=== PATIENT | male | born 1935 | race Asian ===

== ENCOUNTER 2016-12-01 11:07 | Emergency (ER) | payer OTHER, MEDICARE ==
--- NOTE | 2016-12-01 11:09 | PDOC ---
History of Present Illness - General Chief Complaint: Injury Stated Complaint: LOWER BACK PAIN S/P FALL Time Seen by Provider: 12/01/16 11:08 History Source: Patient, Spouse Exam Limitations: No Limitations - History of Present Illness Initial Comments: 12/01/16 11:34 Patient is an 81 year old male with PMH of Parkinsons disease, Hypothyroidism, BPH, Cervical spine fx & hypertension who presents to ED s/p mechanical fall. He reports being late with his Parkinson's medications and and had gait disturbance in the afternoon. He started to fall and reached out and grabbed a lamp in his room and grabbed onto it to break his fall. He ended up landing on his bottom. He did not hit his head. Denies any chest pain, headache, lightheadedness, palpitations, dizziness, SOB or loss of consciousness before or after the fall. Past History - Travel Traveled outside of the country in the last 30 days: No Close contact w/someone who was outside of country & ill: No - Past Medical History Allergies/Adverse Reactions: Allergies Allergy/AdvReac Type Severity Reaction Status Date / Time hazelnut Allergy Severe Difficulty Verified 12/01/16 11:09 Breathing Hazelnut Allergy Severe Throat Uncoded 07/05/16 13:25 swelling POLLEN Allergy Mild NASAL Uncoded 07/05/16 13:25 CONGESTION Home Medications: Ambulatory Orders Pramipexole Di-HCl [Pramipexole Dihydrochloride] 0.25 mg PO Q6H 03/10/15 Tamsulosin HCl [Flomax -] 0.4 mg PO HS 03/10/15 Carbidopa/Levodopa [Carbidopa-Levo 25-250 Mg Odt] 1 each PO QID tablet Sennosides [Senna] 8.6 mg PO DAILY tablet 11/13/16 Multivitamin [Poly-Vitamin] 1 each PO DAILY 12/01/16 [place]-3 Fatty Acids [[place]-3] 1,000 mg PO ASDIR 12/01/16 Anemia: No ( TEEN) Asthma: No Cancer: No Cardiac Disorders: No CVA: No COPD: No CHF: No Dementia: No Diabetes: No GI Disorders: Yes (GERD) Disorders: Yes (BPH) HTN: Yes Hypercholesterolemia: No Liver Disease: No Seizures: No Thyroid Disease: Yes (HYPO) Comment:: 12/01/16 11:38 Parkinsons - Surgical History Abdominal Surgery: No Appendectomy: Yes (2010 OR 2011) Cardiac Surgery: No Cholecystectomy: No Lung Surgery: No Neurologic Surgery: No Orthopedic Surgery: No - Immunization History Immunization Up to Date: Yes - Psycho/Social/Smoking Cessation Hx Anxiety: No Suicidal Ideation: No Smoking History: Never smoked Have you smoked in the past 12 months: No Hx Alcohol Use: No Drug/Substance Use Hx: No Substance Use Type: None Hx Substance Use Treatment: No Review of Systems - Review of Systems Able to Perform ROS?: Yes Is the patient limited Tamazight proficient: No Musculoskeletal: Yes: Back Pain All Other Systems: Reviewed and Negative *Physical Exam - Physical Exam General Appearance: Yes: Nourished, Appropriately Dressed, Mild Distress HEENT: positive: EOMI, MANGO, Normal ENT Inspection, Pharynx Normal Neck: positive: Trachea midline, Normal Thyroid, Supple Respiratory/Chest: positive: Lungs Clear, Normal Breath Sounds Cardiovascular: positive: Regular Rhythm, Regular Rate, S1, S2 Gastrointestinal/Abdominal: positive: Normal Bowel Sounds, Flat, Soft Musculoskeletal: positive: Normal Inspection Extremity: positive: Normal Inspection, Normal Range of Motion, Tender (tender to active & passive hip flexion and bilateral ischial portions of pelvis) Integumentary: positive: Normal Color, Dry, Warm Neurologic: 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 Medical Decision Making - Medical Decision Making 12/01/16 11:41 Ordered Tylenol 650mg for pain management. Hip & Pelvis XRays ordered to assess for fractures. 12/01/16 12:57 Hip Xray (-) for acute pathology. Patient instructed to take Tylenol extra strength every 6hours, if needed, for pain management. Patient will f/u with PCP in [place] if pain persists or worsens. *DC/Admit/Observation/Transfer Diagnosis at time of Disposition: Blunt trauma of hip - Discharge Dispostion Disposition: HOME Condition at time of disposition: Improved Admit: No - Patient Instructions Additional Instructions: Take extra strength Tylenol for pain, every 6 hours if needed. Visit your regular doctor a checkup if pain worsens or persists.
[2016-12-01 11:14] VITALS: BP 144/72; PULSE 80; TEMP 97.2; BMI 19.8
--- NOTE | 2016-12-01 11:15 | PDOC ---
Attending Attestation - Resident Resident Name: Alvaro,Beck - ED Attending Attestation I have performed the following: I have examined & evaluated the patient, The case was reviewed & discussed with the resident, I agree w/resident's findings & plan, Exceptions are as noted - HPI HPI: 12/01/16 11:14 The patient is an 81-year-old male with a significant past medical history of Parkinson's disease, who presents to the emergency department status mechanical post fall. He is complaining of bilateral hip pain, which is a mild dull ache. He denies head trauma, neck trauma. He denies headache, visual change, nausea/vomiting, focal weakness or paresthesias, memory changes. He denies chest, abdominal pain. 12/01/16 11:28 - Physicial Exam PE: 12/01/16 11:14 Vitals noted He is well-appearing and in no acute distress He has full range of motion at the hips and knees, without pain He does not have any discreet bony tenderness of the lumbar bony prominences, hips and pelvis Will obtain hip and pelvis x-rays 12/01/16 11:28 12/01/16 11:31 12/01/16 12:23 X-ray emergency Department interpretation: No acute traumatic injury noted Clinical impression: Hip contusion I discussed the physical exam findings, ancillary test results and final diagnoses with the patient. I answered all of the patient's questions. The patient was satisfied with the care received and felt comfortable with the discharge plan and treatment plan. The patient will call their primary care physician within 24 hours to arrange follow-up and will return to the Emergency Department with any new, persistent or worsening symptoms. - Medical Decision Making 12/01/16 11:31 The patient is well appearing and in no acute distress He declines analgesic medications Will obtain hip and pelvis Xray
[2016-12-01] MEDS ORDERED: ACETAMINOPHEN 325 MG TABLET (FP) PO ONE (11:33)
== END 2016-12-01 13:10 | disposition home or self-care (01) ==
LOC: FER 11:07
DX: S70.02XA Contusion of left hip, initial encounter (principal); S70.01XA Contusion of right hip, initial encounter; R26.89 Other abnormalities of gait and mobility; G20 Parkinson's disease; I10 Essential (primary) hypertension; E03.9 Hypothyroidism, unspecified; N40.0 Benign prostatic hyperplasia without lower urinary tract symptoms; W18.39XA Other fall on same level, initial encounter; Y93.89 Activity, other specified; Y92.018 Other place in single-family (private) house as the place of occurrence of the external cause
CPT/HCPCS: 73502-TC-LT; 73502-TC-RT; 99282-25

== ENCOUNTER 2019-02-06 23:00 | Inpatient (IN) | payer OTHER, MEDICARE ==
--- NOTE | 2019-02-06 23:05 | PDOC ---
History of Present Illness - General History Source: Patient, Significant Other Exam Limitations: Other - History of Present Illness Initial Comments: 02/06/19 23:37 The patient is a 82 year old male, with a significant past medical history of HTN, hypothyroidism, GERD, BPH, Parkinson's disease (ambulates with walker on baseline), Paroxysmal Atrial Fibrillation, and Right Bundle Branch Block, who presents to the emergency department, via EMS with abdominal pain since 7pm. As per , the diffuse abdominal pain began shortly after dinner. The patient states his last normal bowel movement was today, however, he endorses some gas intermittently in between his bowel movements. The patient denies burning on urination. The patient denies any sick contact or recent illness. The patient denies chest pain, shortness of breath, headache or dizziness. The patient denies fever, chills, nausea, vomit, frequency, urgency or hematuria. Allergies: NKDA Past Surgical History: Appendectomy Social History: Non smoker. No ETOH or recreational drug use. PCP: Dr. Rouse <Jhon Soto - Last Filed: 02/06/19 23:40> <Kassy Cantrell - Last Filed: 02/07/19 06:32> - General Chief Complaint: Pain, Acute Stated Complaint: ABD PAIN Time Seen by Provider: 02/06/19 23:05 Past History <Jhon Soto - Last Filed: 02/06/19 23:40> - Past Medical History Anemia: No ( TEEN) Asthma: No Cancer: No Cardiac Disorders: No CVA: No COPD: No CHF: No Dementia: No Diabetes: No GI Disorders: Yes (GERD) Disorders: Yes (BPH) HTN: Yes Hypercholesterolemia: No Liver Disease: No Seizures: No Thyroid Disease: Yes (HYPO) - Surgical History Abdominal Surgery: No Appendectomy: Yes (2010 OR 2011) Cardiac Surgery: No Cholecystectomy: No Lung Surgery: No Neurologic Surgery: No Orthopedic Surgery: No - Immunization History Immunization Up to Date: Yes - Suicide/Smoking/Psychosocial Hx Smoking History: Never smoked Have you smoked in the past 12 months: No Hx Alcohol Use: No Drug/Substance Use Hx: No Substance Use Type: None Hx Substance Use Treatment: No <Kassy Cantrell - Last Filed: 02/07/19 06:32> - Past Medical History Allergies/Adverse Reactions: Allergies Allergy/AdvReac Type Severity Reaction Status Date / Time hazelnut Allergy Severe Difficulty Verified 12/01/16 11:09 Breathing Hazelnut Allergy Severe Throat Uncoded 07/05/16 13:25 swelling POLLEN Allergy Mild NASAL Uncoded 07/05/16 13:25 CONGESTION Home Medications: Ambulatory Orders Ca Cmb No.1/Vit D3/B-6/FA/B12 [Vitamin D3 1,000 Unit Tablet] 1 each PO AM tablet 04/23/13 Carbidopa/Levodopa [Carbidopa-Levo 25-250 Mg Odt] 1 each PO QID tablet Sennosides [Senna] 8.6 mg PO TID tablet 11/13/16 Multivitamin [Poly-Vitamin] 1 each PO DAILY 12/01/16 [place]-3 Fatty Acids [[place]-3] 1,000 mg PO ASDIR 12/01/16 Docusate Sodium [Stool Softener] 100 mg PO DAILY capsule 03/28/17 Metoprolol Tartrate [Lopressor -] 12.5 mg PO BID 02/01/18 Pramipexole Dihydrochloride [Mirapex -] 0.25 mg PO QID 02/01/18 Review of Systems - Review of Systems Able to Perform ROS?: Yes Comments:: 02/06/19 23:38 GENERAL/CONSTITUTIONAL: No fever or chills. No weakness. HEAD, EYES, EARS, NOSE AND THROAT: No change in vision. No ear pain or discharge. No sore throat. CARDIOVASCULAR: No chest pain or shortness of breath. RESPIRATORY: No cough, wheezing, or hemoptysis. GASTROINTESTINAL: No nausea, vomiting, diarrhea or constipation. GENITOURINARY: No dysuria, frequency, or change in urination. MUSCULOSKELETAL:(+) abdominal pain. No joint or muscle swelling or pain. No neck or back pain. SKIN: No rash NEUROLOGIC: No headache, vertigo, loss of consciousness, or change in strength/ sensation. ENDOCRINE: No increased thirst. No abnormal weight change. HEMATOLOGIC/LYMPHATIC: No anemia, easy bleeding, or history of blood clots. ALLERGIC/IMMUNOLOGIC: No hives or skin allergy. All Other Systems: Reviewed and Negative <Jhon Soto - Last Filed: 02/06/19 23:40> *Physical Exam - Vital Signs Last Vital Signs Temp Pulse Resp BP Pulse Ox 97.7 F 82 24 H 201/108 H 96 02/06/19 23:14 02/06/19 23:14 02/06/19 23:14 02/06/19 23:14 02/06/19 23:14 - Physical Exam Comments: 02/06/19 23:38 GENERAL: Awake, alert, and fully oriented, in no acute distress HEAD: No signs of trauma EYES: PERRLA, EOMI, sclera anicteric, conjunctiva clear ENT: Auricles normal inspection, hearing grossly normal, nares patent, oropharynx clear without exudates. Moist mucosa NECK: Normal ROM, supple, no lymphadenopathy, JVD, or masses LUNGS: Breath sounds equal, clear to auscultation bilaterally. No wheezes, and no crackles HEART:(+) 3/6 systolic murmur on L sternal border. Regular rate and rhythm, normal S1 and S2, no rubs or gallops ABDOMEN: (+) normal active bowl sounds, moderately distended, soft. (+) passive mild diffuse tenderness without guarding or rebound. No masses (+) well healed diagonal incision of RLQ. EXTREMITIES: Normal range of motion, no edema. No clubbing or cyanosis. No cords, erythema, or tenderness NEUROLOGICAL: Cranial nerves II through XII grossly intact. Normal speech, normal gait SKIN: Warm, Dry, normal turgor, no rashes or lesions noted. <Jhon Soto - Last Filed: 02/06/19 23:40> ED Treatment Course - LABORATORY CBC & Chemistry Diagram: 02/06/19 23:10 02/06/19 23:10 - ADDITIONAL ORDERS Additional order review: 02/06/19 23:10 RBC 4.64 MCV 99.2 H MCHC 32.5 RDW 13.8 MPV 8.4 Neutrophils % 87.1 H Lymphocytes % 6.7 L D Monocytes % 4.6 Eosinophils % 1.0 Basophils % 0.6 <Jhon Soto - Last Filed: 02/06/19 23:40> - LABORATORY CBC & Chemistry Diagram: 02/06/19 23:10 02/06/19 23:10 <Kassy Cantrell - Last Filed: 02/07/19 06:32> Progress Note - Progress Note Progress Note: Documentation has been prepared under my direction and personally reviewed by me in its entirety. I attest that this documented accurately reflects all work, treatment, procedures and medical decision making performed by me. 12-lead electrocardiogram is performed and interpreted by me: Normal sinus rhythm at 85 bpm; right bundle-branch block is present as well as possible left atrial enlargement. No acute ST or T wave abnormality seen. No evidence of acute cardiac arrhythmia. No change from previous 12-lead EKG tracing dated 04/07/16 <Kassy Cantrell - Last Filed: 02/07/19 06:32> Medical Decision Making - Medical Decision Making 02/07/19 01:17 As noted above, this 83-year-old man with a history of Parkinson's, HTN,s/p appendectomy(2010) presents with several hour history of diffuse abdominal pain. Pain began soon after dinner(about 4 hours prior to presentation); there is no nausea/vomiting/fever. Patient had normal bowel movement today. Exam as noted. Vital signs notable for blood pressure on presentation of 201/108 with heart rate 82/min. Patient has been taking all medications, including antihypertensive meds( metoprolol) as prescribed. Laboratory evaluation reveals normal CBC with white blood cell count of 9300. BUN is 34 with a creatinine 0.9; otherwise, chemistry profile is unremarkable. Troponin is less than 0.03 Patient given acetaminophen 1 g IV for analgesia CT abdomen/pelvis with IV contrast is performed and preliminary interpretation by Imaging consumer marketing analyst: Apparent small bowel obstruction with distended small bowel loops and air-fluid levels; focal transition noted in the right lower quadrant with possibility of closed loop of small intestine (discussed with radiologist by phone) Otherwise, no significant abnormality seen. 02/07/19 01:23 Repeat BP 192/105 Labetalol 10 mg IV given 02/07/19 01:44 BP 170/81, HR 73 Dr. Johnson of [facility] called 02/07/19 02:04 [facility] recalled 02/07/19 03:20 Case discussed with , and then with Dr. Johnson Lactic acid/INR/ urinalysis sent; IV hydration (normal saline) continues 04:25 Lactic acid normal at 1. INR is also normal. Urinalysis SG 1.022, otherwise unremarkable 18F NG tube placed at 63cm ; pCXR reveals end of tube looped back into distal esophagus 02/07/19 04:46 NG tube repositioned and repeat pCXR shows NG tube in good position.CXR otherwise NAD Clear, pink fluid draining from NG tube(125 ml thus far). patient has voided within the last half hour [facility] service has been contacted and awaiting Dr Johnson' response regarding whether pt will stay at [place] or be transferred to [facility] 02/07/19 05:05 [facility] hospitalist service contacted regarding admission 02/07/19 05:28 Case discussed with MIHAI Garcia of [facility] hospitalist service. Still awaiting Dr. Johnson' response from earlier requests to the answering service 02/07/19 05:39 [facility] service re-contacted. They attempted to reach Dr. Johnson by phone but received no answer They will repage Dr. Johnson 02/07/19 05:50 After patient had good response from labetalol 10 mg IV at 1:15 AM, most recent BP is 197/105. Additional labetalol 10 mg IV administered 02/07/19 06:04 Patient transported upstairs 02/07/19 06:[address] Johnson: Patient ok to stay here at [facility] <Kassy Cantrell - Last Filed: 02/07/19 06:32> *DC/Admit/Observation/Transfer - Attestations Scribe Attestion: 02/06/19 23:39 Documentation prepared by Jhon Soto, acting as lead medical technologist for Kassy Cantrell MD <Jhon Soto - Last Filed: 02/06/19 23:40> - Discharge Dispostion Decision to Admit order: Yes <Kassy Cantrell - Last Filed: 02/07/19 06:32> Diagnosis at time of Disposition: Small bowel obstruction - Discharge Dispostion Condition at time of disposition: Stable
[2019-02-06 23:27] LABS: BASO % 0.6 % (0-2.0); HEMATOCRIT 46.1 % (35.4-49); LYMPH % 6.7 % (8-40); MCH 32.3 pg (25.7-33.7); MCHC 32.5 g/dl (32.0-35.9); MEAN CELL VOLUME 99.2 fl (80-96); MEAN PLT VOLUME 8.4 fl (7.5-11.1); MONO % 4.6 % (3.8-10.2); NEUT % 87.1 % (42.8-82.8); PLATELET COUNT 254 K/MM3 (134-434); RBC 4.64 M/mm3 (4.00-5.60); RDW 13.8 % (11.9-15.9); WHITE BLOOD COUNT 9.3 K/mm3 (4.0-10.8)
[2019-02-06 23:36] LABS: ALBUMIN 4.3 g/dl (3.4-5.0); ALK PHOS 66 U/L (45-117); ANION GAP 10 MMOL/L (8-16); BILIRUBIN,TOTAL 0.7 mg/dl (0.2-1); BLOOD UREA NITROGEN 34 mg/dl (7-18); CALCIUM 9.5 mg/dl (8.5-10); CHLORIDE 100 mmol/L (98-107); CO2 30 mmol/L (21-32); CREATININE 0.9 mg/dl (0.55-1.3); GLUCOSE,RANDOM 167 mg/dl (74-106); POTASSIUM 4.3 mmol/L (3.5-5.1); SGOT/AST 15 U/L (15-37); SODIUM 140 mmol/L (136-145); TOT PROT 6.8 g/dl (6.4-8.2)
[2019-02-06 23:38] LABS: SGPT/ALT < 5 U/L (13-61)
[2019-02-06] MEDS ORDERED: ACETAMINOPHEN 1000 MG/100 ML VIAL (NON FORMULARY) IVPB ONE (23:44)
[2019-02-06] MEDS ORDERED: ACETAMINOPHEN INJECTION 100 ML IVPB ONE (23:45)
[2019-02-07] MEDS ORDERED: LABETALOL HCL 5 MG/1 ML (100MG/20 ML VIAL) IVPUSH ONE ×3 (01:16→14:44)
[2019-02-07] MEDS ORDERED: LABETALOL HCL 5 MG/1 ML (100MG/20 ML VIAL) ONE ×2 (01:17→14:45)
[2019-02-07] MEDS ORDERED: SODIUM CHLORIDE 500 ML IV STA ×2 (02:39→23:40)
[2019-02-07] MEDS ORDERED: SODIUM CHLORIDE 1,000 ML IV SCH (03:15)
[2019-02-07] MEDS ORDERED: LIDOCAINE HCL 2% JELLY (5 ML/TUBE) ONE (03:17)
--- NOTE | 2019-02-07 03:27 | CONSULT ---
Consult Consult Specialty:: General Surgery Reason for Consultation:: SBO - History of Present Illness Chief Complaint: abdominal pain History of Present Illness: 83yo PMH HTN, hypothyroidism, GERD, BPH, Parkinson's disease (ambulates with walker on baseline), Paroxysmal Atrial Fibrillation, and Right Bundle Branch Block presented to the ED with c/o abd pain. Abdominal pain was acute in onset focal to RLQ, without migration. he denied passing flatus an pt seen at bedside , NG tube attached to low intermittent suction, minimal drainage. - History Source History Provided By: Patient, Medical Record Limitations to Obtaining History: No Limitations - Alcohol/Substance Use Hx Alcohol Use: No - Smoking History Smoking history: Never smoked Have you smoked in the past 12 months: No Home Medications - Allergies Allergies/Adverse Reactions: Allergies Allergy/AdvReac Type Severity Reaction Status Date / Time hazelnut Allergy Severe Difficulty Verified 12/01/16 11:09 Breathing Hazelnut Allergy Severe Throat Uncoded 07/05/16 13:25 swelling POLLEN Allergy Mild NASAL Uncoded 07/05/16 13:25 CONGESTION - Home Medications Home Medications: Ambulatory Orders Ca Cmb No.1/Vit D3/B-6/FA/B12 [Vitamin D3 1,000 Unit Tablet] 1 each PO AM tablet 04/23/13 Carbidopa/Levodopa [Carbidopa-Levo 25-250 Mg Odt] 1 each PO QID tablet Sennosides [Senna] 8.6 mg PO TID tablet 11/13/16 Multivitamin [Poly-Vitamin] 1 each PO DAILY 12/01/16 [place]-3 Fatty Acids [[place]-3] 1,000 mg PO ASDIR 12/01/16 Docusate Sodium [Stool Softener] 100 mg PO DAILY capsule MDD 2/day 03/28/17 Metoprolol Tartrate [Lopressor -] 12.5 mg PO BID 02/01/18 Pramipexole Dihydrochloride [Mirapex -] 0.25 mg PO QID 02/01/18 Aspirin [ASA -] 81 mg PO DAILY 02/07/19 Fluticasone Prop 0.05% Nasal [Flonase -] 1 - 2 spray NS DAILY 02/07/19 Review of Systems - Review of Systems Constitutional: denies: Chills, Fever, Unintentional Wgt. Loss Eyes: denies: Blind Spots, Blurred Vision HENT: denies: Difficult Swallowing, Throat Pain Cardiovascular: denies: Chest Pain, Palpitations Respiratory: denies: Cough, SOB Gastrointestinal: reports: Abdominal Pain, Bloating. denies: Constipation, Diarrhea Genitourinary: denies: Testicular Pain, Testicular Swelling Breasts: reports: No Symptoms Reported. denies: Pain Musculoskeletal: denies: Joint Swelling, Muscle Pain Integumentary: denies: Bruising, Pallor, Pruritis Neurological: denies: Seizure, Syncope Endocrine: denies: Unexplained Weight Gain, Unexplained Weight Loss Hematology/Lymphatic: denies: Easily Bruised, Excessive Bleeding Psychiatric: denies: Anxiety, Depression Physical Exam Vital Signs: Vital Signs Temperature 97.7 F 02/06/19 23:14 Pulse Rate 73 02/07/19 01:36 Respiratory Rate 20 02/07/19 01:36 Blood Pressure 170/81 02/07/19 01:36 O2 Sat by Pulse Oximetry (%) 95 02/07/19 01:36 Vital Signs Period Temp Pulse Resp BP Sys/Joiner Pulse Ox Last 24 Hr 97.4 F-98.2 F 72-82 17-24 162-201/67-108 95-98 Intake & Output 02/06/19 02/07/19 02/07/19 23:59 07:59 15:59 Intake Total 1500 Output Total 250 Balance 1250 Weight 135 lb 0.001 oz 128 lb 4.8 oz Intake: IV 1500 Normal Saline - 1,000 ml 500 @ 125 mls/hr IV ASDIR RUFINO Rx#:[id number] Normal Saline - 500 ml @ 1000 500 mls/hr IV ASDIR STA Rx#:[id number] Output: Gastric Drainage 150 Urine 100 Void 100 Other: Voiding Method Toilet Bedside Commode Height 5 ft 8 in 5 ft 8 in Body Mass Index (BMI) 20.5 19.5 Weight Measurement Method Est/Stated by Patient Constitutional: Yes: Well Nourished, No Distress, Calm Eyes: Yes: Conjunctiva Clear, EOM Intact HENT: Yes: Atraumatic, Normocephalic Neck: Yes: Supple, Trachea Midline Cardiovascular: Yes: Regular Rate and Rhythm, S1, S2 Respiratory: Yes: Regular, CTA Bilaterally Gastrointestinal: Yes: Soft, Distention, Hypoactive Bowel Sounds, Tenderness ( RLQ), Other (NGT present scan non-bilius effluent). No: Abdomen, Obese, Palpable Mass, Tenderness, Epigastrium, Tenderness, Rebound, Vomiting ...Rectal Exam: Yes: Sphincter Tone Normal. No: Induration, Inflammation, Mass Renal/: Yes: Other (reducible LIH fat containing). No: CVA Tenderness - Left , CVA Tenderness - Right Musculoskeletal: No: Muscle Pain, Muscle Weakness Extremities: No: Cool, Cyanosis Edema: No Peripheral Pulses WNL: Yes Integumentary: No: Jaundice, Skin Tear, Tattoos Neurological: Yes: Alert, Oriented, Tremors Psychiatric: Yes: Alert, Oriented Labs: CBC, BMP 02/06/19 23:10 02/06/19 23:10 Imaging - Results Cat Scan: Report Reviewed, Image Reviewed (distended loops of small intestines,) Problem List - Problems (1) Small bowel obstruction Assessment/Plan: 83yo male MMP with abdominal pain in RLQ, s/p appendectomy 2010, CT scan shows a small bowel obstruction and possible small bowel volvulus in RLQ. He has focal tenderness in RLQ, not rebound or guarding (not peritonitis) at present and he has remained hemodynamically stable. He is dehydrated clinically and by labs. I would favor non-operative management, but I will defer all management decisions to Dr. Grimes. He does not require emergency surgery intervention at this time. NPO and IVF resuscitation NGT to LIWS antiematic adequate analgesia Consult for Dr. Grimes, for continuity given previous experience with the patient serial abdominal exams Consider repeat xray imaging Consider transfer to a monitored setting or a location where he can be operatively managed if he decompensates or fails to improved will follow peripherally until Dr. Grimes can assess Thank you for the opportunity to participate in the care of this patient. Code(s): K56.609 - UNSP INTESTNL OBST, UNSP TO PARTIAL VERSUS COMPLETE OBST (2) S/P appendectomy Code(s): Z90.49 - ACQUIRED ABSENCE OF OTHER SPECIFIED PARTS OF DIGESTIVE TRACT (3) Parkinson disease Code(s): G20 - PARKINSON'S DISEASE (4) Abdominal pain, RLQ Code(s): R10.31 - RIGHT LOWER QUADRANT PAIN
[2019-02-07 03:42] LABS: URINE APPEARANCE CLOUDY; URINE BILIRUBIN NEGATIVE (NEGATIVE); URINE COLOR YELLOW; URINE GLUCOSE (UA) NEGATIVE (NEGATIVE); URINE KETONE NEGATIVE (NEGATIVE); URINE LEUK ESTERASE NEGATIVE (NEGATIVE); URINE NITRITE NEGATIVE (NEGATIVE); URINE PROTEIN NEGATIVE (NEGATIVE); URINE UROBILINOGEN 0.2 mg/dL (0.2-1.0)
[2019-02-07 03:59] LABS: INR 1.03 (0.83-1.09); PROTHROMBIN TIME (PATIENT) 12.2 SEC (9.7-13.0)
[2019-02-07] MEDS ORDERED: morphine CARPU-JECT 2 MG/1 ML DISP.SYRIN IVPUSH ONE (05:05)
[2019-02-07] MEDS ORDERED: morphine SULFATE 4 MG/ML VIAL ONE (05:06)
[2019-02-07] MEDS ORDERED: DEXTROSE 5%-0.45% SALINE 1,000 ML IV SCH (05:45)
[2019-02-07 08:23] LABS: HEMATOCRIT 43.8 % (35.4-49); HEMOGLOBIN 14.3 GM/dl (11.7-16.9); MCH 32.3 pg (25.7-33.7); MCHC 32.6 g/dl (32.0-35.9); MEAN CELL VOLUME 99.3 fl (80-96); MEAN PLT VOLUME 8.7 fl (7.5-11.1); PLATELET COUNT 236 K/MM3 (134-434); RBC 4.41 M/mm3 (4.00-5.60); RDW 13.6 % (11.9-15.9); WHITE BLOOD COUNT 10.8 K/mm3 (4.0-10.8)
[2019-02-07 08:37] LABS: ANION GAP 7 MMOL/L (8-16); BLOOD UREA NITROGEN 28 mg/dl (7-18); CALCIUM 8.8 mg/dl (8.5-10); CHLORIDE 106 mmol/L (98-107); CO2 28 mmol/L (21-32); CREATININE 0.7 mg/dl (0.55-1.3); GLUCOSE,RANDOM 156 mg/dl (74-106); POTASSIUM 4.1 mmol/L (3.5-5.1); SODIUM 141 mmol/L (136-145)
--- NOTE | 2019-02-07 09:10 | HP ---
CHIEF COMPLAINT:Abd pain PCP:Dr. Rouse HISTORY OF PRESENT ILLNESS: Tyrone Alexandra is a 83 yr with a significant past medical history of HTN, hypothyroidism, GERD, BPH, Parkinson's disease (ambulates with walker on baseline), Paroxysmal Atrial Fibrillation, and Right Bundle Branch Block presented to the ED with c/o abd pain. ER note reviewed. pt seen at bedside, NG tube attached to low intermittent suction, minimal drainage. ER course was notable for: (1)CT abd- SBO (preliminary report) (2) (3) Recent Travel: PAST MEDICAL HISTORY: HTN, hypothyroidism, GERD, BPH, Parkinson's disease (ambulates with walker on baseline), Paroxysmal Atrial Fibrillation PAST SURGICAL HISTORY: Appendectomy Social History: Smoking:denies Alcohol:denies Drugs: denies Family History: Allergies hazelnut Allergy (Severe, Verified 12/01/16 11:09) Difficulty Breathing Hazelnut Allergy (Severe, Uncoded 07/05/16 13:25) Throat swelling POLLEN Allergy (Mild, Uncoded 07/05/16 13:25) NASAL CONGESTION HOME MEDICATIONS: Home Medications Medication Instructions Recorded Ca Cmb No.1/Vit D3/B-6/FA/B12 1 each PO AM tablet 04/23/13 [Vitamin D3 1,000 Unit Tablet] Carbidopa/Levodopa [Carbidopa-Levo 1 each PO QID tablet 04/25/16 25-250 Mg Odt] Sennosides [Senna] 8.6 mg PO TID tablet 11/13/16 Multivitamin [Poly-Vitamin] 1 each PO DAILY 12/01/16 [place]-3 Fatty Acids [Ruth-3] 1,000 mg PO ASDIR 12/01/16 Docusate Sodium [Stool Softener] 100 mg PO DAILY capsule MDD 2/day 03/28/17 Metoprolol Tartrate [Lopressor -] 12.5 mg PO BID 02/01/18 Pramipexole Dihydrochloride 0.25 mg PO QID 02/01/18 [Mirapex -] Aspirin [ASA -] 81 mg PO DAILY 02/07/19 Fluticasone Prop 0.05% Nasal 1 - 2 spray NS DAILY 02/07/19 [Flonase -] REVIEW OF SYSTEMS CONSTITUTIONAL: Absent: fever, chills, diaphoresis, generalized weakness, malaise, loss of appetite, weight change HEENT: Absent: rhinorrhea, nasal congestion, throat pain, throat swelling, difficulty swallowing, mouth swelling, ear pain, eye pain, visual changes CARDIOVASCULAR: Absent: chest pain, syncope, palpitations, irregular heart rate, lightheadedness , peripheral edema RESPIRATORY: Absent: cough, shortness of breath, dyspnea with exertion, orthopnea, wheezing, stridor, hemoptysis GASTROINTESTINAL:+ABD pain, distention Absent: , nausea, vomiting, diarrhea, constipation, melena, hematochezia GENITOURINARY: Absent: dysuria, frequency, urgency, hesitancy, hematuria, flank pain, genital pain MUSCULOSKELETAL: Absent: myalgia, arthralgia, joint swelling, back pain, neck pain SKIN: Absent: rash, itching, pallor HEMATOLOGIC/IMMUNOLOGIC: Absent: easy bleeding, easy bruising, lymphadenopathy, frequent infections ENDOCRINE: Absent: unexplained weight gain, unexplained weight loss, heat intolerance, cold intolerance NEUROLOGIC: Absent: headache, focal weakness or paresthesias, dizziness, unsteady gait, seizure, mental status changes, bladder or bowel incontinence PSYCHIATRIC: Absent: anxiety, depression, suicidal or homicidal ideation, hallucinations. PHYSICAL EXAMINATION Vital Signs - 24 hr 02/06/19 02/07/19 02/07/19 23:14 01:13 01:36 Temperature 97.7 F Pulse Rate 82 Pulse Rate [ 73 Radial] Respiratory 24 H 20 Rate Blood Pressure 201/108 H Blood Pressure 192/105 H 170/81 [Arm] O2 Sat by Pulse 96 95 Oximetry (%) 02/07/19 02/07/19 02/07/19 05:34 05:57 06:21 Temperature 97.6 F 97.4 F L Pulse Rate 80 Pulse Rate [ 82 72 Radial] Respiratory 18 17 Rate Blood Pressure 170/67 Blood Pressure 197/105 H 190/93 H [Arm] O2 Sat by Pulse 95 98 Oximetry (%) 02/07/19 07:49 Temperature 98.2 F Pulse Rate 74 Pulse Rate [ Radial] Respiratory 18 Rate Blood Pressure 162/72 Blood Pressure [Arm] O2 Sat by Pulse Oximetry (%) GENERAL: Awake, alert, and fully oriented, in no acute distress. HEAD: Normal with no signs of trauma. EYES: Pupils equal, round and reactive to light, extraocular movements intact, sclera anicteric, conjunctiva clear. No lid lag. EARS, NOSE, THROAT: Ears normal, nares patent, oropharynx clear without exudates. Moist mucous membranes. NECK: Normal range of motion, supple without lymphadenopathy, JVD, or masses. LUNGS: Breath sounds equal, clear to auscultation bilaterally. No wheezes, and no crackles. No accessory muscle use. HEART: Regular rate and rhythm, normal S1 and S2 without murmur, rub or gallop. ABDOMEN: no Bowel sounds, no flatus, soft, distended, No hepatomegaly or splenomegaly. MUSCULOSKELETAL: Normal range of motion at all joints. No bony deformities or tenderness. No CVA tenderness. UPPER EXTREMITIES: 2+ pulses, warm, well-perfused. No cyanosis. No clubbing. No peripheral edema. LOWER EXTREMITIES: 2+ pulses, warm, well-perfused. No calf tenderness. No peripheral edema. NEUROLOGICAL: Cranial nerves II-XII intact. Normal speech. Normal gait. PSYCHIATRIC: Cooperative. Good eye contact. Appropriate mood and affect. SKIN: Warm, dry, normal turgor, no rashes or lesions noted, normal capillary refill. Laboratory Results - last 24 hr 02/06/19 02/06/19 02/06/19 23:10 23:10 23:10 WBC 9.3 RBC 4.64 Hgb 15.0 Hct 46.1 MCV 99.2 H MCH 32.3 MCHC 32.5 RDW 13.8 Plt Count 254 MPV 8.4 Absolute Neuts (auto) 8.1 Neutrophils % 87.1 H Lymphocytes % 6.7 L D Monocytes % 4.6 Eosinophils % 1.0 Basophils % 0.6 PT with INR INR Sodium 140 Potassium 4.3 Chloride 100 Carbon Dioxide 30 Anion Gap 10 BUN 34 H Creatinine 0.9 Creat Clearance w eGFR 80.20 Random Glucose 167 H Lactic Acid Calcium 9.5 Total Bilirubin 0.7 AST 15 ALT < 5 L Alkaline Phosphatase 66 Troponin I < 0.03 Total Protein 6.8 Albumin 4.3 Urine Color Urine Appearance Urine pH Ur Specific [place] Urine Protein Urine Glucose (UA) Urine Ketones Urine Blood Urine Nitrite Urine Bilirubin Urine Urobilinogen Ur Leukocyte Esterase 02/07/19 02/07/19 02/07/19 01:00 03:00 03:00 WBC RBC Hgb Hct MCV MCH MCHC RDW Plt Count MPV Absolute Neuts (auto) Neutrophils % Lymphocytes % Monocytes % Eosinophils % Basophils % PT with INR 12.20 INR 1.03 Sodium Potassium Chloride Carbon Dioxide Anion Gap BUN Creatinine Creat Clearance w eGFR Random Glucose Lactic Acid 1.0 Calcium Total Bilirubin AST ALT Alkaline Phosphatase Troponin I Total Protein Albumin Urine Color Yellow Urine Appearance Cloudy Urine pH 7.0 Ur Specific [place] 1.022 Urine Protein Negative Urine Glucose (UA) Negative Urine Ketones Negative Urine Blood Negative Urine Nitrite Negative Urine Bilirubin Negative Urine Urobilinogen 0.2 Ur Leukocyte Esterase Negative 02/07/19 02/07/19 06:40 06:40 WBC 10.8 RBC 4.41 Hgb 14.3 Hct 43.8 MCV 99.3 H MCH 32.3 MCHC 32.6 RDW 13.6 Plt Count 236 MPV 8.7 Absolute Neuts (auto) 10.1 Neutrophils % No Result Required. Lymphocytes % No Result Required. Monocytes % Eosinophils % Basophils % PT with INR INR Sodium 141 Potassium 4.1 Chloride 106 Carbon Dioxide 28 Anion Gap 7 L BUN 28 H Creatinine 0.7 Creat Clearance w eGFR 107.18 Random Glucose 156 H Lactic Acid Calcium 8.8 Total Bilirubin AST ALT Alkaline Phosphatase Troponin I Total Protein Albumin Urine Color Urine Appearance Urine pH Ur Specific [place] Urine Protein Urine Glucose (UA) Urine Ketones Urine Blood Urine Nitrite Urine Bilirubin Urine Urobilinogen Ur Leukocyte Esterase ASSESSMENT/PLAN: Tyrone Alexandra is a 83 yr old M, HTN, hypothyroidism, GERD, BPH, Parkinson's disease, Paroxysmal Atrial Fibrillation admitted for Admitting Diagnosis SBO Chronic Problems HTN Hypothyroidism GERD BPH Parkinson Disease Afib A/P: #SBO -NPO -NG tube to low intermittent suction -Sx consult -IVF -serial abd xrays #HTN #Afib, paroxysmal -tele monitoring -PO meds on hold -Labetalol IV given in ED for elevated BP -Cardio consult #Parkinson -carbidopa,mirapex on hold #Hypothyroidism -synthroid on hold #BPH -flomax on hold Dispo: requires inpatient treatment Visit type - Emergency Visit Emergency Visit: Yes ED Registration Date: 02/07/19 Care time: The patient presented to the Emergency Department on the above date and was hospitalized for further evaluation of their emergent condition. - New Patient This patient is new to me today: Yes Date on this admission: 02/07/19 - Critical Care Critical Care patient: No
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
[2019-02-07 09:41] LABS: PLATELET ESTIMATE ADEQUATE
--- NOTE | 2019-02-07 15:06 | PN ---
Progress Note (short form) - Note Progress Note: Asked to see this 83 yo gentleman who was admitted 02/06/2019 with RLQ abdominal pain. Was called at 10:45 AM 02/07/2019 about pt and given history which included pain that began last evening at 7:00 PM on 02/06/2019. CT scan performed in ER showed dilated loop of SB in RUQ suspicious for closed loop obstruction. Neoplasm could not be R/O. PMHx- HTN; Parkinson's Disease; Paroxysmal Atria Fibrillation; RBBB, BPH PsX- Lap Appendectomy Meds- Senna, Lopressor, Levo-Dopa P/E- Gen - awake,arouseable, communicative, c/o RLQ abdominal pain pt appears poorly-nourished Abd- + distention; tympanic on percussion with tenderness; Tender on palpation in all quadrants especially RLQ + rebound tenderness WBC-10.8 H/H-14.3/43.8 CT scan- RLQ dilated SB; possibe closed-loop obstruction Cannot R/O neoplasm as cause I- SB Obstruction; R/O closed-loop obstruction Acute Abdomen Rec- Discuused with pt and . Pt now needs surgery urgently as physical exam has apparently worsened from previously (I am evaluating him now for first time) . I explained to that pt is high-risk and could have prolonged post-op course that could include prolonged stay in ICU with pt on ventilator. I explained need to transfer pt to [facility] for ICU capabilities, and agrees. Will arrange transfer and surgery.
[2019-02-07] MEDS ORDERED: SODIUM CHLORIDE 0.45% 1,000 ML IV SCH ×2 (15:15→21:20)
[2019-02-07] MEDS ORDERED: LIDOCAINE HCL/PF 2% SDV 5ML VIAL ONE (16:37)
[2019-02-07] MEDS ORDERED: ROCURONIUM BROMIDE 50 MG/5 ML VIAL ONE ×2 (16:37→19:06)
[2019-02-07] MEDS ORDERED: PROPOFOL 20 ML ONE (16:37)
[2019-02-07] MEDS ORDERED: SUCCINYLCHOLINE CHLORIDE 200 MG/10 ML VIAL ONE (17:03)
[2019-02-07] MEDS ORDERED: ERTAPENEM SODIUM 1 GM VIAL ONE (17:24)
[2019-02-07] MEDS ORDERED: ERTAPENEM SODIUM 1 GM VIAL IVPB ONE (17:30)
[2019-02-07] MEDS ORDERED: PROPOFOL 1,000,000 MCG/100 ML VIAL IVPB SCH (19:45)
[2019-02-07] MEDS ORDERED: LACTATED RINGERS SOLUTION 1,000 ML IV SCH ×2 (19:45→21:20)
[2019-02-07] MEDS ORDERED: MIDAZOLAM HCL 2 MG/2 ML SINGLE DOSE VIAL ONE ×2 (19:50)
[2019-02-07] MEDS ORDERED: BENZOIN TINCTURE SWABSTICK TP ONE (19:53)
--- NOTE | 2019-02-07 20:08 | OP ---
Operative Note - Note: Operative Date: 02/07/19 Pre-Operative Diagnosis: Acute abdomen. Small Bowel Obstruction. Generalized abdominal pain Operation: Small Bowel Resection plus ileostomy. Jejunostomy tube insertion. Exploratory LaparotomyLysis of Adhesions Findings: Distal Small Bowel necrotic and perforation noted with leakage of abdominal contents. Ileostomy performed in right upper abdomen and jejunostomy in left upper abdomen Post-Operative Diagnosis: Same as Pre-op (Necrotic small bowel; perforated small bowel; abdominal adhesions) Surgeon: Jay Grimes Anesthesia: General Specimens Removed: distal small bowel Estimated Blood Loss (mls): 100 Drains & Tubes with Location: jejunostomy tube Operative Report Dictated: Yes
--- NOTE | 2019-02-07 20:11 | CONSULT ---
Consult Consult Specialty:: ICU Referred by:: Surgery Reason for Consultation:: POstop monitoring following perforated/gangrenous bowel with perioperative hypertensive emergency/AMS - History of Present Illness Chief Complaint: Perioperative hypertensive emergency (AMS), s/p perforated gangrenous bowel History of Present Illness: Tyrone Alexandra is a 83 yr with a significant past medical history of HTN, hypothyroidism, GERD, BPH, Parkinson's disease (ambulates with walker on baseline), Paroxysmal Afib, and RBBB presented to the ED with c/o abd pain had emergent exlap and found to have Distal Small Bowel necrotic and perforation noted with leakage of abdominal contents. Pt is now s/p Small Bowel Resection plus ileostomy. Jejunostomy tube insertion. Exploratory LaparotomyLysis of Adhesions Distal Small bowel tissue specimen was sent to lab, EBL-100mls, pt received 3000L of IVF and 200mls of urine made. Pt received 3 rounds of IV labetalol at 10mg for BP up over 200/100 Pt now has jejunostomy tube. Ileostomy was performed in right upper abdomen and jejunostomy in left upper abdomen Pt was recovered in the ICU and remains intubated to be monitored for volume and blood pressure management Pt reported not to normally be hypertensive except when stressed, following labetalol pushes in OR, his BP ranged from 120-160s. 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 Cardio/Vascular: Yes: HTN Endocrine: Yes: Hypothyroidism - Alcohol/Substance Use Hx Alcohol Use: No - Smoking History Smoking history: Never smoked Have you smoked in the past 12 months: No Home Medications - Allergies Allergies/Adverse Reactions: Allergies Allergy/AdvReac Type Severity Reaction Status Date / Time hazelnut Allergy Severe Difficulty Verified 12/01/16 11:09 Breathing Hazelnut Allergy Severe Throat Uncoded 07/05/16 13:25 swelling POLLEN Allergy Mild NASAL Uncoded 07/05/16 13:25 CONGESTION - Home Medications Home Medications: Ambulatory Orders Ca Cmb No.1/Vit D3/B-6/FA/B12 [Vitamin D3 1,000 Unit Tablet] 1 each PO AM tablet 04/23/13 Carbidopa/Levodopa [Carbidopa-Levo 25-250 Mg Odt] 1 each PO QID tablet Sennosides [Senna] 8.6 mg PO TID tablet 11/13/16 Multivitamin [Poly-Vitamin] 1 each PO DAILY 12/01/16 [place]-3 Fatty Acids [[place]-3] 1,000 mg PO ASDIR 12/01/16 Docusate Sodium [Stool Softener] 100 mg PO DAILY capsule MDD 2/day 03/28/17 Metoprolol Tartrate [Lopressor -] 12.5 mg PO BID 02/01/18 Pramipexole Dihydrochloride [Mirapex -] 0.25 mg PO QID 02/01/18 Aspirin [ASA -] 81 mg PO DAILY 02/07/19 Fluticasone Prop 0.05% Nasal [Flonase -] 1 - 2 spray NS DAILY 02/07/19 Physical Exam Vital Signs: Vital Signs Temperature 98.6 F 02/07/19 14:30 Pulse Rate 87 02/07/19 14:54 Respiratory Rate 18 02/07/19 14:30 Blood Pressure 147/70 02/07/19 14:54 O2 Sat by Pulse Oximetry (%) 98 02/07/19 05:57 Constitutional: Yes: Other (intubated, sedated) Eyes: Yes: PERRL (miosed) HENT: Yes: Other (ETT-) Cardiovascular: Yes: S1, S2 Respiratory: Yes: Mechanically Ventilated Gastrointestinal: Yes: Hypoactive Bowel Sounds, Other (Jejunostomy tube, ventral surgical incision with clean dressing, drain) Renal/: Yes: Will Present Extremities: Yes: Cold, Pallor, Other (mottling on bilateral knees) Edema: No Neurological: Yes: Other (sedated) Labs: CBC, BMP 02/07/19 06:40 02/07/19 06:40 Assessment/Plan Ambulatory Orders Ca Cmb No.1/Vit D3/B-6/FA/B12 [Vitamin D3 1,000 Unit Tablet] 1 each PO AM tablet 04/23/13 Carbidopa/Levodopa [Carbidopa-Levo 25-250 Mg Odt] 1 each PO QID tablet Sennosides [Senna] 8.6 mg PO TID tablet 11/13/16 Multivitamin [Poly-Vitamin] 1 each PO DAILY 12/01/16 [place]-3 Fatty Acids [[place]-3] 1,000 mg PO ASDIR 12/01/16 Docusate Sodium [Stool Softener] 100 mg PO DAILY capsule MDD 2/day 03/28/17 Metoprolol Tartrate [Lopressor -] 12.5 mg PO BID 02/01/18 Pramipexole Dihydrochloride [Mirapex -] 0.25 mg PO QID 02/01/18 Aspirin [ASA -] 81 mg PO DAILY 02/07/19 Fluticasone Prop 0.05% Nasal [Flonase -] 1 - 2 spray NS DAILY 02/07/19 Active Medications Chlorhexidine Gluconate (Hibiclens For Decolonization -) 1 applic TP HS RUFINO Fentanyl (Sublimaze Injection -) 50 mcg IVPUSH [id number] PRN PRN Reason: PAIN-PACU ORDER X 4 DOSES ONLY Sodium Chloride (1/2 Normal Saline) 1,000 mls @ 125 mls/hr IV ASDIR RUFINO Lactated Ringer's (Lactated Ringers Solution) 1,000 mls @ 125 mls/hr IV ASDIR RUFINO Propofol (Diprivan -) 1,000,000 mcg in 100 mls @ 10.475 mls/hr IVPB TITR RUFINO; Protocol Mupirocin (Bactroban Ointment (For Decolonization) -) 1 applic NS BID RUFINO Stop: 02/12/19 21:59 Assessment/Plan: Pt is a 83 yr M with a signif PMHx of HTN, hypothyroidism, GERD, BPH, Parkinson' s disease (ambulates with walker on baseline), Paroxysmal Afib, and RBBB presented to the ED with c/o abd pain had emergent exlap and found to have Distal Small Bowel necrotic and perforation noted with leakage of abdominal contents. #Neuro: AMS likely in setting of HTNsive emergency Pt with Parkinson hx- hold meds overnight, Consider OGT for parkinson medical practitioners with return of bowel function Pt sedated and intubated Pt developed Hypertensive Emergency- 200s/100s with AMS periop Received Labetalol x3 Iv pushes BP was in 120-160 range intraop with minimal bld loss (100ml) Received 3L fluid urine 200ml #Respiratory Acute respiratory failure Pt intubated AC- Monitor for fluid overload, risk for ARDS with sepsis #GI: Postop day 0 ()02/07/19), gangrenous bowel Small Bowel Resection plus ileostomy, Jejunostomy tube insertion, Exploratory LaparotomyLysis of Adhesions Septic received periop ertapenem ID consult- Dr Preciado CBC #ID Pt noted to be neutropenic Bcx stat, UA, Urine cx, cbc repeat Tissue sample sent to lab- unsure what tests were requested on specimen D/W Dr Preciado- iv zosyn4.5g Q8H/Iv flagyl 500mg Q8H/ Iv diflucan 400mg stat Pt may need pressors- monitor BP actively #Renal Pt at risk for RAJ Made only 200ml intraop with 3L fluid Monitor urine output Will in place with bloody urine LR @125 Avoid nephrotoxic drugs BMP, Mg, Phosph #Cardio Hx of PAF Pt had been on ASA prior to Sx Minimal blood loss noted SCDs for now Monitor BP #Endo Hypothyroidism No standing levo dose noted Will confirm home meds #FEN IV LR @125 Monitor lytes replete as needed NPO PPX SCDS Dispo ICU level care Visit type - Emergency Visit Emergency Visit: Yes ED Registration Date: 02/07/19 Care time: The patient presented to the Emergency Department on the above date and was hospitalized for further evaluation of their emergent condition. - New Patient This patient is new to me today: Yes Date on this admission: 02/07/19 - Critical Care Critical Care patient: Yes Total Critical Care Time (in minutes): 45 Critical Care Statement: The care of this patient involved high complexity decision making to prevent further life threatening deterioration of the patient 's condition and/or to evaluate & treat vital organ system(s) failure or risk of failure.
[2019-02-07 21:27] LABS: HEMATOCRIT 49.8 % (35.4-49); HEMOGLOBIN 16.2 GM/dL (11.7-16.9); MCH 32.5 pg (25.7-33.7); MCHC 32.5 g/dl (32.0-35.9); MEAN CELL VOLUME 99.8 fl (80-96); MEAN PLT VOLUME 8.6 fl (7.5-11.1); PLATELET COUNT 194 K/MM3 (134-434); RBC 4.99 M/mm3 (4.00-5.60); RDW 14.8 % (11.9-15.9)
[2019-02-07 21:36] LABS: WHITE BLOOD COUNT 1.8 K/mm3 (4.0-10.0)
[2019-02-07 21:51] LABS: ALLENS TEST POSITIVE; ARTERIAL BLD GAS O2 SATURATION 98.5 % (95-98); ARTERIAL BLOOD GAS BASE EXCESS 0 meq/l (-2-2); ARTERIAL BLOOD GAS PCO2 37.9 mmHg (35-45); ARTERIAL BLOOD GAS PO2 125 mmHg (80-105); ARTERIAL BLOOD GAS pH 7.41 (7.35-7.45)
[2019-02-07 21:57] LABS: ALBUMIN 2.2 g/dl (3.4-5.0); ALK PHOS 46 U/L (45-117); ANION GAP 9 MMOL/L (8-16); BILIRUBIN,TOTAL 0.5 mg/dL (0.2-1); BLOOD UREA NITROGEN 27 mg/dL (7-18); CALCIUM 7.9 mg/dL (8.5-10.1); CHLORIDE 112 mmol/L (98-107); CO2 24 mmol/L (21-32); CREATININE 0.9 mg/dL (0.55-1.3); GLUCOSE,RANDOM 139 mg/dL (74-106); MAGNESIUM 1.8 mg/dL (1.8-2.4); PHOSPHOROUS 2.9 mg/dL (2.5-4.9); POTASSIUM 4.9 mmol/L (3.5-5.1); SGOT/AST 13 U/L (15-37); SGPT/ALT 7 U/L (13-61); SODIUM 144 mmol/L (136-145); TOT PROT 4.2 g/dl (6.4-8.2)
[2019-02-07] MEDS ORDERED: PIPERACILLIN/TAZOB 2.25 GM 2.25 GM in DEXTROSE 5%-WATER - 50 ML IVPB SCH (22:15)
[2019-02-07] MEDS ORDERED: FLUCONAZOLE 400 MG/NS 200 ML IVPB ONE (22:45)
--- NOTE | 2019-02-07 22:47 | PN ---
Physical Exam: SUBJECTIVE: Patient seen and examined Intubated on mechanical ventilator No sedation secondary to hypotension POD #0 SBO resection with Ileostomy, Jejunostomy secondary to distal small bowel necrosis and perforation OBJECTIVE: Vital Signs Period Temp Pulse Resp BP Sys/Joiner Pulse Ox Last 24 Hr 97.4 F-98.6 F 72-105 17-24 147-201/67-108 95-98 GENERAL: The patient is intubated, minimally responsive to name, opes eyes HEAD: Normal with no signs of trauma. EYES: Pinpoint pupils, sclera anicteric, conjunctiva clear. No ptosis. ENT: ET tube in place, dry mucous membranes. NECK: Trachea midline, supple. LUNGS: Coarse breath sounds on vent, no wheeze, no crackles, no accessory muscle use HEART: Regular rate and rhythm, S1, S2 without murmur, rub or gallop. ABDOMEN: Surgical dressing in place C/D/I with drain in place Ileostomy patent in RUQ, absent bowel sounds. soft, nondistended EXTREMITIES: 2+ pulses, warm, well-perfused, no edema. NEUROLOGICAL: Intubated PSYCH: Intubated SKIN: Warm, dry, normal turgor, no rashes or lesions noted Laboratory Results - last 24 hr 02/06/19 02/06/19 02/06/19 23:10 23:10 23:10 WBC 9.3 RBC 4.64 Hgb 15.0 Hct 46.1 MCV 99.2 H MCH 32.3 MCHC 32.5 RDW 13.8 Plt Count 254 MPV 8.4 Absolute Neuts (auto) 8.1 Neutrophils % 87.1 H Neutrophils % (Manual) Band Neutrophils % Lymphocytes % 6.7 L D Lymphocytes % (Manual) Monocytes % 4.6 Monocytes % (Manual) Eosinophils % 1.0 Basophils % 0.6 Platelet Estimate PT with INR INR Puncture Site ABG pH ABG pCO2 at Pt Temp ABG pO2 at Pt Temp ABG HCO3 ABG O2 Sat (Measured) ABG O2 Content ABG Base Excess Brian Test O2 Delivery Device Oxygen Flow Rate Vent Mode Vent Rate Mechanical Rate PEEP Pressure Support Vent Sodium 140 Potassium 4.3 Chloride 100 Carbon Dioxide 30 Anion Gap 10 BUN 34 H Creatinine 0.9 Creat Clearance w eGFR 80.20 Random Glucose 167 H Lactic Acid Calcium 9.5 Phosphorus Magnesium Total Bilirubin 0.7 AST 15 ALT < 5 L Alkaline Phosphatase 66 Troponin I < 0.03 Total Protein 6.8 Albumin 4.3 Urine Color Urine Appearance Urine pH Ur Specific Stirum Urine Protein Urine Glucose (UA) Urine Ketones Urine Blood Urine Nitrite Urine Bilirubin Urine Urobilinogen Ur Leukocyte Esterase Blood Type Antibody Screen 02/07/19 02/07/19 02/07/19 01:00 03:00 03:00 WBC RBC Hgb Hct MCV MCH MCHC RDW Plt Count MPV Absolute Neuts (auto) Neutrophils % Neutrophils % (Manual) Band Neutrophils % Lymphocytes % Lymphocytes % (Manual) Monocytes % Monocytes % (Manual) Eosinophils % Basophils % Platelet Estimate PT with INR 12.20 INR 1.03 Puncture Site ABG pH ABG pCO2 at Pt Temp ABG pO2 at Pt Temp ABG HCO3 ABG O2 Sat (Measured) ABG O2 Content ABG Base Excess Brian Test O2 Delivery Device Oxygen Flow Rate Vent Mode Vent Rate Mechanical Rate PEEP Pressure Support Vent Sodium Potassium Chloride Carbon Dioxide Anion Gap BUN Creatinine Creat Clearance w eGFR Random Glucose Lactic Acid 1.0 Calcium Phosphorus Magnesium Total Bilirubin AST ALT Alkaline Phosphatase Troponin I Total Protein Albumin Urine Color Yellow Urine Appearance Cloudy Urine pH 7.0 Ur Specific Stirum 1.022 Urine Protein Negative Urine Glucose (UA) Negative Urine Ketones Negative Urine Blood Negative Urine Nitrite Negative Urine Bilirubin Negative Urine Urobilinogen 0.2 Ur Leukocyte Esterase Negative Blood Type Antibody Screen 02/07/19 02/07/19 02/07/19 06:40 06:40 07:30 WBC 10.8 RBC 4.41 Hgb 14.3 Hct 43.8 MCV 99.3 H MCH 32.3 MCHC 32.6 RDW 13.6 Plt Count 236 MPV 8.7 Absolute Neuts (auto) 10.1 Neutrophils % No Result Required. Neutrophils % (Manual) 86.0 H Band Neutrophils % 5.0 Lymphocytes % No Result Required. Lymphocytes % (Manual) 6.0 L Monocytes % Monocytes % (Manual) 3 L Eosinophils % Basophils % Platelet Estimate Adequate PT with INR INR Puncture Site ABG pH ABG pCO2 at Pt Temp ABG pO2 at Pt Temp ABG HCO3 ABG O2 Sat (Measured) ABG O2 Content ABG Base Excess Brian Test O2 Delivery Device Oxygen Flow Rate Vent Mode Vent Rate Mechanical Rate PEEP Pressure Support Vent Sodium 141 Potassium 4.1 Chloride 106 Carbon Dioxide 28 Anion Gap 7 L BUN 28 H Creatinine 0.7 Creat Clearance w eGFR 107.18 Random Glucose 156 H Lactic Acid Calcium 8.8 Phosphorus Magnesium Total Bilirubin AST ALT Alkaline Phosphatase Troponin I Total Protein Albumin Urine Color Urine Appearance Urine pH Ur Specific Stirum Urine Protein Urine Glucose (UA) Urine Ketones Urine Blood Urine Nitrite Urine Bilirubin Urine Urobilinogen Ur Leukocyte Esterase Blood Type A POSITIVE Antibody Screen Negative 02/07/19 02/07/19 02/07/19 07:30 21:15 21:15 WBC 1.8 L* RBC 4.99 Hgb 16.2 Hct 49.8 H D MCV 99.8 H MCH 32.5 MCHC 32.5 RDW 14.8 Plt Count 194 MPV 8.6 Absolute Neuts (auto) Neutrophils % Neutrophils % (Manual) Band Neutrophils % Lymphocytes % Lymphocytes % (Manual) Monocytes % Monocytes % (Manual) Eosinophils % Basophils % Platelet Estimate PT with INR INR Puncture Site ABG pH ABG pCO2 at Pt Temp ABG pO2 at Pt Temp ABG HCO3 ABG O2 Sat (Measured) ABG O2 Content ABG Base Excess Brian Test O2 Delivery Device Oxygen Flow Rate Vent Mode Vent Rate Mechanical Rate PEEP Pressure Support Vent Sodium 144 Potassium 4.9 Chloride 112 H Carbon Dioxide 24 Anion Gap 9 BUN 27 H Creatinine 0.9 Creat Clearance w eGFR 80.20 Random Glucose 139 H Lactic Acid Calcium 7.9 L Phosphorus 2.9 Magnesium 1.8 Total Bilirubin 0.5 AST 13 L ALT 7 L Alkaline Phosphatase 46 Troponin I Total Protein 4.2 L Albumin 2.2 L Urine Color Urine Appearance Urine pH Ur Specific Stirum Urine Protein Urine Glucose (UA) Urine Ketones Urine Blood Urine Nitrite Urine Bilirubin Urine Urobilinogen Ur Leukocyte Esterase Blood Type A POSITIVE Antibody Screen 02/07/19 21:43 WBC RBC Hgb Hct MCV MCH MCHC RDW Plt Count MPV Absolute Neuts (auto) Neutrophils % Neutrophils % (Manual) Band Neutrophils % Lymphocytes % Lymphocytes % (Manual) Monocytes % Monocytes % (Manual) Eosinophils % Basophils % Platelet Estimate PT with INR INR Puncture Site Arterial line ABG pH 7.41 ABG pCO2 at Pt Temp 37.9 ABG pO2 at Pt Temp 125 H ABG HCO3 23.7 ABG O2 Sat (Measured) 98.5 H ABG O2 Content 23.1 H ABG Base Excess 0 Brian Test Positive O2 Delivery Device Mech vent Oxygen Flow Rate 40% Vent Mode Simv/ps+10 Vent Rate 10 Mechanical Rate Yes PEEP 5.0 Pressure Support Vent 500 Sodium Potassium Chloride Carbon Dioxide Anion Gap BUN Creatinine Creat Clearance w eGFR Random Glucose Lactic Acid Calcium Phosphorus Magnesium Total Bilirubin AST ALT Alkaline Phosphatase Troponin I Total Protein Albumin Urine Color Urine Appearance Urine pH Ur Specific Stirum Urine Protein Urine Glucose (UA) Urine Ketones Urine Blood Urine Nitrite Urine Bilirubin Urine Urobilinogen Ur Leukocyte Esterase Blood Type Antibody Screen Active Medications Generic Name Dose Route Start Last Admin Trade Name Freq PRN Reason Stop Dose Admin Acetaminophen 1,000 mg 02/07/19 21:32 Ofirmev Injection - IVPB Q6H PRN FEVER Chlorhexidine Gluconate 1 applic 02/07/19 22:00 Hibiclens For Decolonization - TP HS RUFINO Propofol 1,000,000 mcg in 100 mls @ 10.475 mls/hr 02/07/19 21:20 Diprivan - IVPB TITR RUFINO Protocol 30 MCG/KG/MIN Sodium Chloride 1,000 mls @ 125 mls/hr 02/07/19 21:20 02/07/19 21:40 1/2 Normal Saline IV 0 mls ASDIR RUFINO Administration Fluconazole 200 mls @ 200 mls/hr 02/07/19 22:45 Diflucan 400 Mg/Ns Premixed Ivpb - IVPB 02/07/19 23:44 ONCE ONE Metronidazole 500 mg in 100 mls @ 100 mls/hr 02/07/19 22:45 Flagyl 500mg Premixed Ivpb - IVPB Q8H-IV RUFINO Piperacillin Sod/Tazobactam 100 mls @ 200 mls/hr 02/08/19 02:00 Sod 4.5 gm/ Dextrose IVPB Q8H-IV RUFINO Protocol Piperacillin Sod/Tazobactam 100 mls @ 200 mls/hr 02/08/19 02:00 Sod 4.5 gm/ Dextrose IVPB 02/08/19 10:29 Q8H-IV RUFINO Mupirocin 1 applic 02/07/19 22:00 Bactroban Ointment (For Decolonization) - NS 02/12/19 21:59 BID RUFINO ASSESSMENT/PLAN: This is a 83 y/o man with a PMHx of: HTN, HLD, Afib, Parkinson's. Admitted for SBO with perforation. s/p small bowel resection with Ileostomy and Jejunostomy POD #0. Plan: 1. Sepsis Secondary to SBO with perforation qSOFA 2 Continue ICU monitoring Airway- intubated on mechanical ventilation Continue IVF resuscitation Maintain MAP > 65 Consider IV Pressors Will need Central Line Continue Zosyn, Flagyl, Fluconazole Blood cultures-pending Urine culture-pending Monitor CBC, BMP 2. Small Bowel Obstruction s/p Ex Lap Continue Fluconazole Continue Metronidazole Continue Zosyn Surgery following Appreciate ID consult Keep NPO Monitor CBC. BMP Tylenol IV prn Problem List - Problems (1) BPH (benign prostatic hyperplasia) Code(s): N40.0 - BENIGN PROSTATIC HYPERPLASIA WITHOUT LOWER URINRY TRACT SYMP (2) HTN (hypertension), benign Assessment/Plan: Hold meds secondary to Hypotension Code(s): I10 - ESSENTIAL (PRIMARY) HYPERTENSION (3) Hypothyroidism Assessment/Plan: Monitor TSH Thyroxine IV Code(s): E03.9 - HYPOTHYROIDISM, UNSPECIFIED (4) Parkinson disease Assessment/Plan: Hold meds for now Code(s): G20 - PARKINSON'S DISEASE Visit type - Emergency Visit Emergency Visit: No - New Patient This patient is new to me today: Yes Date on this admission: 02/07/19 - Critical Care Critical Care patient: Yes Total Critical Care Time (in minutes): 35 Critical Care Statement: The care of this patient involved high complexity decision making to prevent further life threatening deterioration of the patient 's condition and/or to evaluate & treat vital organ system(s) failure or risk of failure. - Discharge Referral Referred to [facility] Med [facility] No
[2019-02-07] MEDS: SODIUM CHLORIDE 1,000 ML IV STA ×2 (23:00→23:34)
[2019-02-07] MEDS ORDERED: LACTATED RINGERS SOLUTION 1,000 ML/1,000 ML INFUS.BAG IV SCH (23:15)
[2019-02-07] MEDS: MUPIROCIN 2% TOPICAL OINTMENT FOR DECOLONIZATION NS SCH (23:30)
[2019-02-07] MEDS: PROPOFOL 1,000,000 MCG/100 ML VIAL IVPB SCH (23:30)
[2019-02-07] MEDS: CHLORHEXIDINE GLUCONATE 4% CLEANSER FOR DECOLONIZATION TP SCH (23:30)
[2019-02-08 00:21] LABS: ALBUMIN 1.9 g/dl (3.4-5.0); ALK PHOS 39 U/L (45-117); ANION GAP 7 MMOL/L (8-16); BILIRUBIN,TOTAL 0.5 mg/dL (0.2-1); BLOOD UREA NITROGEN 28 mg/dL (7-18); CALCIUM 7.3 mg/dL (8.5-10.1); CHLORIDE 114 mmol/L (98-107); CO2 23 mmol/L (21-32); GLUCOSE,RANDOM 133 mg/dL (74-106); POTASSIUM 4.4 mmol/L (3.5-5.1); SGOT/AST 9 U/L (15-37); SGPT/ALT 6 U/L (13-61); SODIUM 144 mmol/L (136-145); TOT PROT 3.6 g/dl (6.4-8.2)
[2019-02-08] MEDS ORDERED: LACTATED RINGERS SOLUTION 1000 ML INFUS.BAG IV ONE ×4 (00:26→13:14)
[2019-02-08 01:25] LABS: BASO % 0.3 % (0-2.0); EOS % 0.1 % (0-4.5); HEMATOCRIT 45.7 % (35.4-49); LYMPH % 10.2 % (8-40); MCH 32.7 pg (25.7-33.7); MCHC 32.9 g/dl (32.0-35.9); MEAN CELL VOLUME 99.2 fl (80-96); MONO % 8.9 % (3.8-10.2); NEUT % 80.5 % (42.8-82.8); PLATELET COUNT 185 K/MM3 (134-434); RDW 14.7 % (11.9-15.9); WHITE BLOOD COUNT 2.2 K/mm3 (4.0-10.0)
[2019-02-08 01:28] LABS: EPI CELLS 1.7 /HPF (0-5); URINE APPEARANCE CLOUDY; URINE BACTERIA 3.7 /hpf (NEGATIVE); URINE BILIRUBIN 1+ (NEGATIVE); URINE CASTS 47 /hpf (0-8); URINE COLOR ORANGE; URINE GLUCOSE (UA) NEGATIVE (NEGATIVE); URINE KETONE TRACE (NEGATIVE); URINE LEUK ESTERASE TRACE (NEGATIVE); URINE NITRITE NEGATIVE (NEGATIVE); URINE PROTEIN 2+ (NEGATIVE); URINE RBC 89 /hpf (0-4); URINE WBC 2 /hpf (0-5)
--- NOTE | 2019-02-08 01:38 | PN ---
Progress Note (short form) - Note Progress Note: Patient is full code. Spoke to Mayuri Alexandra- [phone] to get consent for central line, witnessed over phone by nurse Heber. Also documented Granddaughter 513 [phone]-[id number] Lyons.
[2019-02-08] MEDS: PIPERACILLIN/TAZOB 4.5 GM 4.5 GM in DEXTROSE 5%-WATER 100 ML IVPB SCH ×3 (02:00→17:20)
[2019-02-08] MEDS ORDERED: PIPERACILLIN/TAZOBACTAM 4.5 GM VIAL IVPB ONE ×3 (02:23→16:54)
[2019-02-08] MEDS ORDERED: DEXTROSE 5%-WATER 100 ML IVPB ONE ×3 (02:23→16:54)
--- NOTE | 2019-02-08 02:46 | PROC ---
Central Line Insertion Indication: Sepsis, Vasopressor Risks and Benefits Explained: Yes (Consent obtained from ) Consent on Chart: Yes (Consent obtained from ) Central Line: Triple Lumen Catheter Anesthesia: 1% Lidocaine Sterile Technique: Yes Ultrasound Guided Assistance: Yes Position: Left Internal Jugular Post Insertion: Yes: Bilateral Breath Sounds, Bilateral Chest Expansion, Chest X-Ray Ordered Sterile Dressing Applied: Yes
[2019-02-08] MEDS: NOREPINEPHRINE BITARTRATE 8,000 MCG in DEXTROSE 5%-WATER - 492 ML IV SCH (03:00)
[2019-02-08] MEDS: ACETAMINOPHEN 1000 MG/100 ML VIAL (NON FORMULARY) IVPB PRN (06:14)
[2019-02-08 07:14] LABS: BASO % 0.2 % (0-2.0); EOS % 0.1 % (0-4.5); HEMATOCRIT 43.7 % (35.4-49); HEMOGLOBIN 14.1 GM/dL (11.7-16.9); LYMPH % 8.5 % (8-40); MCH 32.2 pg (25.7-33.7); MCHC 32.4 g/dl (32.0-35.9); MEAN CELL VOLUME 99.4 fl (80-96); MEAN PLT VOLUME 9.2 fl (7.5-11.1); MONO % 5.9 % (3.8-10.2); NEUT % 85.3 % (42.8-82.8); PLATELET COUNT 199 K/MM3 (134-434); RBC 4.39 M/mm3 (4.00-5.60); RDW 14.2 % (11.9-15.9); WHITE BLOOD COUNT 4.1 K/mm3 (4.0-10.0)
[2019-02-08 07:40] LABS: ALBUMIN 1.7 g/dl (3.4-5.0); ALK PHOS 34 U/L (45-117); ANION GAP 6 MMOL/L (8-16); BILIRUBIN,TOTAL 0.5 mg/dL (0.2-1); BLOOD UREA NITROGEN 33 mg/dL (7-18); CALCIUM 7.3 mg/dL (8.5-10.1); CHLORIDE 110 mmol/L (98-107); CO2 28 mmol/L (21-32); CREATININE 1.3 mg/dL (0.55-1.3); GLUCOSE,RANDOM 120 mg/dL (74-106); POTASSIUM 4.5 mmol/L (3.5-5.1); SGOT/AST 13 U/L (15-37); SGPT/ALT < 6 U/L (13-61); SODIUM 143 mmol/L (136-145); TOT PROT 3.5 g/dl (6.4-8.2)
--- NOTE | 2019-02-08 08:06 | PN ---
Progress Note (short form) - Note Progress Note: 83 yr old man intubated, sedated, on levophed 15mcg POD#1: Ileostomy performed in right upper abdomen and jejunostomy in left upper abdomen d/t distal small bowel necrosis and perforation Last Vital Signs Temp Pulse Resp BP Pulse Ox 101.7 F H 100 H 24 H 104/70 100 02/08/19 06:00 02/08/19 07:00 02/08/19 07:00 02/08/19 07:00 02/07/19 22:00 CBCD WBC 4.1 K/mm3 (4.0-10.0) 02/08/19 05:30 RBC 4.39 M/mm3 (4.00-5.60) 02/08/19 05:30 Hgb 14.1 GM/dL (11.7-16.9) 02/08/19 05:30 Hct 43.7 % (35.4-49) 02/08/19 05:30 MCV 99.4 fl (80-96) H 02/08/19 05:30 MCHC 32.4 g/dl (32.0-35.9) 02/08/19 05:30 RDW 14.2 % (11.9-15.9) 02/08/19 05:30 Plt Count 199 K/MM3 (134-434) 02/08/19 05:30 MPV 9.2 fl (7.5-11.1) 02/08/19 05:30 CMP Sodium 143 mmol/L (136-145) 02/08/19 05:30 Potassium 4.5 mmol/L (3.5-5.1) 02/08/19 05:30 Chloride 110 mmol/L (98-107) H 02/08/19 05:30 Carbon Dioxide 28 mmol/L (21-32) 02/08/19 05:30 Anion Gap 6 MMOL/L (8-16) L 02/08/19 05:30 BUN 33 mg/dL (7-18) H 02/08/19 05:30 Creatinine 1.3 mg/dL (0.55-1.3) 02/08/19 05:30 Creat Clearance w eGFR 52.47 (>60) 02/08/19 05:30 Random Glucose 120 mg/dL (74-106) H 02/08/19 05:30 Calcium 7.3 mg/dL (8.5-10.1) L 02/08/19 05:30 Total Bilirubin 0.5 mg/dL (0.2-1) 02/08/19 05:30 AST 13 U/L (15-37) L 02/08/19 05:30 ALT < 6 U/L (13-61) L 02/08/19 05:30 Alkaline Phosphatase 34 U/L (45-117) L 02/08/19 05:30 Total Protein 3.5 g/dl (6.4-8.2) L 02/08/19 05:30 Albumin 1.7 g/dl (3.4-5.0) L 02/08/19 05:30 CARDIAC ENZYMES Troponin I < 0.02 ng/ml (0.00-0.05) 02/08/19 00:00 Active Medications Acetaminophen (Ofirmev Injection -) 1,000 mg IVPB Q6H PRN PRN Reason: FEVER Last Admin: 02/08/19 06:14 Dose: 1,000 mg Chlorhexidine Gluconate (Hibiclens For Decolonization -) 1 applic TP HS RUFINO Last Admin: 02/07/19 23:30 Dose: 1 applic Fentanyl (Sublimaze Injection -) 25 mcg IVPUSH Q6H PRN PRN Reason: PAIN LEVEL 7 - 10 Stop: 02/09/19 03:59 Last Admin: 02/08/19 04:01 Dose: 25 mcg Propofol (Diprivan -) 1,000,000 mcg in 100 mls @ 10.475 mls/hr IVPB TITR RUFINO; Protocol Last Admin: 02/07/19 23:30 Dose: 10 mcg/kg/min, 3.492 mls/hr Metronidazole (Flagyl 500mg Premixed Ivpb -) 500 mg in 100 mls @ 100 mls/hr IVPB Q8H-IV RUFINO Last Admin: 02/08/19 02:22 Dose: 100 mls/hr Piperacillin Sod/Tazobactam (Sod 4.5 gm/ Dextrose) 100 mls @ 200 mls/hr IVPB Q8H-IV RUFINO; Protocol Piperacillin Sod/Tazobactam (Sod 4.5 gm/ Dextrose) 100 mls @ 200 mls/hr IVPB Q8H-IV RUFINO Stop: 02/08/19 10:29 Last Admin: 02/08/19 02:00 Dose: 200 mls/hr Lactated Ringer's (Lactated Ringers Solution) 1,000 ml in 1,000 mls @ 125 mls/ hr IV ASDIR RUFINO Last Admin: 02/07/19 23:32 Dose: 125 mls/hr Norepinephrine Bitartrate 8, (000 mcg/ Dextrose) 500 mls @ 6.54 mls/hr IV ASDIR RUFINO; Protocol Last Titration: 02/08/19 06:00 Dose: 0.25 mcg/kg/min, 56.3 mls/hr Levothyroxine Sodium (Synthroid Injection -) 50 mcg IVPUSH DAILY [facility] Mupirocin (Bactroban Ointment (For Decolonization) -) 1 applic NS BID RUFINO Stop: 02/12/19 21:59 Last Admin: 02/07/19 23:30 Dose: 1 applic Intake & Output 02/05/19 02/06/19 02/07/19 02/08/19 23:59 23:59 23:59 23:59 Intake Total 5000 4297 Output Total 735 205 Balance 4265 4092 Weight 61.235 kg 58.196 kg 61.717 kg EYES: pinpoint pupils, sclera anicteric, conjunctiva clear. No ptosis. ENT: ET tube in place, dry mucous membranes. NECK: Trachea midline, left IJ placed 02/08/2019 LUNGS: coarse breath sounds on vent, no wheezes, no crackles, no accessory muscle use. HEART: Regular rate and rhythm, S1, S2 without murmur, rub or gallop. ABDOMEN: Soft, nondistended, normoactive bowel sounds, ileostomy patent in RUQ with green liquid output, abdominal dressing in place CDI with drain in place. EXTREMITIES: 2+ pulses in radial and DP, warm, well-perfused, no edema. 83 yr old man with HTN, HLD, hx of Afib, Parkinson's, found to have gangrenous small bowel s/p resection POD #1. - Neurological - sedated and intubated, retracting to pain - fentanyl pushes for pain control - Cardiovascular - hypotensive post-op requiring levophed, likely due to sepsis and volume depletion - increase fluid resuscitation 2L IVF bolus, incr standing 125 to 150cc/hr, monitor CVP, goal CVP 8 - titrating levophed down from 15mcg this morning to 3mcg this evening - Respiratory remains intubated until stable for weaning trial tomorrow - Fluids, electrolytes, nutrition (FEN) - LR @150cc/hr - NPO - ross in place for accurate I&O's - Infectious disease - broad spectrum coverage for abdominal ajith - zosyn, flagyl - day 2 abx - Gastrointestinal - ileostomy and drain in place - Prophylaxis - defer sq heparin due to recent abdominal surgery pending surgery clearance, SCD's for now for VTE - pepcid BID for GI prophylaxis Lines Left IJ 02/07/2019 A-line in right wrist
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
--- NOTE | 2019-02-08 09:02 | PN ---
Progress Note (short form) - Note Progress Note: ID consult dictated imp/reccd 83 yo man presented 02/06 to [facility] ER with abdominal pain. He was transferred to [facility] and underwent surgery yesterday evening- he is s/p ex lap with ORALIA, small bowel resection with ileostomy and Jtube placement- OR findings include necrotic small bowel with perforation and leakage of abdominal contents I was contacted last night by the ICU resident -patient had developed leukopenia and hypotension postop started on zosyn/flagyl/diflucan sepsis secondary to necrotic bowel- s/p surgery pod #1 continue zosyn/flagyl diflucan f/u blood cultures f/u operative cultures remains intubated postop Problem List - Problems (1) Sepsis Code(s): A41.9 - SEPSIS, UNSPECIFIED ORGANISM (2) Small bowel obstruction Code(s): K56.609 - UNSP INTESTNL OBST, UNSP TO PARTIAL VERSUS COMPLETE OBST (3) Small bowel perforation Code(s): K63.1 - PERFORATION OF INTESTINE (NONTRAUMATIC)
--- NOTE | 2019-02-08 09:30 | PN ---
Progress Note (short form) - Note Progress Note: Day 1 s/p small bowel resection with ileostomy. Pt remains intubated/sedated in ICU, on levophed 15mcg/min. No anesthetic issues/complications noted; appreciate ICU management.
--- NOTE | 2019-02-08 09:40 | OP ---
DATE OF OPERATION: 02/07/2019 PREOPERATIVE DIAGNOSES: 1. Small-bowel obstruction. 2. Acute abdomen. 3. Generalized abdominal pain. POSTOPERATIVE DIAGNOSES: 1. Small-bowel obstruction. 2. Necrotic small bowel. 3. Perforated small bowel. 4. Acute abdomen. 5. Abdominal pain. 6. Abdominal adhesions. PROCEDURE PERFORMED: 1. Resection of small bowel plus ileostomy. 2. Laparoscopic lysis of adhesions. 3. Insertion of jejunostomy tube. 4. Exploratory laparotomy. OPERATING SURGEON: Jay Grimes MD ANESTHESIA: General. OPERATIVE PROCEDURE: The patient was brought into the operating room, placed on the OR table in the supine position. All precautions were taken initially including padding for the back and Venodyne boots were placed on both lower extremities. At that point the abdomen was prepped and draped in the usual manner. A midline incision was made extending from approximately 4 cm above the umbilicus, extending around the umbilicus and all the way down to above the symphysis pubis. The incision was carried down through skin and subcutaneous tissue down to the linea alba in the midline. The linea alba was then opened and then the peritoneum was entered. Immediately upon entering the peritoneum there was noted to be a large amount of dilated small bowel and a lot of fluid that appeared to be dark old blood and murky. The fluid was suctioned until clear. Approximately 500 mL were noted. At that point the small bowel was distended and difficult to keep in the abdomen. The small bowel was then brought out of the abdomen and was run from the ligament of Treitz all the way distal to the ileocecal valve. Most of the small bowel was distended. However, it was noted to be good healthy bowel. This, however, changed approximately 1 foot before the cecum when the small bowel was completely necrotic. Attempts to lift it up were unsuccessful as there would appear to be an adhesion at the area of the cecum with holding the small bowel down and appeared to be a lead point for the necrosis or loss of blood supply. It should be noted also that the small bowel was perforated prior to going into surgery, so a lot of the fluid was murky but was also contaminated fluid with intestinal and possibly fecal contents. At this point the adhesion was lysed and this was able to bring the small bowel leading to the cecum up into the operative field. At this point the cecum was mobilized with dissection along the white line of Toldt and this was done safely in order to prevent any possible injury to the ureter. The cecum was lifted up from laterally up to medially, and now the cecum, the distal ileum and the perforated approximately 10 to 12 inches of small bowel were now fully lifted up. At this point a hemostat was placed across the mesentery just proximal to the lead point of the necrosis. A LYUBOV 60 stapler was placed across and was used to dissect or transect the small bowel. The mesentery was then scored with the Metzenbaum scissor and then a series of clamps was placed across the mesentery and tied off with 2-0 silk sutures, and this continued all the way to the distal ileum just proximal or at the cecum. In this area all soft tissue was swept away so there was no chance of lifting up the ureter, and then a hemostat was placed approximately 1.5 cm distal to the area of necrosis on the small bowel and through the hemostat a LYUBOV 60 stapler was placed and was fired and the small bowel was transected. The mesentery was now completely divided at this point and the specimen, which was approximately 10 to 12 inches of distal small bowel, which was necrotic, was sent off the field as specimen to Pathology. At this point attention was now directed to the distal ileum which appeared to be very healthy. It was decided because of contamination that an ileostomy would be performed. An opening was then made about 5 cm distal to the midline in the right upper quadrant. A circular approximately 1-1/2 to 2 inches was placed down through skin and subcutaneous tissue and this continued with electrocautery down to the rectus muscle. The rectus muscle and lateral to it was opened, and then the ileostomy was brought up through the abdomen and on the outside of the abdominal wall. The ileostomy then was sutured to the anterior abdominal wall from the inside with 2-0 Vicryl sutures on all sides. At this point irrigation was done completely with saline until it was clear, especially in the pelvis where there was contaminated fluid and this followed into both the right and left paracolic gutters and also the left and right upper quadrant. Once this was suctioned until clear, the jejunum was then followed from the ligament of Treitz for approximately 40 cm. Here a No. 14 red rubber catheter was placed into the jejunum and advanced distally, and it was tied off with a pursestring suture. A Witzel technique was then used for approximately 4 sutures to close the jejunum over the jejunostomy tube. The jejunum at the takeoff to the jejunostomy tube was then tacked up to the anterior abdominal wall with 2-0 silk sutures on all sides until it was intact. At this point with the abdomen completely irrigated the closure was performed with No. 1 PDS in a continuous fashion on the fascia and, because of the contamination, 1/2-inch Iodoform packing was placed into the wound and the wound was closed very loosely with 4 cass in order to bring the skin slightly together. Dressing was then applied to the midline abdominal incision. Attention was now directed to the ileostomy which appeared to be viable and healthy sitting outside the abdomen. Electrocautery was used to take the staple line off and now the ileostomy was tacked down to the skin with 3-0 Vicryl which was used to capture the mucosa and serosa and also to the skin portion of the incision. There were also some 3-0 Vicryls placed between the ileum and the fascia from this side, was also done for further buttressing down the ileostomy. When this was all completed, ileostomy bag was placed over the ileostomy and dressings were applied, and the patient was then transferred out of the operating room to the Intensive Care Unit where the patient will be recovered. The patient was noted to be in critical condition at the time of transfer. ESTIMATED BLOOD LOSS: 100 mL DISPOSITION: Patient transferred to ICU in critical condition. Diamante [id number]
--- NOTE | 2019-02-08 09:41 | PN ---
Teaching Attending Note Name of Resident: Yesenia Cruz ATTENDING PHYSICIAN STATEMENT I saw and evaluated the patient. I reviewed the resident's note and discussed the case with the resident. I agree with the resident's findings and plan as documented. SUBJECTIVE: Patient seen and examined in the ICU. Intubated and sedated. AC Mode of vent, 40% FiO2. NE @ 15 mcq for hemodynamic support. Poor urine output. Intake & Output 02/05/19 02/06/19 02/07/19 02/08/19 23:59 23:59 23:59 23:59 Intake Total 5000 4297 Output Total 735 205 Balance 4265 4092 Weight 135 lb 0.001 oz 128 lb 4.8 oz 136 lb 1 oz Last Vital Signs Temp Pulse Resp BP Pulse Ox 101.7 F H 100 H 24 H 104/70 100 02/08/19 06:00 02/08/19 07:00 02/08/19 07:00 02/08/19 07:00 02/07/19 22:00 Active Medications Acetaminophen (Ofirmev Injection -) 1,000 mg IVPB Q6H PRN PRN Reason: FEVER Last Admin: 02/08/19 06:14 Dose: 1,000 mg Chlorhexidine Gluconate (Hibiclens For Decolonization -) 1 applic TP HS RUFINO Last Admin: 02/07/19 23:30 Dose: 1 applic Fentanyl (Sublimaze Injection -) 25 mcg IVPUSH Q6H PRN PRN Reason: PAIN LEVEL 7 - 10 Stop: 02/09/19 03:59 Last Admin: 02/08/19 04:01 Dose: 25 mcg Propofol (Diprivan -) 1,000,000 mcg in 100 mls @ 10.475 mls/hr IVPB TITR RUFINO; Protocol Last Admin: 02/07/19 23:30 Dose: 10 mcg/kg/min, 3.492 mls/hr Metronidazole (Flagyl 500mg Premixed Ivpb -) 500 mg in 100 mls @ 100 mls/hr IVPB Q8H-IV RUFINO Last Admin: 02/08/19 02:22 Dose: 100 mls/hr Piperacillin Sod/Tazobactam (Sod 4.5 gm/ Dextrose) 100 mls @ 200 mls/hr IVPB Q8H-IV RUFINO; Protocol Piperacillin Sod/Tazobactam (Sod 4.5 gm/ Dextrose) 100 mls @ 200 mls/hr IVPB Q8H-IV RUFINO Stop: 02/08/19 10:29 Last Admin: 02/08/19 02:00 Dose: 200 mls/hr Lactated Ringer's (Lactated Ringers Solution) 1,000 ml in 1,000 mls @ 125 mls/ hr IV ASDIR RUFINO Last Admin: 02/07/19 23:32 Dose: 125 mls/hr Norepinephrine Bitartrate 8, (000 mcg/ Dextrose) 500 mls @ 6.54 mls/hr IV ASDIR RUFINO; Protocol Last Titration: 02/08/19 06:00 Dose: 0.25 mcg/kg/min, 56.3 mls/hr Fluconazole (Diflucan 200 Mg/Ns Premixed Ivpb -) 100 mls @ 100 mls/hr IVPB DAILY ONE Stop: 02/09/19 10:59 Levothyroxine Sodium (Synthroid Injection -) 50 mcg IVPUSH DAILY RUFINO Mupirocin (Bactroban Ointment (For Decolonization) -) 1 applic NS BID RUFINO Stop: 02/12/19 21:59 Last Admin: 02/07/19 23:30 Dose: 1 applic Constitutional: Yes: Intubated, sedated Eyes: Yes: PERRL (miosed) HENT: Yes: Other (ETT) Cardiovascular: Yes: S1, S2 Respiratory: Yes: Mechanically Ventilated, clear Gastrointestinal: Yes: Hypoactive Bowel Sounds, Jejunostomy tube, ventral surgical incision with clean dressing Renal/: Yes: Will Present Extremities: Yes: Cold, Pallor, slight mottling on feet Edema: No Neurological: Yes: Other (sedated) Labs: Laboratory Results - last 24 hr 02/07/19 02/07/19 02/07/19 07:30 07:30 21:15 WBC 1.8 L* RBC 4.99 Hgb 16.2 Hct 49.8 H D MCV 99.8 H MCH 32.5 MCHC 32.5 RDW 14.8 Plt Count 194 MPV 8.6 Absolute Neuts (auto) Neutrophils % Lymphocytes % Monocytes % Eosinophils % Basophils % Nucleated RBC % PTT (Actin FS) Puncture Site ABG pH ABG pCO2 at Pt Temp ABG pO2 at Pt Temp ABG HCO3 ABG O2 Sat (Measured) ABG O2 Content ABG Base Excess Brian Test O2 Delivery Device Oxygen Flow Rate Vent Mode Vent Rate Mechanical Rate PEEP Pressure Support Vent Sodium Potassium Chloride Carbon Dioxide Anion Gap BUN Creatinine Creat Clearance w eGFR Random Glucose Serum Osmolality Lactic Acid Calcium Phosphorus Magnesium Total Bilirubin AST ALT Alkaline Phosphatase Troponin I Total Protein Albumin Urine Color Urine Appearance Urine pH Ur Specific [place] Urine Protein Urine Glucose (UA) Urine Ketones Urine Blood Urine Nitrite Urine Bilirubin Urine Urobilinogen Ur Leukocyte Esterase Urine WBC (Auto) Urine RBC (Auto) Urine Casts (Auto) U Pathogenic Cast Auto U Epithel Cells (Auto) Urine Bacteria (Auto) Blood Type A POSITIVE A POSITIVE Antibody Screen Negative 02/07/19 02/07/19 02/07/19 21:15 21:43 23:40 WBC RBC Hgb Hct MCV MCH MCHC RDW Plt Count MPV Absolute Neuts (auto) Neutrophils % Lymphocytes % Monocytes % Eosinophils % Basophils % Nucleated RBC % PTT (Actin FS) Puncture Site Arterial line ABG pH 7.41 ABG pCO2 at Pt Temp 37.9 ABG pO2 at Pt Temp 125 H ABG HCO3 23.7 ABG O2 Sat (Measured) 98.5 H ABG O2 Content 23.1 H ABG Base Excess 0 Brian Test Positive O2 Delivery Device Mech vent Oxygen Flow Rate 40% Vent Mode Simv/ps+10 Vent Rate 10 Mechanical Rate Yes PEEP 5.0 Pressure Support Vent 500 Sodium 144 Potassium 4.9 Chloride 112 H Carbon Dioxide 24 Anion Gap 9 BUN 27 H Creatinine 0.9 Creat Clearance w eGFR 80.20 Random Glucose 139 H Serum Osmolality Lactic Acid 3.9 H* Calcium 7.9 L Phosphorus 2.9 Magnesium 1.8 Total Bilirubin 0.5 AST 13 L ALT 7 L Alkaline Phosphatase 46 Troponin I Total Protein 4.2 L Albumin 2.2 L Urine Color Urine Appearance Urine pH Ur Specific [place] Urine Protein Urine Glucose (UA) Urine Ketones Urine Blood Urine Nitrite Urine Bilirubin Urine Urobilinogen Ur Leukocyte Esterase Urine WBC (Auto) Urine RBC (Auto) Urine Casts (Auto) U Pathogenic Cast Auto U Epithel Cells (Auto) Urine Bacteria (Auto) Blood Type Antibody Screen 02/07/19 02/07/19 02/08/19 23:40 23:40 00:00 WBC RBC Hgb Hct MCV MCH MCHC RDW Plt Count MPV Absolute Neuts (auto) Neutrophils % Lymphocytes % Monocytes % Eosinophils % Basophils % Nucleated RBC % PTT (Actin FS) Puncture Site ABG pH ABG pCO2 at Pt Temp ABG pO2 at Pt Temp ABG HCO3 ABG O2 Sat (Measured) ABG O2 Content ABG Base Excess Brian Test O2 Delivery Device Oxygen Flow Rate Vent Mode Vent Rate Mechanical Rate PEEP Pressure Support Vent Sodium 144 Potassium 4.4 Chloride 114 H Carbon Dioxide 23 Anion Gap 7 L BUN 28 H Creatinine 1.0 Creat Clearance w eGFR 71.02 Random Glucose 133 H Serum Osmolality 304 Lactic Acid Calcium 7.3 L Phosphorus Magnesium Total Bilirubin 0.5 AST 9 L ALT 6 L Alkaline Phosphatase 39 L Troponin I < 0.02 Total Protein 3.6 L Albumin 1.9 L Urine Color Urine Appearance Urine pH Ur Specific [place] Urine Protein Urine Glucose (UA) Urine Ketones Urine Blood Urine Nitrite Urine Bilirubin Urine Urobilinogen Ur Leukocyte Esterase Urine WBC (Auto) Urine RBC (Auto) Urine Casts (Auto) U Pathogenic Cast Auto U Epithel Cells (Auto) Urine Bacteria (Auto) Blood Type Antibody Screen 02/08/19 02/08/19 02/08/19 01:00 01:00 01:30 WBC 2.2 L RBC 4.60 Hgb 15.0 Hct 45.7 MCV 99.2 H MCH 32.7 MCHC 32.9 RDW 14.7 Plt Count 185 MPV 9.0 Absolute Neuts (auto) 1.8 Neutrophils % 80.5 Lymphocytes % 10.2 Monocytes % 8.9 Eosinophils % 0.1 D Basophils % 0.3 Nucleated RBC % 0 PTT (Actin FS) 30.4 Puncture Site ABG pH ABG pCO2 at Pt Temp ABG pO2 at Pt Temp ABG HCO3 ABG O2 Sat (Measured) ABG O2 Content ABG Base Excess Brian Test O2 Delivery Device Oxygen Flow Rate Vent Mode Vent Rate Mechanical Rate PEEP Pressure Support Vent Sodium Potassium Chloride Carbon Dioxide Anion Gap BUN Creatinine Creat Clearance w eGFR Random Glucose Serum Osmolality Lactic Acid Calcium Phosphorus Magnesium Total Bilirubin AST ALT Alkaline Phosphatase Troponin I Total Protein Albumin Urine Color [place] Urine Appearance Cloudy Urine pH 5.0 D Ur Specific [place] 1.028 Urine Protein 2+ H Urine Glucose (UA) Negative Urine Ketones Trace H Urine Blood 3+ H Urine Nitrite Negative Urine Bilirubin 1+ H Urine Urobilinogen 1.0 Ur Leukocyte Esterase Trace Urine WBC (Auto) 2 Urine RBC (Auto) 89 Urine Casts (Auto) 47 U Pathogenic Cast Auto None seen U Epithel Cells (Auto) 1.7 Urine Bacteria (Auto) 3.7 Blood Type Antibody Screen 02/08/19 02/08/19 02/08/19 05:30 05:30 05:30 WBC 4.1 RBC 4.39 Hgb 14.1 Hct 43.7 MCV 99.4 H MCH 32.2 MCHC 32.4 RDW 14.2 Plt Count 199 MPV 9.2 Absolute Neuts (auto) 3.5 Neutrophils % 85.3 H Lymphocytes % 8.5 Monocytes % 5.9 Eosinophils % 0.1 Basophils % 0.2 Nucleated RBC % 0 PTT (Actin FS) Puncture Site ABG pH ABG pCO2 at Pt Temp ABG pO2 at Pt Temp ABG HCO3 ABG O2 Sat (Measured) ABG O2 Content ABG Base Excess Brian Test O2 Delivery Device Oxygen Flow Rate Vent Mode Vent Rate Mechanical Rate PEEP Pressure Support Vent Sodium 143 Potassium 4.5 Chloride 110 H Carbon Dioxide 28 Anion Gap 6 L BUN 33 H Creatinine 1.3 Creat Clearance w eGFR 52.47 Random Glucose 120 H Serum Osmolality Lactic Acid Calcium 7.3 L Phosphorus Magnesium Total Bilirubin 0.5 AST 13 L ALT < 6 L Alkaline Phosphatase 34 L Troponin I Total Protein 3.5 L Albumin 1.7 L Urine Color Urine Appearance Urine pH Ur Specific [place] Urine Protein Urine Glucose (UA) Urine Ketones Urine Blood Urine Nitrite Urine Bilirubin Urine Urobilinogen Ur Leukocyte Esterase Urine WBC (Auto) Urine RBC (Auto) Urine Casts (Auto) U Pathogenic Cast Auto U Epithel Cells (Auto) Urine Bacteria (Auto) Blood Type A POSITIVE Antibody Screen Negative 02/08/19 05:30 WBC RBC Hgb Hct MCV MCH MCHC RDW Plt Count MPV Absolute Neuts (auto) Neutrophils % Lymphocytes % Monocytes % Eosinophils % Basophils % Nucleated RBC % PTT (Actin FS) Puncture Site ABG pH ABG pCO2 at Pt Temp ABG pO2 at Pt Temp ABG HCO3 ABG O2 Sat (Measured) ABG O2 Content ABG Base Excess Brian Test O2 Delivery Device Oxygen Flow Rate Vent Mode Vent Rate Mechanical Rate PEEP Pressure Support Vent Sodium Potassium Chloride Carbon Dioxide Anion Gap BUN Creatinine Creat Clearance w eGFR Random Glucose Serum Osmolality Lactic Acid 3.4 H* Calcium Phosphorus Magnesium Total Bilirubin AST ALT Alkaline Phosphatase Troponin I Total Protein Albumin Urine Color Urine Appearance Urine pH Ur Specific [place] Urine Protein Urine Glucose (UA) Urine Ketones Urine Blood Urine Nitrite Urine Bilirubin Urine Urobilinogen Ur Leukocyte Esterase Urine WBC (Auto) Urine RBC (Auto) Urine Casts (Auto) U Pathogenic Cast Auto U Epithel Cells (Auto) Urine Bacteria (Auto) Blood Type Antibody Screen Assessment/Plan Acute Respiratory Failure POD # 1: Small Bowel Resection & ileostomy. Jejunostomy tube insertion. Exploratory Laparotomy; Lysis of Adhesions Distal Small Bowel Necrosis and perforation HTN Hypothyroidism GERD BPH Parkinson's disease Paroxysmal Afib RBBB Aggressive volume resuscitation Follow CVP VTE prophylaxis GI prophylaxis Wean NE Strict I & O ABX per ID Follow Urine output AC Mode of vent Wean trials in AM once hopefully more stable Requires ICU monitoring Dr Mitchell Critical care time spent in reviewing chart, evaluating patient and formulating plan - 36 minutes.
[2019-02-08] MEDS: LACTATED RINGERS SOLUTION 1,000 ML/1,000 ML INFUS.BAG IV SCH ×2 (09:56→22:35)
[2019-02-08] MEDS: MUPIROCIN 2% TOPICAL OINTMENT FOR DECOLONIZATION NS SCH ×2 (09:59→21:18)
[2019-02-08] MEDS ORDERED: ERTAPENEM SODIUM 1 GM in SODIUM CHLORIDE 50 ML IVPB SCH (10:00)
[2019-02-08] MEDS ORDERED: PT OWN MED DRAWER 7, Y5N ONE (10:18)
[2019-02-08] MEDS: LEVOTHYROXINE SODIUM 100 MCG VIAL IVPUSH SCH (10:22)
--- NOTE | 2019-02-08 10:41 | CONS ---
DATE OF CONSULTATION: DATE OF DICTATION: 02/08/2019 INFECTIOUS DISEASE CONSULTATION REQUESTED BY: Hospitalist service HISTORY OF PRESENT ILLNESS: This is an 83-year-old man who presented the night of the to [place] [facility] complaining of abdominal pain that had started earlier that evening around 7 o'clock. He was evaluated there and ultimately seen by Surgery and transferred to [facility] where he underwent an exploratory laparotomy with lysis of adhesions, small-bowel resection with ileostomy and jejunostomy tube placement. His operative findings included necrotic small bowel, perforation with leakage of abdominal contents. This was all yesterday evening. I was asked to see the patient for antibiotic recommendations. I received a call from the ICU resident last night postoperatively as his postoperative labs he was noted to have an elevated lactic acid and his white count had dropped postop to 1.8. We elected to start him on Zosyn, Flagyl and Diflucan. He also had a central line placed overnight and was started on pressors. He remains intubated at this time and is unable to give history. All the history is from the chart. He has no known prior multidrug resistant organisms. He has not been hospitalized for a long time. PAST MEDICAL HISTORY: Notable for hypertension, hypothyroidism, GERD, BPH, Parkinson's disease, paroxysmal atrial fibrillation, right bundle branch block. SURGICAL HISTORY: He is status post appendectomy. ALLERGIES: He is allergic to YUMIKO NUTS and POLLEN. MEDICATIONS AT HOME: Include: 1. Flonase. 2. Colace. 3. Aspirin. 4. Tamsulosin. 5. Senna. 6. Rasagiline mesylate. 7. Mirapex. 8. [place] 3 fatty acids. 9. Multivitamins. 10. Lopressor. 11. Levothyroxine. 12. Carbidopa-levodopa. 13. Vitamin D with calcium. His PCP is Dr. Rouse. SOCIAL HISTORY: He resides at home. There is no history of cigarette, alcohol or substance use. He apparently ambulates with a walker at baseline. PHYSICAL EXAMINATION: General: He is intubated and sedated. Vital Signs: T-max is 101.7 rectal. Pulse is 100, blood pressure 104/70. Respiratory rate is 24. HEENT: He is normocephalic. His eyes are anicteric. Neck: Supple. Lungs: Show diminished breath sounds at the bases. Heart: Regular rate and rhythm. Abdomen: Not distended. He has a J-tube and he has got a midline surgical incision. Extremities: Without edema. His legs are cool, but they are not mottled. LABORATORIES: Notable for white count of 4.1, hemoglobin 14.1. Platelets are 199. BUN is 33 and creatinine 1.3. Lactic acid is 3.4. Cultures are pending. It was not clear if operative cultures were sent. Chest x-ray is without any infiltrate. In summary, this is an 83-year-old man in sepsis secondary to necrotic small bowel with perforation. He remains intubated postoperatively and on pressors. I would continue the Zosyn, Flagyl and Diflucan; follow up his cultures, make further recommendations based on this. His leukopenia is improving and hopefully he will respond to his supportive care. History of Parkinson's disease. NEGAR QUINTANA M.D. [id number]
[2019-02-08] MEDS: PROPOFOL 1,000,000 MCG/100 ML VIAL IVPB SCH ×2 (11:25→21:17)
[2019-02-08] MEDS: FAMOTIDINE 20 MG/50 ML IVPB 20 MG/50 ML MG IVPB SCH ×2 (11:25→21:16)
--- NOTE | 2019-02-08 14:02 | PN ---
Progress Note, Physician History of Present Illness: patient is intubated and sedated will continue monitoring the patient - Current Medication List Current Medications: Active Medications Acetaminophen (Ofirmev Injection -) 1,000 mg IVPB Q6H PRN PRN Reason: FEVER Last Admin: 02/08/19 06:14 Dose: 1,000 mg Chlorhexidine Gluconate (Hibiclens For Decolonization -) 1 applic TP HS RUFINO Last Admin: 02/07/19 23:30 Dose: 1 applic Fentanyl (Sublimaze Injection -) 25 mcg IVPUSH Q6H PRN PRN Reason: PAIN LEVEL 7 - 10 Stop: 02/09/19 03:59 Last Admin: 02/08/19 11:26 Dose: 25 mcg Propofol (Diprivan -) 1,000,000 mcg in 100 mls @ 10.475 mls/hr IVPB TITR RUFINO; Protocol Last Admin: 02/08/19 11:25 Dose: 10 mcg/kg/min, 3.492 mls/hr Metronidazole (Flagyl 500mg Premixed Ivpb -) 500 mg in 100 mls @ 100 mls/hr IVPB Q8H-IV RUFINO Last Admin: 02/08/19 11:24 Dose: 100 mls/hr Piperacillin Sod/Tazobactam (Sod 4.5 gm/ Dextrose) 100 mls @ 200 mls/hr IVPB Q8H-IV RUFINO; Protocol Norepinephrine Bitartrate 8, (000 mcg/ Dextrose) 500 mls @ 6.54 mls/hr IV ASDIR RUFINO; Protocol Last Titration: 02/08/19 06:00 Dose: 0.25 mcg/kg/min, 56.3 mls/hr Fluconazole (Diflucan 200 Mg/Ns Premixed Ivpb -) 100 mls @ 100 mls/hr IVPB DAILY RUFINO Lactated Ringer's (Lactated Ringers Solution) 1,000 ml in 1,000 mls @ 150 mls/ hr IV ASDIR RUFINO Last Admin: 02/08/19 09:56 Dose: 150 mls/hr Famotidine/Sodium Chloride (Pepcid 20 Mg Premixed Ivpb -) 20 mg in 50 mls @ 100 mls/hr IVPB BID RUFINO Last Admin: 02/08/19 11:25 Dose: 100 mls/hr Levothyroxine Sodium (Synthroid Injection -) 50 mcg IVPUSH DAILY RUFINO Last Admin: 02/08/19 10:22 Dose: 50 mcg Mupirocin (Bactroban Ointment (For Decolonization) -) 1 applic NS BID [facility] Stop: 02/12/19 21:59 Last Admin: 02/08/19 09:59 Dose: 1 applic - Objective Vital Signs: Vital Signs Temperature 100.5 F H 02/08/19 12:00 Pulse Rate 101 H 02/08/19 12:00 Respiratory Rate 24 H 02/08/19 12:00 Blood Pressure 93/67 02/08/19 12:00 O2 Sat by Pulse Oximetry (%) 100 02/08/19 10:00 Constitutional: Yes: Well Nourished, No Distress Eyes: Yes: WNL, Conjunctiva Clear, EOM Intact HENT: Yes: WNL, Atraumatic, Normocephalic Neck: Yes: WNL, Supple, Trachea Midline Cardiovascular: Yes: WNL, Regular Rate and Rhythm, Tachycardia, S1, S2 Respiratory: Yes: WNL, Regular, CTA Bilaterally, Intubated, Mechanically Ventilated Gastrointestinal: Yes: WNL, Normal Bowel Sounds, Soft, Other (wound clean healing well) Musculoskeletal: Yes: WNL Extremities: Yes: WNL Edema: No Peripheral Pulses WNL: No Labs: CBC, BMP 02/08/19 05:30 02/08/19 05:30 INR, PTT INR 1.03 (0.83-1.09) 02/07/19 03:00 Problem List - Problems (1) Sepsis Assessment/Plan: 2/2 gangrene bowel patient is still intubated on norepinepharine drip fluid resuscitation Code(s): A41.9 - SEPSIS, UNSPECIFIED ORGANISM (2) Small bowel obstruction Assessment/Plan: s/p ex-lap c/w fluconazole c/w metronidazole 500mg q8hrs c/w pipercillin/tazobactam 4.5g keep patient NPO will advance diet after the surgery clears Code(s): K56.609 - UNSP INTESTNL OBST, UNSP TO PARTIAL VERSUS COMPLETE OBST (3) Acute postprocedural respiratory failure Assessment/Plan: c/w MV fentanyl Code(s): J95.821 - ACUTE POSTPROCEDURAL RESPIRATORY FAILURE (4) Hypothyroidism Assessment/Plan: restart levothyroxine Code(s): E03.9 - HYPOTHYROIDISM, UNSPECIFIED (5) Paroxysmal atrial fibrillation with rapid ventricular response Assessment/Plan: hold since patient is in sinus rhythm Code(s): I48.0 - PAROXYSMAL ATRIAL FIBRILLATION (6) HTN (hypertension), benign Assessment/Plan: will hold on due to hypotension will restart when appropriate will give IVP prn if needed Code(s): I10 - ESSENTIAL (PRIMARY) HYPERTENSION (7) BPH (benign prostatic hyperplasia) Code(s): N40.0 - BENIGN PROSTATIC HYPERPLASIA WITHOUT LOWER URINRY TRACT SYMP
--- NOTE | 2019-02-08 17:18 | CON.NEP ---
Consult Consult Specialty:: Nephrology Reason for Consultation:: post op oliguria with hypotension - History of Present Illness Chief Complaint: acute abd pain/ s/p abd surgery History of Present Illness: s/p oliguria post op earlier today now responding to IVF s/p pressors (d/c'd) BP and urine output noted acceptable range 2/2 gangrene bowel patient is still intubated s/p norepinepharine drip on fluid resuscitation s/p ex-lap onfluconazole on metronidazole 500mg q8hrs pipercillin/tazobactam 4.5g NPO - Past Medical History VISUAL DESIGN LEAD: Yes: Parkinson's Cardio/Vascular: Yes: HTN Endocrine: Yes: Hypothyroidism - Alcohol/Substance Use Hx Alcohol Use: No - Smoking History Smoking history: Never smoked Have you smoked in the past 12 months: No Home Medications - Allergies Allergies/Adverse Reactions: Allergies Allergy/AdvReac Type Severity Reaction Status Date / Time hazelnut Allergy Severe Difficulty Verified 12/01/16 11:09 Breathing Hazelnut Allergy Severe Throat Uncoded 07/05/16 13:25 swelling POLLEN Allergy Mild NASAL Uncoded 07/05/16 13:25 CONGESTION - Home Medications Home Medications: Ambulatory Orders Ca Cmb No.1/Vit D3/B-6/FA/B12 [Vitamin D3 1,000 Unit Tablet] 1 each PO AM tablet 04/23/13 Carbidopa/Levodopa [Carbidopa-Levo 25-250 Mg Odt] 1 each PO QID tablet Sennosides [Senna] 8.6 mg PO TID tablet 11/13/16 Multivitamin [Poly-Vitamin] 1 each PO DAILY 12/01/16 [place]-3 Fatty Acids [[place]-3] 1,000 mg PO ASDIR 12/01/16 Docusate Sodium [Stool Softener] 100 mg PO DAILY capsule MDD 2/day 03/28/17 Metoprolol Tartrate [Lopressor -] 12.5 mg PO BID 02/01/18 Pramipexole Dihydrochloride [Mirapex -] 0.25 mg PO QID 02/01/18 Aspirin [ASA -] 81 mg PO DAILY 02/07/19 Fluticasone Prop 0.05% Nasal [Flonase -] 1 - 2 spray NS DAILY 02/07/19 Nephrology Consult - Height Height: 5 ft 8 in - Weight Weight: 136 lb 1 oz - BMI Body Mass Index (BMI): 20.7 - Lab Results CBC,BMP: CBC, BMP 02/08/19 05:30 02/08/19 05:30 Anion Gap: Anion Gap Anion Gap 6 MMOL/L (8-16) L 02/08/19 05:30 - Physical Examination Vital Signs: Vital Signs Temperature 100.5 F H 02/08/19 13:00 Pulse Rate 98 H 02/08/19 13:00 Respiratory Rate 18 02/08/19 16:10 Blood Pressure 97/71 02/08/19 13:00 O2 Sat by Pulse Oximetry (%) 100 02/08/19 10:00 Constitutional: Yes: Well Nourished HENT: Yes: WNL, Atraumatic, Normocephalic Neck: Yes: WNL, Supple, Trachea Midline Cardiovascular: Yes: WNL, Regular Rate and Rhythm. No: JVD Respiratory: Yes: Mechanically Ventilated Musculoskeletal: Yes: WNL Extremities: Yes: Cool Edema: No Integumentary: Yes: WNL Psychiatric: Yes: Other Assessment/Plan Intake & Output 02/08/19 02/08/19 02/08/19 07:59 15:59 23:59 Intake Total 4297 1350 Output Total 205 Balance 4092 1350 Weight 136 lb 1 oz 136 lb 1 oz Post op Oliguria BP and urine output noted acceptable range now off pressors s/p ex-lap s/p gangrene bowel Distal Small Bowel Necrosis and perforation patient intubated on vent NPO HTN Hypothyroidism GERD BPH Parkinson's disease Paroxysmal Afib RBBB continue hemodynamic support IVF monitor labs
[2019-02-08] MEDS ORDERED: LIDOCAINE HCL 2% JELLY 10 ML CARTRIDGE UR ONE (18:00)
--- NOTE | 2019-02-08 20:40 | PROC ---
Procedure Note Procedure: POD#1 T- 99 (was 100-101.7 early this AM) P- 97-113 (presently 99) BP- 96/61 (was 68/50 early this AM) Pt was on pressor agents earlier, now off BP now more stabilized P/E- Abd- ileostomy- pink, liquid bile noted J-tube with slight bilious drainage midline dressing intact Ext- lower extremities- some mottling off feet bilaterally, knees without mottling now (was mottled significantly post-surgery yesterday) WBC-4.1 (increased from 1.8) H/H- 14.1/43.7 BUN/CR-33/1.3 (increasing) LA-3.4 (decreased from 3.9) P- Cont as per ICU, vent management Antibiotics as per ID Cont as per Card, Nephrology Cont NPO Cont DVT prophylaxis
[2019-02-08] MEDS: CHLORHEXIDINE GLUCONATE 4% CLEANSER FOR DECOLONIZATION TP SCH (21:18)
[2019-02-09] MEDS ORDERED: PIPERACILLIN/TAZOBACTAM 4.5 GM VIAL IVPB ONE ×4 (01:40→17:52)
[2019-02-09] MEDS ORDERED: DEXTROSE 5%-WATER 100 ML IVPB ONE ×4 (01:40→17:53)
[2019-02-09] MEDS: PIPERACILLIN/TAZOB 4.5 GM 4.5 GM in DEXTROSE 5%-WATER 100 ML IVPB SCH ×3 (01:41→17:59)
[2019-02-09] MEDS: NOREPINEPHRINE BITARTRATE 8,000 MCG in DEXTROSE 5%-WATER - 492 ML IV SCH (02:06)
[2019-02-09] MEDS: LACTATED RINGERS SOLUTION 1,000 ML/1,000 ML INFUS.BAG IV SCH ×2 (02:08→10:46)
[2019-02-09 07:08] LABS: ARTERIAL BLOOD GAS BASE EXCESS 1.1 meq/l (-2-2); ARTERIAL BLOOD GAS PCO2 28.9 mmHg (35-45); ARTERIAL BLOOD GAS PO2 141 mmHg (80-105); ARTERIAL BLOOD GAS pH 7.51 (7.35-7.45)
[2019-02-09 07:17] LABS: HEMATOCRIT 36.2 % (35.4-49); HEMOGLOBIN 12.1 GM/dL (11.7-16.9); MCHC 33.3 g/dl (32.0-35.9); MEAN CELL VOLUME 99.1 fl (80-96); MEAN PLT VOLUME 9.7 fl (7.5-11.1); PLATELET COUNT 147 K/MM3 (134-434); RBC 3.65 M/mm3 (4.00-5.60); RDW 15.1 % (11.9-15.9); WHITE BLOOD COUNT 10.4 K/mm3 (4.0-10.0)
[2019-02-09 07:28] LABS: ALBUMIN 1.6 g/dl (3.4-5.0); ALK PHOS 38 U/L (45-117); ANION GAP 9 MMOL/L (8-16); BILIRUBIN,TOTAL 0.5 mg/dL (0.2-1); BLOOD UREA NITROGEN 33 mg/dL (7-18); CALCIUM 7.4 mg/dL (8.5-10.1); CHLORIDE 107 mmol/L (98-107); CO2 25 mmol/L (21-32); CREATININE 1.1 mg/dL (0.55-1.3); GLUCOSE,RANDOM 96 mg/dL (74-106); MAGNESIUM 2.3 mg/dL (1.8-2.4); PHOSPHOROUS 2.6 mg/dL (2.5-4.9); POTASSIUM 3.6 mmol/L (3.5-5.1); SGOT/AST 14 U/L (15-37); SGPT/ALT < 6 U/L (13-61); SODIUM 141 mmol/L (136-145); TOT PROT 3.5 g/dl (6.4-8.2)
--- NOTE | 2019-02-09 07:52 | PN ---
Physical Exam: SUBJECTIVE: Patient seen and examined at bedside. Pt given Fentanyl pushes for pain. No other acute events overnight. OBJECTIVE: Vital Signs Period Temp Pulse Resp BP Sys/Joiner Pulse Ox Last 24 Hr 98.4 F-101.4 F 89-101 17-28 77-145/55-72 98-100 GEN: Awake and alert. Able to communicate via writing. NECK: Trachea midline, left IJ placed 02/08/2019 LUNGS: coarse breath sounds on vent, no wheezes, no crackles, no accessory muscle use. HEART: Regular rate and rhythm, S1, S2 without murmur, rub or gallop. ABDOMEN: Soft, nondistended, normoactive bowel sounds, ileostomy patent in RUQ with green liquid output, abdominal dressing in place CDI with drain in place. EXTREMITIES: 2+ pulses in radial and DP, warm, well-perfused, no edema. CBC, BMP 02/09/19 05:30 02/09/19 05:30 Active Medications Acetaminophen (Ofirmev Injection -) 1,000 mg IVPB Q6H PRN PRN Reason: FEVER Last Admin: 02/08/19 06:14 Dose: 1,000 mg Chlorhexidine Gluconate (Hibiclens For Decolonization -) 1 applic TP HS RUFINO Last Admin: 02/08/19 21:18 Dose: 1 applic Propofol (Diprivan -) 1,000,000 mcg in 100 mls @ 10.475 mls/hr IVPB TITR RUFINO; Protocol Last Admin: 02/08/19 21:17 Dose: 20 mcg/kg/min, 6.984 mls/hr Metronidazole (Flagyl 500mg Premixed Ivpb -) 500 mg in 100 mls @ 100 mls/hr IVPB Q8H-IV RUFINO Last Admin: 02/09/19 01:41 Dose: 100 mls/hr Piperacillin Sod/Tazobactam (Sod 4.5 gm/ Dextrose) 100 mls @ 200 mls/hr IVPB Q8H-IV RUFINO; Protocol Last Admin: 02/09/19 01:41 Dose: 200 mls/hr Norepinephrine Bitartrate 8, (000 mcg/ Dextrose) 500 mls @ 6.54 mls/hr IV ASDIR [facility]; Protocol Last Titration: 02/09/19 03:00 Dose: 0 mcg/kg/min, 0 mls/hr Fluconazole (Diflucan 200 Mg/Ns Premixed Ivpb -) 100 mls @ 100 mls/hr IVPB DAILY [facility] Lactated Ringer's (Lactated Ringers Solution) 1,000 ml in 1,000 mls @ 150 mls/ hr IV ASDIR [facility] Last Admin: 02/09/19 02:08 Dose: 150 mls/hr Famotidine/Sodium Chloride (Pepcid 20 Mg Premixed Ivpb -) 20 mg in 50 mls @ 100 mls/hr IVPB BID [facility] Last Admin: 02/08/19 21:16 Dose: 100 mls/hr Levothyroxine Sodium (Synthroid Injection -) 50 mcg IVPUSH DAILY [facility] Last Admin: 02/08/19 10:22 Dose: 50 mcg Mupirocin (Bactroban Ointment (For Decolonization) -) 1 applic NS BID [facility] Stop: 02/12/19 21:59 Last Admin: 02/08/19 21:18 Dose: 1 applic ASSESSMENT/PLAN: 83M with pmhx of HTN, HLD, hx of Afib, Parkinson's, found to have gangrenous small bowel s/p resection POD #2. Neuro -Awake and alert, able to communicate via writing -Fentanyl pushes for pain control -on Propofol Cardiovascular -Currently off Levophed, cont to monitor BP; maintain MAP >65 -cont IVf resuscitation; LR @ 150 Pulmonary -Trialed pt on CPAP today, however pt was found to be tachycardic, elevated BP and complaining in writing that he cannot breath. As a result, pt was placed back on CPAP w/ sedation. -Spontaneous weaning trials as tolerated ID -broad spectrum coverage for abdominal ajith -Cont Zosyn, Flagyl (Day 2) GI #Sepsis 2/2 necrotic small bowel- s/p surgery -pod #2 -s/p jejunemostomy and ileostomy and drain in place Endo #Hypothyroidism -Cont home med: Levothyroxine 50 mcg QD Prophylaxis -Defer sq heparin due to recent abdominal surgery pending surgery clearance, SCD 's for now for VTE -Pepcid BID FEN -LR @150cc/hr -NPO -ross in place for accurate I&O's Lines Left IJ 02/07/2019 A-line in right wrist Dispo -full code Visit type - Emergency Visit Emergency Visit: Yes ED Registration Date: 02/07/19 Care time: The patient presented to the Emergency Department on the above date and was hospitalized for further evaluation of their emergent condition. - New Patient This patient is new to me today: Yes Date on this admission: 02/09/19 - Critical Care Critical Care patient: Yes Total Critical Care Time (in minutes): 40 Critical Care Statement: The care of this patient involved high complexity decision making to prevent further life threatening deterioration of the patient 's condition and/or to evaluate & treat vital organ system(s) failure or risk of failure.
--- NOTE | 2019-02-09 08:49 | PN ---
Progress Note (short form) - Note Progress Note: doing well off pressors alert remains intubated Vital Signs Period Temp Pulse Resp BP Sys/Joiner Pulse Ox Last 24 Hr 98.4 F-100.8 F 89-101 17-28 77-145/55-72 98-100 cor-rrr lungs decreased bs at bases abd soft,+ostomy, +j tube ext no edema, feet are warmer CBC, BMP 02/09/19 05:30 02/09/19 05:30 Microbiology 02/07/19 23:00 Blood - Peripheral Venous Blood Culture - Preliminary NO GROWTH OBTAINED AFTER 24 HOURS, INCUBATION TO CONTINUE FOR 4 DAYS. 02/07/19 23:00 Blood - Peripheral Venous Blood Culture - Preliminary NO GROWTH OBTAINED AFTER 24 HOURS, INCUBATION TO CONTINUE FOR 4 DAYS. Current Medications Acetaminophen (Ofirmev Injection -) 1,000 mg IVPB Q6H PRN PRN Reason: FEVER Last Admin: 02/08/19 06:14 Dose: 1,000 mg Chlorhexidine Gluconate (Hibiclens For Decolonization -) 1 applic TP HS RUFINO Last Admin: 02/08/19 21:18 Dose: 1 applic Propofol (Diprivan -) 1,000,000 mcg in 100 mls @ 10.475 mls/hr IVPB TITR RUFINO; Protocol Last Admin: 02/08/19 21:17 Dose: 20 mcg/kg/min, 6.984 mls/hr Metronidazole (Flagyl 500mg Premixed Ivpb -) 500 mg in 100 mls @ 100 mls/hr IVPB Q8H-IV RUFINO Last Admin: 02/09/19 01:41 Dose: 100 mls/hr Piperacillin Sod/Tazobactam (Sod 4.5 gm/ Dextrose) 100 mls @ 200 mls/hr IVPB Q8H-IV RUFINO; Protocol Last Admin: 02/09/19 01:41 Dose: 200 mls/hr Norepinephrine Bitartrate 8, (000 mcg/ Dextrose) 500 mls @ 6.54 mls/hr IV ASDIR RU[facility]; Protocol Last Titration: 02/09/19 03:00 Dose: 0 mcg/kg/min, 0 mls/hr Fluconazole (Diflucan 200 Mg/Ns Premixed Ivpb -) 100 mls @ 100 mls/hr IVPB DAILY [facility] Lactated Ringer's (Lactated Ringers Solution) 1,000 ml in 1,000 mls @ 150 mls/ hr IV ASDIR [facility] Last Admin: 02/09/19 02:08 Dose: 150 mls/hr Famotidine/Sodium Chloride (Pepcid 20 Mg Premixed Ivpb -) 20 mg in 50 mls @ 100 mls/hr IVPB BID [facility] Last Admin: 02/08/19 21:16 Dose: 100 mls/hr Potassium Phosphate 30 mm/ (Sodium Chloride) 260 mls @ 62.5 mls/hr IVPB ONCE ONE Stop: 02/09/19 13:09 Levothyroxine Sodium (Synthroid Injection -) 50 mcg IVPUSH DAILY [facility] Last Admin: 02/08/19 10:22 Dose: 50 mcg Mupirocin (Bactroban Ointment (For Decolonization) -) 1 applic NS BID [facility] Stop: 02/12/19 21:59 Last Admin: 02/08/19 21:18 Dose: 1 applic cxray reviewed a/p sepsis secondary to necrotic small bowel bowel- s/p surgery -pod #2 continue zosyn/flagyl day #2 diflucan f/u blood cultures no operative cultures sent postop leukopenia resolved remains intubated postop clinically improved Problem List - Problems (1) Sepsis Code(s): A41.9 - SEPSIS, UNSPECIFIED ORGANISM (2) Small bowel obstruction Code(s): K56.609 - UNSP INTESTNL OBST, UNSP TO PARTIAL VERSUS COMPLETE OBST (3) Small bowel perforation Code(s): K63.1 - PERFORATION OF INTESTINE (NONTRAUMATIC)
[2019-02-09] MEDS ORDERED: POTASSIUM PHOSPHATE 30 MM in SODIUM CHLORIDE 250 ML IVPB ONE (09:00)
[2019-02-09] MEDS: FAMOTIDINE 20 MG/50 ML IVPB 20 MG/50 ML MG IVPB SCH ×2 (09:49→22:35)
--- NOTE | 2019-02-09 10:01 | EKG ---
Test Reason : Blood Pressure : / mmHG Vent. Rate : 107 BPM Atrial Rate : 107 BPM P-R Int : 154 ms QRS Dur : 102 ms QT Int : 386 ms P-R-T Axes : 056 073 090 degrees QTc Int : 515 ms SINUS TACHYCARDIA INCOMPLETE RIGHT BUNDLE BRANCH BLOCK T WAVE ABNORMALITY, CONSIDER ANTERIOR ISCHEMIA ABNORMAL ECG WHEN COMPARED WITH ECG OF 06-FEB-2019 23:49, NO SIGNIFICANT CHANGE WAS FOUND Confirmed by BRIANNE SHAFFER, PAUL ([id number]) on 02/09/2019 10:01:26 AM Referred By: Alla Acevedo Confirmed By:PAUL DECKER MD
[2019-02-09] MEDS: LEVOTHYROXINE SODIUM 100 MCG VIAL IVPUSH SCH (10:25)
[2019-02-09 10:46] LABS: ANISOCYTOSIS 1+; MACROCYTOSIS 1+; PLATELET ESTIMATE NORMAL
--- NOTE | 2019-02-09 10:51 | PN ---
Progress Note (short form) - Note Progress Note: Renal follow up for Oliguria Pt seen and examined in the ICU awake on vent making urine via ross on CPAP mode of vent Vital Signs Temperature 98.6 F 02/09/19 08:52 Pulse Rate 94 H 02/09/19 08:52 Respiratory Rate 20 02/09/19 08:52 Blood Pressure 140/63 02/09/19 08:52 O2 Sat by Pulse Oximetry (%) 100 02/09/19 08:52 Intake & Output 02/06/19 02/07/19 02/08/19 02/09/19 23:59 23:59 23:59 23:59 Intake Total 5000 8276 5940.4 Output Total 881 033 1810 Balance 4265 7596 4790.4 Weight 61.235 kg 58.196 kg 61.717 kg 67.812 kg Mild distress neck supple, no JVD RRR, no M/R CTA, no rales soft N/ND, ostomy in place trace edema in LE, mild edema in UE CBC, BMP 02/09/19 05:30 02/09/19 05:30 Laboratory Tests 02/09/19 02/09/19 05:30 05:30 Lactic Acid 1.8 Calcium 7.4 L Phosphorus 2.6 Albumin 1.6 L Current Medications Acetaminophen (Ofirmev Injection -) 1,000 mg IVPB Q6H PRN PRN Reason: FEVER Last Admin: 02/08/19 06:14 Dose: 1,000 mg Chlorhexidine Gluconate (Hibiclens For Decolonization -) 1 applic TP HS RUFINO Last Admin: 02/08/19 21:18 Dose: 1 applic Propofol (Diprivan -) 1,000,000 mcg in 100 mls @ 10.475 mls/hr IVPB TITR RUFINO; Protocol Last Admin: 02/08/19 21:17 Dose: 20 mcg/kg/min, 6.984 mls/hr Metronidazole (Flagyl 500mg Premixed Ivpb -) 500 mg in 100 mls @ 100 mls/hr IVPB Q8H-IV RUFINO Last Admin: 02/09/19 09:50 Dose: 100 mls/hr Piperacillin Sod/Tazobactam (Sod 4.5 gm/ Dextrose) 100 mls @ 200 mls/hr IVPB Q8H-IV RUFINO; Protocol Last Admin: 02/09/19 09:50 Dose: 200 mls/hr Fluconazole (Diflucan 200 Mg/Ns Premixed Ivpb -) 100 mls @ 100 mls/hr IVPB DAILY [facility] Lactated Ringer's (Lactated Ringers Solution) 1,000 ml in 1,000 mls @ 150 mls/ hr IV ASDIR [facility] Last Admin: 02/09/19 02:08 Dose: 150 mls/hr Famotidine/Sodium Chloride (Pepcid 20 Mg Premixed Ivpb -) 20 mg in 50 mls @ 100 mls/hr IVPB BID [facility] Last Admin: 02/09/19 09:49 Dose: 100 mls/hr Potassium Phosphate 30 mm/ (Sodium Chloride) 260 mls @ 62.5 mls/hr IVPB ONCE ONE Stop: 02/09/19 13:09 Last Admin: 02/09/19 09:49 Dose: 62.5 mls/hr Levothyroxine Sodium (Synthroid Injection -) 50 mcg IVPUSH DAILY [facility] Last Admin: 02/09/19 10:25 Dose: 50 mcg Mupirocin (Bactroban Ointment (For Decolonization) -) 1 applic NS BID [facility] Stop: 02/12/19 21:59 Last Admin: 02/08/19 21:18 Dose: 1 applic 84 year old gentleman with hx of HTN, hypothyroidism, GERD, BPH, Parkinson's disease (ambulates with walker on baseline), Paroxysmal Atrial Fibrillation presented with abd pain and found to have necrotic bowel s/p bowel resection with oliguria. #Oliguria now improved #Necrotic bowel s/p resection #Hypertension #P-Afib Urine output is improved with isotonic saline continue at present rate for now continue vent management as per ICU Trend renal function and electrolytes Thank you Alfred Crabtree DO
[2019-02-09] MEDS: MUPIROCIN 2% TOPICAL OINTMENT FOR DECOLONIZATION NS SCH ×2 (10:58→22:36)
[2019-02-09] MEDS: FLUCONAZOLE 200 MG/NS 100 ML IVPB SCH (11:00)
--- NOTE | 2019-02-09 11:26 | EKG ---
Test Reason : Blood Pressure : / mmHG Vent. Rate : 085 BPM Atrial Rate : 085 BPM P-R Int : 168 ms QRS Dur : 120 ms QT Int : 414 ms P-R-T Axes : 069 024 044 degrees QTc Int : 492 ms NORMAL SINUS RHYTHM POSSIBLE LEFT ATRIAL ENLARGEMENT NON-SPECIFIC INTRA-VENTRICULAR CONDUCTION DELAY NONSPECIFIC T WAVE ABNORMALITY ABNORMAL ECG NO PREVIOUS ECGS AVAILABLE Confirmed by BRIANNE SHAFFER, PAUL ([id number]) on 02/09/2019 11:25:37 AM Referred By: Alla Acevedo Confirmed By:PAUL DECKER MD
--- NOTE | 2019-02-09 12:08 | PN ---
Teaching Attending Note Name of Resident: Yaritza Dominguez ATTENDING PHYSICIAN STATEMENT I saw and evaluated the patient. I reviewed the resident's note and discussed the case with the resident. I agree with the resident's findings and plan as documented. SUBJECTIVE: Pt seen and examined in the ICU. Remains intubated, alert off sedation. Off pressors, placed on CPAP/PS but went into rapid afib with tachypneic, placed back on sedation and assist control. OBJECTIVE: Vital Signs Period Temp Pulse Resp BP Sys/Joiner Pulse Ox Last 24 Hr 98.4 F-100.5 F 89-101 14-24 77-145/55-71 97-100 Intake & Output 02/06/19 02/07/19 02/08/19 02/09/19 23:59 23:59 23:59 23:59 Intake Total 5000 8276 5940.4 Output Total 491 626 8693 Balance 4265 7596 4790.4 Weight 61.235 kg 58.196 kg 61.717 kg 67.812 kg Gen: intubated, awake Heart: tachycaric, irregular Lung: scattered rhonchi Abd: soft, +ostomy pink Ext: + edema CBC, BMP 02/09/19 05:30 02/09/19 05:30 Active Medications Acetaminophen (Ofirmev Injection -) 1,000 mg IVPB Q6H PRN PRN Reason: FEVER Last Admin: 02/08/19 06:14 Dose: 1,000 mg Chlorhexidine Gluconate (Hibiclens For Decolonization -) 1 applic TP HS RUFINO Last Admin: 02/08/19 21:18 Dose: 1 applic Propofol (Diprivan -) 1,000,000 mcg in 100 mls @ 10.475 mls/hr IVPB TITR RUFINO; Protocol Last Admin: 02/08/19 21:17 Dose: 20 mcg/kg/min, 6.984 mls/hr Metronidazole (Flagyl 500mg Premixed Ivpb -) 500 mg in 100 mls @ 100 mls/hr IVPB Q8H-IV RUFINO Last Admin: 02/09/19 09:50 Dose: 100 mls/hr Piperacillin Sod/Tazobactam (Sod 4.5 gm/ Dextrose) 100 mls @ 200 mls/hr IVPB Q8H-IV RUFINO; Protocol Last Admin: 02/09/19 09:50 Dose: 200 mls/hr Fluconazole (Diflucan 200 Mg/Ns Premixed Ivpb -) 100 mls @ 100 mls/hr IVPB DAILY [facility] Lactated Ringer's (Lactated Ringers Solution) 1,000 ml in 1,000 mls @ 150 mls/ hr IV ASDIR [facility] Last Admin: 02/09/19 10:46 Dose: 150 mls/hr Famotidine/Sodium Chloride (Pepcid 20 Mg Premixed Ivpb -) 20 mg in 50 mls @ 100 mls/hr IVPB BID [facility] Last Admin: 02/09/19 09:49 Dose: 100 mls/hr Potassium Phosphate 30 mm/ (Sodium Chloride) 260 mls @ 62.5 mls/hr IVPB ONCE ONE Stop: 02/09/19 13:09 Last Admin: 02/09/19 09:49 Dose: 62.5 mls/hr Levothyroxine Sodium (Synthroid Injection -) 50 mcg IVPUSH DAILY [facility] Last Admin: 02/09/19 10:25 Dose: 50 mcg Mupirocin (Bactroban Ointment (For Decolonization) -) 1 applic NS BID [facility] Stop: 02/12/19 21:59 Last Admin: 02/09/19 10:58 Dose: 1 applic ASSESSMENT AND PLAN: Acute Respiratory Failure Small Bowel Necrosis/Perforation s/p ex-lap/small bowel resection/ileostomy/ORALIA 02/07 Septic Shock improving Acute Kidney Injury Lactic Acidosis Paroxysmal Atrial Fibrillation with RVR HTN Hypothyroidism BPH RBBB - continue antibiotics - f/u cultures - continue IVF resuscitation - monitor urine output, creatinine - monitoring off pressors, maintain MAP >65 - O2 to keep Spo2 >90% - monitor ostomy output - daily sedation vacations to assess mental status - daily spontaneous breathing trials as tolerated - DVT/GI prophylaxis - continue ICU monitoring critical care time spent in reviewing chart, evaluating patient and formulating plan 35 min
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
--- NOTE | 2019-02-09 12:53 | ECHO ---
Name: ELEANOR ABDALLA Exam:Adult Echocardiogram Study Date: 02/09/2019 08:26 AM Age: 84 yrs Reason For Study: LV Function Height: 68 in Weight: 128 lb BSA: 1.7 m2 BP: 152/72 mmHg MMode/2D Measurements & Calculations IVSd: 1.1 cm Ao root diam: 3.0 cm LVIDd: 2.9 cm LA dimension: 1.6 cm LVIDs: 2.1 cm LVPWd: 0.88 cm EDV(Teich): 33.2 ml LVOT diam: 1.9 cm ESV(Teich): 14.9 ml Doppler Measurements & Calculations MV E max arnold: 48.9 cm/sec Ao V2 max: 116.4 cm/sec MV A max arnold: 87.9 cm/sec Ao max P.4 mmHg MV E/A: 0.56 Ao V2 mean: 75.2 cm/sec Ao mean P.7 mmHg Ao V2 VTI: 20.7 cm LINDSEY(I,D): 2.3 cm2 LINDSEY(V,D): 2.2 cm2 LV V1 max P.1 mmHg SV(LVOT): 48.0 ml LV V1 mean P.3 mmHg LV V1 max: 87.4 cm/sec LV V1 mean: 52.8 cm/sec LV V1 VTI: 16.2 cm TR max arnold: 313.7 cm/sec PI end-d arnold: 108.6 cm/sec TR max P.4 mmHg Med Peak E' Arnold: 4.8 cm/sec Med E/e': 10.1 Lat Peak E' Arnold: 9.2 cm/sec Lat E/e': 5.3 Left Ventricle The left ventricle is normal in size. Left ventricular systolic function is grossly normal. Ejection Fraction = 60-65%. Grade I diastolic dysfunction, (abnormal relaxation pattern). Right Ventricle The right ventricle is moderately dilated. A moderator band is seen in the right ventricle. The right ventricular systolic function is mildly reduced. Atria Normal left and right atrial size and function. Mitral Valve The mitral valve leaflets appear thickened, but open well. There is trace mitral regurgitation. Tricuspid Valve The tricuspid valve is not well visualized, but is grossly normal. There is moderate to severe tricus pid regurgitation. Right ventricular systolic pressure is elevated at 40 mmhg. There is mild pulmonary hypertension. Aortic Valve There is moderate aortic sclerosis.;. The aortic valve opens well. The aortic valve is trileaflet. Tr michelle aortic regurgitation. Pulmonic Valve The pulmonic valve is not well visualized. Moderate pulmonic valvular regurgitation. Great Vessels The aortic root is normal size. Pericardium/Pleura There is a pleural effusion present. Interpretation Summary In comparison to previous study 04/10/2016, RV appears dilated with mild decrease in systolic functio n. The right ventricle is moderately dilated. Trace aortic regurgitation. There is trace mitral regurgitation. The left ventricle is normal in size. There is moderate to severe tricuspid regurgitation. Moderate pulmonic valvular regurgitation. Left ventricular systolic function is grossly normal. Chencho Adame MD 02/09/2019 12:53 PM
[2019-02-09] MEDS ORDERED: ARTIFICIAL TEARS (POLYVINYL ALCOHOL) OPTH DROPS OU PRN (13:05)
--- NOTE | 2019-02-09 17:32 | PN ---
Progress Note (short form) - Note Progress Note: POD#2 T 99.9 rectal P-90-113 BP-77-140 systolic Pt attempted weaning aborted secondary to A-Fib with tachycardia and tachypnea Presently sedated P/E-Abd- dressing changed packing removed incision-dry, clean, no cellulitis Ext- 1+ edema WBC-10.4 H/H-12.1/36.2 BUN/CR-33/1.1 (improved from 33/1.3) U.O-1300cc/16 hours P- Continue as per Card, Nephrology Antibiotics as per ID Cont DVT, GI prophylaxis Cont vent, overall management per ICU team
[2019-02-09] MEDS: ACETAMINOPHEN 1000 MG/100 ML VIAL (NON FORMULARY) IVPB PRN (18:05)
[2019-02-09] MEDS: PROPOFOL 1,000,000 MCG/100 ML VIAL IVPB SCH ×2 (18:09→18:48)
--- NOTE | 2019-02-09 22:13 | PN ---
Physical Exam: SUBJECTIVE: Patient seen and examined -pt off sedation and responds appropriately -ostomy patent and draining -remains intubated OBJECTIVE: Vital Signs Period Temp Pulse Resp BP Sys/Joiner Pulse Ox Last 24 Hr 98.4 F-100.3 F 89-113 14-22 77-145/55-71 97-100 GENERAL: The patient is awake, lethargic but no acute distress. ETT to vent HEAD: Normal with no signs of trauma. EYES: PERRL NECK: Trachea midline, full range of motion, supple. LUNGS: Breath sounds coarse equally, no accessory muscle use. HEART: Regular rate and rhythm, S1, S2 without murmur, rub or gallop. ABDOMEN: Soft, + ostomy with liq brown stool, Drain in situ EXTREMITIES: 2+ pulses, warm, well-perfused, no edema. PSYCH: Normal mood, normal affect. SKIN: Warm, dry,venous stasis changes, right hand/wrist swelling Laboratory Results - last 24 hr 02/09/19 02/09/19 02/09/19 05:30 05:30 05:30 WBC 10.4 H RBC 3.65 L Hgb 12.1 Hct 36.2 D MCV 99.1 H MCH 33.0 MCHC 33.3 RDW 15.1 Plt Count 147 D MPV 9.7 Neutrophils % No Result Required. Neutrophils % (Manual) 72.0 Band Neutrophils % 18.0 Lymphocytes % No Result Required. Lymphocytes % (Manual) 5.0 L Monocytes % (Manual) 3 L Eosinophils % (Manual) 0.0 Basophils % (Manual) 0.0 Myelocytes % (Man) 0 Promyelocytes % (Man) 0 Blast Cells % (Manual) 0 Nucleated RBC % 0 Metamyelocytes 2 Hypochromia 0 Platelet Estimate Normal Polychromasia 0 Poikilocytosis 0 Anisocytosis 1+ Microcytosis 0 Macrocytosis 1+ Anticoagulation Therapy Puncture Site ABG pH ABG pCO2 at Pt Temp ABG pO2 at Pt Temp ABG HCO3 ABG O2 Sat (Measured) ABG O2 Content ABG Base Excess Brian Test O2 Delivery Device Oxygen Flow Rate Vent Mode Vent Rate Mechanical Rate PEEP Pressure Support Vent Sodium 141 Potassium 3.6 Chloride 107 Carbon Dioxide 25 Anion Gap 9 BUN 33 H Creatinine 1.1 Creat Clearance w eGFR 63.47 Random Glucose 96 Lactic Acid 1.8 Calcium 7.4 L Phosphorus 2.6 Magnesium 2.3 Total Bilirubin 0.5 AST 14 L ALT < 6 L Alkaline Phosphatase 38 L Total Protein 3.5 L Albumin 1.6 L 02/09/19 07:00 WBC RBC Hgb Hct MCV MCH MCHC RDW Plt Count MPV Neutrophils % Neutrophils % (Manual) Band Neutrophils % Lymphocytes % Lymphocytes % (Manual) Monocytes % (Manual) Eosinophils % (Manual) Basophils % (Manual) Myelocytes % (Man) Promyelocytes % (Man) Blast Cells % (Manual) Nucleated RBC % Metamyelocytes Hypochromia Platelet Estimate Polychromasia Poikilocytosis Anisocytosis Microcytosis Macrocytosis Anticoagulation Therapy No Result Required. Puncture Site Arterial line ABG pH 7.51 H ABG pCO2 at Pt Temp 28.9 L ABG pO2 at Pt Temp 141 H ABG HCO3 23.0 ABG O2 Sat (Measured) 99.0 H ABG O2 Content 16.0 ABG Base Excess 1.1 Brian Test Not applicable O2 Delivery Device Vent Oxygen Flow Rate 40% Vent Mode No Result Required. Vent Rate 10 Mechanical Rate No Result Required. PEEP 5.0 Pressure Support Vent No Result Required. Sodium Potassium Chloride Carbon Dioxide Anion Gap BUN Creatinine Creat Clearance w eGFR Random Glucose Lactic Acid Calcium Phosphorus Magnesium Total Bilirubin AST ALT Alkaline Phosphatase Total Protein Albumin Active Medications Generic Name Dose Route Start Last Admin Trade Name Freq PRN Reason Stop Dose Admin Acetaminophen 1,000 mg 02/07/19 21:32 02/09/19 18:05 Ofirmev Injection - IVPB 1,000 mg Q6H PRN Administration FEVER Artificial Tears 1 drop 02/09/19 13:05 Artificial Tears OU BID PRN DRY EYES Chlorhexidine Gluconate 1 applic 02/07/19 22:00 02/08/19 21:18 Hibiclens For Decolonization - TP 1 applic HS RUFINO Administration Metronidazole 500 mg in 100 mls @ 100 mls/hr 02/07/19 22:45 02/09/19 17:59 Flagyl 500mg Premixed Ivpb - IVPB 100 mls/hr Q8H-IV RUFINO Administration Piperacillin Sod/Tazobactam 100 mls @ 200 mls/hr 02/08/19 18:00 02/09/19 17: 59 Sod 4.5 gm/ Dextrose IVPB 200 mls/hr Q8H-IV RUFINO Administration Protocol Fluconazole 100 mls @ 100 mls/hr 02/09/19 10:00 02/09/19 11:00 Diflucan 200 Mg/Ns Premixed Ivpb - IVPB 100 mls/hr DAILY RUFINO Administration Lactated Ringer's 1,000 ml in 1,000 mls @ 150 mls/hr 02/08/19 09:42 02/09/19 10:46 Lactated Ringers Solution IV 150 mls/hr ASDIR RUFINO Administration Famotidine/Sodium Chloride 20 mg in 50 mls @ 100 mls/hr 02/08/19 11:00 09:49 Pepcid 20 Mg Premixed Ivpb - IVPB 100 mls/hr BID RUFINO Administration Propofol 1,000,000 mcg in 100 mls @ 4.069 mls/hr 02/09/19 18:15 02/09/19 18: 48 Diprivan - IVPB 15 mcg/kg/min TITR RUFINO 6.103 mls/hr Administration Protocol 10 MCG/KG/MIN Levothyroxine Sodium 50 mcg 02/08/19 10:00 02/09/19 10:25 Synthroid Injection - IVPUSH 50 mcg DAILY RUFINO Administration Mupirocin 1 applic 02/07/19 22:00 02/09/19 10:58 Bactroban Ointment (For Decolonization) - NS 02/12/19 21:59 1 applic BID RUFINO Administration ASSESSMENT/PLAN: 82 year old male, with a significant past medical history of HTN, hypothyroidism, GERD, BPH, Parkinson's disease admitted with SBO now with septic shock 1.SEpsis c/w fluconazole c/w metronidazole 500mg q8hrs c/w pipercillin/tazobactam 4.5g ID following 2.SBO s/o ex-lap keep patient NPO advance diet after the surgery clears 3. resp insuff maintain vent, wean as tolerated SBT in AM 4. hypothyroidism -synthroid daily 5. HTN -currently normotensive 6. Oliguria -strict intake and output -gentle hydration -Trend renal function and electrolytes 7.PPX H2B APAP PRN fever Problem List - Problems (1) Acute postprocedural respiratory failure Code(s): J95.821 - ACUTE POSTPROCEDURAL RESPIRATORY FAILURE (2) Hypothyroidism Code(s): E03.9 - HYPOTHYROIDISM, UNSPECIFIED (3) Sepsis Code(s): A41.9 - SEPSIS, UNSPECIFIED ORGANISM Visit type - Emergency Visit Emergency Visit: Yes ED Registration Date: 02/07/19 Care time: The patient presented to the Emergency Department on the above date and was hospitalized for further evaluation of their emergent condition. - New Patient This patient is new to me today: Yes Date on this admission: 02/09/19 - Critical Care Critical Care patient: Yes Total Critical Care Time (in minutes): 35 Critical Care Statement: The care of this patient involved high complexity decision making to prevent further life threatening deterioration of the patient 's condition and/or to evaluate & treat vital organ system(s) failure or risk of failure. - Discharge Referral Referred to [facility] Med P.C.: No
[2019-02-09] MEDS: CHLORHEXIDINE GLUCONATE 4% CLEANSER FOR DECOLONIZATION TP SCH (22:35)
[2019-02-10] MEDS ORDERED: PIPERACILLIN/TAZOBACTAM 4.5 GM VIAL IVPB ONE ×3 (01:07→16:39)
[2019-02-10] MEDS ORDERED: DEXTROSE 5%-WATER 100 ML IVPB ONE ×3 (01:07→16:39)
[2019-02-10] MEDS: PIPERACILLIN/TAZOB 4.5 GM 4.5 GM in DEXTROSE 5%-WATER 100 ML IVPB SCH ×3 (01:09→17:19)
[2019-02-10] MEDS: LACTATED RINGERS SOLUTION 1,000 ML/1,000 ML INFUS.BAG IV SCH (01:10)
[2019-02-10] MEDS: PROPOFOL 1,000,000 MCG/100 ML VIAL IVPB SCH ×2 (01:11→18:44)
[2019-02-10 06:14] LABS: BASO % 0.1 % (0-2.0); EOS % 0.6 % (0-4.5); HEMATOCRIT 31.3 % (35.4-49); HEMOGLOBIN 10.3 GM/dL (11.7-16.9); LYMPH % 3.6 % (8-40); MCH 32.3 pg (25.7-33.7); MCHC 32.8 g/dl (32.0-35.9); MEAN CELL VOLUME 98.4 fl (80-96); MEAN PLT VOLUME 9.7 fl (7.5-11.1); MONO % 2.3 % (3.8-10.2); NEUT % 93.4 % (42.8-82.8); PLATELET COUNT 130 K/MM3 (134-434); RBC 3.18 M/mm3 (4.00-5.60); RDW 14.6 % (11.9-15.9); WHITE BLOOD COUNT 9.4 K/mm3 (4.0-10.0)
[2019-02-10 06:48] LABS: ALBUMIN 1.4 g/dl (3.4-5.0); ALK PHOS 41 U/L (45-117); ANION GAP 5 MMOL/L (8-16); BILIRUBIN,TOTAL 0.4 mg/dL (0.2-1); BLOOD UREA NITROGEN 26 mg/dL (7-18); CALCIUM 7.3 mg/dL (8.5-10.1); CHLORIDE 110 mmol/L (98-107); CO2 26 mmol/L (21-32); CREATININE 0.8 mg/dL (0.55-1.3); GLUCOSE,RANDOM 84 mg/dL (74-106); MAGNESIUM 2.2 mg/dL (1.8-2.4); PHOSPHOROUS 2.6 mg/dL (2.5-4.9); POTASSIUM 3.5 mmol/L (3.5-5.1); SGOT/AST 13 U/L (15-37); SGPT/ALT < 6 U/L (13-61); SODIUM 141 mmol/L (136-145); TOT PROT 3.5 g/dl (6.4-8.2)
--- NOTE | 2019-02-10 07:52 | PN ---
Physical Exam: SUBJECTIVE: Patient seen and examined at bedside. Extubated this AM. Tolerating well but complains of mucus OBJECTIVE: Vital Signs Period Temp Pulse Resp BP Sys/Joiner Pulse Ox Last 24 Hr 98.6 F-100.3 F 91-113 14-24 108-151/55-70 97-100 GEN: Extubated. Awake and alert, communicating via writing. NECK: Trachea midline, left IJ placed 02/08/2019 LUNGS: coarse breath sounds on vent, no wheezes, no crackles, no accessory muscle use. Satting at 100% HEART: Regular rate and rhythm, S1, S2 without murmur, rub or gallop. ABDOMEN: Soft, nondistended, normoactive bowel sounds, ileostomy patent in RUQ with green liquid output, abdominal dressing in place CDI with drain in place. EXTREMITIES: 2+ pulses in radial and DP, warm, well-perfused, no edema. +edema in b/l hands. +mottling in b/l LE from mid-reis distally to feet. CBC, BMP 02/10/19 05:30 02/10/19 05:30 Active Medications Acetaminophen (Ofirmev Injection -) 1,000 mg IVPB Q6H PRN PRN Reason: FEVER Last Admin: 02/09/19 18:05 Dose: 1,000 mg Artificial Tears (Artificial Tears) 1 drop OU BID PRN PRN Reason: DRY EYES Chlorhexidine Gluconate (Hibiclens For Decolonization -) 1 applic TP HS RUFINO Last Admin: 02/09/19 22:35 Dose: 1 applic Metronidazole (Flagyl 500mg Premixed Ivpb -) 500 mg in 100 mls @ 100 mls/hr IVPB Q8H-IV RUFINO Last Admin: 02/10/19 01:10 Dose: 100 mls/hr Piperacillin Sod/Tazobactam (Sod 4.5 gm/ Dextrose) 100 mls @ 200 mls/hr IVPB Q8H-IV RUFINO; Protocol Last Admin: 02/10/19 01:09 Dose: 200 mls/hr Fluconazole (Diflucan 200 Mg/Ns Premixed Ivpb -) 100 mls @ 100 mls/hr IVPB DAILY RUFINO Last Admin: 02/09/19 11:00 Dose: 100 mls/hr Lactated Ringer's (Lactated Ringers Solution) 1,000 ml in 1,000 mls @ 150 mls/ hr IV ASDIR RUFINO Last Admin: 02/10/19 01:10 Dose: 150 mls/hr Famotidine/Sodium Chloride (Pepcid 20 Mg Premixed Ivpb -) 20 mg in 50 mls @ 100 mls/hr IVPB BID RUFINO Last Admin: 02/09/19 22:35 Dose: 100 mls/hr Propofol (Diprivan -) 1,000,000 mcg in 100 mls @ 4.069 mls/hr IVPB TITR RUFINO; Protocol Last Admin: 02/10/19 01:11 Dose: 15 mcg/kg/min, 6.103 mls/hr Levothyroxine Sodium (Synthroid Injection -) 50 mcg IVPUSH DAILY RUFINO Last Admin: 02/09/19 10:25 Dose: 50 mcg Mupirocin (Bactroban Ointment (For Decolonization) -) 1 applic NS BID RUFINO Stop: 02/12/19 21:59 Last Admin: 02/09/19 22:36 Dose: 1 applic CONSULT: ID- Dr. Preciado Cardio- Dr. Bryant Nephro- Dr. Crabtree Surg- Dr. Grimes IMAGING: * ECHO: RV appears dilated w/ mild decrease in systolic fxn. RV moderately dilated. Trace AR. Trace MR. LV is normal in size. Mod to severe TR. Mod pulmonic valvular regurg. LV systolic fxn grossly normal. ASSESSMENT/PLAN: 83M with pmhx of HTN, HLD, hx of Afib, Parkinson's, found to have gangrenous small bowel s/p resection POD #3. Neuro -Extubated today (02/10/19); Awake and alert, able to communicate via writing -Fentanyl pushes for pain control -Off sedation Cardiovascular -Hemodynamically stable; off pressors. Maintain MAP >65 -d/c IVf as pt is now currently fluid overloaded; dependent edema -Per cardio, restart PO meds once NG tube can be utilized -Will add Metoprolol 5 mg Q6H IVP PRN for systolic >120 Pulmonary -Extubated. Currently on venturi mask ID -broad spectrum coverage for abdominal ajith -Cont Zosyn 4.5g Q8h, Flagyl 500 Q8h, Fluconazole 200 QD (Day 3) -Await ID recs GI #Sepsis 2/2 necrotic small bowel- s/p surgery -POD #3 -s/p jejunostomy and ileostomy and drain in place -NG tube for decompression -f/u surg recs Endo #Hypothyroidism -Cont home med: Levothyroxine 50 mcg QD Prophylaxis -Lovenox 40 QD -Pepcid BID FEN -d/c IVf; maintain UOP >0.5cc/kg/hr -replete lytes PRN -NPO Lines Left IJ 02/07/2019 A-line in right wrist Ileostomy bag Jejunostomy Will NG Dispo -full code -cont to monitor in ICU Visit type - Emergency Visit Emergency Visit: Yes ED Registration Date: 02/07/19 Care time: The patient presented to the Emergency Department on the above date and was hospitalized for further evaluation of their emergent condition. - New Patient This patient is new to me today: No - Critical Care Critical Care patient: Yes Total Critical Care Time (in minutes): 35 Critical Care Statement: The care of this patient involved high complexity decision making to prevent further life threatening deterioration of the patient 's condition and/or to evaluate & treat vital organ system(s) failure or risk of failure.
[2019-02-10] MEDS ORDERED: POTASSIUM CHLORIDE TABS 10 MEQ TABLET.ER (FP) PO ONE (08:25)
[2019-02-10] MEDS ORDERED: POTASSIUM CHLORIDE TABS 20 MEQ TABLET.ER (FP) PO ONE (08:30)
[2019-02-10] MEDS: MORPHINE SULFATE 2 MG/ML VIAL IVPUSH PRN ×2 (08:38→22:18)
[2019-02-10] MEDS ORDERED: LACTATED RINGERS SOLUTION 1,000 ML/1,000 ML INFUS.BAG IV SCH (08:54)
[2019-02-10] MEDS ORDERED: PT OWN MED DRAWER 7, Y5N ONE ×4 (09:01→22:42)
[2019-02-10] MEDS: KCL 10 MEQ IVPB 10 MEQ/100 ML INFUS.BAG IVPB SCH ×3 (09:36→11:22)
[2019-02-10] MEDS: MUPIROCIN 2% TOPICAL OINTMENT FOR DECOLONIZATION NS SCH ×2 (09:37→22:10)
[2019-02-10] MEDS: FAMOTIDINE 20 MG/50 ML IVPB 20 MG/50 ML MG IVPB SCH ×2 (09:38→22:20)
[2019-02-10] MEDS: FLUCONAZOLE 200 MG/NS 100 ML IVPB SCH (09:38)
[2019-02-10] MEDS: LEVOTHYROXINE SODIUM 100 MCG VIAL IVPUSH SCH (09:40)
[2019-02-10 10:46] LABS: ANISOCYTOSIS 1+; MACROCYTOSIS 1+; PLATELET ESTIMATE DECREASED
[2019-02-10] MEDS ORDERED: METOPROLOL TARTRATE 5 MG/5 ML VIAL IVPUSH PRN (12:11)
--- NOTE | 2019-02-10 12:20 | PN ---
Teaching Attending Note Name of Resident: Yaritza Dominguez ATTENDING PHYSICIAN STATEMENT I saw and evaluated the patient. I reviewed the resident's note and discussed the case with the resident. I agree with the resident's findings and plan as documented. SUBJECTIVE: Pt seen and examined in the ICU. Intubated, awake off sedation. Remains off pressors. Placed on CPAP/PS with good RSBI and subsequently extubated during rounds. Good urine output yesterday. OBJECTIVE: Vital Signs Period Temp Pulse Resp BP Sys/Joiner Pulse Ox Last 24 Hr 99 F-100.3 F 91-113 13-31 108-170/55-80 99-100 Intake & Output 02/07/19 02/08/19 02/09/19 02/10/19 23:59 23:59 23:59 23:59 Intake Total 5000 8276 8042.0 1442 Output Total 164 821 1375 550 Balance 4265 7596 5642.0 892 Weight 58.196 kg 61.717 kg 67.812 kg 69.4 kg Gen: extubated, mildly tachypneic Heart: RRR Lung: scattered rhonchi Abd: soft, +ileostomy with bilious output Ext: + edema CBC, BMP 02/10/19 05:30 02/10/19 05:30 Active Medications Acetaminophen (Ofirmev Injection -) 1,000 mg IVPB Q6H PRN PRN Reason: FEVER Last Admin: 02/09/19 18:05 Dose: 1,000 mg Artificial Tears (Artificial Tears) 1 drop OU TID PRN PRN Reason: DRY EYES Bacitracin (Bacitracin -) 1 applic TP DAILY RUFINO Chlorhexidine Gluconate (Hibiclens For Decolonization -) 1 applic TP HS RUFINO Last Admin: 02/09/19 22:35 Dose: 1 applic Metronidazole (Flagyl 500mg Premixed Ivpb -) 500 mg in 100 mls @ 100 mls/hr IVPB Q8H-IV RUFINO Last Admin: 02/10/19 09:38 Dose: 100 mls/hr Piperacillin Sod/Tazobactam (Sod 4.5 gm/ Dextrose) 100 mls @ 200 mls/hr IVPB Q8H-IV RUFINO; Protocol Last Admin: 02/10/19 09:37 Dose: 200 mls/hr Fluconazole (Diflucan 200 Mg/Ns Premixed Ivpb -) 100 mls @ 100 mls/hr IVPB DAILY [facility] Last Admin: 02/10/19 09:38 Dose: 100 mls/hr Famotidine/Sodium Chloride (Pepcid 20 Mg Premixed Ivpb -) 20 mg in 50 mls @ 100 mls/hr IVPB BID [facility] Last Admin: 02/10/19 09:38 Dose: 100 mls/hr Propofol (Diprivan -) 1,000,000 mcg in 100 mls @ 4.069 mls/hr IVPB TITR [facility]; Protocol Last Titration: 02/10/19 08:03 Dose: 25 mcg/kg/min, 10.172 mls/hr Levothyroxine Sodium (Synthroid Injection -) 50 mcg IVPUSH DAILY [facility] Last Admin: 02/10/19 09:40 Dose: 50 mcg Metoprolol Tartrate (Lopressor Injection -) 5 mg IVPUSH Q6H PRN PRN Reason: HYPERTENSION Morphine Sulfate (Morphine Sulfate) 2 mg IVPUSH Q4H PRN PRN Reason: PAIN LEVEL 7 - 10 Last Admin: 02/10/19 08:38 Dose: 2 mg Mupirocin (Bactroban Ointment (For Decolonization) -) 1 applic NS BID [facility] Stop: 02/12/19 21:59 Last Admin: 02/10/19 09:37 Dose: 1 applic ASSESSMENT AND PLAN: Acute Respiratory Failure Small Bowel Necrosis/Perforation s/p ex-lap/small bowel resection/ileostomy/ORALIA 02/07 Septic Shock improving Acute Kidney Injury improving Lactic Acidosis resolved Volume Overload Paroxysmal Atrial Fibrillation with RVR HTN Hypothyroidism BPH RBBB - continue antibiotics - f/u cultures - d/c standing IVF - IV boluses as needed - maintain urine output >0.5mL/kg/hr - monitor urine output, creatinine - monitoring off pressors, maintain MAP >65 - O2 to keep Spo2 >90% - monitor ostomy output - DVT/GI prophylaxis - continue ICU monitoring critical care time spent in reviewing chart, evaluating patient and formulating plan 35 min
--- NOTE | 2019-02-10 13:11 | PN ---
Progress Note (short form) - Note Progress Note: alert extubated Vital Signs Period Temp Pulse Resp BP Sys/Joiner Pulse Ox Last 24 Hr 99 F-100.3 F 91-113 13-31 108-170/55-91 99-100 cor-rrr lungs decreased bs at bases abd soft, incision packed, +jtube, +ostomy with function ext +edema, +scrotal edema CBC, BMP 02/10/19 05:30 02/10/19 05:30 Microbiology 02/07/19 23:00 Blood - Peripheral Venous Blood Culture - Preliminary NO GROWTH OBTAINED AFTER 48 HOURS, INCUBATION TO CONTINUE FOR 3 DAYS. 02/07/19 23:00 Blood - Peripheral Venous Blood Culture - Preliminary NO GROWTH OBTAINED AFTER 48 HOURS, INCUBATION TO CONTINUE FOR 3 DAYS. 02/07/19 23:00 Urine - Urine Will Urine Culture - Final NO GROWTH OBTAINED a/p sepsis secondary to necrotic small bowel bowel- s/p surgery -pod #3 continue zosyn/flagyl day #3 diflucan f/u blood cultures no operative cultures sent postop leukopenia resolved now extubated clinically improved Problem List - Problems (1) Sepsis Code(s): A41.9 - SEPSIS, UNSPECIFIED ORGANISM (2) Small bowel obstruction Code(s): K56.609 - UNSP INTESTNL OBST, UNSP TO PARTIAL VERSUS COMPLETE OBST (3) Small bowel perforation Code(s): K63.1 - PERFORATION OF INTESTINE (NONTRAUMATIC)
[2019-02-10] MEDS: BACITRACIN 15 GM TUBE TOPICAL OINTMENT TP SCH (13:12)
[2019-02-10] MEDS: ENOXAPARIN NA (PORCINE) 40 MG/0.4 ML DISP.SYRIN SQ SCH (13:12)
--- NOTE | 2019-02-10 17:00 | PATH ---
Surgical Pathology Report Patient Name: ELEANOR ABDALLA [facility]. Rec. #: [id number] /Age/Gender: 1935 (Age: 84) / M Account: [id number] Location: ICU [facility] [employer] Taken: 02/07/2019 Received: 02/09/2019 Reported: 02/10/2019 Physicians: Diamante Cavazos MD Specimen(s) Received DISTAL SMALL BOWEL COLON Clinical History Small bowel obstruction Final Diagnosis DISTAL NECROTIC SMALL BOWEL, RESECTION: SEGMENT OF SMALL BOWEL SHOWING MUCOSAL NECROSIS, TRANSMURAL MARKED DIFFUSE HEMORRHAGE WITH FOCAL ACUTE INFLAMMATION, AND MARKED VASCULAR CONGESTION. HEMORRHAGE AND MUCOSAL NECROSIS PRESENT AT ONE OF THE MARGINS. Electronically Signed Curtis Rodriguez M.D. Gross Description Received in formalin labeled "distal small bowel necrotic," is a 19 cm in length portion of small bowel with 2 stapled mucosal margins and moderate attached fat. The serosa is dark brown with a focal defect. The mucosa is red-brown and markedly hemorrhagic. No mucosal masses are identified. Bead Forming Machine Set Up Operator sections are submitted in 5 cassettes as follows: [id number] stapled mucosal margins; 2-4-[id number] submitted mucosa (see sections from defect in cassette 4). DL/02/09/201902/09/2019
--- NOTE | 2019-02-10 17:15 | PN ---
Progress Note (short form) - Note Progress Note: POD#3 Afebrile; P-91-109 BP-160/73 Pt extubated, awake, lethargic P/E- Abd- packing changed incision clean, healthy except for 2 cm area 2/3 lower portion of abdomen packing replaced ileostomy- 650 cc in 12 hours appears pink, healthy Ext- no mottling noted; no edema WBC-9.4 (decreased) H/H- 10.3/31.3 BUN/CR-26/0.8 (decreased) P- Clamp NGT and check residual- if less than 100 cc in 4 hours may D/C Cont as per ID, Card, Nephrology May begin J-tube feedings tomorrow slowly as per ICU team Cont PUL, ICU management as per ICU team
[2019-02-10] MEDS ORDERED: ALBUTEROL SO4 2.5/IPRATROPIUM 0.5 INH SOL 3 ML VIAL.NEB. NEB ONE (18:25)
[2019-02-10] MEDS: ACETAMINOPHEN 1000 MG/100 ML VIAL (NON FORMULARY) IVPB PRN (18:27)
[2019-02-10] MEDS ORDERED: RAPID SEQUENCE INTUBATION KIT NR ONE (19:55)
--- NOTE | 2019-02-10 20:53 | PN ---
Physical Exam: SUBJECTIVE: Patient seen and examined -pt extubated today and A-line d/jareth OBJECTIVE: Vital Signs Period Temp Pulse Resp BP Sys/Joiner Pulse Ox Last 24 Hr 99 F-100 F 91-110 13-31 116-170/56-91 99-100 GENERAL: The patient is awake, lethargic but no acute distress. face mask in place HEAD: Normal with no signs of trauma. EYES: PERRL NECK: Trachea midline, LIJ TLC LUNGS: Breath sounds coarse equally, no accessory muscle use. HEART: Regular rate and rhythm, S1, S2 without murmur, rub or gallop. ABDOMEN: Soft, + ostomy with liq brown stool, Drain in situ EXTREMITIES: 2+ pulses, warm, well-perfused, +1 edema x 4 extremities NEURO: pt awake but lethargic, he uses spelling board to communicate PSYCH: Normal mood, normal affect. SKIN: Warm, dry,venous stasis changes, Laboratory Results - last 24 hr 02/10/19 02/10/19 05:30 05:30 WBC 9.4 RBC 3.18 L Hgb 10.3 L Hct 31.3 L MCV 98.4 H MCH 32.3 MCHC 32.8 RDW 14.6 Plt Count 130 L MPV 9.7 Absolute Neuts (auto) 8.8 H Neutrophils % 93.4 H Neutrophils % (Manual) 84.0 H Band Neutrophils % 11.0 Lymphocytes % 3.6 L D Lymphocytes % (Manual) 4.0 L Monocytes % 2.3 L Monocytes % (Manual) 1 L Eosinophils % 0.6 D Eosinophils % (Manual) 0.0 Basophils % 0.1 Basophils % (Manual) 0.0 Myelocytes % (Man) 0 Promyelocytes % (Man) 0 Blast Cells % (Manual) 0 Nucleated RBC % 0 Metamyelocytes 0 D Hypochromia 0 Platelet Estimate Decreased Polychromasia 0 Poikilocytosis 0 Anisocytosis 1+ Microcytosis 0 Macrocytosis 1+ Sodium 141 Potassium 3.5 Chloride 110 H Carbon Dioxide 26 Anion Gap 5 L BUN 26 H Creatinine 0.8 Creat Clearance w eGFR 91.66 Random Glucose 84 Calcium 7.3 L Phosphorus 2.6 Magnesium 2.2 Total Bilirubin 0.4 AST 13 L ALT < 6 L Alkaline Phosphatase 41 L Total Protein 3.5 L Albumin 1.4 L Active Medications Generic Name Dose Route Start Last Admin Trade Name Freq PRN Reason Stop Dose Admin Acetaminophen 1,000 mg 02/07/19 21:32 02/10/19 18:27 Ofirmev Injection - IVPB 1,000 mg Q6H PRN Administration FEVER Artificial Tears 1 drop 02/10/19 12:04 Artificial Tears OU TID PRN DRY EYES Bacitracin 1 applic 02/10/19 11:45 02/10/19 13:12 Bacitracin - TP 1 applic DAILY RUFINO Administration Chlorhexidine Gluconate 1 applic 02/07/19 22:00 02/09/19 22:35 Hibiclens For Decolonization - TP 1 applic HS RUFINO Administration Enoxaparin Sodium 40 mg 02/10/19 12:30 02/10/19 13:12 Lovenox - SQ 40 mg DAILY RUFINO Administration Metronidazole 500 mg in 100 mls @ 100 mls/hr 02/07/19 22:45 02/10/19 17:19 Flagyl 500mg Premixed Ivpb - IVPB 100 mls/hr Q8H-IV RUFINO Administration Piperacillin Sod/Tazobactam 100 mls @ 200 mls/hr 02/08/19 18:00 02/10/19 17: 19 Sod 4.5 gm/ Dextrose IVPB 200 mls/hr Q8H-IV RUFINO Administration Protocol Fluconazole 100 mls @ 100 mls/hr 02/09/19 10:00 02/10/19 09:38 Diflucan 200 Mg/Ns Premixed Ivpb - IVPB 100 mls/hr DAILY RUFINO Administration Famotidine/Sodium Chloride 20 mg in 50 mls @ 100 mls/hr 02/08/19 11:00 09:38 Pepcid 20 Mg Premixed Ivpb - IVPB 100 mls/hr BID RUFINO Administration Levothyroxine Sodium 50 mcg 02/08/19 10:00 02/10/19 09:40 Synthroid Injection - IVPUSH 50 mcg DAILY RUFINO Administration Metoprolol Tartrate 5 mg 02/10/19 12:11 Lopressor Injection - IVPUSH Q6H PRN HYPERTENSION Morphine Sulfate 2 mg 02/10/19 08:29 02/10/19 08:38 Morphine Sulfate IVPUSH 2 mg Q4H PRN Administration PAIN LEVEL 7 - 10 Mupirocin 1 applic 02/07/19 22:00 02/10/19 09:37 Bactroban Ointment (For Decolonization) - NS 02/12/19 21:59 1 applic BID RUFINO Administration ASSESSMENT/PLAN: 82 year old male, with a significant past medical history of HTN, hypothyroidism, GERD, BPH, Parkinson's disease admitted with SBO now with septic shock 1.Sepsis c/w fluconazole 200mg daily c/w metronidazole 500mg q8hrs c/w pipercillin/tazobactam 4.5g ID following trend WBC and fever curve 2.SBO s/o ex-lap keep patient NPO advance diet after the surgery clears monitor ostomy output J-tube in situ 3. resp insufficiency maintain vent, wean as tolerated SBT in AM 4. hypothyroidism -synthroid 50mg daily 5. HTN -currently normotensive 6. -strict intake and output -Trend renal function and electrolytes -Maintain Will 7.PPX H2B APAP PRN fever Lovenox 40mcg 8. DISPO -Full code Problem List - Problems (1) Acute postprocedural respiratory failure Code(s): J95.821 - ACUTE POSTPROCEDURAL RESPIRATORY FAILURE (2) Hypothyroidism Code(s): E03.9 - HYPOTHYROIDISM, UNSPECIFIED (3) Sepsis Code(s): A41.9 - SEPSIS, UNSPECIFIED ORGANISM Visit type - Emergency Visit Emergency Visit: Yes ED Registration Date: 02/07/19 Care time: The patient presented to the Emergency Department on the above date and was hospitalized for further evaluation of their emergent condition. - New Patient This patient is new to me today: No - Critical Care Critical Care patient: Yes Total Critical Care Time (in minutes): 45 Critical Care Statement: The care of this patient involved high complexity decision making to prevent further life threatening deterioration of the patient 's condition and/or to evaluate & treat vital organ system(s) failure or risk of failure. - Discharge Referral Referred to [facility] No
[2019-02-10] MEDS: LYTES/YERBA SANTA 60 ML SPRAY MM SCH (22:10)
[2019-02-10] MEDS: CHLORHEXIDINE GLUCONATE 4% CLEANSER FOR DECOLONIZATION TP SCH (22:10)
[2019-02-10] MEDS: SODIUM CHLORIDE NASAL SPRAY 44 ML BOTTLE NS PRN (22:11)
--- NOTE | 2019-02-10 23:35 | PN ---
Progress Note, Physician Chief Complaint: Pt intubated History of Present Illness: The patient is an 82 year old male, with a significant past medical history of HTN, hypothyroidism, GERD, BPH, Parkinson's disease (ambulates with walker), Paroxysmal Atrial Fibrillation, and Right Bundle Branch Block, who presents to the emergency department, via EMS with abdominal pain since 7pm. As per , the diffuse abdominal pain began shortly after dinner. The patient states his last normal bowel movement was today, however, he endorses some gas intermittently in between his bowel movements. The patient denies burning on urination. The patient denies any sick contact or recent illness. - Current Medication List Current Medications: Active Medications Acetaminophen (Ofirmev Injection -) 1,000 mg IVPB Q6H PRN PRN Reason: FEVER Last Admin: 02/10/19 18:27 Dose: 1,000 mg Artificial Tears (Artificial Tears) 1 drop OU TID PRN PRN Reason: DRY EYES Bacitracin (Bacitracin -) 1 applic TP DAILY RUFINO Last Admin: 02/10/19 13:12 Dose: 1 applic Chlorhexidine Gluconate (Hibiclens For Decolonization -) 1 applic TP HS RUFINO Last Admin: 02/10/19 22:10 Dose: 1 applic Enoxaparin Sodium (Lovenox -) 40 mg SQ DAILY RUFINO Last Admin: 02/10/19 13:12 Dose: 40 mg Metronidazole (Flagyl 500mg Premixed Ivpb -) 500 mg in 100 mls @ 100 mls/hr IVPB Q8H-IV RUFINO Last Admin: 02/10/19 17:19 Dose: 100 mls/hr Piperacillin Sod/Tazobactam (Sod 4.5 gm/ Dextrose) 100 mls @ 200 mls/hr IVPB Q8H-IV RUFINO; Protocol Last Admin: 02/10/19 17:19 Dose: 200 mls/hr Fluconazole (Diflucan 200 Mg/Ns Premixed Ivpb -) 100 mls @ 100 mls/hr IVPB DAILY RUFINO Last Admin: 02/10/19 09:38 Dose: 100 mls/hr Famotidine/Sodium Chloride (Pepcid 20 Mg Premixed Ivpb -) 20 mg in 50 mls @ 100 mls/hr IVPB BID RUFINO Last Admin: 02/10/19 22:20 Dose: 100 mls/hr Levothyroxine Sodium (Synthroid Injection -) 50 mcg IVPUSH DAILY [facility] Last Admin: 02/10/19 09:40 Dose: 50 mcg Metoprolol Tartrate (Lopressor Injection -) 5 mg IVPUSH Q6H PRN PRN Reason: HYPERTENSION Morphine Sulfate (Morphine Sulfate) 2 mg IVPUSH Q4H PRN PRN Reason: PAIN LEVEL 7 - 10 Last Admin: 02/10/19 22:18 Dose: 2 mg Mupirocin (Bactroban Ointment (For Decolonization) -) 1 applic NS BID [facility] Stop: 02/12/19 21:59 Last Admin: 02/10/19 22:10 Dose: 1 applic Saliva Substitute ([place] Solution) 1 applic MM BID [facility] Last Admin: 02/10/19 22:10 Dose: 1 applic Sodium Chloride ([place] Nasal [place] -) 2 spray NS Q12H PRN PRN Reason: NASAL CONGESTION Last Admin: 02/10/19 22:11 Dose: 2 spray - Objective Vital Signs: Vital Signs Temperature 100 F H 02/10/19 19:08 Pulse Rate 110 H 02/10/19 18:30 Respiratory Rate 24 H 02/10/19 18:30 Blood Pressure 156/70 02/10/19 18:30 O2 Sat by Pulse Oximetry (%) 99 02/10/19 11:36 Constitutional: Yes: Thin Neck: Yes: Decreased ROM Cardiovascular: Yes: S1, S2 (split), S4 Respiratory: Yes: Diminished, Mechanically Ventilated Gastrointestinal: Yes: Soft, Other (intestinal ostomy sites) Genitourinary: No: Anuria Breast(s): Yes: WNL Musculoskeletal: Yes: Muscle Weakness Extremities: Yes: Cool Edema: Yes Edema: LLE: Trace, RLE: Trace Peripheral Pulses WNL: No Peripheral Pulses: Left Doralis Pedis: 1+, Right Dorsalis Pedis: 1+ Integumentary: Yes: Other Neurological: Yes: Weakness Psychiatric: Yes: Other Labs: CBC, BMP 02/10/19 05:30 02/10/19 05:30 INR, PTT INR 1.03 (0.83-1.09) 02/07/19 03:00 Abnormal Lab Results 02/10/19 02/10/19 05:30 05:30 RBC 3.18 L Hgb 10.3 L Hct 31.3 L MCV 98.4 H Plt Count 130 L Absolute Neuts (auto) 8.8 H Neutrophils % 93.4 H Neutrophils % (Manual) 84.0 H Lymphocytes % 3.6 L D Lymphocytes % (Manual) 4.0 L Monocytes % 2.3 L Monocytes % (Manual) 1 L Chloride 110 H Anion Gap 5 L BUN 26 H Calcium 7.3 L AST 13 L ALT < 6 L Alkaline Phosphatase 41 L Total Protein 3.5 L Albumin 1.4 L - ....Imaging Chest X-ray: Image Reviewed EKG: Image Reviewed Other: Image Reviewed (telemetry: NSR) Problem List - Problems (1) Acute postprocedural respiratory failure Assessment/Plan: extubate (possibly today) per earth science laboratory technician. Code(s): J95.821 - ACUTE POSTPROCEDURAL RESPIRATORY FAILURE (2) HTN (hypertension), benign Code(s): I10 - ESSENTIAL (PRIMARY) HYPERTENSION (3) Hypothyroidism Code(s): E03.9 - HYPOTHYROIDISM, UNSPECIFIED (4) Paroxysmal atrial fibrillation with rapid ventricular response Assessment/Plan: Now in sinus rhythmn. ECHO: normal LVEF; reduced RVEF; moderately severe TR. F/u EKG ONce vital signs are stabilitized (and off vasopressors), consider AV conduction nayeli, AC. Code(s): I48.0 - PAROXYSMAL ATRIAL FIBRILLATION (5) Small bowel obstruction Assessment/Plan: s/p surgery. Code(s): K56.609 - UNSP INTESTNL OBST, UNSP TO PARTIAL VERSUS COMPLETE OBST (6) Parkinson disease Code(s): G20 - PARKINSON'S DISEASE (7) Anemia Code(s): D64.9 - ANEMIA, UNSPECIFIED (8) Thrombocytopenia Code(s): D69.6 - THROMBOCYTOPENIA, UNSPECIFIED (9) Sepsis Assessment/Plan: s/p small intestine surgery for necrosis. On antibiotics per ID Titrate of vasopressors once extubated. Fluids; F/u Is and Os. Code(s): A41.9 - SEPSIS, UNSPECIFIED ORGANISM (10) Acute on chronic diastolic (congestive) heart failure Code(s): I50.33 - ACUTE ON CHRONIC DIASTOLIC (CONGESTIVE) HEART FAILURE Assessment/Plan CCU time spent: 35 minutes.
[2019-02-11] MEDS ORDERED: PIPERACILLIN/TAZOBACTAM 4.5 GM VIAL IVPB ONE ×3 (00:57→17:27)
[2019-02-11] MEDS ORDERED: DEXTROSE 5%-WATER 100 ML IVPB ONE ×3 (00:57→17:27)
[2019-02-11] MEDS: PIPERACILLIN/TAZOB 4.5 GM 4.5 GM in DEXTROSE 5%-WATER 100 ML IVPB SCH ×3 (01:09→18:09)
[2019-02-11] MEDS: MORPHINE SULFATE 2 MG/ML VIAL IVPUSH PRN ×2 (03:52→22:44)
[2019-02-11 06:32] LABS: BASO % 0.1 % (0-2.0); EOS % 0.6 % (0-4.5); HEMATOCRIT 33.6 % (35.4-49); LYMPH % 3.7 % (8-40); MCH 32.4 pg (25.7-33.7); MCHC 32.9 g/dl (32.0-35.9); MEAN CELL VOLUME 98.8 fl (80-96); MEAN PLT VOLUME 9.1 fl (7.5-11.1); MONO % 5.6 % (3.8-10.2); PLATELET COUNT 146 K/MM3 (134-434); RDW 14.6 % (11.9-15.9); WHITE BLOOD COUNT 9.3 K/mm3 (4.0-10.0)
[2019-02-11 07:23] LABS: ALBUMIN 1.6 g/dl (3.4-5.0); ALK PHOS 73 U/L (45-117); ANION GAP 8 MMOL/L (8-16); BILIRUBIN,TOTAL 0.5 mg/dL (0.2-1); BLOOD UREA NITROGEN 20 mg/dL (7-18); CALCIUM 7.7 mg/dL (8.5-10.1); CHLORIDE 110 mmol/L (98-107); CO2 25 mmol/L (21-32); CREATININE 0.7 mg/dL (0.55-1.3); GLUCOSE,RANDOM 81 mg/dL (74-106); MAGNESIUM 2.2 mg/dL (1.8-2.4); POTASSIUM 3.6 mmol/L (3.5-5.1); SGOT/AST 16 U/L (15-37); SGPT/ALT < 6 U/L (13-61); SODIUM 142 mmol/L (136-145); TOT PROT 3.9 g/dl (6.4-8.2)
--- NOTE | 2019-02-11 08:36 | PN ---
Physical Exam: SUBJECTIVE: Patient seen and examined at bedside. No acute events overnight. Pt more awake and alert. Denies sob, chest pain. OBJECTIVE: Vital Signs Period Temp Pulse Resp BP Sys/Joiner Pulse Ox Last 24 Hr 99 F-100 F 84-110 14-31 126-160/64-91 98-100 GEN: On NC. Awake and alert, able to verbally communicate. HEENT: AT/NC. EOMI. NG tube in place. NECK: Trachea midline, left IJ placed 02/08/2019 LUNGS: Coarse breath sounds on vent, no wheezes, no crackles, no accessory muscle use. Satting at 100% HEART: Regular rate and rhythm, S1, S2 without murmur, rub or gallop. ABDOMEN: Soft, nondistended, normoactive bowel sounds, ileostomy patent in RUQ with green liquid output (stoma pink), abdominal dressing c/d/i. J tube in place. EXTREMITIES: 2+ pulses in radial and DP, warm, well-perfused. +edema in b/l hands. +mottling in b/l LE from mid-reis distally to feet. CBC, BMP 02/11/19 05:45 02/11/19 05:45 Active Medications Acetaminophen (Ofirmev Injection -) 1,000 mg IVPB Q6H PRN PRN Reason: FEVER Last Admin: 02/10/19 18:27 Dose: 1,000 mg Artificial Tears (Artificial Tears) 1 drop OU TID PRN PRN Reason: DRY EYES Bacitracin (Bacitracin -) 1 applic TP DAILY [facility] Last Admin: 02/10/19 13:12 Dose: 1 applic Chlorhexidine Gluconate (Hibiclens For Decolonization -) 1 applic TP HS [facility] Last Admin: 02/10/19 22:10 Dose: 1 applic Enoxaparin Sodium (Lovenox -) 40 mg SQ DAILY RUFINO Last Admin: 02/10/19 13:12 Dose: 40 mg Metronidazole (Flagyl 500mg Premixed Ivpb -) 500 mg in 100 mls @ 100 mls/hr IVPB Q8H-IV RUFINO Last Admin: 02/11/19 01:09 Dose: 100 mls/hr Piperacillin Sod/Tazobactam (Sod 4.5 gm/ Dextrose) 100 mls @ 200 mls/hr IVPB Q8H-IV RUFINO; Protocol Last Admin: 02/11/19 01:09 Dose: 200 mls/hr Fluconazole (Diflucan 200 Mg/Ns Premixed Ivpb -) 100 mls @ 100 mls/hr IVPB DAILY [facility] Last Admin: 02/10/19 09:38 Dose: 100 mls/hr Famotidine/Sodium Chloride (Pepcid 20 Mg Premixed Ivpb -) 20 mg in 50 mls @ 100 mls/hr IVPB BID [facility] Last Admin: 02/10/19 22:20 Dose: 100 mls/hr Levothyroxine Sodium (Synthroid Injection -) 50 mcg IVPUSH DAILY [facility] Last Admin: 02/10/19 09:40 Dose: 50 mcg Metoprolol Tartrate (Lopressor Injection -) 5 mg IVPUSH Q6H PRN PRN Reason: HYPERTENSION Last Admin: 02/11/19 03:52 Dose: 5 mg Morphine Sulfate (Morphine Sulfate) 2 mg IVPUSH Q4H PRN PRN Reason: PAIN LEVEL 7 - 10 Last Admin: 02/11/19 03:52 Dose: 2 mg Mupirocin (Bactroban Ointment (For Decolonization) -) 1 applic NS BID [facility] Stop: 02/12/19 21:59 Last Admin: 02/10/19 22:10 Dose: 1 applic Saliva Substitute (Mouthkote Solution) 1 applic MM BID [facility] Last Admin: 02/10/19 22:10 Dose: 1 applic Sodium Chloride ([place] Nasal [place] -) 2 spray NS Q12H PRN PRN Reason: NASAL CONGESTION Last Admin: 02/10/19 22:11 Dose: 2 spray CONSULT: ID- Dr. Preciado Cardio- Dr. Bryant Nephro- Dr. Crabtree Surg- Dr. Grimes IMAGING: * ECHO: RV appears dilated w/ mild decrease in systolic fxn. RV moderately dilated. Trace AR. Trace MR. LV is normal in size. Mod to severe TR. Mod pulmonic valvular regurg. LV systolic fxn grossly normal. ASSESSMENT/PLAN: 83M with pmhx of HTN, HLD, hx of Afib, Parkinson's, found to have gangrenous small bowel s/p resection POD #4. Neuro -Extubated (02/10/19); Awake and alert, able to verbally communicate now. -Fentanyl pushes for pain control Cardiovascular -Hemodynamically stable; off pressors. Maintain MAP >65 -No IVf needed as pt is fluid overloaded -Per cardio, restart PO meds when able -Metoprolol 5 mg Q6H IVP PRN for systolic >120 Pulmonary -Extubated. Satting at 99% on NC. -Monitor O2 sat ID -broad spectrum coverage for abdominal ajith -Cont Zosyn 4.5g Q8h, Flagyl 500 Q8h, Fluconazole 200 QD (Day 5) -Await ID recs GI #Sepsis 2/2 necrotic small bowel- s/p surgery -POD #4 -s/p jejunostomy and ileostomy and drain in place -Minimal residual in NG tube; cleared by surg to d/c NG tube and start gentle tube feeds with J tube -monitor ileostomy drainage Endo #Hypothyroidism -Cont home med: Levothyroxine 50 mcg QD Prophylaxis -Lovenox 40 QD -Pepcid BID FEN -maintain UOP >0.5cc/kg/hr -replete lytes PRN -start tube feeds; await nutrition recs. 10 cc/hr Lines Left IJ (02/07/2019) A-line in right wrist Ileostomy bag Jejunostomy Will NG Dispo -full code -cont to monitor in ICU Visit type - Emergency Visit Emergency Visit: Yes ED Registration Date: 02/07/19 Care time: The patient presented to the Emergency Department on the above date and was hospitalized for further evaluation of their emergent condition. - New Patient This patient is new to me today: No - Critical Care Critical Care patient: Yes Total Critical Care Time (in minutes): 35 Critical Care Statement: The care of this patient involved high complexity decision making to prevent further life threatening deterioration of the patient 's condition and/or to evaluate & treat vital organ system(s) failure or risk of failure.
[2019-02-11] MEDS ORDERED: PT OWN MED DRAWER 7, Y5N ONE ×4 (09:32→21:42)
[2019-02-11] MEDS: FAMOTIDINE 20 MG/50 ML IVPB 20 MG/50 ML MG IVPB SCH ×2 (09:35→22:43)
[2019-02-11] MEDS: FLUCONAZOLE 200 MG/NS 100 ML IVPB SCH (09:38)
[2019-02-11] MEDS: ENOXAPARIN NA (PORCINE) 40 MG/0.4 ML DISP.SYRIN SQ SCH (09:43)
[2019-02-11] MEDS: LEVOTHYROXINE SODIUM 100 MCG VIAL IVPUSH SCH (09:46)
--- NOTE | 2019-02-11 09:46 | PN ---
Progress Note (short form) - Note Progress Note: alert extubated talking Vital Signs Period Temp Pulse Resp BP Sys/Joiner Pulse Ox Last 24 Hr 99 F-100 F 84-110 14-31 126-160/64-91 98-100 cor-rrr llungs crackles right base abd soft, midline incision packed, +j tube, +ostomy ext no edema +ross CBC, BMP 02/11/19 05:45 02/11/19 05:45 Microbiology 02/07/19 23:00 Blood - Peripheral Venous Blood Culture - Preliminary NO GROWTH OBTAINED AFTER 72 HOURS, INCUBATION TO CONTINUE FOR 2 DAYS. 02/07/19 23:00 Blood - Peripheral Venous Blood Culture - Preliminary NO GROWTH OBTAINED AFTER 72 HOURS, INCUBATION TO CONTINUE FOR 2 DAYS. 02/07/19 23:00 Urine - Urine Ross Urine Culture - Final NO GROWTH OBTAINED wound culture pending a/p sepsis secondary to necrotic small bowel bowel- s/p surgery -pod #4 continue zosyn/diflucan day #4, d/c flagyl f/u wound culture postop leukopenia resolved now extubated clinically improved Problem List - Problems (1) Sepsis Code(s): A41.9 - SEPSIS, UNSPECIFIED ORGANISM (2) Small bowel obstruction Code(s): K56.609 - UNSP INTESTNL OBST, UNSP TO PARTIAL VERSUS COMPLETE OBST (3) Small bowel perforation Code(s): K63.1 - PERFORATION OF INTESTINE (NONTRAUMATIC)
[2019-02-11] MEDS: MUPIROCIN 2% TOPICAL OINTMENT FOR DECOLONIZATION NS SCH ×2 (09:50→22:39)
[2019-02-11] MEDS: BACITRACIN 15 GM TUBE TOPICAL OINTMENT TP SCH (09:50)
[2019-02-11] MEDS: LYTES/YERBA SANTA 60 ML SPRAY MM SCH ×2 (09:51→22:42)
[2019-02-11] MEDS ORDERED: POTASSIUM PHOSPHATE 30 MM in SODIUM CHLORIDE 500 ML IVPB ONE (10:00)
--- NOTE | 2019-02-11 10:00 | PN ---
Physical Exam: SUBJECTIVE: Patient seen and examined at the bedside. 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 on nasal cannula HEAD: Normal with no signs of trauma. EYES: PERRL NECK: Trachea midline LUNGS: Breath sounds coarse equally, no accessory muscle use. HEART: Regular rate and rhythm, S1, S2 without murmur, rub or gallop. ABDOMEN: Soft, + ostomy with liq brown stool, Drain in situ EXTREMITIES: 2+ pulses, warm, well-perfused, +1 edema x 4 extremities NEURO: pt awake but lethargic, he uses spelling board to communicate PSYCH: Normal mood, normal affect. SKIN: Warm, dry,venous stasis changes, Laboratory Results - last 24 hr 02/10/19 02/11/19 02/11/19 05:30 05:45 05:45 WBC 9.3 RBC 3.40 L Hgb 11.0 L Hct 33.6 L MCV 98.8 H MCH 32.4 MCHC 32.9 RDW 14.6 Plt Count 146 MPV 9.1 Absolute Neuts (auto) 8.3 H Neutrophils % 90.0 H Neutrophils % (Manual) 84.0 H Band Neutrophils % 11.0 Lymphocytes % 3.7 L Lymphocytes % (Manual) 4.0 L Monocytes % 5.6 D Monocytes % (Manual) 1 L Eosinophils % 0.6 Eosinophils % (Manual) 0.0 Basophils % 0.1 Basophils % (Manual) 0.0 Myelocytes % (Man) 0 Promyelocytes % (Man) 0 Blast Cells % (Manual) 0 Nucleated RBC % 0 Metamyelocytes 0 D Hypochromia 0 Platelet Estimate Decreased Polychromasia 0 Poikilocytosis 0 Anisocytosis 1+ Microcytosis 0 Macrocytosis 1+ Sodium 142 Potassium 3.6 Chloride 110 H Carbon Dioxide 25 Anion Gap 8 BUN 20 H Creatinine 0.7 Creat Clearance w eGFR 106.93 Random Glucose 81 Calcium 7.7 L Phosphorus 2.0 L Magnesium 2.2 Total Bilirubin 0.5 AST 16 ALT < 6 L Alkaline Phosphatase 73 Total Protein 3.9 L Albumin 1.6 L Active Medications Generic Name Dose Route Start Last Admin Trade Name Freq PRN Reason Stop Dose Admin Acetaminophen 1,000 mg 02/07/19 21:32 02/10/19 18:27 Ofirmev Injection - IVPB 1,000 mg Q6H PRN Administration FEVER Artificial Tears 1 drop 02/10/19 12:04 Artificial Tears OU TID PRN DRY EYES Bacitracin 1 applic 02/10/19 11:45 02/11/19 09:50 Bacitracin - TP 1 applic DAILY RUFINO Administration Chlorhexidine Gluconate 1 applic 02/07/19 22:00 02/10/19 22:10 Hibiclens For Decolonization - TP 1 applic HS RUFINO Administration Enoxaparin Sodium 40 mg 02/10/19 12:30 02/11/19 09:43 Lovenox - SQ 40 mg DAILY RUFINO Administration Piperacillin Sod/Tazobactam 100 mls @ 200 mls/hr 02/08/19 18:00 02/11/19 09: 36 Sod 4.5 gm/ Dextrose IVPB 200 mls/hr Q8H-IV RUFINO Administration Protocol Fluconazole 100 mls @ 100 mls/hr 02/09/19 10:00 02/11/19 09:38 Diflucan 200 Mg/Ns Premixed Ivpb - IVPB 100 mls/hr DAILY RUFINO Administration Famotidine/Sodium Chloride 20 mg in 50 mls @ 100 mls/hr 02/08/19 11:00 09:35 Pepcid 20 Mg Premixed Ivpb - IVPB 100 mls/hr BID RUFINO Administration Potassium Phosphate 30 mm/ 510 mls @ 63.75 mls/hr 02/11/19 10:00 Sodium Chloride IVPB 02/11/19 17:59 ONCE ONE 30 MM/8 HR Levothyroxine Sodium 50 mcg 02/08/19 10:00 02/11/19 09:46 Synthroid Injection - IVPUSH 50 mcg DAILY RUFINO Administration Metoprolol Tartrate 5 mg 02/10/19 12:11 02/11/19 03:52 Lopressor Injection - IVPUSH 5 mg Q6H PRN Administration HYPERTENSION Morphine Sulfate 2 mg 02/10/19 08:29 02/11/19 03:52 Morphine Sulfate IVPUSH 2 mg Q4H PRN Administration PAIN LEVEL 7 - 10 Mupirocin 1 applic 02/07/19 22:00 02/11/19 09:50 Bactroban Ointment (For Decolonization) - NS 02/12/19 21:59 1 applic BID RUFINO Administration Saliva Substitute 1 applic 02/10/19 22:00 02/11/19 09:51 Mouthkote Solution MM 1 applic BID RUFINO Administration Sodium Chloride 2 spray 02/10/19 21:48 02/10/19 22:11 [place] Nasal [place] - NS 2 spray Q12H PRN Administration NASAL CONGESTION ASSESSMENT/PLAN: Patient is a 82 year old male, with a significant past medical history of HTN, hypothyroidism, GERD, BPH, Parkinson's disease admitted with SBO and found to have gangrenous small bowel s/p resection. Sepsis Patient s/p lap small bowel resection plus ileostomy, jejunostomy tube insertion. Exploratory laparotomy lysis of adhesions on 02/07/2019 Sepsis secondary to necrotic small bowel - s/p surgery On Fluconozole, Flagyl, Zosyn. ID following Trend fever and WBC. Advance diet per surgery. monitor ostomy output started on gentle tube feeds Endocrine: hypothyroidism Continue synthroid 50mg daily Card: Hypertension BP elevated this a.m. Monitor in the setting of sepsis. Off pressors, maintain map >65 Metoprolol 5mg q6 for elevated bp Pulmonary Tolerating supplemental oxygen s/p intubation on 02/10 : Monitor urine output. maintain ross Prophy: Lovenox full code Visit type - Emergency Visit Emergency Visit: Yes ED Registration Date: 02/07/19 Care time: The patient presented to the Emergency Department on the above date and was hospitalized for further evaluation of their emergent condition. - New Patient This patient is new to me today: Yes Date on this admission: 02/11/19 - Critical Care Critical Care patient: Yes Total Critical Care Time (in minutes): 40 Critical Care Statement: The care of this patient involved high complexity decision making to prevent further life threatening deterioration of the patient 's condition and/or to evaluate & treat vital organ system(s) failure or risk of failure. - Discharge Referral Referred to [facility] No
[2019-02-11 10:08] LABS: ANISOCYTOSIS 1+; MACROCYTOSIS 1+; PLATELET ESTIMATE NORMAL
[2019-02-11] MEDS: SODIUM CHLORIDE NASAL SPRAY 44 ML BOTTLE NS PRN (10:28)
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
[2019-02-11] MEDS ORDERED: FUROSEMIDE 40 MG/4 ML INJECTABLE VIAL IVPUSH ONE (11:45)
--- NOTE | 2019-02-11 11:49 | PN ---
Teaching Attending Note Name of Resident: Yaritza Dominguez ATTENDING PHYSICIAN STATEMENT I saw and evaluated the patient. I reviewed the resident's note and discussed the case with the resident. I agree with the resident's findings and plan as documented. SUBJECTIVE: Pt seen and examined in the ICU. Extubated yesterday without incident. Denies shortness of breath. Pain controlled. OBJECTIVE: Vital Signs Period Temp Pulse Resp BP Sys/Joiner Pulse Ox Last 24 Hr 97.7 F-100 F 84-110 20-31 98-160/64-91 98-100 Intake & Output 02/08/19 02/09/19 02/10/19 02/11/19 23:59 23:59 23:59 23:59 Intake Total 8276 8042.0 3053 320 Output Total 680 2400 2050 750 Balance 7596 5642.0 1003 -430 Weight 61.717 kg 67.812 kg 69.4 kg 69.853 kg Gen: extubated, less tachypneic Heart: RRR Lung: decreased breath sounds at the bases Abd: soft, +ostomy pink Ext: + edema CBC, BMP 02/11/19 05:45 02/11/19 05:45 Active Medications Acetaminophen (Ofirmev Injection -) 1,000 mg IVPB Q6H PRN PRN Reason: FEVER Last Admin: 02/10/19 18:27 Dose: 1,000 mg Artificial Tears (Artificial Tears) 1 drop OU TID PRN PRN Reason: DRY EYES Bacitracin (Bacitracin -) 1 applic TP DAILY RUFINO Last Admin: 02/11/19 09:50 Dose: 1 applic Chlorhexidine Gluconate (Hibiclens For Decolonization -) 1 applic TP HS RUFINO Last Admin: 02/10/19 22:10 Dose: 1 applic Enoxaparin Sodium (Lovenox -) 40 mg SQ DAILY RUFINO Last Admin: 02/11/19 09:43 Dose: 40 mg Piperacillin Sod/Tazobactam (Sod 4.5 gm/ Dextrose) 100 mls @ 200 mls/hr IVPB Q8H-IV RUFINO; Protocol Last Admin: 02/11/19 09:36 Dose: 200 mls/hr Fluconazole (Diflucan 200 Mg/Ns Premixed Ivpb -) 100 mls @ 100 mls/hr IVPB DAILY RUFINO Last Admin: 02/11/19 09:38 Dose: 100 mls/hr Famotidine/Sodium Chloride (Pepcid 20 Mg Premixed Ivpb -) 20 mg in 50 mls @ 100 mls/hr IVPB BID [facility] Last Admin: 02/11/19 09:35 Dose: 100 mls/hr Potassium Phosphate 30 mm/ (Sodium Chloride) 510 mls @ 63.75 mls/hr IVPB ONCE ONE Stop: 02/11/19 17:59 Last Admin: 02/11/19 10:28 Dose: 63.75 mls/hr Levothyroxine Sodium (Synthroid Injection -) 50 mcg IVPUSH DAILY [facility] Last Admin: 02/11/19 09:46 Dose: 50 mcg Metoprolol Tartrate (Lopressor Injection -) 5 mg IVPUSH Q6H PRN PRN Reason: HYPERTENSION Last Admin: 02/11/19 03:52 Dose: 5 mg Morphine Sulfate (Morphine Sulfate) 2 mg IVPUSH Q4H PRN PRN Reason: PAIN LEVEL 7 - 10 Last Admin: 02/11/19 03:52 Dose: 2 mg Mupirocin (Bactroban Ointment (For Decolonization) -) 1 applic NS BID [facility] Stop: 02/12/19 21:59 Last Admin: 02/11/19 09:50 Dose: 1 applic Saliva Substitute (Mouthk[place] Solution) 1 applic MM BID [facility] Last Admin: 02/11/19 09:51 Dose: 1 applic Sodium Chloride ([place] Nasal [place] -) 2 spray NS Q12H PRN PRN Reason: NASAL CONGESTION Last Admin: 02/11/19 10:28 Dose: 2 spray ASSESSMENT AND PLAN: s/p Acute Respiratory Failure Small Bowel Necrosis/Perforation s/p ex-lap/small bowel resection/ileostomy/ORALIA 02/07 Septic Shock improving Acute Kidney Injury improving Lactic Acidosis resolved Volume Overload Paroxysmal Atrial Fibrillation with RVR HTN Hypothyroidism BPH RBBB - continue antibiotics - lasix today - monitor urine output, creatinine - monitoring off pressors, maintain MAP >65 - O2 to keep Spo2 >90% - monitor ostomy output - can start trickle J-tube feeds per surgery - DVT/GI prophylaxis - continue ICU monitoring critical care time spent in reviewing chart, evaluating patient and formulating plan 35 min
--- NOTE | 2019-02-11 13:24 | EKG ---
Test Reason : Blood Pressure : / mmHG Vent. Rate : 103 BPM Atrial Rate : 103 BPM P-R Int : 158 ms QRS Dur : 120 ms QT Int : 372 ms P-R-T Axes : 041 078 008 degrees QTc Int : 487 ms SINUS TACHYCARDIA RIGHT BUNDLE BRANCH BLOCK ABNORMAL ECG WHEN COMPARED WITH ECG OF 08-FEB-2019 09:35, RIGHT BUNDLE BRANCH BLOCK HAS REPLACED INCOMPLETE RIGHT BUNDLE BRANCH BLOCK NONSPECIFIC T WAVE ABNORMALITY NOW EVIDENT IN INFERIOR LEADS NONSPECIFIC T WAVE ABNORMALITY HAS REPLACED INVERTED T WAVES IN ANTERIOR LEADS Confirmed by DERIK SHAFFER, CANDE ([id number]) on 02/11/2019 1:24:24 PM Referred By: TENNILLE GALEANO Confirmed By:CANDE MORE MD
[2019-02-11] MEDS ORDERED: RAPID SEQUENCE INTUBATION KIT NR ONE (17:51)
[2019-02-11] MEDS: CHLORHEXIDINE GLUCONATE 4% CLEANSER FOR DECOLONIZATION TP SCH (22:42)
[2019-02-12] MEDS ORDERED: DEXTROSE 5%-WATER 100 ML IVPB ONE ×4 (00:56→23:44)
[2019-02-12] MEDS ORDERED: PIPERACILLIN/TAZOBACTAM 4.5 GM VIAL IVPB ONE ×4 (00:56→23:43)
[2019-02-12] MEDS: MORPHINE SULFATE 2 MG/ML VIAL IVPUSH PRN (01:56)
[2019-02-12] MEDS: PIPERACILLIN/TAZOB 4.5 GM 4.5 GM in DEXTROSE 5%-WATER 100 ML IVPB SCH ×3 (01:56→18:24)
[2019-02-12 06:37] LABS: BASO % 0.2 % (0-2.0); EOS % 1.4 % (0-4.5); HEMATOCRIT 33.4 % (35.4-49); HEMOGLOBIN 11.1 GM/dL (11.7-16.9); LYMPH % 4.3 % (8-40); MCH 32.5 pg (25.7-33.7); MCHC 33.2 g/dl (32.0-35.9); MEAN CELL VOLUME 98.1 fl (80-96); MEAN PLT VOLUME 9.2 fl (7.5-11.1); MONO % 10.3 % (3.8-10.2); NEUT % 83.8 % (42.8-82.8); PLATELET COUNT 171 K/MM3 (134-434); RDW 14.4 % (11.9-15.9); WHITE BLOOD COUNT 6.5 K/mm3 (4.0-10.0)
--- NOTE | 2019-02-12 06:59 | PN ---
Physical Exam: SUBJECTIVE: Patient seen and examined at bedside. No acute events overnight. Pt denies cp, sob, abd pain. Still complaining of mucus. OBJECTIVE: Vital Signs Period Temp Pulse Resp BP Sys/Joiner Pulse Ox Last 24 Hr 97.7 F-100 F 97-109 20-26 98-179/78-94 100-100 GEN: On NC. Awake and alert, able to verbally communicate. HEENT: AT/NC. EOMI. NECK: Trachea midline, left IJ placed 02/08/2019 LUNGS: Coarse breath sounds on vent, no wheezes, no crackles, no accessory muscle use. Satting at 100% HEART: Regular rate and rhythm, S1, S2 without murmur, rub or gallop. ABDOMEN: Soft, nondistended, normoactive bowel sounds, ileostomy patent in RUQ with green liquid output (stoma pink), abdominal dressing c/d/i. J tube in place. EXTREMITIES: 2+ pulses in radial and DP, warm, well-perfused. +edema in b/l hands. +mottling in b/l LE from mid-reis distally to feet. CBCD WBC 6.5 K/mm3 (4.0-10.0) 02/12/19 05:30 RBC 3.40 M/mm3 (4.00-5.60) L 02/12/19 05:30 Hgb 11.1 GM/dL (11.7-16.9) L 02/12/19 05:30 Hct 33.4 % (35.4-49) L 02/12/19 05:30 MCV 98.1 fl (80-96) H 02/12/19 05:30 MCHC 33.2 g/dl (32.0-35.9) 02/12/19 05:30 RDW 14.4 % (11.9-15.9) 02/12/19 05:30 Plt Count 171 K/MM3 (134-434) 02/12/19 05:30 MPV 9.2 fl (7.5-11.1) 02/12/19 05:30 CMP Sodium 147 mmol/L (136-145) H 02/12/19 05:30 Potassium 3.0 mmol/L (3.5-5.1) L 02/12/19 05:30 Chloride 107 mmol/L (98-107) 02/12/19 05:30 Carbon Dioxide 31 mmol/L (21-32) 02/12/19 05:30 Anion Gap 8 MMOL/L (8-16) 02/12/19 05:30 BUN 18 mg/dL (7-18) 02/12/19 05:30 Creatinine 0.7 mg/dL (0.55-1.3) 02/12/19 05:30 Creat Clearance w eGFR 106.93 (>60) 02/12/19 05:30 Calcium 7.3 mg/dL (8.5-10.1) L 02/12/19 05:30 Total Bilirubin 0.4 mg/dL (0.2-1) 02/12/19 05:30 AST 13 U/L (15-37) L 02/12/19 05:30 ALT < 6 U/L (13-61) L 02/12/19 05:30 Alkaline Phosphatase 72 U/L (45-117) 02/12/19 05:30 Total Protein 3.7 g/dl (6.4-8.2) L 02/12/19 05:30 Albumin 1.6 g/dl (3.4-5.0) L 02/12/19 05:30 Active Medications Acetaminophen (Ofirmev Injection -) 1,000 mg IVPB Q6H PRN PRN Reason: FEVER Last Admin: 02/10/19 18:27 Dose: 1,000 mg Artificial Tears (Artificial Tears) 1 drop OU TID PRN PRN Reason: DRY EYES Last Admin: 02/12/19 11:27 Dose: 1 drop Bacitracin (Bacitracin -) 1 applic TP DAILY RUFINO Last Admin: 02/12/19 11:48 Dose: 1 applic Chlorhexidine Gluconate (Hibiclens For Decolonization -) 1 applic TP HS RUFINO Last Admin: 02/11/19 22:42 Dose: 1 applic Enoxaparin Sodium (Lovenox -) 40 mg SQ DAILY RUFINO Last Admin: 02/12/19 11:24 Dose: 40 mg Piperacillin Sod/Tazobactam (Sod 4.5 gm/ Dextrose) 100 mls @ 200 mls/hr IVPB Q8H-IV RUFINO; Protocol Last Admin: 02/12/19 11:10 Dose: 200 mls/hr Fluconazole (Diflucan 200 Mg/Ns Premixed Ivpb -) 100 mls @ 100 mls/hr IVPB DAILY [facility] Last Admin: 02/12/19 11:15 Dose: 100 mls/hr Famotidine/Sodium Chloride (Pepcid 20 Mg Premixed Ivpb -) 20 mg in 50 mls @ 100 mls/hr IVPB BID [facility] Last Admin: 02/12/19 11:48 Dose: 100 mls/hr Potassium Phosphate 30 mm/ (Sodium Chloride) 260 mls @ 65 mls/hr IVPB ONCE ONE Stop: 02/12/19 13:59 Last Admin: 02/12/19 12:37 Dose: 65 mls/hr Potassium Chloride (Potassium Chloride 10 Meq Premix Ivpb -) 10 meq in 100 mls @ 100 mls/hr IVPB Q60M [facility] Stop: 02/12/19 13:44 Last Admin: 02/12/19 12:45 Dose: 100 mls/hr Levothyroxine Sodium (Synthroid Injection -) 50 mcg IVPUSH DAILY [facility] Last Admin: 02/12/19 11:45 Dose: 50 mcg Metoprolol Tartrate (Lopressor Injection -) 5 mg IVPUSH Q6H PRN PRN Reason: HYPERTENSION Last Admin: 02/11/19 03:52 Dose: 5 mg Metoprolol Tartrate (Lopressor -) 12.5 mg NGT BID [facility] Morphine Sulfate (Morphine Sulfate) 2 mg IVPUSH Q4H PRN PRN Reason: PAIN LEVEL 7 - 10 Last Admin: 02/12/19 01:56 Dose: 2 mg Mupirocin (Bactroban Ointment (For Decolonization) -) 1 applic NS BID [facility] Stop: 02/12/19 21:59 Last Admin: 02/12/19 11:31 Dose: 1 applic Saliva Substitute (Mouthkote Solution) 1 applic MM BID [facility] Last Admin: 02/12/19 11:48 Dose: 1 applic Sodium Chloride ([place] Nasal [place] -) 2 spray NS Q12H PRN PRN Reason: NASAL CONGESTION Last Admin: 02/12/19 11:48 Dose: 2 spray CONSULT: ID- Dr. Preciado Cardio- Dr. Bryant Nephro- Dr. Crabtree Surg- Dr. Hinesuso IMAGING: * ECHO: RV appears dilated w/ mild decrease in systolic fxn. RV moderately dilated. Trace AR. Trace MR. LV is normal in size. Mod to severe TR. Mod pulmonic valvular regurg. LV systolic fxn grossly normal. ASSESSMENT/PLAN: 83M with pmhx of HTN, HLD, hx of Afib, Parkinson's, found to have gangrenous small bowel s/p resection POD #5. Neuro -Extubated (02/10/19); Awake and alert, able to verbally communicate now. -Morphine 2 Q4H IVP for pain Cardiovascular -Hemodynamically stable; off pressors. Maintain MAP >65 -No IVf needed as pt is fluid overloaded -Per cardio, restart PO meds when able -Will resume home med: Metoprolol 12.5 BID, Metoprolol 5 mg Q6H IVP PRN for systolic >120 -Pt appears to be fluid overloaded on CXR; will give Lasix 40 IVP x1 dose and re -evaluate Pulmonary -Extubated. Satting at 99% on NC. -Monitor O2 sat -Repeat CXR ID -broad spectrum coverage for abdominal ajith -Cont Zosyn 4.5g Q8h, Fluconazole 200 QD (Day 6); d/c Flagyl per ID -Await c/s GI #Sepsis 2/2 necrotic small bowel- s/p surgery -POD #5 -s/p jejunostomy and ileostomy and drain in place -cont Tube feeds through J tube -NG tube removed -monitor ileostomy drainage Renal #Hypokalemia; today K+ 3 -KCl liquid, KPhos, IV KCl x2 bags given; repeat BMP and check K+ #Hypomagnesemia -Mag Phos 800 mg -recheck Mag in AM Endo #Hypothyroidism -Cont home med: Levothyroxine 50 mcg QD Prophylaxis -Lovenox 40 QD -Pepcid BID FEN -maintain UOP >0.5cc/kg/hr -replete lytes PRN -Cont tube feeds Vital 1.2 Lines Left IJ (02/07/2019) A-line in right wrist Ileostomy bag Jejunostomy Will Dispo -full code -cont to monitor in ICU Visit type - Emergency Visit Emergency Visit: Yes ED Registration Date: 02/07/19 Care time: The patient presented to the Emergency Department on the above date and was hospitalized for further evaluation of their emergent condition. - New Patient This patient is new to me today: No - Critical Care Critical Care patient: Yes Total Critical Care Time (in minutes): 30 Critical Care Statement: The care of this patient involved high complexity decision making to prevent further life threatening deterioration of the patient 's condition and/or to evaluate & treat vital organ system(s) failure or risk of failure.
[2019-02-12 07:00] LABS: ALBUMIN 1.6 g/dl (3.4-5.0); ALK PHOS 72 U/L (45-117); ANION GAP 8 MMOL/L (8-16); BILIRUBIN,TOTAL 0.4 mg/dL (0.2-1); BLOOD UREA NITROGEN 18 mg/dL (7-18); CALCIUM 7.3 mg/dL (8.5-10.1); CHLORIDE 107 mmol/L (98-107); CO2 31 mmol/L (21-32); CREATININE 0.7 mg/dL (0.55-1.3); GLUCOSE,RANDOM 112 mg/dL (74-106); MAGNESIUM 1.6 mg/dL (1.8-2.4); PHOSPHOROUS 2.3 mg/dL (2.5-4.9); SGOT/AST 13 U/L (15-37); SGPT/ALT < 6 U/L (13-61); SODIUM 147 mmol/L (136-145); TOT PROT 3.7 g/dl (6.4-8.2)
--- NOTE | 2019-02-12 08:27 | PN ---
Physical Exam: SUBJECTIVE: Patient seen and examined in the icu. OBJECTIVE: Vital Signs Period Temp Pulse Resp BP Sys/Joiner Pulse Ox Last 24 Hr 97.7 F-99.8 F 97-109 20-26 98-179/78-94 100 GENERAL: The patient is awake, and in no acute distress. on nasal cannula HEAD: Normal with no signs of trauma. EYES: PERRL NECK: Trachea midline LUNGS: Breath sounds diminished , no accessory muscle use. HEART: Regular rate and rhythm, S1, S2 without murmur, rub or gallop. ABDOMEN: Soft, + ostomy with liq brown stool, Drain in situ EXTREMITIES: 2+ pulses, warm, well-perfused, +1 edema x 4 extremities NEURO: pt awake, he uses spelling board to communicate PSYCH: Normal mood, normal affect. SKIN: Warm, dry,venous stasis changes, Laboratory Results - last 24 hr 02/11/19 02/12/19 02/12/19 05:45 05:30 05:30 WBC 6.5 RBC 3.40 L Hgb 11.1 L Hct 33.4 L MCV 98.1 H MCH 32.5 MCHC 33.2 RDW 14.4 Plt Count 171 MPV 9.2 Absolute Neuts (auto) 5.5 Neutrophils % 83.8 H Neutrophils % (Manual) 80.4 Band Neutrophils % 7.8 Lymphocytes % 4.3 L Lymphocytes % (Manual) 5.9 L D Monocytes % 10.3 H D Monocytes % (Manual) 5 D Eosinophils % 1.4 D Eosinophils % (Manual) 0.0 Basophils % 0.2 Basophils % (Manual) 0.0 Myelocytes % (Man) 1 D Promyelocytes % (Man) 0 Blast Cells % (Manual) 0 Nucleated RBC % 0 Metamyelocytes 0 Hypochromia 0 Platelet Estimate Normal Polychromasia 0 Poikilocytosis 0 Anisocytosis 1+ Microcytosis 0 Macrocytosis 1+ Sodium 147 H Potassium 3.0 L Chloride 107 Carbon Dioxide 31 Anion Gap 8 BUN 18 Creatinine 0.7 Creat Clearance w eGFR 106.93 Random Glucose 112 H Calcium 7.3 L Phosphorus 2.3 L Magnesium 1.6 L Total Bilirubin 0.4 AST 13 L ALT < 6 L Alkaline Phosphatase 72 Total Protein 3.7 L Albumin 1.6 L Active Medications Generic Name Dose Route Start Last Admin Trade Name Freq PRN Reason Stop Dose Admin Acetaminophen 1,000 mg 02/07/19 21:32 02/10/19 18:27 Ofirmev Injection - IVPB 1,000 mg Q6H PRN Administration FEVER Artificial Tears 1 drop 02/10/19 12:04 Artificial Tears OU TID PRN DRY EYES Bacitracin 1 applic 02/10/19 11:45 02/11/19 09:50 Bacitracin - TP 1 applic DAILY RUFINO Administration Chlorhexidine Gluconate 1 applic 02/07/19 22:00 02/11/19 22:42 Hibiclens For Decolonization - TP 1 applic HS RUFINO Administration Enoxaparin Sodium 40 mg 02/10/19 12:30 02/11/19 09:43 Lovenox - SQ 40 mg DAILY RUFINO Administration Piperacillin Sod/Tazobactam 100 mls @ 200 mls/hr 02/08/19 18:00 02/12/19 01: 56 Sod 4.5 gm/ Dextrose IVPB 200 mls/hr Q8H-IV RUFINO Administration Protocol Fluconazole 100 mls @ 100 mls/hr 02/09/19 10:00 02/11/19 09:38 Diflucan 200 Mg/Ns Premixed Ivpb - IVPB 100 mls/hr DAILY RUFINO Administration Famotidine/Sodium Chloride 20 mg in 50 mls @ 100 mls/hr 02/08/19 11:00 22:43 Pepcid 20 Mg Premixed Ivpb - IVPB 100 mls/hr BID RUFINO Administration Levothyroxine Sodium 50 mcg 02/08/19 10:00 02/11/19 09:46 Synthroid Injection - IVPUSH 50 mcg DAILY RUFINO Administration Metoprolol Tartrate 5 mg 02/10/19 12:11 02/11/19 03:52 Lopressor Injection - IVPUSH 5 mg Q6H PRN Administration HYPERTENSION Morphine Sulfate 2 mg 02/10/19 08:29 02/12/19 01:56 Morphine Sulfate IVPUSH 2 mg Q4H PRN Administration PAIN LEVEL 7 - 10 Mupirocin 1 applic 02/07/19 22:00 02/11/19 22:39 Bactroban Ointment (For Decolonization) - NS 02/12/19 21:59 1 applic BID RUFINO Administration Saliva Substitute 1 applic 02/10/19 22:00 02/11/19 22:42 Mouthkote Solution MM 1 applic BID RUFINO Administration Sodium Chloride 2 spray 02/10/19 21:48 02/11/19 10:28 [place] Nasal [place] - NS 2 spray Q12H PRN Administration NASAL CONGESTION ASSESSMENT/PLAN: Patient is a 82 year old male, with a significant past medical history of HTN, hypothyroidism, GERD, BPH, Parkinson's disease admitted with SBO and found to have gangrenous small bowel s/p resection. Sepsis Patient s/p lap small bowel resection plus ileostomy, jejunostomy tube insertion. Exploratory laparotomy lysis of adhesions on 02/07/2019 Sepsis secondary to necrotic small bowel - s/p surgery s/p jejunostomy and ileostomy and drain in place On tube feeds via J tube, NGT removed On Fluconozole, Zosyn. ID following Trend fever and WBC. Advance diet per surgery. monitor ostomy output started on gentle tube feeds await cultures Endocrine: hypothyroidism Continue synthroid 50mg daily Card: Hypertension Monitor in the setting of sepsis. Off pressors, maintain map >65 Metoprolol 5mg q6 for elevated bp given lasix 40mg iv Pulmonary Tolerating supplemental oxygen s/p intubation on 02/10 Monitor chest xray : Monitor urine output. maintain ross Prophy: Lovenox 40mg daily full code K and mag repleted Visit type - Emergency Visit Emergency Visit: Yes ED Registration Date: 02/07/19 Care time: The patient presented to the Emergency Department on the above date and was hospitalized for further evaluation of their emergent condition. - New Patient This patient is new to me today: No - Critical Care Critical Care patient: Yes Total Critical Care Time (in minutes): 30 Critical Care Statement: The care of this patient involved high complexity decision making to prevent further life threatening deterioration of the patient 's condition and/or to evaluate & treat vital organ system(s) failure or risk of failure.
[2019-02-12] MEDS ORDERED: FUROSEMIDE 40 MG/4 ML INJECTABLE VIAL IVPUSH ONE (09:17)
[2019-02-12] MEDS ORDERED: POTASSIUM PHOSPHATE 30 MM in SODIUM CHLORIDE 250 ML IVPB ONE (10:00)
[2019-02-12] MEDS ORDERED: PT OWN MED DRAWER 7, Y5N ONE ×2 (10:56→11:43)
[2019-02-12] MEDS: FLUCONAZOLE 200 MG/NS 100 ML IVPB SCH (11:15)
[2019-02-12 11:16] LABS: ANISOCYTOSIS 1+; MACROCYTOSIS 1+; PLATELET ESTIMATE NORMAL
[2019-02-12] MEDS: ENOXAPARIN NA (PORCINE) 40 MG/0.4 ML DISP.SYRIN SQ SCH (11:24)
[2019-02-12] MEDS: ARTIFICIAL TEARS (POLYVINYL ALCOHOL) OPTH DROPS OU PRN (11:27)
[2019-02-12] MEDS ORDERED: POTASSIUM CHLORIDE TABS 10 MEQ TABLET.ER (FP) PO ONE (11:31)
[2019-02-12] MEDS: MUPIROCIN 2% TOPICAL OINTMENT FOR DECOLONIZATION NS SCH (11:31)
[2019-02-12] MEDS ORDERED: METOPROLOL TARTRATE 25 MG TABLET (FP) PO SCH (11:45)
[2019-02-12] MEDS: LEVOTHYROXINE SODIUM 100 MCG VIAL IVPUSH SCH (11:45)
[2019-02-12] MEDS: LYTES/YERBA SANTA 60 ML SPRAY MM SCH ×2 (11:48→21:46)
[2019-02-12] MEDS: BACITRACIN 15 GM TUBE TOPICAL OINTMENT TP SCH (11:48)
[2019-02-12] MEDS: FAMOTIDINE 20 MG/50 ML IVPB 20 MG/50 ML MG IVPB SCH ×2 (11:48→21:46)
[2019-02-12] MEDS: SODIUM CHLORIDE NASAL SPRAY 44 ML BOTTLE NS PRN (11:48)
[2019-02-12] MEDS ORDERED: POTASSIUM CHLORIDE ORAL LIQUID 20 MEQ/15 ML PO ONE (11:52)
--- NOTE | 2019-02-12 12:10 | CONSULT ---
Admitting History and Physical - Admission History of Present Illness: Tyrone Alexandra is a 83 yr with a significant past medical history of HTN, hypothyroidism, GERD, BPH, Parkinson's disease (ambulates with walker on baseline), Paroxysmal Atrial Fibrillation, and Right Bundle Branch Block presented to the ED with c/o abd pain. s/p Acute Respiratory Failure Small Bowel Necrosis/Perforation s/p ex-lap/small bowel resection/ileostomy/[place]ALIA 02/07 Septic Shock improving Acute Kidney Injury improving Lactic Acidosis resolved Volume Overload Paroxysmal Atrial Fibrillation with RVR HTN Hypothyroidism BPH RBBB Extubated 02/10. Pt tolerating J tube. Asked to evaluated for Oral feeding Pt reports h/o Dysphagia, seen by dr. Ramirez, Otololaryngology, placed on cut up food and thickened liquids. This is my first consult with this pt. 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: Parkinson's Cardiovascular: Yes: HTN Endocrine: Yes: Hypothyroidism - Smoking History Smoking history: Never smoked Have you smoked in the past 12 months: No - Alcohol/Substance Use Hx Alcohol Use: No History - Admission Reason For Visit: ABD PAIN - Diagnostics X-ray: Report Reviewed - General Mental Status: Alert and Oriented, Awake and Alert, Able to Follow Commands Attention: Intact Ability to Follow Directions: Excellent - Hearing Hearing: Normal Speech Evaluation - Communication Primary Language: GREEK Communication: Yes: Dysarthria Oral Expression Ability: Yes: Mild Impairment, Moderate Impairment - Speech Production Dysarthria: Yes: Hypokinetic Able to Make Needs Known: Yes: Mildly Impaired, Moderately Impaired Intelligibility: Yes: Mildly Impaired, Moderately Impaired - Speech Characteristics Voice Loudness: Normal Voice Pitch: Yes: Normal Voice Phonatory-based Quality: Yes: Normal Speech Pattern: Impaired Speech Clarity: < 50% Nasal Resonance: Normal Articulation: Yes: Imprecise Dysfluency: Yes: Clonic Rate of Speech: Too Fast - Language/Auditory Comprehension Follows: Yes: 1 Stage Simple Commands - Language/Verbal Expression Functional Communication Status: Yes: Mildly Impaired, Moderately Impaired - Swallow Evaluation/Bedside Assessment Current Nutritional Intake: NPO, J Tube Oral Secretions: Yes: WFL Facial Symmetry at Rest: Symmetrical Against Resistance Opening: Weak Against Resistance Closing: Weak Pucker Lips: Weak Smile: Weak Lingual Movement: Symmetric Lingual Movement Strgth Against Opposition: Reduced Lingual Movement Characteristics: Normal Velopharyngeal Movement: Normal Laryngeal Movement: Able to Palpate Recommendations - Speech Evaluation, Impression/Plan Impression: Pt refused PO trials, wanting to continue on J tube feedings for now. Pt with h/o dysphagia, on nectar thick liquids and cut up food at home. - Dysphagia Impressions/Plan Dysphagia Impressions: Ongoing Evaluation *Silent aspiration: cannot be R/O at bedside Recommendations: Modified Barium Swallow (Obtain results from pt's . Repeat MBS, if not done recently,when pt ready to start po trials,), Other (To asssess bedside when pt feels ready)
--- NOTE | 2019-02-12 12:13 | PN ---
Progress Note, Physician History of Present Illness: AWAKE, RESPONSIVE NO C/O ABDO PAIN + LOW GRADE FEVER WBC WNL - Current Medication List Current Medications: Active Medications Acetaminophen (Ofirmev Injection -) 1,000 mg IVPB Q6H PRN PRN Reason: FEVER Last Admin: 02/10/19 18:27 Dose: 1,000 mg Artificial Tears (Artificial Tears) 1 drop OU TID PRN PRN Reason: DRY EYES Last Admin: 02/12/19 11:27 Dose: 1 drop Bacitracin (Bacitracin -) 1 applic TP DAILY [facility] Last Admin: 02/12/19 11:48 Dose: 1 applic Chlorhexidine Gluconate (Hibiclens For Decolonization -) 1 applic TP HS [facility] Last Admin: 02/11/19 22:42 Dose: 1 applic Enoxaparin Sodium (Lovenox -) 40 mg SQ DAILY [facility] [place] Last Admin: 02/12/19 11:24 Dose: 40 mg Piperacillin Sod/Tazobactam (Sod 4.5 gm/ Dextrose) 100 mls @ 200 mls/hr IVPB Q8H-IV RUFINO; Protocol Last Admin: 02/12/19 11:10 Dose: 200 mls/hr Fluconazole (Diflucan 200 Mg/Ns Premixed Ivpb -) 100 mls @ 100 mls/hr IVPB DAILY [facility] [place] Last Admin: 02/12/19 11:15 Dose: 100 mls/hr Famotidine/Sodium Chloride (Pepcid 20 Mg Premixed Ivpb -) 20 mg in 50 mls @ 100 mls/hr IVPB BID [facility] Last Admin: 02/12/19 11:48 Dose: 100 mls/hr Potassium Phosphate 30 mm/ (Sodium Chloride) 260 mls @ 65 mls/hr IVPB ONCE ONE Stop: 02/12/19 13:59 Potassium Chloride (Potassium Chloride 10 Meq Premix Ivpb -) 10 meq in 100 mls @ 100 mls/hr IVPB Q60M [facility] Stop: 02/12/19 13:44 Levothyroxine Sodium (Synthroid Injection -) 50 mcg IVPUSH DAILY [facility] [place] Last Admin: 02/12/19 11:45 Dose: 50 mcg Metoprolol Tartrate (Lopressor Injection -) 5 mg IVPUSH Q6H PRN PRN Reason: HYPERTENSION Last Admin: 02/11/19 03:52 Dose: 5 mg Metoprolol Tartrate (Lopressor -) 12.5 mg NGT BID [facility] Morphine Sulfate (Morphine Sulfate) 2 mg IVPUSH Q4H PRN PRN Reason: PAIN LEVEL 7 - 10 Last Admin: 02/12/19 01:56 Dose: 2 mg Mupirocin (Bactroban Ointment (For Decolonization) -) 1 applic NS BID [facility] [place] Stop: 02/12/19 21:59 Last Admin: 02/12/19 11:31 Dose: 1 applic Potassium Chloride (Potassium Chloride Oral Liquid) 20 meq PO ONCE ONE Stop: 02/12/19 11:53 Saliva Substitute ([place] Solution) 1 applic MM BID [facility] [place] Last Admin: 02/12/19 11:48 Dose: 1 applic Sodium Chloride ([place] Nasal [place] -) 2 spray NS Q12H PRN PRN Reason: NASAL CONGESTION Last Admin: 02/12/19 11:48 Dose: 2 spray - Objective Vital Signs: Vital Signs Temperature 99.2 F 02/12/19 10:00 Pulse Rate 117 H 02/12/19 10:00 Respiratory Rate 27 H 02/12/19 10:00 Blood Pressure 172/105 H 02/12/19 10:00 O2 Sat by Pulse Oximetry (%) 100 02/11/19 20:20 Constitutional: Yes: No Distress, Thin Cardiovascular: Yes: Regular Rate and Rhythm, S1, S2 Respiratory: Yes: Diminished Gastrointestinal: Yes: Normal Bowel Sounds, Soft, Tenderness, Other (MILD TENDERNESS; ABDOMINAL WOUND WITH PACKING; + OSTOMY) Edema: No Labs: CBC, BMP 02/12/19 05:30 02/12/19 05:30 INR, PTT INR 1.03 (0.83-1.09) 02/07/19 03:00 Assessment/Plan POD #5 EXPLORATORY LAPAROTOMY S/P RESECTION ISCHEMIC BOWEL LOW GRADE TEMP AWAIT OR C/S CONTINUE ZOSYN/FLUCONAZOLE
[2019-02-12] MEDS ORDERED: MAGNESIUM OXIDE 400 MG TABLET (FP) GT ONE (12:36)
[2019-02-12] MEDS: KCL 10 MEQ IVPB 10 MEQ/100 ML INFUS.BAG IVPB SCH ×2 (12:45→14:21)
--- NOTE | 2019-02-12 12:45 | PN ---
Teaching Attending Note Name of Resident: Yaritza Dominguez ATTENDING PHYSICIAN STATEMENT I saw and evaluated the patient. I reviewed the resident's note and discussed the case with the resident. I agree with the resident's findings and plan as documented. SUBJECTIVE: Pt seen and examined in the ICU. Remains extubated. Diuresing well. Tolerating J tube feeds. No fevers recorded. OBJECTIVE: Vital Signs Period Temp Pulse Resp BP Sys/Joiner Pulse Ox Last 24 Hr 98.1 F-99.8 F 97-117 20-27 139-179/78-124 100 Intake & Output 02/09/19 02/10/19 02/11/19 02/12/19 23:59 23:59 23:59 23:59 Intake Total 8042.0 3053 1341 170 Output Total 2400 2050 6125 50 Balance 5642.0 1003 -4784 120 Weight 67.812 kg 69.4 kg 69.853 kg 67.217 kg Gen: weak appearing but in NAD Heart: RRR Lung: decreased breath sounds at the bases Abd: soft, +ostomy pink Ext: less edema CBC, BMP 02/12/19 05:30 02/12/19 05:30 Active Medications Acetaminophen (Ofirmev Injection -) 1,000 mg IVPB Q6H PRN PRN Reason: FEVER Last Admin: 02/10/19 18:27 Dose: 1,000 mg Artificial Tears (Artificial Tears) 1 drop OU TID PRN PRN Reason: DRY EYES Last Admin: 02/12/19 11:27 Dose: 1 drop Bacitracin (Bacitracin -) 1 applic TP DAILY [facility] Last Admin: 02/12/19 11:48 Dose: 1 applic Chlorhexidine Gluconate (Hibiclens For Decolonization -) 1 applic TP HS [facility] Last Admin: 02/11/19 22:42 Dose: 1 applic Enoxaparin Sodium (Lovenox -) 40 mg SQ DAILY [facility] Last Admin: 02/12/19 11:24 Dose: 40 mg Piperacillin Sod/Tazobactam (Sod 4.5 gm/ Dextrose) 100 mls @ 200 mls/hr IVPB Q8H-IV RUFINO; Protocol Last Admin: 02/12/19 11:10 Dose: 200 mls/hr Fluconazole (Diflucan 200 Mg/Ns Premixed Ivpb -) 100 mls @ 100 mls/hr IVPB DAILY [facility] Last Admin: 02/12/19 11:15 Dose: 100 mls/hr Famotidine/Sodium Chloride (Pepcid 20 Mg Premixed Ivpb -) 20 mg in 50 mls @ 100 mls/hr IVPB BID [facility] Last Admin: 02/12/19 11:48 Dose: 100 mls/hr Potassium Phosphate 30 mm/ (Sodium Chloride) 260 mls @ 65 mls/hr IVPB ONCE ONE Stop: 02/12/19 13:59 Potassium Chloride (Potassium Chloride 10 Meq Premix Ivpb -) 10 meq in 100 mls @ 100 mls/hr IVPB Q60M [facility] Stop: 02/12/19 13:44 Levothyroxine Sodium (Synthroid Injection -) 50 mcg IVPUSH DAILY [facility] Last Admin: 02/12/19 11:45 Dose: 50 mcg Magnesium Oxide (Mag-Ox -) 800 mg GT ONCE ONE Stop: 02/12/19 12:37 Metoprolol Tartrate (Lopressor Injection -) 5 mg IVPUSH Q6H PRN PRN Reason: HYPERTENSION Last Admin: 02/11/19 03:52 Dose: 5 mg Metoprolol Tartrate (Lopressor -) 12.5 mg NGT BID [facility] Morphine Sulfate (Morphine Sulfate) 2 mg IVPUSH Q4H PRN PRN Reason: PAIN LEVEL 7 - 10 Last Admin: 02/12/19 01:56 Dose: 2 mg Mupirocin (Bactroban Ointment (For Decolonization) -) 1 applic NS BID [facility] Stop: 02/12/19 21:59 Last Admin: 02/12/19 11:31 Dose: 1 applic Saliva Substitute ([place] Solution) 1 applic MM BID [facility] Last Admin: 02/12/19 11:48 Dose: 1 applic Sodium Chloride ([place] Nasal [place] -) 2 spray NS Q12H PRN PRN Reason: NASAL CONGESTION Last Admin: 02/12/19 11:48 Dose: 2 spray ASSESSMENT AND PLAN: s/p Acute Respiratory Failure Small Bowel Necrosis/Perforation s/p ex-lap/small bowel resection/ileostomy/ORALIA 02/07 Septic Shock improving Acute Kidney Injury improving Lactic Acidosis resolved Volume Overload Paroxysmal Atrial Fibrillation with RVR HTN Hypothyroidism BPH RBBB - continue antibiotics - continue lasix today - monitor urine output, creatinine - replete lytes - monitoring off pressors, maintain MAP >65 - O2 to keep Spo2 >90% - monitor ostomy output - increase enteral feed rate - DVT/GI prophylaxis - continue ICU monitoring critical care time spent in reviewing chart, evaluating patient and formulating plan 35 min
[2019-02-12] MEDS ORDERED: ACETAMINOPHEN 325 MG TABLET (FP) PO PRN (14:18)
--- NOTE | 2019-02-12 18:47 | PN ---
Progress Note (short form) - Note Progress Note: POD#5 T-100.3 P-97-117 (presently 103) BP-126/90 Pt remains extubated, awake P/E-Abd- packing changed- lower incision with 1-2 cm of brown/yellow fat All other fat pink/orange healthy Ext- no swelling, no edema Tolerating TF at 30 cc/hr WBC-6.5 H/H-11.1/33.4 BUN/CR-18/0.7 K-3.0 Phos-2.3 P- Cont antibiotics as per ID K, PO4 replacement As per ICU team
[2019-02-12] MEDS: CHLORHEXIDINE GLUCONATE 4% CLEANSER FOR DECOLONIZATION TP SCH (21:46)
[2019-02-12] MEDS: METOPROLOL TARTRATE 25 MG TABLET (FP) NGT SCH (21:47)
[2019-02-13] MEDS: MORPHINE SULFATE 2 MG/ML VIAL IVPUSH PRN ×3 (00:14→13:58)
[2019-02-13] MEDS: PIPERACILLIN/TAZOB 4.5 GM 4.5 GM in DEXTROSE 5%-WATER 100 ML IVPB SCH ×2 (02:54→17:18)
[2019-02-13 06:26] LABS: BASO % 0.5 % (0-2.0); EOS % 1.7 % (0-4.5); HEMATOCRIT 35.7 % (35.4-49); HEMOGLOBIN 11.9 GM/dL (11.7-16.9); LYMPH % 6.4 % (8-40); MCH 32.4 pg (25.7-33.7); MCHC 33.3 g/dl (32.0-35.9); MEAN CELL VOLUME 97.3 fl (80-96); MEAN PLT VOLUME 9.1 fl (7.5-11.1); MONO % 7.3 % (3.8-10.2); NEUT % 84.1 % (42.8-82.8); PLATELET COUNT 203 K/MM3 (134-434); RBC 3.67 M/mm3 (4.00-5.60); RDW 14.4 % (11.9-15.9); WHITE BLOOD COUNT 6.7 K/mm3 (4.0-10.0)
[2019-02-13] MEDS ORDERED: ALBUTEROL SO4 0.083% IH SOL 2.5 MG/3 ML VIAL.NEB. NEB PRN (06:34)
[2019-02-13 06:57] LABS: ALBUMIN 1.6 g/dl (3.4-5.0); ALK PHOS 68 U/L (45-117); ANION GAP 5 MMOL/L (8-16); BILIRUBIN,TOTAL 0.4 mg/dL (0.2-1); BLOOD UREA NITROGEN 19 mg/dL (7-18); CHLORIDE 104 mmol/L (98-107); CO2 35 mmol/L (21-32); CREATININE 0.7 mg/dL (0.55-1.3); GLUCOSE,RANDOM 146 mg/dL (74-106); MAGNESIUM 1.7 mg/dL (1.8-2.4); POTASSIUM 3.6 mmol/L (3.5-5.1); SGOT/AST 15 U/L (15-37); SGPT/ALT 6 U/L (13-61); SODIUM 144 mmol/L (136-145)
[2019-02-13 07:16] LABS: CALCIUM 6.9 mg/dL (8.5-10.1)
[2019-02-13] MEDS ORDERED: POTASSIUM CHLORIDE ORAL LIQUID 20 MEQ/15 ML GT ONE (07:27)
[2019-02-13] MEDS ORDERED: POTASSIUM CHLORIDE ORAL LIQUID 20 MEQ/15 ML PO ONE (07:27)
[2019-02-13] MEDS ORDERED: MAGNESIUM SULF 50% (8.12 MEQ/2 ML-1 GM VIAL) IVPB ONE (07:28)
--- NOTE | 2019-02-13 07:32 | PN ---
Physical Exam: SUBJECTIVE: Patient seen and examined at bedside. No acute events overnight. Pt states that he would like to try PO diet. Denies cp, sob, barnett/d, f/c, abd pain. OBJECTIVE: Vital Signs Period Temp Pulse Resp BP Sys/Joiner Pulse Ox Last 24 Hr 99.2 F-100.2 F 93-117 18-27 126-172/79-124 97-97 GEN: On NC. Awake and alert, able to verbally communicate. HEENT: AT/NC. EOMI. NECK: Trachea midline, left IJ placed 02/08/2019 LUNGS: Coarse breath sounds on vent, no wheezes, no crackles, no accessory muscle use. Satting at 100% HEART: Regular rate and rhythm, S1, S2 without murmur, rub or gallop. ABDOMEN: Soft, nondistended, normoactive bowel sounds, ileostomy patent in RUQ with green liquid output (stoma pink), abdominal dressing c/d/i. J tube in place. EXTREMITIES: 2+ pulses in radial and DP, warm, well-perfused. +edema in b/l hands. +mottling in b/l LE from mid-reis distally to feet. CBCD WBC 6.7 K/mm3 (4.0-10.0) 02/13/19 05:30 RBC 3.67 M/mm3 (4.00-5.60) L 02/13/19 05:30 Hgb 11.9 GM/dL (11.7-16.9) 02/13/19 05:30 Hct 35.7 % (35.4-49) 02/13/19 05:30 MCV 97.3 fl (80-96) H 02/13/19 05:30 MCHC 33.3 g/dl (32.0-35.9) 02/13/19 05:30 RDW 14.4 % (11.9-15.9) 02/13/19 05:30 Plt Count 203 K/MM3 (134-434) 02/13/19 05:30 MPV 9.1 fl (7.5-11.1) 02/13/19 05:30 CMP Sodium 144 mmol/L (136-145) 02/13/19 05:30 Potassium 3.6 mmol/L (3.5-5.1) 02/13/19 05:30 Chloride 104 mmol/L (98-107) 02/13/19 05:30 Carbon Dioxide 35 mmol/L (21-32) H 02/13/19 05:30 Anion Gap 5 MMOL/L (8-16) L 02/13/19 05:30 BUN 19 mg/dL (7-18) H 02/13/19 05:30 Creatinine 0.7 mg/dL (0.55-1.3) 02/13/19 05:30 Creat Clearance w eGFR 106.93 (>60) 02/13/19 05:30 Calcium 6.9 mg/dL (8.5-10.1) L* 02/13/19 05:30 Total Bilirubin 0.4 mg/dL (0.2-1) 02/13/19 05:30 AST 15 U/L (15-37) 02/13/19 05:30 ALT 6 U/L (13-61) L 02/13/19 05:30 Alkaline Phosphatase 68 U/L (45-117) 02/13/19 05:30 Total Protein 4.0 g/dl (6.4-8.2) L 02/13/19 05:30 Albumin 1.6 g/dl (3.4-5.0) L 02/13/19 05:30 Active Medications Acetaminophen (Tylenol -) 650 mg PO Q6H PRN PRN Reason: Fever Albuterol Sulfate (Ventolin 0.083% Nebulizer Soln -) 1 amp NEB Q4H PRN PRN Reason: SHORT OF BREATH/WHEEZING Artificial Tears (Artificial Tears) 1 drop OU TID PRN PRN Reason: DRY EYES Last Admin: 02/12/19 11:27 Dose: 1 drop Bacitracin (Bacitracin -) 1 applic TP DAILY [facility] Last Admin: 02/12/19 11:48 Dose: 1 applic Chlorhexidine Gluconate (Hibiclens For Decolonization -) 1 applic TP HS [facility] Last Admin: 02/12/19 21:46 Dose: 1 applic Enoxaparin Sodium (Lovenox -) 40 mg SQ DAILY [facility] Last Admin: 02/12/19 11:24 Dose: 40 mg Piperacillin Sod/Tazobactam (Sod 4.5 gm/ Dextrose) 100 mls @ 200 mls/hr IVPB Q8H-IV [facility]O; Protocol Last Admin: 02/13/19 02:54 Dose: 200 mls/hr Fluconazole (Diflucan 200 Mg/Ns Premixed Ivpb -) 100 mls @ 100 mls/hr IVPB DAILY [facility] Last Admin: 02/12/19 11:15 Dose: 100 mls/hr Famotidine/Sodium Chloride (Pepcid 20 Mg Premixed Ivpb -) 20 mg in 50 mls @ 100 mls/hr IVPB BID [facility] Last Admin: 02/12/19 21:46 Dose: 100 mls/hr Potassium Phosphate 30 mm/ (Sodium Chloride) 260 mls @ 62.5 mls/hr IVPB ONCE ONE Stop: 02/13/19 11:36 Levothyroxine Sodium (Synthroid Injection -) 50 mcg IVPUSH DAILY [facility] Last Admin: 02/12/19 11:45 Dose: 50 mcg Magnesium Sulfate (Magnesium Sulfate) 1 gm IVPB ONCE ONE Stop: 02/13/19 07:29 Metoprolol Tartrate (Lopressor Injection -) 5 mg IVPUSH Q6H PRN PRN Reason: HYPERTENSION Last Admin: 02/11/19 03:52 Dose: 5 mg Metoprolol Tartrate (Lopressor -) 12.5 mg NGT BID [facility] Last Admin: 02/12/19 21:47 Dose: 12.5 mg Morphine Sulfate (Morphine Sulfate) 2 mg IVPUSH Q4H PRN PRN Reason: PAIN LEVEL 7 - 10 Last Admin: 02/13/19 05:16 Dose: 2 mg Potassium Chloride (Potassium Chloride Oral Liquid) 20 meq GT ONCE ONE Stop: 02/13/19 07:28 Saliva Substitute ([place] Solution) 1 applic MM BID [facility] Last Admin: 02/12/19 21:46 Dose: 1 applic Sodium Chloride ([place] Nasal [place] -) 2 spray NS Q12H PRN PRN Reason: NASAL CONGESTION Last Admin: 02/12/19 11:48 Dose: 2 spray CONSULT: IVON- Dr. Preciado Cardio- Dr. Bryant Nephro- Dr. Crabtree Surg- Dr. Grimes IMAGING: * ECHO: RV appears dilated w/ mild decrease in systolic fxn. RV moderately dilated. Trace AR. Trace MR. LV is normal in size. Mod to severe TR. Mod pulmonic valvular regurg. LV systolic fxn grossly normal. ASSESSMENT/PLAN: 83M with pmhx of HTN, HLD, hx of Afib, Parkinson's, found to have gangrenous small bowel s/p resection POD #6. Neuro -Extubated (02/10/19); Awake and alert, able to verbally communicate now. -Morphine 2 Q4H IVP for pain Cardiovascular -Hemodynamically stable; off pressors. Maintain MAP >65 -No IVf needed as pt is fluid overloaded -Per cardio, restart PO meds when able -Will resume home med: Metoprolol 12.5 BID, Metoprolol 5 mg Q6H IVP PRN for systolic >120 -Pt appears to be fluid overloaded on CXR; will give Lasix 40 IVP x1 dose and re -evaluate Pulmonary -Extubated. Satting at 99% on NC. -Monitor O2 sat -Repeat CXR ID -broad spectrum coverage for abdominal ajith -Cont Zosyn 4.5g Q8h, Fluconazole 200 QD (Day 6); per ID, hope to d/c abx within the next 24-48 hours -Await c/s GI #Sepsis 2/2 necrotic small bowel- s/p surgery -POD #5 -s/p jejunostomy and ileostomy and drain in place -cont Tube feeds through J tube, will decrease free water flushes -NG tube removed -monitor ileostomy drainage -NPO except for meds with applesauce, will need to obtain previous MBS results prior to repeating Renal #Hypokalemia; today K+ 3 -KCl liquid, KPhos, IV KCl x2 bags given; repeat BMP and check K+ #Hypomagnesemia -Mag Phos 800 mg -recheck Mag in AM Endo #Hypothyroidism -Cont home med: Levothyroxine 50 mcg QD Prophylaxis -Lovenox 40 QD -Pepcid BID FEN -maintain UOP >0.5cc/kg/hr -replete lytes PRN -Cont tube feeds Vital 1.2; NPO except for meds with applesauce Lines Left IJ (02/07/2019) (to be removed today) Ileostomy bag Jejunostomy tube Will Dispo -full code -transfer to tele Visit type - Emergency Visit Emergency Visit: Yes ED Registration Date: 02/07/19 Care time: The patient presented to the Emergency Department on the above date and was hospitalized for further evaluation of their emergent condition. - New Patient This patient is new to me today: No - Critical Care Critical Care patient: Yes Total Critical Care Time (in minutes): 35 Critical Care Statement: The care of this patient involved high complexity decision making to prevent further life threatening deterioration of the patient 's condition and/or to evaluate & treat vital organ system(s) failure or risk of failure.
[2019-02-13] MEDS ORDERED: POTASSIUM PHOSPHATE 30 MM in SODIUM CHLORIDE 250 ML IVPB ONE (09:00)
[2019-02-13] MEDS ORDERED: PT OWN MED DRAWER 7, Y5N ONE ×3 (09:06→23:10)
[2019-02-13] MEDS: FLUCONAZOLE 200 MG/NS 100 ML IVPB SCH (09:25)
[2019-02-13] MEDS: ENOXAPARIN NA (PORCINE) 40 MG/0.4 ML DISP.SYRIN SQ SCH (09:26)
[2019-02-13] MEDS: LEVOTHYROXINE SODIUM 100 MCG VIAL IVPUSH SCH (09:27)
[2019-02-13] MEDS: METOPROLOL TARTRATE 25 MG TABLET (FP) NGT SCH ×2 (09:27→22:57)
[2019-02-13] MEDS: FAMOTIDINE 20 MG/50 ML IVPB 20 MG/50 ML MG IVPB SCH ×2 (09:28→22:57)
--- NOTE | 2019-02-13 09:40 | PN ---
Physical Exam: SUBJECTIVE: Patient seen and examined in the icu. OBJECTIVE: Vital Signs Period Temp Pulse Resp BP Sys/Joiner Pulse Ox Last 24 Hr 99.2 F-100.2 F 93-117 18-27 126-172/79-124 97-97 GENERAL: The patient is awake, and in no acute distress. on nasal cannula HEAD: Normal with no signs of trauma. EYES: PERRL NECK: Trachea midline LUNGS: Breath sounds diminished , no accessory muscle use. HEART: Regular rate and rhythm, S1, S2 without murmur, rub or gallop. ABDOMEN: Soft, + ostomy with liq brown stool, Drain in situ EXTREMITIES: 2+ pulses, warm, well-perfused, +1 edema x 4 extremities NEURO: pt awake, speech mumbled but some words are clear PSYCH: Normal mood, normal affect. SKIN: Warm, dry,venous stasis changes Laboratory Results - last 24 hr 02/12/19 02/13/19 02/13/19 05:30 05:30 05:30 WBC 6.7 RBC 3.67 L Hgb 11.9 Hct 35.7 MCV 97.3 H MCH 32.4 MCHC 33.3 RDW 14.4 Plt Count 203 MPV 9.1 Absolute Neuts (auto) 5.6 Neutrophils % 84.1 H Neutrophils % (Manual) 79.2 Band Neutrophils % 2.9 Lymphocytes % 6.4 L D Lymphocytes % (Manual) 1.0 L D Monocytes % 7.3 Monocytes % (Manual) 12 H D Eosinophils % 1.7 Eosinophils % (Manual) 2.0 D Basophils % 0.5 Basophils % (Manual) 0.0 Myelocytes % (Man) 2 D Promyelocytes % (Man) 0 Blast Cells % (Manual) 0 Nucleated RBC % 0 Metamyelocytes 1 D Hypochromia 0 Platelet Estimate Normal Polychromasia 0 Poikilocytosis 0 Anisocytosis 1+ Microcytosis 0 Macrocytosis 1+ Sodium 144 Potassium 3.6 Chloride 104 Carbon Dioxide 35 H Anion Gap 5 L BUN 19 H Creatinine 0.7 Creat Clearance w eGFR 106.93 Random Glucose 146 H Calcium 6.9 L* Phosphorus 2.0 L Magnesium 1.7 L Total Bilirubin 0.4 AST 15 ALT 6 L Alkaline Phosphatase 68 Total Protein 4.0 L Albumin 1.6 L Active Medications Generic Name Dose Route Start Last Admin Trade Name Freq PRN Reason Stop Dose Admin Acetaminophen 650 mg 02/12/19 14:18 Tylenol - PO Q6H PRN Fever Albuterol Sulfate 1 amp 02/13/19 06:34 Ventolin 0.083% Nebulizer Soln - NEB Q4H PRN SHORT OF BREATH/WHEEZING Artificial Tears 1 drop 02/10/19 12:04 02/12/19 11:27 Artificial Tears OU 1 drop TID PRN Administration DRY EYES Bacitracin 1 applic 02/10/19 11:45 02/12/19 11:48 Bacitracin - TP 1 applic DAILY [facility] Administration Chlorhexidine Gluconate 1 applic 02/07/19 22:00 02/12/19 21:46 Hibiclens For Decolonization - TP 1 applic HS [facility] Administration Enoxaparin Sodium 40 mg 02/10/19 12:30 02/13/19 09:26 Lovenox - SQ 40 mg DAILY [facility] Administration Fluconazole 100 mls @ 100 mls/hr 02/09/19 10:00 02/13/19 09:25 Diflucan 200 Mg/Ns Premixed Ivpb - IVPB 100 mls/hr DAILY [facility] Administration Famotidine/Sodium Chloride 20 mg in 50 mls @ 100 mls/hr 02/08/19 11:00 09:28 Pepcid 20 Mg Premixed Ivpb - IVPB 100 mls/hr BID [facility] Administration Potassium Phosphate 30 mm/ 260 mls @ 65 mls/hr 02/13/19 09:00 02/13/19 09:25 Sodium Chloride IVPB 02/13/19 12:59 65 mls/hr ONCE ONE Administration 30 MM/4 HR Levothyroxine Sodium 50 mcg 02/08/19 10:00 02/13/19 09:27 Synthroid Injection - IVPUSH 50 mcg DAILY [facility] Administration Metoprolol Tartrate 5 mg 02/10/19 12:11 02/11/19 03:52 Lopressor Injection - IVPUSH 5 mg Q6H PRN Administration HYPERTENSION Metoprolol Tartrate 12.5 mg 02/12/19 11:48 02/13/19 09:27 Lopressor - NGT 12.5 mg BID [facility] Administration Morphine Sulfate 2 mg 02/10/19 08:29 02/13/19 05:16 Morphine Sulfate IVPUSH 2 mg Q4H PRN Administration PAIN LEVEL 7 - 10 Saliva Substitute 1 applic 02/10/19 22:00 02/12/19 21:46 [place] Solution MM 1 applic BID [facility] Administration Sodium Chloride 2 spray 02/10/19 21:48 02/12/19 11:48 [place] Nasal [place] - NS 2 spray Q12H PRN Administration NASAL CONGESTION ASSESSMENT/PLAN: Patient is a 82 year old male, with a significant past medical history of HTN, hypothyroidism, GERD, BPH, Parkinson's disease admitted with SBO and found to have gangrenous small bowel s/p resection. Sepsis Patient s/p lap small bowel resection plus ileostomy, jejunostomy tube insertion. Exploratory laparotomy lysis of adhesions on 02/07/2019 Sepsis secondary to necrotic small bowel - s/p surgery s/p jejunostomy and ileostomy and drain in place On tube feeds via J tube, NGT removed swallow evaluation noted, recommend to continue tube feeds currently On Fluconozole, Zosyn. ID following Trend fever and WBC. Advance diet per surgery. monitor ostomy output started on gentle tube feeds await cultures Neuro: Parkinsons disease On Sinemet QID, restart parkinsons medications Endocrine: hypothyroidism Continue synthroid 50mg daily Card: Hypertension Monitor in the setting of sepsis. Off pressors, maintain map >65 Metoprolol 5mg q6 for elevated bp given lasix 40mg iv Pulmonary Tolerating supplemental oxygen s/p intubation on 02/10 Monitor chest xray : Monitor urine output. maintain ross Prophy: Lovenox 40mg daily NPO except for PO meds with applesauce full code K and mag repleted Visit type - Emergency Visit Emergency Visit: Yes ED Registration Date: 02/07/19 Care time: The patient presented to the Emergency Department on the above date and was hospitalized for further evaluation of their emergent condition. - New Patient This patient is new to me today: No - Critical Care Critical Care patient: Yes Total Critical Care Time (in minutes): 50 Critical Care Statement: The care of this patient involved high complexity decision making to prevent further life threatening deterioration of the patient 's condition and/or to evaluate & treat vital organ system(s) failure or risk of failure. - Discharge Referral Referred to [facility] No
[2019-02-13 09:52] LABS: ANISOCYTOSIS 0; PLATELET ESTIMATE NORMAL
[2019-02-13] MEDS: LYTES/YERBA SANTA 60 ML SPRAY MM SCH ×2 (09:52→22:57)
[2019-02-13] MEDS: BACITRACIN 15 GM TUBE TOPICAL OINTMENT TP SCH (09:52)
[2019-02-13] MEDS: ARTIFICIAL TEARS (POLYVINYL ALCOHOL) OPTH DROPS OU PRN (09:53)
[2019-02-13] MEDS: SODIUM CHLORIDE NASAL SPRAY 44 ML BOTTLE NS PRN (09:54)
[2019-02-13 10:12] LABS: MACROCYTOSIS 1+
--- NOTE | 2019-02-13 10:16 | PN ---
Progress Note, Physician Chief Complaint: Pt alert; wants ot have position changed; no chest pain; + abdominal discomfort. History of Present Illness: The patient is an 82 year old male, with a significant past medical history of HTN, hypothyroidism, GERD, BPH, Parkinson's disease (ambulates with walker), Paroxysmal Atrial Fibrillation, and Right Bundle Branch Block, who presents to the emergency department, via EMS with abdominal pain since 7pm. As per , the diffuse abdominal pain began shortly after dinner. The patient states his last normal bowel movement was today, however, he endorses some gas intermittently in between his bowel movements. The patient denies burning on urination. The patient denies any sick contact or recent illness. - Current Medication List Current Medications: Active Medications Acetaminophen (Tylenol -) 650 mg PO Q6H PRN PRN Reason: Fever Albuterol Sulfate (Ventolin 0.083% Nebulizer Soln -) 1 amp NEB Q4H PRN PRN Reason: SHORT OF BREATH/WHEEZING Artificial Tears (Artificial Tears) 1 drop OU TID PRN PRN Reason: DRY EYES Last Admin: 02/13/19 09:53 Dose: 1 drop Bacitracin (Bacitracin -) 1 applic TP DAILY [facility] Last Admin: 02/13/19 09:52 Dose: 1 applic Chlorhexidine Gluconate (Hibiclens For Decolonization -) 1 applic TP HS [facility] Last Admin: 02/12/19 21:46 Dose: 1 applic Enoxaparin Sodium (Lovenox -) 40 mg SQ DAILY [facility] Last Admin: 02/13/19 09:26 Dose: 40 mg Fluconazole (Diflucan 200 Mg/Ns Premixed Ivpb -) 100 mls @ 100 mls/hr IVPB DAILY [facility] Last Admin: 02/13/19 09:25 Dose: 100 mls/hr Famotidine/Sodium Chloride (Pepcid 20 Mg Premixed Ivpb -) 20 mg in 50 mls @ 100 mls/hr IVPB BID [facility] Last Admin: 02/13/19 09:28 Dose: 100 mls/hr Potassium Phosphate 30 mm/ (Sodium Chloride) 260 mls @ 65 mls/hr IVPB ONCE ONE Stop: 02/13/19 12:59 Last Admin: 02/13/19 09:25 Dose: 65 mls/hr Levothyroxine Sodium (Synthroid Injection -) 50 mcg IVPUSH DAILY [facility] Last Admin: 02/13/19 09:27 Dose: 50 mcg Metoprolol Tartrate (Lopressor Injection -) 5 mg IVPUSH Q6H PRN PRN Reason: HYPERTENSION Last Admin: 02/11/19 03:52 Dose: 5 mg Metoprolol Tartrate (Lopressor -) 12.5 mg NGT BID [facility] Last Admin: 02/13/19 09:27 Dose: 12.5 mg Morphine Sulfate (Morphine Sulfate) 2 mg IVPUSH Q4H PRN PRN Reason: PAIN LEVEL 7 - 10 Last Admin: 02/13/19 05:16 Dose: 2 mg Saliva Substitute ([place] Solution) 1 applic MM BID [facility] Last Admin: 02/13/19 09:52 Dose: 1 applic Sodium Chloride ([place] Nasal [place] -) 2 spray NS Q12H PRN PRN Reason: NASAL CONGESTION Last Admin: 02/13/19 09:54 Dose: 2 spray - Objective Vital Signs: Vital Signs Temperature 99.5 F 02/13/19 08:00 Pulse Rate 94 H 02/13/19 08:00 Respiratory Rate 22 H 02/13/19 08:00 Blood Pressure 149/82 02/13/19 08:00 O2 Sat by Pulse Oximetry (%) 97 02/13/19 08:00 Constitutional: Yes: Anxious, Thin Labs: CBC, BMP 02/13/19 05:30 02/13/19 05:30 INR, PTT INR 1.03 (0.83-1.09) 02/07/19 03:00 Problem List - Problems (1) Acute postprocedural respiratory failure Assessment/Plan: extubate (possibly today) per machine operator hop picker. Code(s): J95.821 - ACUTE POSTPROCEDURAL RESPIRATORY FAILURE (2) HTN (hypertension), benign Code(s): I10 - ESSENTIAL (PRIMARY) HYPERTENSION (3) Hypothyroidism Code(s): E03.9 - HYPOTHYROIDISM, UNSPECIFIED (4) Paroxysmal atrial fibrillation with rapid ventricular response Assessment/Plan: Now in sinus rhythmn. ECHO: normal LVEF; reduced RVEF; moderately severe TR. F/u EKG ONce vital signs are stabilitized (and off vasopressors), consider AV conduction nayeli, AC. Code(s): I48.0 - PAROXYSMAL ATRIAL FIBRILLATION (5) Small bowel obstruction Code(s): K56.609 - UNSP INTESTNL OBST, UNSP TO PARTIAL VERSUS COMPLETE OBST (6) Parkinson disease Code(s): G20 - PARKINSON'S DISEASE (7) Anemia Code(s): D64.9 - ANEMIA, UNSPECIFIED (8) Thrombocytopenia Code(s): D69.6 - THROMBOCYTOPENIA, UNSPECIFIED (9) Sepsis Code(s): A41.9 - SEPSIS, UNSPECIFIED ORGANISM (10) Acute on chronic diastolic (congestive) heart failure Code(s): I50.33 - ACUTE ON CHRONIC DIASTOLIC (CONGESTIVE) HEART FAILURE Assessment/Plan CCU time spent: 35 minutes.
--- NOTE | 2019-02-13 11:21 | PN ---
Teaching Attending Note Name of Resident: Yaritza Dominguez ATTENDING PHYSICIAN STATEMENT I saw and evaluated the patient. I reviewed the resident's note and discussed the case with the resident. I agree with the resident's findings and plan as documented. SUBJECTIVE: Patient seen and examined in the ICU. Remains extubated. Sleepy but easily arousable. Denies CP or SOB. Tolerating J tube feeds. No fevers recorded. Swallow evaluation in progress. OBJECTIVE: Intake & Output 02/10/19 02/11/19 02/12/19 02/13/19 23:59 23:59 23:59 23:59 Intake Total 3053 1341 1610 310 Output Total 2055 5986 2608 2400 Balance 1003 -4784 -990 -8810 Weight 153 lb 154 lb 148 lb 3 oz Last Vital Signs Temp Pulse Resp BP Pulse Ox 99.1 F 96 H 25 H 145/82 97 02/13/19 10:00 02/13/19 10:00 02/13/19 10:00 02/13/19 10:00 02/13/19 08:00 Active Medications Acetaminophen (Tylenol -) 650 mg PO Q6H PRN PRN Reason: Fever Albuterol Sulfate (Ventolin 0.083% Nebulizer Soln -) 1 amp NEB Q4H PRN PRN Reason: SHORT OF BREATH/WHEEZING Artificial Tears (Artificial Tears) 1 drop OU TID PRN PRN Reason: DRY EYES Last Admin: 02/13/19 09:53 Dose: 1 drop Bacitracin (Bacitracin -) 1 applic TP DAILY [facility] Last Admin: 02/13/19 09:52 Dose: 1 applic Chlorhexidine Gluconate (Hibiclens For Decolonization -) 1 applic TP HS [facility] Last Admin: 02/12/19 21:46 Dose: 1 applic Enoxaparin Sodium (Lovenox -) 40 mg SQ DAILY [facility] Last Admin: 02/13/19 09:26 Dose: 40 mg Fluconazole (Diflucan 200 Mg/Ns Premixed Ivpb -) 100 mls @ 100 mls/hr IVPB DAILY [facility] Last Admin: 02/13/19 09:25 Dose: 100 mls/hr Famotidine/Sodium Chloride (Pepcid 20 Mg Premixed Ivpb -) 20 mg in 50 mls @ 100 mls/hr IVPB BID [facility] Last Admin: 02/13/19 09:28 Dose: 100 mls/hr Potassium Phosphate 30 mm/ (Sodium Chloride) 260 mls @ 65 mls/hr IVPB ONCE ONE Stop: 02/13/19 12:59 Last Admin: 02/13/19 09:25 Dose: 65 mls/hr Levothyroxine Sodium (Synthroid Injection -) 50 mcg IVPUSH DAILY [facility] Last Admin: 02/13/19 09:27 Dose: 50 mcg Metoprolol Tartrate (Lopressor Injection -) 5 mg IVPUSH Q6H PRN PRN Reason: HYPERTENSION Last Admin: 02/11/19 03:52 Dose: 5 mg Metoprolol Tartrate (Lopressor -) 12.5 mg NGT BID [facility] Last Admin: 02/13/19 09:27 Dose: 12.5 mg Morphine Sulfate (Morphine Sulfate) 2 mg IVPUSH Q4H PRN PRN Reason: PAIN LEVEL 7 - 10 Last Admin: 02/13/19 05:16 Dose: 2 mg Saliva Substitute (Mouthk[place] Solution) 1 applic MM BID [facility] Last Admin: 02/13/19 09:52 Dose: 1 applic Sodium Chloride ([place] Nasal [place] -) 2 spray NS Q12H PRN PRN Reason: NASAL CONGESTION Last Admin: 02/13/19 09:54 Dose: 2 spray Gen: Awake, weak appearing but in NAD Heart: RRR Lung: Bibasilar Rales / Rhonchi, no wheeze Abd: soft, +ostomy pink, (+) dark liquid stool Ext: less edema Laboratory Results - last 24 hr 02/12/19 02/13/19 02/13/19 05:30 05:30 05:30 WBC 6.7 RBC 3.67 L Hgb 11.9 Hct 35.7 MCV 97.3 H MCH 32.4 MCHC 33.3 RDW 14.4 Plt Count 203 MPV 9.1 Absolute Neuts (auto) 5.6 Neutrophils % 84.1 H Neutrophils % (Manual) 79.2 77.0 Band Neutrophils % 2.9 3.0 Lymphocytes % 6.4 L D Lymphocytes % (Manual) 1.0 L D 6.0 L D Monocytes % 7.3 Monocytes % (Manual) 12 H D 6 Eosinophils % 1.7 Eosinophils % (Manual) 2.0 D 3.0 Basophils % 0.5 Basophils % (Manual) 0.0 0.0 Myelocytes % (Man) 2 D 0 D Promyelocytes % (Man) 0 0 Blast Cells % (Manual) 0 0 Nucleated RBC % 0 Metamyelocytes 1 D 0 D Hypochromia 0 0 Platelet Estimate Normal Normal Polychromasia 0 0 Poikilocytosis 0 0 Anisocytosis 1+ 0 Microcytosis 0 Macrocytosis 1+ 1+ Sodium 144 Potassium 3.6 Chloride 104 Carbon Dioxide 35 H Anion Gap 5 L BUN 19 H Creatinine 0.7 Creat Clearance w eGFR 106.93 Random Glucose 146 H Calcium 6.9 L* Phosphorus 2.0 L Magnesium 1.7 L Total Bilirubin 0.4 AST 15 ALT 6 L Alkaline Phosphatase 68 Total Protein 4.0 L Albumin 1.6 L ASSESSMENT AND PLAN: s/p Acute Respiratory Failure Small Bowel Necrosis/Perforation s/p ex-lap/small bowel resection/ileostomy/[place] 02/07 Septic Shock improving Acute Kidney Injury improving Lactic Acidosis resolved Volume Overload Paroxysmal Atrial Fibrillation with RVR HTN Hypothyroidism BPH RBBB - Swallow evaluation - Lasix - continue antibiotics - Monitor off IVF - Restart Parkinsons Meds - monitor urine output, creatinine - replete lytes - O2 to keep Spo2 >90% - monitor ostomy output - Enteral feeds as tolerated - DVT/GI prophylaxis - 4W / 4S monitoring Dr Mitchell
[2019-02-13] MEDS ORDERED: FUROSEMIDE 40 MG/4 ML INJECTABLE VIAL IVPUSH ONE (12:00)
--- NOTE | 2019-02-13 12:10 | PN ---
Progress Note, SURVEYOR INSTRUMENT ASSISTANT - Note Progress Note: Pt stronger. 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 I have given this pt speech therapy previously- Speech production is similar. Swallow fairly brisk with pureed trials. Tolerating JT feedings for now. MBS performed a few months ago with rec for thick liquids. Aspiration?. Please obtain mbs results from pt's . Suggest: continue JT feedings, Crush meds and give in applesauce, monitor tolerance, obtain MBS results to determine need to repeat MBS, or upgrade diet with safety.
--- NOTE | 2019-02-13 12:45 | PN ---
Progress Note (short form) - Note Progress Note: Renal function stable at this time. Pt is non-oliguric. No overt electrolyte abnormalities noted. will sign off case at this time. Please call with questions or concerns. Alfred Crabtree DO
--- NOTE | 2019-02-13 13:02 | PN ---
Progress Note (short form) - Note Progress Note: alert extubated Vital Signs Period Temp Pulse Resp BP Sys/Joiner Pulse Ox Last 24 Hr 99.1 F-100.2 F 93-108 18-27 126-167/79-96 97-97 cor-rrr lungs decreased bs at bases abd soft,nt incision packed +functioning ostomy +jtube ext no edema CBC, BMP 02/13/19 05:30 02/13/19 05:30 Microbiology 02/10/19 17:00 Abdomen Wound Culture - Preliminary Group D Strep Or Entero Coccus Pending Organism Non Lactose Fermenting Gnb Yeast Like Organism 02/07/19 23:00 Blood - Peripheral Venous Blood Culture - Final NO GROWTH AFTER 5 DAYS INCUBATION 02/07/19 23:00 Blood - Peripheral Venous Blood Culture - Final NO GROWTH AFTER 5 DAYS INCUBATION 02/07/19 23:00 Urine - Urine Will Urine Culture - Final NO GROWTH OBTAINED cxray bibasilar effusions a/p sepsis secondary to necrotic small bowel bowel- s/p surgery -pod #6 continue zosyn/diflucan day #6-hopefully d/c antibiotics next 24 -48 hours f/u wound culture Problem List - Problems (1) Sepsis Code(s): A41.9 - SEPSIS, UNSPECIFIED ORGANISM (2) Small bowel obstruction Code(s): K56.609 - UNSP INTESTNL OBST, UNSP TO PARTIAL VERSUS COMPLETE OBST (3) Small bowel perforation Code(s): K63.1 - PERFORATION OF INTESTINE (NONTRAUMATIC)
--- NOTE | 2019-02-13 16:53 | PN ---
Progress Note (short form) - Note Progress Note: POD#6 Afebrile; VSS Pt remains extubated, awake, communicative P/E- Abd- packing changed wound clean, dry Ext- no swelling or edema WBC-6.7 H/H-11.9/35.7 BUN/CR-19/0.7 ileostomy- 1200 cc/24 hrstolerating tf via J-tube at 40 ml/hr P- Cont antibiotics as per ID Cont management as per ICU team Cont DVT, GI prophylaxis Follow labs, I/O, V/S Cont abdominal dressing change
[2019-02-13] MEDS ORDERED: PIPERACILLIN/TAZOBACTAM 4.5 GM VIAL IVPB ONE (17:00)
[2019-02-13] MEDS ORDERED: DEXTROSE 5%-WATER 100 ML IVPB ONE (17:01)
[2019-02-13 21:34] LABS: ANION GAP 7 MMOL/L (8-16); BLOOD UREA NITROGEN 21 mg/dL (7-18); CALCIUM 7.5 mg/dL (8.5-10.1); CHLORIDE 106 mmol/L (98-107); CO2 30 mmol/L (21-32); CREATININE 0.7 mg/dL (0.55-1.3); GLUCOSE,RANDOM 131 mg/dL (74-106); POTASSIUM 4.2 mmol/L (3.5-5.1); SODIUM 143 mmol/L (136-145)
[2019-02-13] MEDS: CHLORHEXIDINE GLUCONATE 4% CLEANSER FOR DECOLONIZATION TP SCH (22:56)
[2019-02-14] MEDS: PIPERACILLIN/TAZOB 4.5 GM 4.5 GM in DEXTROSE 5%-WATER 100 ML IVPB SCH ×3 (02:47→17:36)
[2019-02-14] MEDS: MORPHINE SULFATE 2 MG/ML VIAL IVPUSH PRN (02:55)
[2019-02-14 06:22] LABS: BASO % 0.4 % (0-2.0); EOS % 2.4 % (0-4.5); HEMOGLOBIN 12.3 GM/dL (11.7-16.9); LYMPH % 5.4 % (8-40); MCH 32.3 pg (25.7-33.7); MCHC 33.2 g/dl (32.0-35.9); MEAN CELL VOLUME 97.5 fl (80-96); MEAN PLT VOLUME 8.7 fl (7.5-11.1); MONO % 6.6 % (3.8-10.2); NEUT % 85.2 % (42.8-82.8); PLATELET COUNT 265 K/MM3 (134-434); RDW 14.5 % (11.9-15.9); WHITE BLOOD COUNT 9.6 K/mm3 (4.0-10.0)
[2019-02-14 06:58] LABS: ALBUMIN 1.8 g/dl (3.4-5.0); ALK PHOS 72 U/L (45-117); ANION GAP 7 MMOL/L (8-16); BILIRUBIN,TOTAL 0.4 mg/dL (0.2-1); BLOOD UREA NITROGEN 23 mg/dL (7-18); CALCIUM 7.3 mg/dL (8.5-10.1); CHLORIDE 106 mmol/L (98-107); CO2 30 mmol/L (21-32); CREATININE 0.6 mg/dL (0.55-1.3); GLUCOSE,RANDOM 146 mg/dL (74-106); MAGNESIUM 2.2 mg/dL (1.8-2.4); SGOT/AST 13 U/L (15-37); SGPT/ALT < 6 U/L (13-61); SODIUM 143 mmol/L (136-145); TOT PROT 4.5 g/dl (6.4-8.2)
--- NOTE | 2019-02-14 08:37 | PN ---
Progress Note, Physician Chief Complaint: Pt alert; no chest pain, palpitations, or dyspnea; says he slept well; wants his face and eyes washed "with warm water". History of Present Illness: The patient is an 82 year old male (born in [facility]), with a significant past medical history of HTN, hypothyroidism, GERD, BPH, Parkinson's disease ( ambulates with walker), Paroxysmal Atrial Fibrillation, and Right Bundle Branch Block, who presents to the emergency department, via EMS with abdominal pain since 7pm. As per , the diffuse abdominal pain began shortly after dinner. The patient states his last normal bowel movement was today, however, he endorses some gas intermittently in between his bowel movements. The patient denies burning on urination. The patient denies any sick contact or recent illness. - Current Medication List Current Medications: Active Medications Acetaminophen (Tylenol -) 650 mg PO Q6H PRN PRN Reason: Fever Albuterol Sulfate (Ventolin 0.083% Nebulizer Soln -) 1 amp NEB Q4H PRN PRN Reason: SHORT OF BREATH/WHEEZING Artificial Tears (Artificial Tears) 1 drop OU TID PRN PRN Reason: DRY EYES Last Admin: 02/13/19 09:53 Dose: 1 drop Bacitracin (Bacitracin -) 1 applic TP DAILY [facility] Last Admin: 02/13/19 09:52 Dose: 1 applic Carbidopa/Levodopa (Sinemet 25/250 -) 1 each PO QID [facility] Chlorhexidine Gluconate (Hibiclens For Decolonization -) 1 applic TP HS [facility] Last Admin: 02/13/19 22:56 Dose: 1 applic Enoxaparin Sodium (Lovenox -) 40 mg SQ DAILY [facility] Last Admin: 02/13/19 09:26 Dose: 40 mg Fluconazole (Diflucan 200 Mg/Ns Premixed Ivpb -) 100 mls @ 100 mls/hr IVPB DAILY [facility] Last Admin: 02/13/19 09:25 Dose: 100 mls/hr Famotidine/Sodium Chloride (Pepcid 20 Mg Premixed Ivpb -) 20 mg in 50 mls @ 100 mls/hr IVPB BID [facility] Last Admin: 02/13/19 22:57 Dose: 100 mls/hr Piperacillin Sod/Tazobactam (Sod 4.5 gm/ Dextrose) 100 mls @ 200 mls/hr IVPB Q8H-IV [facility]; Protocol Last Admin: 02/14/19 02:47 Dose: 200 mls/hr Levothyroxine Sodium (Synthroid Injection -) 50 mcg IVPUSH DAILY [facility] Last Admin: 02/13/19 09:27 Dose: 50 mcg Metoprolol Tartrate (Lopressor Injection -) 5 mg IVPUSH Q6H PRN PRN Reason: HYPERTENSION Last Admin: 02/11/19 03:52 Dose: 5 mg Metoprolol Tartrate (Lopressor -) 12.5 mg NGT BID [facility] Last Admin: 02/13/19 22:57 Dose: 12.5 mg Morphine Sulfate (Morphine Sulfate) 2 mg IVPUSH Q4H PRN PRN Reason: PAIN LEVEL 7 - 10 Last Admin: 02/14/19 02:55 Dose: 2 mg Saliva Substitute (M[place] Solution) 1 applic MM BID [facility] Last Admin: 02/13/19 22:57 Dose: 1 applic Sodium Chloride ([place] Nasal [place] -) 2 spray NS Q12H PRN PRN Reason: NASAL CONGESTION Last Admin: 02/13/19 09:54 Dose: 2 spray - Objective Vital Signs: Vital Signs Temperature 98.9 F 02/14/19 08:00 Pulse Rate 97 H 02/14/19 08:00 Respiratory Rate 24 H 02/14/19 08:17 Blood Pressure 123/73 02/14/19 08:00 O2 Sat by Pulse Oximetry (%) 97 02/14/19 08:17 Labs: CBC, BMP 02/14/19 05:30 02/14/19 05:30 INR, PTT INR 1.03 (0.83-1.09) 02/07/19 03:00 Problem List - Problems (1) Acute postprocedural respiratory failure Assessment/Plan: Post-extubation; O2, steroids, and bronchodilators per computational mathematician. On antibiotics. Code(s): J95.821 - ACUTE POSTPROCEDURAL RESPIRATORY FAILURE (2) HTN (hypertension), benign Assessment/Plan: on metoprolol Code(s): I10 - ESSENTIAL (PRIMARY) HYPERTENSION (3) Hypothyroidism Code(s): E03.9 - HYPOTHYROIDISM, UNSPECIFIED (4) Paroxysmal atrial fibrillation with rapid ventricular response Assessment/Plan: Now in sinus rhythmn. ECHO: normal LVEF; reduced RVEF; moderately severe TR. F/u EKG ONce vital signs are stabilized (and off vasopressors), consider AV conduction nayeli (had been on metoprolol), AC. Code(s): I48.0 - PAROXYSMAL ATRIAL FIBRILLATION (5) Small bowel obstruction Assessment/Plan: s/p intestinal surgery. Code(s): K56.609 - UNSP INTESTNL OBST, UNSP TO PARTIAL VERSUS COMPLETE OBST (6) Parkinson disease Code(s): G20 - PARKINSON'S DISEASE (7) Anemia Code(s): D64.9 - ANEMIA, UNSPECIFIED (8) Thrombocytopenia Code(s): D69.6 - THROMBOCYTOPENIA, UNSPECIFIED (9) Sepsis Code(s): A41.9 - SEPSIS, UNSPECIFIED ORGANISM (10) Acute on chronic diastolic (congestive) heart failure Code(s): I50.33 - ACUTE ON CHRONIC DIASTOLIC (CONGESTIVE) HEART FAILURE Assessment/Plan CCU time spent: 35 minutes.
--- NOTE | 2019-02-14 08:39 | PN ---
Progress Note, Physician Chief Complaint: Pt alert; no chest pain. + discomfort at abdominal surgical site. History of Present Illness: The patient is an 82 year old male (born in [facility]), with a significant past medical history of HTN, hypothyroidism, GERD, BPH, Parkinson's disease ( ambulates with walker), Paroxysmal Atrial Fibrillation, and Right Bundle Branch Block, who presents to the emergency department, via EMS with abdominal pain since 7pm. As per , the diffuse abdominal pain began shortly after dinner. The patient states his last normal bowel movement was today, however, he endorses some gas intermittently in between his bowel movements. The patient denies burning on urination. The patient denies any sick contact or recent illness. - Current Medication List Current Medications: Active Medications Acetaminophen (Tylenol -) 650 mg PO Q6H PRN PRN Reason: Fever Albuterol Sulfate (Ventolin 0.083% Nebulizer Soln -) 1 amp NEB Q4H PRN PRN Reason: SHORT OF BREATH/WHEEZING Artificial Tears (Artificial Tears) 1 drop OU TID PRN PRN Reason: DRY EYES Last Admin: 02/13/19 09:53 Dose: 1 drop Bacitracin (Bacitracin -) 1 applic TP DAILY [facility] Last Admin: 02/13/19 09:52 Dose: 1 applic Carbidopa/Levodopa (Sinemet 25/250 -) 1 each PO QID [facility] Chlorhexidine Gluconate (Hibiclens For Decolonization -) 1 applic TP HS [facility] Last Admin: 02/13/19 22:56 Dose: 1 applic Enoxaparin Sodium (Lovenox -) 40 mg SQ DAILY [facility] Last Admin: 02/13/19 09:26 Dose: 40 mg Fluconazole (Diflucan 200 Mg/Ns Premixed Ivpb -) 100 mls @ 100 mls/hr IVPB DAILY [facility] Last Admin: 02/13/19 09:25 Dose: 100 mls/hr Famotidine/Sodium Chloride (Pepcid 20 Mg Premixed Ivpb -) 20 mg in 50 mls @ 100 mls/hr IVPB BID [facility] Last Admin: 02/13/19 22:57 Dose: 100 mls/hr Piperacillin Sod/Tazobactam (Sod 4.5 gm/ Dextrose) 100 mls @ 200 mls/hr IVPB Q8H-IV [facility]; Protocol Last Admin: 02/14/19 02:47 Dose: 200 mls/hr Levothyroxine Sodium (Synthroid Injection -) 50 mcg IVPUSH DAILY [facility] Last Admin: 02/13/19 09:27 Dose: 50 mcg Metoprolol Tartrate (Lopressor Injection -) 5 mg IVPUSH Q6H PRN PRN Reason: HYPERTENSION Last Admin: 02/11/19 03:52 Dose: 5 mg Metoprolol Tartrate (Lopressor -) 12.5 mg NGT BID [facility] Last Admin: 02/13/19 22:57 Dose: 12.5 mg Morphine Sulfate (Morphine Sulfate) 2 mg IVPUSH Q4H PRN PRN Reason: PAIN LEVEL 7 - 10 Last Admin: 02/14/19 02:55 Dose: 2 mg Saliva Substitute ([place] Solution) 1 applic MM BID [facility] Last Admin: 02/13/19 22:57 Dose: 1 applic Sodium Chloride ([place] Nasal [place] -) 2 spray NS Q12H PRN PRN Reason: NASAL CONGESTION Last Admin: 02/13/19 09:54 Dose: 2 spray - Objective Vital Signs: Vital Signs Temperature 98.9 F 02/14/19 08:00 Pulse Rate 97 H 02/14/19 08:00 Respiratory Rate 24 H 02/14/19 08:17 Blood Pressure 123/73 02/14/19 08:00 O2 Sat by Pulse Oximetry (%) 97 02/14/19 08:17 Constitutional: Yes: Anxious, Thin Eyes: Yes: WNL HENT: Yes: WNL, Other (soft, hoarse voice (?chronic; related to intubation)) Cardiovascular: Yes: Regular Rate and Rhythm Respiratory: Yes: Regular Gastrointestinal: Yes: Other (ostomy site without exudate, bleed;) ...Rectal Exam: Yes: Deferred Genitourinary: No: Anuria Extremities: Yes: Cool Edema: No Peripheral Pulses WNL: Yes Neurological: Yes: Alert, Oriented, Weakness Psychiatric: Yes: Other (anxiety) Labs: CBC, BMP 02/14/19 05:30 02/14/19 05:30 INR, PTT INR 1.03 (0.83-1.09) 02/07/19 03:00 Problem List - Problems (1) Acute postprocedural respiratory failure Assessment/Plan: Post-extubation; Code(s): J95.821 - ACUTE POSTPROCEDURAL RESPIRATORY FAILURE (2) HTN (hypertension), benign Assessment/Plan: on metoprolol again for BP and HR control. Code(s): I10 - ESSENTIAL (PRIMARY) HYPERTENSION (3) Hypothyroidism Assessment/Plan: F/u TSH and free T3. Code(s): E03.9 - HYPOTHYROIDISM, UNSPECIFIED (4) Paroxysmal atrial fibrillation with rapid ventricular response Assessment/Plan: Now in sinus rhythm. ECHO: normal LVEF; reduced RVEF; moderately severe TR. On metoprolol for HR and BP control. F/u EKG Code(s): I48.0 - PAROXYSMAL ATRIAL FIBRILLATION (5) Small bowel obstruction Code(s): K56.609 - UNSP INTESTNL OBST, UNSP TO PARTIAL VERSUS COMPLETE OBST (6) Parkinson disease Code(s): G20 - PARKINSON'S DISEASE (7) Anemia Code(s): D64.9 - ANEMIA, UNSPECIFIED (8) Thrombocytopenia Assessment/Plan: resolved Code(s): D69.6 - THROMBOCYTOPENIA, UNSPECIFIED (9) Sepsis Assessment/Plan: s/p small intestine surgery for necrosis. On antibiotics per ID Code(s): A41.9 - SEPSIS, UNSPECIFIED ORGANISM (10) Acute on chronic diastolic (congestive) heart failure Assessment/Plan: bilateral pleural effusion. F/u BUn/Cr, daily weight, Is and Os, electrolytes. Hb stable. Code(s): I50.33 - ACUTE ON CHRONIC DIASTOLIC (CONGESTIVE) HEART FAILURE (11) Hypoalbuminemia Code(s): E88.09 - OTH DISORDERS OF PLASMA-PROTEIN METABOLISM, NEC Assessment/Plan CCU time spent: 35 minutes.
[2019-02-14] MEDS ORDERED: PT OWN MED DRAWER 7, Y5N ONE ×2 (08:51→12:13)
[2019-02-14] MEDS ORDERED: PIPERACILLIN/TAZOBACTAM 4.5 GM VIAL IVPB ONE ×2 (08:52→17:00)
[2019-02-14] MEDS ORDERED: DEXTROSE 5%-WATER 100 ML IVPB ONE ×2 (08:52→17:00)
[2019-02-14] MEDS: ARTIFICIAL TEARS (POLYVINYL ALCOHOL) OPTH DROPS OU PRN ×2 (09:00→21:33)
[2019-02-14] MEDS: SODIUM CHLORIDE NASAL SPRAY 44 ML BOTTLE NS PRN ×2 (09:00→21:27)
[2019-02-14] MEDS: LYTES/YERBA SANTA 60 ML SPRAY MM SCH ×2 (09:01→22:00)
[2019-02-14] MEDS: FAMOTIDINE 20 MG/50 ML IVPB 20 MG/50 ML MG IVPB SCH ×2 (09:01→21:27)
[2019-02-14] MEDS: FLUCONAZOLE 200 MG/NS 100 ML IVPB SCH (09:02)
--- NOTE | 2019-02-14 09:16 | PN ---
Physical Exam: SUBJECTIVE: Patient seen and examined at the bedside. in no acute distress. feels better. his voice is garbled at times, but some words are clear. he was asking why we stopped his sinemet. explained that he was NPO and that we have now restarted this medication. OBJECTIVE: Vital Signs Period Temp Pulse Resp BP Sys/Joiner Pulse Ox Last 24 Hr 98.8 F-99.3 F 88-102 21-27 115-159/66-125 97-97 GENERAL: The patient is awake, and in no acute distress. on nasal cannula HEAD: Normal with no signs of trauma. EYES: PERRL NECK: Trachea midline LUNGS: Breath sounds diminished , no accessory muscle use. HEART: Regular rate and rhythm, S1, S2 without murmur, rub or gallop. ABDOMEN: Soft, + ostomy with liq brown stool, Drain in situ EXTREMITIES: 2+ pulses, warm, well-perfused, +1 edema x 4 extremities NEURO: pt awake, speech mumbled but some words are clear PSYCH: Normal mood, normal affect. SKIN: Warm, dry,venous stasis changes Laboratory Results - last 24 hr 02/13/19 02/13/19 02/14/19 05:30 20:30 05:30 WBC 9.6 RBC 3.80 L Hgb 12.3 Hct 37.0 MCV 97.5 H MCH 32.3 MCHC 33.2 RDW 14.5 Plt Count 265 D MPV 8.7 Absolute Neuts (auto) 8.1 H Neutrophils % 85.2 H Neutrophils % (Manual) 77.0 Band Neutrophils % 3.0 Lymphocytes % 5.4 L Lymphocytes % (Manual) 6.0 L D Monocytes % 6.6 Monocytes % (Manual) 6 Eosinophils % 2.4 Eosinophils % (Manual) 3.0 Basophils % 0.4 Basophils % (Manual) 0.0 Myelocytes % (Man) 0 D Promyelocytes % (Man) 0 Blast Cells % (Manual) 0 Nucleated RBC % 0 Metamyelocytes 0 D Hypochromia 0 Platelet Estimate Normal Polychromasia 0 Poikilocytosis 0 Anisocytosis 0 Macrocytosis 1+ Sodium 143 Potassium 4.2 Chloride 106 Carbon Dioxide 30 Anion Gap 7 L BUN 21 H Creatinine 0.7 Creat Clearance w eGFR 106.93 Random Glucose 131 H Calcium 7.5 L Phosphorus Magnesium Total Bilirubin AST ALT Alkaline Phosphatase Total Protein Albumin 02/14/19 05:30 WBC RBC Hgb Hct MCV MCH MCHC RDW Plt Count MPV Absolute Neuts (auto) Neutrophils % Neutrophils % (Manual) Band Neutrophils % Lymphocytes % Lymphocytes % (Manual) Monocytes % Monocytes % (Manual) Eosinophils % Eosinophils % (Manual) Basophils % Basophils % (Manual) Myelocytes % (Man) Promyelocytes % (Man) Blast Cells % (Manual) Nucleated RBC % Metamyelocytes Hypochromia Platelet Estimate Polychromasia Poikilocytosis Anisocytosis Macrocytosis Sodium 143 Potassium 4.0 Chloride 106 Carbon Dioxide 30 Anion Gap 7 L BUN 23 H Creatinine 0.6 Creat Clearance w eGFR 127.75 Random Glucose 146 H Calcium 7.3 L Phosphorus 2.0 L Magnesium 2.2 Total Bilirubin 0.4 AST 13 L ALT < 6 L Alkaline Phosphatase 72 Total Protein 4.5 L Albumin 1.8 L Active Medications Generic Name Dose Route Start Last Admin Trade Name Freq PRN Reason Stop Dose Admin Acetaminophen 650 mg 02/12/19 14:18 Tylenol - PO Q6H PRN Fever Albuterol Sulfate 1 amp 02/13/19 06:34 Ventolin 0.083% Nebulizer Soln - NEB Q4H PRN SHORT OF BREATH/WHEEZING Artificial Tears 1 drop 02/10/19 12:04 02/14/19 09:00 Artificial Tears OU 1 drop TID PRN Administration DRY EYES Bacitracin 1 applic 02/10/19 11:45 02/13/19 09:52 Bacitracin - TP 1 applic DAILY [facility] Administration Carbidopa/Levodopa 1 each 02/13/19 23:30 Sinemet 25/250 - PO QID RU[facility] Chlorhexidine Gluconate 1 applic 02/07/19 22:00 02/13/19 22:56 Hibiclens For Decolonization - TP 1 applic HS [facility] Administration Enoxaparin Sodium 40 mg 02/10/19 12:30 02/13/19 09:26 Lovenox - SQ 40 mg DAILY [facility] Administration Fluconazole 100 mls @ 100 mls/hr 02/09/19 10:00 02/14/19 09:02 Diflucan 200 Mg/Ns Premixed Ivpb - IVPB 100 mls/hr DAILY [facility] Administration Famotidine/Sodium Chloride 20 mg in 50 mls @ 100 mls/hr 02/08/19 11:00 09:01 Pepcid 20 Mg Premixed Ivpb - IVPB 100 mls/hr BID [facility] Administration Piperacillin Sod/Tazobactam 100 mls @ 200 mls/hr 02/13/19 18:00 02/14/19 09: 01 Sod 4.5 gm/ Dextrose IVPB 200 mls/hr Q8H-IV [facility] Administration Protocol Levothyroxine Sodium 50 mcg 02/08/19 10:00 02/13/19 09:27 Synthroid Injection - IVPUSH 50 mcg DAILY [facility] Administration Metoprolol Tartrate 5 mg 02/10/19 12:11 02/11/19 03:52 Lopressor Injection - IVPUSH 5 mg Q6H PRN Administration HYPERTENSION Metoprolol Tartrate 12.5 mg 02/12/19 11:48 02/13/19 22:57 Lopressor - NGT 12.5 mg BID [facility] Administration Morphine Sulfate 2 mg 02/10/19 08:29 02/14/19 02:55 Morphine Sulfate IVPUSH 2 mg Q4H PRN Administration PAIN LEVEL 7 - 10 Saliva Substitute 1 applic 02/10/19 22:00 02/14/19 09:01 [place] Solution MM 1 applic BID [facility] Administration Sodium Chloride 2 spray 02/10/19 21:48 02/14/19 09:00 [place] Nasal [place] - NS 2 spray Q12H PRN Administration NASAL CONGESTION ASSESSMENT/PLAN: Patient is a 82 year old male, with a significant past medical history of HTN, hypothyroidism, GERD, BPH, Parkinson's disease admitted with SBO and found to have gangrenous small bowel s/p resection. Sepsis Patient s/p lap small bowel resection plus ileostomy, jejunostomy tube insertion. Exploratory laparotomy lysis of adhesions on 02/07/2019 Sepsis secondary to necrotic small bowel - s/p surgery On Fluconozole, Zosyn. ID following Advance diet per surgery. monitor ostomy output started on gentle tube feeds. On tube feeds via J tube, NGT removed swallow evaluation noted, PO meds with applesauce. Neuro: Parkinsons disease On Sinemet QID, restart parkinsons medications Endocrine: hypothyroidism Continue synthroid 50mg daily Card: Hypertension. controlled on metoprolol 12.5mg bid Pulmonary Tolerating supplemental oxygen s/p intubation on 02/10 Monitor chest xray : Monitor urine output. maintain ross Prophy: Lovenox 40mg daily tube feeds, PO meds with applesauce full code Visit type - Emergency Visit Emergency Visit: Yes ED Registration Date: 02/07/19 Care time: The patient presented to the Emergency Department on the above date and was hospitalized for further evaluation of their emergent condition. - New Patient This patient is new to me today: No - Critical Care Critical Care patient: No - Discharge Referral Referred to [facility] Med P.C.: No
[2019-02-14] MEDS: METOPROLOL TARTRATE 25 MG TABLET (FP) NGT SCH (09:24)
[2019-02-14] MEDS: ENOXAPARIN NA (PORCINE) 40 MG/0.4 ML DISP.SYRIN SQ SCH (09:24)
[2019-02-14] MEDS: LEVOTHYROXINE SODIUM 100 MCG VIAL IVPUSH SCH (09:24)
[2019-02-14] MEDS: CARBIDOPA/LEVODOPA 25/250 TABLET (FP) PO SCH ×4 (09:25→21:28)
[2019-02-14 09:38] LABS: ANISOCYTOSIS 0; MACROCYTOSIS 1+; OVALOCYTE 1+; PLATELET ESTIMATE NORMAL
--- NOTE | 2019-02-14 09:52 | PN ---
Progress Note, Physician History of Present Illness: AWAKE, RESPONSIVE NO C/O ABDO PAIN TEMPS DOWN AFEBRILE WBC WNL WOUND C/S MIXED - Current Medication List Current Medications: Active Medications Acetaminophen (Tylenol -) 650 mg PO Q6H PRN PRN Reason: Fever Albuterol Sulfate (Ventolin 0.083% Nebulizer Soln -) 1 amp NEB Q4H PRN PRN Reason: SHORT OF BREATH/WHEEZING Artificial Tears (Artificial Tears) 1 drop OU TID PRN PRN Reason: DRY EYES Last Admin: 02/14/19 09:00 Dose: 1 drop Bacitracin (Bacitracin -) 1 applic TP DAILY [facility] Last Admin: 02/13/19 09:52 Dose: 1 applic Carbidopa/Levodopa (Sinemet 25/250 -) 1 each PO QID [facility] Last Admin: 02/14/19 09:25 Dose: 1 each Chlorhexidine Gluconate (Hibiclens For Decolonization -) 1 applic TP HS [facility] Last Admin: 02/13/19 22:56 Dose: 1 applic Enoxaparin Sodium (Lovenox -) 40 mg SQ DAILY [facility] Last Admin: 02/14/19 09:24 Dose: 40 mg Fluconazole (Diflucan 200 Mg/Ns Premixed Ivpb -) 100 mls @ 100 mls/hr IVPB DAILY [facility] Last Admin: 02/14/19 09:02 Dose: 100 mls/hr Famotidine/Sodium Chloride (Pepcid 20 Mg Premixed Ivpb -) 20 mg in 50 mls @ 100 mls/hr IVPB BID [facility] Last Admin: 02/14/19 09:01 Dose: 100 mls/hr Piperacillin Sod/Tazobactam (Sod 4.5 gm/ Dextrose) 100 mls @ 200 mls/hr IVPB Q8H-IV [facility]; Protocol Last Admin: 02/14/19 09:01 Dose: 200 mls/hr Levothyroxine Sodium (Synthroid Injection -) 50 mcg IVPUSH DAILY [facility] Last Admin: 02/14/19 09:24 Dose: 50 mcg Metoprolol Tartrate (Lopressor Injection -) 5 mg IVPUSH Q6H PRN PRN Reason: HYPERTENSION Last Admin: 02/11/19 03:52 Dose: 5 mg Metoprolol Tartrate (Lopressor -) 12.5 mg NGT BID [facility] Last Admin: 02/14/19 09:24 Dose: 12.5 mg Morphine Sulfate (Morphine Sulfate) 2 mg IVPUSH Q4H PRN PRN Reason: PAIN LEVEL 7 - 10 Last Admin: 02/14/19 02:55 Dose: 2 mg Saliva Substitute ([place] Solution) 1 applic MM BID [facility] Last Admin: 02/14/19 09:01 Dose: 1 applic Sodium Chloride ([place] Nasal [place] -) 2 spray NS Q12H PRN PRN Reason: NASAL CONGESTION Last Admin: 02/14/19 09:00 Dose: 2 spray - Objective Vital Signs: Vital Signs Temperature 98.9 F 02/14/19 08:00 Pulse Rate 97 H 02/14/19 08:00 Respiratory Rate 24 H 02/14/19 08:17 Blood Pressure 123/73 02/14/19 08:00 O2 Sat by Pulse Oximetry (%) 97 02/14/19 08:17 Constitutional: Yes: No Distress, Thin Cardiovascular: Yes: Regular Rate and Rhythm, S1, S2 Gastrointestinal: Yes: Normal Bowel Sounds, Soft, Other (+ SURGICAL WOUND, OSTOMY) Edema: No Labs: CBC, BMP 02/14/19 05:30 02/14/19 05:30 INR, PTT INR 1.03 (0.83-1.09) 02/07/19 03:00 Assessment/Plan POST OP EXPLORATORY LAPAROTOMY S/P RESECTION ISCHEMIC BOWEL AWAIT FINAL C/S CONTINUE ZOSYN/FLUCONAZOLE
[2019-02-14] MEDS: BACITRACIN 15 GM TUBE TOPICAL OINTMENT TP SCH (12:07)
[2019-02-14] MEDS: METOPROLOL TARTRATE 25 MG TABLET (FP) PO SCH (21:25)
[2019-02-14] MEDS: CHLORHEXIDINE GLUCONATE 4% CLEANSER FOR DECOLONIZATION TP SCH (21:35)
--- NOTE | 2019-02-14 23:08 | PN ---
Progress Note (short form) - Note Progress Note: PULM/CCM Pt Seen & Examined in the ICU. A-Febrile. C & A. No c/o Abd Pain. Active Medications Acetaminophen (Tylenol -) 650 mg PO Q6H PRN PRN Reason: Fever Albuterol Sulfate (Ventolin 0.083% Nebulizer Soln -) 1 amp NEB Q4H PRN PRN Reason: SHORT OF BREATH/WHEEZING Artificial Tears (Artificial Tears) 1 drop OU TID PRN PRN Reason: DRY EYES Last Admin: 02/14/19 21:33 Dose: 1 drop Bacitracin (Bacitracin -) 1 applic TP DAILY [facility] Last Admin: 02/14/19 12:07 Dose: Not Given Carbidopa/Levodopa (Sinemet 25/250 -) 1 each PO QID [facility] Last Admin: 02/14/19 21:28 Dose: 1 each Chlorhexidine Gluconate (Hibiclens For Decolonization -) 1 applic TP HS [facility] Last Admin: 02/14/19 21:35 Dose: 1 applic Enoxaparin Sodium (Lovenox -) 40 mg SQ DAILY [facility] Last Admin: 02/14/19 09:24 Dose: 40 mg Fluconazole (Diflucan 200 Mg/Ns Premixed Ivpb -) 100 mls @ 100 mls/hr IVPB DAILY [facility] Last Admin: 02/14/19 09:02 Dose: 100 mls/hr Famotidine/Sodium Chloride (Pepcid 20 Mg Premixed Ivpb -) 20 mg in 50 mls @ 100 mls/hr IVPB BID [facility] Last Admin: 02/14/19 21:27 Dose: 100 mls/hr Piperacillin Sod/Tazobactam (Sod 4.5 gm/ Dextrose) 100 mls @ 200 mls/hr IVPB Q8H-IV RUFINO; Protocol Last Admin: 02/14/19 17:36 Dose: 200 mls/hr Levothyroxine Sodium (Synthroid -) 50 mcg PO DAILY@0700 [facility] Metoprolol Tartrate (Lopressor Injection -) 5 mg IVPUSH Q6H PRN PRN Reason: HYPERTENSION Last Admin: 02/11/19 03:52 Dose: 5 mg Metoprolol Tartrate (Lopressor -) 12.5 mg PO BID [facility] Last Admin: 02/14/19 21:25 Dose: 12.5 mg Morphine Sulfate (Morphine Sulfate) 2 mg IVPUSH Q4H PRN PRN Reason: PAIN LEVEL 7 - 10 Last Admin: 02/14/19 02:55 Dose: 2 mg Saliva Substitute ([place] Solution) 1 applic MM BID [facility] Last Admin: 02/14/19 09:01 Dose: 1 applic Sodium Chloride ([place] Nasal [place] -) 2 spray NS Q12H PRN PRN Reason: NASAL CONGESTION Last Admin: 02/14/19 21:27 Dose: 2 spray Vital Signs Period Temp Pulse Resp BP Sys/Joiner Pulse Ox Last 24 Hr 98.4 F-98.9 F 84-97 20-24 122-139/68-88 97 Intake & Output 02/11/19 02/12/19 02/13/19 02/14/19 23:59 23:59 23:59 23:59 Intake Total 1341 1610 1725 1120 Output Total 6122 2600 4550 2050 Balance -4784 -990 -2825 -930 Weight 69.853 kg 67.217 kg 62.686 kg Gen: Awake, weak appearing but in NAD Heart: RRR Lung: Bibasilar Rales / Rhonchi, no wheeze Abd: soft, +ostomy pink, (+) dark liquid stool Ext: less edema CBC, BMP 02/14/19 05:30 02/14/19 05:30 INR, PTT INR 1.03 (0.83-1.09) 02/07/19 03:00 Microbiology 02/10/19 17:00 Abdomen Gram Stain - Final 02/10/19 17:00 Abdomen Wound Culture - Preliminary Enterococcus Raffinosus Non Lactose Fermenting Gnb Yeast Like Organism 02/07/19 23:00 Blood - Peripheral Venous Blood Culture - Final NO GROWTH AFTER 5 DAYS INCUBATION 02/07/19 23:00 Blood - Peripheral Venous Blood Culture - Final NO GROWTH AFTER 5 DAYS INCUBATION 02/07/19 23:00 Urine - Urine Will Urine Culture - Final NO GROWTH OBTAINED CXR 02/13: Single AP view of the chest has been submitted. Since 02/12/2019 at 0527 hours, the left jugular line persists. The NG tube has been removed. The bilateral pulmonary pleural changes have increased on the left but diminished on the right. There is old rib trauma. Correlation recommended. ASSESSMENT AND PLAN: s/p Acute Respiratory Failure Small Bowel Necrosis/Perforation s/p ex-lap/small bowel resection/ileostomy/[place] 02/07 Septic Shock improving Acute Kidney Injury improving Lactic Acidosis resolved Volume Overload Paroxysmal Atrial Fibrillation with RVR HTN Hypothyroidism BPH RBBB - O2 to keep Spo2 >90% - IS - continue antibiotics - S&S - Diurese - Monitor off IVF - monitor urine output, creatinine - replete lytes - monitor ostomy output - Enteral feeds as tolerated - DVT/GI prophylaxis - 4W / 4S monitoring [facility] ICU PULM/CCM 9435
[2019-02-15] MEDS ORDERED: PIPERACILLIN/TAZOBACTAM 4.5 GM VIAL IVPB ONE ×3 (02:15→17:54)
[2019-02-15] MEDS ORDERED: DEXTROSE 5%-WATER 100 ML IVPB ONE ×3 (02:17→17:54)
[2019-02-15] MEDS: PIPERACILLIN/TAZOB 4.5 GM 4.5 GM in DEXTROSE 5%-WATER 100 ML IVPB SCH ×3 (02:21→18:19)
[2019-02-15] MEDS: LEVOTHYROXINE NA 50 MCG TABLET (FP) PO SCH (08:00)
[2019-02-15] MEDS ORDERED: PT OWN MED DRAWER 7, Y5N ONE ×2 (08:57→21:00)
[2019-02-15] MEDS: METOPROLOL TARTRATE 25 MG TABLET (FP) PO SCH ×2 (09:04→22:03)
[2019-02-15] MEDS: ENOXAPARIN NA (PORCINE) 40 MG/0.4 ML DISP.SYRIN SQ SCH (09:06)
[2019-02-15] MEDS: LYTES/YERBA SANTA 60 ML SPRAY MM SCH ×2 (09:06→22:04)
[2019-02-15] MEDS: FAMOTIDINE 20 MG/50 ML IVPB 20 MG/50 ML MG IVPB SCH ×2 (09:06→22:04)
[2019-02-15] MEDS: CARBIDOPA/LEVODOPA 25/250 TABLET (FP) PO SCH ×4 (09:09→22:05)
[2019-02-15] MEDS: BACITRACIN 15 GM TUBE TOPICAL OINTMENT TP SCH (09:10)
[2019-02-15 09:57] LABS: BASO % 0.6 % (0-2.0); EOS % 1.4 % (0-4.5); HEMOGLOBIN 12.9 GM/dL (11.7-16.9); LYMPH % 6.1 % (8-40); MCHC 33.8 g/dl (32.0-35.9); MEAN CELL VOLUME 97.7 fl (80-96); MEAN PLT VOLUME 8.2 fl (7.5-11.1); MONO % 6.5 % (3.8-10.2); NEUT % 85.4 % (42.8-82.8); PLATELET COUNT 334 K/MM3 (134-434); RBC 3.89 M/mm3 (4.00-5.60); RDW 14.9 % (11.9-15.9); WHITE BLOOD COUNT 12.1 K/mm3 (4.0-10.0)
[2019-02-15 10:29] LABS: ALK PHOS 83 U/L (45-117); ANION GAP 7 MMOL/L (8-16); BILIRUBIN,TOTAL 0.3 mg/dL (0.2-1); BLOOD UREA NITROGEN 25 mg/dL (7-18); CALCIUM 7.7 mg/dL (8.5-10.1); CHLORIDE 110 mmol/L (98-107); CO2 27 mmol/L (21-32); CREATININE 0.6 mg/dL (0.55-1.3); GLUCOSE,RANDOM 126 mg/dL (74-106); MAGNESIUM 2.2 mg/dL (1.8-2.4); SGOT/AST 13 U/L (15-37); SGPT/ALT < 6 U/L (13-61); SODIUM 144 mmol/L (136-145); TOT PROT 5.2 g/dl (6.4-8.2)
--- NOTE | 2019-02-15 10:45 | PN ---
Progress Note (short form) - Note Progress Note: PULM/CCM POD#8 s/p Ex-Lap w/ lysis of adhesions, small bowel resect, ileostomy, & Jejunostomy tube insert for perfed necrotic bowel. Pt Seen & Examined in the ICU. A-Febrile. C & A. Hemodynamically stable. Ileostomy pink & healthy. No Abd Pain. Active Medications Acetaminophen (Tylenol -) 650 mg PO Q6H PRN PRN Reason: Fever Albuterol Sulfate (Ventolin 0.083% Nebulizer Soln -) 1 amp NEB Q4H PRN PRN Reason: SHORT OF BREATH/WHEEZING Artificial Tears (Artificial Tears) 1 drop OU TID PRN PRN Reason: DRY EYES Last Admin: 02/14/19 21:33 Dose: 1 drop Bacitracin (Bacitracin -) 1 applic TP DAILY [facility] Last Admin: 02/15/19 09:10 Dose: 1 applic Carbidopa/Levodopa (Sinemet 25/250 -) 1 each PO QID [facility] Last Admin: 02/15/19 09:09 Dose: 1 each Chlorhexidine Gluconate (Hibiclens For Decolonization -) 1 applic TP HS [facility] Last Admin: 02/14/19 21:35 Dose: 1 applic Enoxaparin Sodium (Lovenox -) 40 mg SQ DAILY [facility] Last Admin: 02/15/19 09:06 Dose: 40 mg Fluconazole (Diflucan 200 Mg/Ns Premixed Ivpb -) 100 mls @ 100 mls/hr IVPB DAILY [facility] Last Admin: 02/14/19 09:02 Dose: 100 mls/hr Famotidine/Sodium Chloride (Pepcid 20 Mg Premixed Ivpb -) 20 mg in 50 mls @ 100 mls/hr IVPB BID [facility] Last Admin: 02/15/19 09:06 Dose: 100 mls/hr Piperacillin Sod/Tazobactam (Sod 4.5 gm/ Dextrose) 100 mls @ 200 mls/hr IVPB Q8H-IV [facility]O; Protocol Last Admin: 02/15/19 09:08 Dose: 200 mls/hr Levothyroxine Sodium (Synthroid -) 50 mcg PO DAILY@0700 [facility] Last Admin: 02/15/19 08:00 Dose: 50 mcg Metoprolol Tartrate (Lopressor Injection -) 5 mg IVPUSH Q6H PRN PRN Reason: HYPERTENSION Last Admin: 02/11/19 03:52 Dose: 5 mg Metoprolol Tartrate (Lopressor -) 12.5 mg PO BID [facility] Last Admin: 02/15/19 09:04 Dose: 12.5 mg Morphine Sulfate (Morphine Sulfate) 2 mg IVPUSH Q4H PRN PRN Reason: PAIN LEVEL 7 - 10 Last Admin: 02/14/19 02:55 Dose: 2 mg Saliva Substitute ([place] Solution) 1 applic MM BID [facility] Last Admin: 02/15/19 09:06 Dose: 1 applic Sodium Chloride ([place] Nasal [place] -) 2 spray NS Q12H PRN PRN Reason: NASAL CONGESTION Last Admin: 02/14/19 21:27 Dose: 2 spray Vital Signs Period Temp Pulse Resp BP Sys/Joiner Pulse Ox Last 24 Hr 98.1 F-98.6 F 84-92 21-33 110-139/61-88 97-97 Intake & Output 02/12/19 02/13/19 02/14/19 02/15/19 23:59 23:59 23:59 23:59 Intake Total 1610 1725 1550 480 Output Total 2600 4550 2050 1900 Balance -990 -2825 -500 -1420 Weight 67.217 kg 62.686 kg Gen: Awake, weak appearing but in NAD Heart: nml S1 S2, RR Lung: Diminished Abd: Ileostomy @ RUQ pink (+) green stool, jejunostomy @ L UQ, midline dressing intact, S/S N/T [id number] Ext: + Pulses, WWP X4, chronic LE venous stasis changes CBC, BMP 02/15/19 09:46 02/15/19 09:46 Microbiology 02/10/19 17:00 Abdomen Gram Stain - Final 02/10/19 17:00 Abdomen Wound Culture - Preliminary Enterococcus Raffinosus Non Lactose Fermenting Gnb Yeast Like Organism 02/07/19 23:00 Blood - Peripheral Venous Blood Culture - Final NO GROWTH AFTER 5 DAYS INCUBATION 02/07/19 23:00 Blood - Peripheral Venous Blood Culture - Final NO GROWTH AFTER 5 DAYS INCUBATION 02/07/19 23:00 Urine - Urine Will Urine Culture - Final NO GROWTH OBTAINED CXR 02/13: Single AP view of the chest has been submitted. Since 02/12/2019 at 0527 hours, the left jugular line persists. The NG tube has been removed. The bilateral pulmonary pleural changes have increased on the left but diminished on the right. There is old rib trauma. Correlation recommended. ASSESSMENT AND PLAN: s/p Acute Respiratory Failure Small Bowel Necrosis/Perforation s/p ex-lap/small bowel resection/ileostomy/[place]AL[place] 02/07 Septic Shock improving Acute Kidney Injury improving Lactic Acidosis resolved Volume Overload Paroxysmal Atrial Fibrillation with RVR HTN Hypothyroidism BPH RBBB - O2 to keep Spo2 >90% - IS - continue antibiotics - S&S - Gently diurese - monitor urine output, creatinine - replete lytes - monitor ostomy output - Enteral feeds as tolerated - DVT/GI prophylaxis - X-Viktor --> 4W / 4S [facility] ICU PULM/CCM 1351
[2019-02-15] MEDS: FLUCONAZOLE 200 MG/NS 100 ML IVPB SCH (11:30)
--- NOTE | 2019-02-15 11:48 | PN ---
Progress Note, Physician History of Present Illness: AWAKE, RESPONSIVE NO C/O ABDO PAIN TEMPS DOWN AFEBRILE WBC SLIGHTLY ELEVATED WOUND C/S MIXED - Current Medication List Current Medications: Active Medications Acetaminophen (Tylenol -) 650 mg PO Q6H PRN PRN Reason: Fever Albuterol Sulfate (Ventolin 0.083% Nebulizer Soln -) 1 amp NEB Q4H PRN PRN Reason: SHORT OF BREATH/WHEEZING Artificial Tears (Artificial Tears) 1 drop OU TID PRN PRN Reason: DRY EYES Last Admin: 02/14/19 21:33 Dose: 1 drop Bacitracin (Bacitracin -) 1 applic TP DAILY [facility] Last Admin: 02/15/19 09:10 Dose: 1 applic Carbidopa/Levodopa (Sinemet 25/250 -) 1 each PO QID [facility] Last Admin: 02/15/19 09:09 Dose: 1 each Chlorhexidine Gluconate (Hibiclens For Decolonization -) 1 applic TP HS [facility] Last Admin: 02/14/19 21:35 Dose: 1 applic Enoxaparin Sodium (Lovenox -) 40 mg SQ DAILY [facility] Last Admin: 02/15/19 09:06 Dose: 40 mg Fluconazole (Diflucan 200 Mg/Ns Premixed Ivpb -) 100 mls @ 100 mls/hr IVPB DAILY [facility] Last Admin: 02/14/19 09:02 Dose: 100 mls/hr Famotidine/Sodium Chloride (Pepcid 20 Mg Premixed Ivpb -) 20 mg in 50 mls @ 100 mls/hr IVPB BID [facility] Last Admin: 02/15/19 09:06 Dose: 100 mls/hr Piperacillin Sod/Tazobactam (Sod 4.5 gm/ Dextrose) 100 mls @ 200 mls/hr IVPB Q8H-IV [facility]; Protocol Last Admin: 02/15/19 09:08 Dose: 200 mls/hr Levothyroxine Sodium (Synthroid -) 50 mcg PO DAILY@0700 [facility] Last Admin: 02/15/19 08:00 Dose: 50 mcg Metoprolol Tartrate (Lopressor Injection -) 5 mg IVPUSH Q6H PRN PRN Reason: HYPERTENSION Last Admin: 02/11/19 03:52 Dose: 5 mg Metoprolol Tartrate (Lopressor -) 12.5 mg PO BID [facility] Last Admin: 02/15/19 09:04 Dose: 12.5 mg Morphine Sulfate (Morphine Sulfate) 2 mg IVPUSH Q4H PRN PRN Reason: PAIN LEVEL 7 - 10 Last Admin: 02/14/19 02:55 Dose: 2 mg Saliva Substitute ([place] Solution) 1 applic MM BID [facility] Last Admin: 02/15/19 09:06 Dose: 1 applic Sodium Chloride ([place] Nasal [place] -) 2 spray NS Q12H PRN PRN Reason: NASAL CONGESTION Last Admin: 02/14/19 21:27 Dose: 2 spray - Objective Vital Signs: Vital Signs Temperature 98.3 F 02/15/19 02:00 Pulse Rate 84 02/15/19 04:00 Respiratory Rate 22 H 02/15/19 04:00 Blood Pressure 110/70 02/15/19 04:00 O2 Sat by Pulse Oximetry (%) 97 02/15/19 07:48 Constitutional: Yes: No Distress Eyes: Yes: Conjunctiva Clear Cardiovascular: Yes: Regular Rate and Rhythm, Tachycardia, S1, S2 Respiratory: Yes: CTA Bilaterally Gastrointestinal: Yes: Normal Bowel Sounds, Soft, Tenderness, Other (+ SURGICAL WOUND, OSTOMY) Edema: No Labs: CBC, BMP 02/15/19 09:46 02/15/19 09:46 INR, PTT INR 1.03 (0.83-1.09) 02/07/19 03:00 Assessment/Plan POST OP EXPLORATORY LAPAROTOMY S/P RESECTION ISCHEMIC BOWEL LEUKOCYTOSIS CONTINUE ZOSYN/FLUCONAZOLE
--- NOTE | 2019-02-15 15:51 | PN ---
Progress Note (short form) - Note Progress Note: POD#8 Afebrile, VSS Pt remains extubated, awake, communicative P/E-Abd- packing , dressing changed lower portion of incision (2 cm) hare-appearing superficial debridement performed packing re-applied, dressing applied Tf 0n hold secondary to abdominal distention WBC-12.1 (increased) H/H-12.9/38 P- Cont antibiotics as per ID Cont packing, dressing changes Cont management as per ICU team
--- NOTE | 2019-02-15 18:21 | PN ---
Physical Exam: SUBJECTIVE: Patient seen and examined at the bedside. feels well, in no acute distress. OBJECTIVE: Vital Signs Period Temp Pulse Resp BP Sys/Joiner Pulse Ox Last 24 Hr 98.1 F-98.7 F 80-95 17-33 110-134/61-81 97-97 GENERAL: The patient is awake, and in no acute distress. on nasal cannula HEAD: Normal with no signs of trauma. EYES: PERRL NECK: Trachea midline LUNGS: Breath sounds diminished , no accessory muscle use. HEART: Regular rate and rhythm, S1, S2 without murmur, rub or gallop. ABDOMEN: Soft, + ostomy with liq brown stool, Drain in situ EXTREMITIES: 2+ pulses, warm, well-perfused, +1 edema x 4 extremities NEURO: pt awake, speech mumbled but some words are clear PSYCH: Normal mood, normal affect. SKIN: Warm, dry,venous stasis changes Laboratory Results - last 24 hr 02/15/19 02/15/19 09:46 09:46 WBC 12.1 H RBC 3.89 L Hgb 12.9 Hct 38.0 MCV 97.7 H MCH 33.0 MCHC 33.8 RDW 14.9 Plt Count 334 D MPV 8.2 Absolute Neuts (auto) 10.3 H Neutrophils % 85.4 H Lymphocytes % 6.1 L Monocytes % 6.5 Eosinophils % 1.4 Basophils % 0.6 Nucleated RBC % 0 Sodium 144 Potassium 4.0 Chloride 110 H Carbon Dioxide 27 Anion Gap 7 L BUN 25 H Creatinine 0.6 Creat Clearance w eGFR 127.75 Random Glucose 126 H Calcium 7.7 L Magnesium 2.2 Total Bilirubin 0.3 AST 13 L ALT < 6 L Alkaline Phosphatase 83 Total Protein 5.2 L Albumin 2.0 L Active Medications Generic Name Dose Route Start Last Admin Trade Name Freq PRN Reason Stop Dose Admin Acetaminophen 650 mg 02/12/19 14:18 Tylenol - PO Q6H PRN Fever Albuterol Sulfate 1 amp 02/13/19 06:34 Ventolin 0.083% Nebulizer Soln - NEB Q4H PRN SHORT OF BREATH/WHEEZING Artificial Tears 1 drop 02/10/19 12:04 02/14/19 21:33 Artificial Tears OU 1 drop TID PRN Administration DRY EYES Bacitracin 1 applic 02/10/19 11:45 02/15/19 09:10 Bacitracin - TP 1 applic DAILY RUFINO Administration Carbidopa/Levodopa 1 each 02/13/19 23:30 02/15/19 18:19 Sinemet 25/250 - PO 1 each QID RUFINO Administration Chlorhexidine Gluconate 1 applic 02/07/19 22:00 02/14/19 21:35 Hibiclens For Decolonization - TP 1 applic HS RUFINO Administration Enoxaparin Sodium 40 mg 02/10/19 12:30 02/15/19 09:06 Lovenox - SQ 40 mg DAILY RUFIN[facility] Administration Fluconazole 100 mls @ 100 mls/hr 02/09/19 10:00 02/15/19 11:30 Diflucan 200 Mg/Ns Premixed Ivpb - IVPB 100 mls/hr DAILY RUFIN[facility] Administration Famotidine/Sodium Chloride 20 mg in 50 mls @ 100 mls/hr 02/08/19 11:00 09:06 Pepcid 20 Mg Premixed Ivpb - IVPB 100 mls/hr BID RUFINO Administration Piperacillin Sod/Tazobactam 100 mls @ 200 mls/hr 02/13/19 18:00 02/15/19 18: 19 Sod 4.5 gm/ Dextrose IVPB 200 mls/hr Q8H-IV RUFINO Administration Protocol Levothyroxine Sodium 50 mcg 02/15/19 07:00 02/15/19 08:00 Synthroid - PO 50 mcg DAILY@0700 RUFIN[facility] Administration Metoprolol Tartrate 5 mg 02/10/19 12:11 02/11/19 03:52 Lopressor Injection - IVPUSH 5 mg Q6H PRN Administration HYPERTENSION Metoprolol Tartrate 12.5 mg 02/14/19 22:00 02/15/19 09:04 Lopressor - PO 12.5 mg BID RUFINO Administration Saliva Substitute 1 applic 02/10/19 22:00 02/15/19 09:06 Mouthkote Solution MM 1 applic BID RUFINO Administration Sodium Chloride 2 spray 02/10/19 21:48 02/14/19 21:27 [place] Nasal [place] - NS 2 spray Q12H PRN Administration NASAL CONGESTION ASSESSMENT/PLAN: Patient is a 82 year old male, with a significant past medical history of HTN, hypothyroidism, GERD, BPH, parkinson's disease admitted with SBO and found to have gangrenous small bowel s/p resection. Sepsis Patient s/p lap small bowel resection plus ileostomy, jejunostomy tube insertion. Exploratory laparotomy lysis of adhesions on 02/07/2019 Sepsis secondary to necrotic small bowel - s/p surgery On Fluconozole, Zosyn. ID following Advance diet per surgery. monitor ostomy output started on gentle tube feeds. On tube feeds via J tube, NGT removed swallow evaluation noted, PO meds with applesauce. Neuro: Parkinsons disease On Sinemet QID, restart parkinsons medications Endocrine: hypothyroidism Continue synthroid 50mg daily Card: Hypertension. controlled on metoprolol 12.5mg bid Pulmonary Tolerating supplemental oxygen s/p intubation on 02/10 Monitor chest xray : Monitor urine output. maintain ross Prophy: Lovenox 40mg daily tube feeds, PO meds with applesauce full code Visit type - Emergency Visit Emergency Visit: Yes ED Registration Date: 02/07/19 Care time: The patient presented to the Emergency Department on the above date and was hospitalized for further evaluation of their emergent condition. - New Patient This patient is new to me today: No - Critical Care Critical Care patient: Yes Total Critical Care Time (in minutes): 40 Critical Care Statement: The care of this patient involved high complexity decision making to prevent further life threatening deterioration of the patient 's condition and/or to evaluate & treat vital organ system(s) failure or risk of failure. - Discharge Referral Referred to [facility] Med P.C.: No
[2019-02-15] MEDS: CHLORHEXIDINE GLUCONATE 4% CLEANSER FOR DECOLONIZATION TP SCH (22:03)
[2019-02-15] MEDS ORDERED: METOPROLOL TARTRATE 5 MG/5 ML VIAL IVPUSH PRN (22:19)
[2019-02-15] MEDS ORDERED: ALBUTEROL SO4 0.083% IH SOL 2.5 MG/3 ML VIAL.NEB. NEB PRN (22:19)
[2019-02-15] MEDS ORDERED: ARTIFICIAL TEARS (POLYVINYL ALCOHOL) OPTH DROPS OU PRN (22:19)
[2019-02-16] MEDS ORDERED: PIPERACILLIN/TAZOBACTAM 4.5 GM VIAL IVPB ONE ×4 (01:49→23:49)
[2019-02-16] MEDS ORDERED: DEXTROSE 5%-WATER 100 ML IVPB ONE ×4 (01:49→23:49)
[2019-02-16] MEDS: PIPERACILLIN/TAZOB 4.5 GM 4.5 GM in DEXTROSE 5%-WATER 100 ML IVPB SCH ×3 (01:58→17:24)
[2019-02-16] MEDS: ACETAMINOPHEN 325 MG TABLET (FP) PO PRN (01:58)
[2019-02-16] MEDS ORDERED: PT OWN MED DRAWER 7, Y5N ONE ×6 (05:36→21:08)
[2019-02-16] MEDS: LEVOTHYROXINE NA 50 MCG TABLET (FP) PO SCH (06:06)
[2019-02-16 07:01] LABS: BASO % 0.3 % (0-2.0); EOS % 0.4 % (0-4.5); HEMATOCRIT 37.2 % (35.4-49); HEMOGLOBIN 12.2 GM/dL (11.7-16.9); LYMPH % 4.1 % (8-40); MCHC 32.8 g/dl (32.0-35.9); MEAN CELL VOLUME 97.3 fl (80-96); MEAN PLT VOLUME 8.4 fl (7.5-11.1); MONO % 5.2 % (3.8-10.2); PLATELET COUNT 386 K/MM3 (134-434); RBC 3.83 M/mm3 (4.00-5.60); RDW 14.4 % (11.9-15.9); WHITE BLOOD COUNT 12.5 K/mm3 (4.0-10.0)
[2019-02-16 07:35] LABS: ALBUMIN 2.1 g/dl (3.4-5.0); ALK PHOS 103 U/L (45-117); ANION GAP 6 MMOL/L (8-16); BLOOD UREA NITROGEN 26 mg/dL (7-18); CALCIUM 7.7 mg/dL (8.5-10.1); CHLORIDE 109 mmol/L (98-107); CO2 29 mmol/L (21-32); CREATININE 0.7 mg/dL (0.55-1.3); GLUCOSE,RANDOM 107 mg/dL (74-106); MAGNESIUM 2.1 mg/dL (1.8-2.4); PHOSPHOROUS 2.5 mg/dL (2.5-4.9); POTASSIUM 4.3 mmol/L (3.5-5.1); SGOT/AST 17 U/L (15-37); SGPT/ALT < 6 U/L (13-61); SODIUM 143 mmol/L (136-145); TOT PROT 5.2 g/dl (6.4-8.2)
--- NOTE | 2019-02-16 09:24 | PN ---
Progress Note (short form) - Note Progress Note: alert extubated denies abdominal pain Vital Signs Period Temp Pulse Resp BP Sys/Joiner Pulse Ox Last 24 Hr 98.5 F-98.9 F 80-103 17-29 110-145/69-84 97 cor-rrr lungs clear abd soft,nt incision packed +ostomy function ext no edema CBC, BMP 02/16/19 06:00 02/16/19 05:30 cxray clear a/p sepsis secondary to necrotic small bowel bowel- s/p surgery -pod #9 zosyn/diflucan day #9- would consider d/c antibiotics if okay with Dr Grimes Problem List - Problems (1) Sepsis Code(s): A41.9 - SEPSIS, UNSPECIFIED ORGANISM (2) Small bowel obstruction Code(s): K56.609 - UNSP INTESTNL OBST, UNSP TO PARTIAL VERSUS COMPLETE OBST (3) Small bowel perforation Code(s): K63.1 - PERFORATION OF INTESTINE (NONTRAUMATIC)
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
[2019-02-16] MEDS: BACITRACIN 15 GM TUBE TOPICAL OINTMENT TP SCH (10:38)
[2019-02-16] MEDS: CARBIDOPA/LEVODOPA 25/250 TABLET (FP) PO SCH ×4 (10:45→21:59)
[2019-02-16] MEDS: METOPROLOL TARTRATE 25 MG TABLET (FP) PO SCH ×2 (10:46→22:09)
[2019-02-16] MEDS: ENOXAPARIN NA (PORCINE) 40 MG/0.4 ML DISP.SYRIN SQ SCH (10:52)
[2019-02-16] MEDS: LYTES/YERBA SANTA 60 ML SPRAY MM SCH ×2 (10:53→22:09)
[2019-02-16] MEDS: SODIUM CHLORIDE NASAL SPRAY 44 ML BOTTLE NS PRN ×2 (10:56→22:10)
[2019-02-16] MEDS: FAMOTIDINE 20 MG/50 ML IVPB 20 MG/50 ML MG IVPB SCH ×2 (11:19→22:09)
[2019-02-16] MEDS: FLUCONAZOLE 200 MG/NS 100 ML IVPB SCH (11:56)
--- NOTE | 2019-02-16 12:51 | PN ---
Progress Note, PROCESS PLANNER - Note Progress Note: Selected Entries 02/15/19 02/15/19 02/15/19 02:00 08:00 09:05 Lunch NPO Temperature 98.3 F 98.6 F 02/15/19 02/15/19 02/15/19 12:00 16:00 20:21 Lunch NPO Temperature 98.7 F 98.7 F 02/16/19 02/16/19 02/16/19 02:00 06:00 08:00 Lunch Temperature 98.5 F 98.9 F 98.6 F 02/16/19 02/16/19 09:43 11:00 Lunch Temperature 97.4 F L 98.5 F Laboratory Tests 02/14/19 02/15/19 02/16/19 05:30 09:46 05:30 WBC 9.6 12.1 H 12.5 H JT feedings on hold? NPO.Pt pending MBS Nutritional intake per medical team MBS when medically stable/ able to use gut
--- NOTE | 2019-02-16 13:11 | PN ---
Progress Note (short form) - Note Progress Note: Patient seen and examined in the SDICU. Awake and alert. Reports feeling hungry. Appears that he was made NPO due to abdominal distention. Denies CP or SOB. OBJECTIVE: Intake & Output 02/13/19 02/14/19 02/15/19 02/16/19 23:59 23:59 23:59 23:59 Intake Total 1725 1550 1050 100 Output Total 4550 2050 1525 100 Balance -2825 -500 -475 0 Weight 138 lb 3.2 oz 131 lb Last Vital Signs Temp Pulse Resp BP Pulse Ox 98.5 F 96 H 21 H 124/82 98 02/16/19 11:00 02/16/19 11:00 02/16/19 11:00 02/16/19 11:00 02/16/19 09:00 Active Medications Acetaminophen (Tylenol -) 650 mg PO Q6H PRN PRN Reason: Fever Last Admin: 02/16/19 01:58 Dose: 650 mg Albuterol Sulfate (Ventolin 0.083% Nebulizer Soln -) 1 amp NEB Q4H PRN PRN Reason: SHORT OF BREATH/WHEEZING Artificial Tears (Artificial Tears) 1 drop OU Q8H PRN PRN Reason: DRY EYES Last Admin: 02/16/19 10:54 Dose: 1 drop Bacitracin (Bacitracin -) 1 applic TP DAILY [facility] Last Admin: 02/16/19 10:38 Dose: 1 applic Carbidopa/Levodopa (Sinemet 25/250 -) 1 each PO QID [facility] Last Admin: 02/16/19 10:45 Dose: 1 each Enoxaparin Sodium (Lovenox -) 40 mg SQ DAILY [facility] Last Admin: 02/16/19 10:52 Dose: 40 mg Fluconazole (Diflucan 200 Mg/Ns Premixed Ivpb -) 100 mls @ 100 mls/hr IVPB DAILY [facility] Last Admin: 02/16/19 11:56 Dose: 100 mls/hr Famotidine/Sodium Chloride (Pepcid 20 Mg Premixed Ivpb -) 20 mg in 50 mls @ 100 mls/hr IVPB BID [facility] Last Admin: 02/16/19 11:19 Dose: 100 mls/hr Piperacillin Sod/Tazobactam (Sod 4.5 gm/ Dextrose) 100 mls @ 200 mls/hr IVPB Q8H-IV RUFINO; Protocol Last Admin: 02/16/19 10:28 Dose: 200 mls/hr Levothyroxine Sodium (Synthroid -) 50 mcg PO DAILY@0700 [facility] Last Admin: 02/16/19 06:06 Dose: 50 mcg Metoprolol Tartrate (Lopressor -) 12.5 mg PO BID [facility] Last Admin: 02/16/19 10:46 Dose: 12.5 mg Metoprolol Tartrate (Lopressor Injection -) 5 mg IVPUSH Q6H PRN PRN Reason: HYPERTENSION Saliva Substitute ([place] Solution) 1 applic MM BID [facility] Last Admin: 02/16/19 10:53 Dose: 1 applic Sodium Chloride ([place] Nasal [place] -) 2 spray NS Q12H PRN PRN Reason: NASAL CONGESTION Last Admin: 02/16/19 10:56 Dose: 2 spray Gen: Awake, weak appearing but in NAD Heart: RRR Lung: Bibasilar Rales / Rhonchi, no wheeze Abd: soft, intact ostomy, (+) minimal dark liquid stool Ext: less edema Laboratory Results - last 24 hr 02/16/19 02/16/19 02/16/19 05:30 05:30 06:00 WBC 12.5 H Cancelled Corrected WBC (auto) Cancelled RBC 3.83 L Cancelled Hgb 12.2 Cancelled Hct 37.2 Cancelled MCV 97.3 H Cancelled MCH 32.0 Cancelled MCHC 32.8 Cancelled RDW 14.4 Cancelled Plt Count 386 Cancelled MPV 8.4 Cancelled Absolute Neuts (auto) 11.3 H Neutrophils % 90.0 H Lymphocytes % 4.1 L D Monocytes % 5.2 Eosinophils % 0.4 Basophils % 0.3 Nucleated RBC % 0 Manual Slide Review Cancelled Platelet Comment Cancelled Sodium 143 Potassium 4.3 Chloride 109 H Carbon Dioxide 29 Anion Gap 6 L BUN 26 H Creatinine 0.7 Creat Clearance w eGFR 106.93 Random Glucose 107 H Calcium 7.7 L Phosphorus 2.5 Magnesium 2.1 Total Bilirubin 1.0 AST 17 ALT < 6 L Alkaline Phosphatase 103 Total Protein 5.2 L Albumin 2.1 L TSH 11.10 H D ASSESSMENT AND PLAN: s/p Acute Respiratory Failure Small Bowel Necrosis/Perforation s/p ex-lap/small bowel resection/ileostomy/[place] 02/07 Septic Shock improving Acute Kidney Injury improving Lactic Acidosis resolved Volume Overload Paroxysmal Atrial Fibrillation with RVR HTN Hypothyroidism BPH RBBB - Trial of restart enteral feeds if OK with Surgery - continue antibiotics - monitor urine output, creatinine - replete lytes - O2 to keep Spo2 >90% - monitor ostomy output - DVT/GI prophylaxis - Parenteral nutrition if remains NPO Dr Mitchell
[2019-02-16] MEDS: SODIUM CHLORIDE 1,000 ML IV SCH (14:41)
--- NOTE | 2019-02-16 15:19 | EKG ---
Test Reason : Blood Pressure : / mmHG Vent. Rate : 100 BPM Atrial Rate : 100 BPM P-R Int : 156 ms QRS Dur : 118 ms QT Int : 382 ms P-R-T Axes : 063 078 -36 degrees QTc Int : 492 ms SINUS RHYTHM WITH PREMATURE ATRIAL COMPLEXES CANNOT RULE OUT INFERIOR INFARCT , AGE UNDETERMINED ABNORMAL ECG WHEN COMPARED WITH ECG OF 11-FEB-2019 09:41, PREMATURE ATRIAL COMPLEXES ARE NOW PRESENT Confirmed by BRIANNE SHAFFER, PAUL ([id number]) on 02/16/2019 3:19:04 PM Referred By: TENNILLE GALEANO Confirmed By:PAUL DECKER MD
--- NOTE | 2019-02-16 17:33 | PN ---
Physical Exam: SUBJECTIVE: Patient seen and examined at the bedside. at the bedside. in no acute distress. re start feeds at a lower rate. OBJECTIVE: start vital 1.2 at 10cc/hr, with goal rate of 30cc/hr increase rate per surgery Vital Signs Period Temp Pulse Resp BP Sys/Joiner Pulse Ox Last 24 Hr 97.4 F-98.9 F 92-103 17-29 110-145/69-84 97-98 GENERAL: The patient is awake, and in no acute distress. on nasal cannula - cachectic HEAD: Normal with no signs of trauma. EYES: PERRL NECK: Trachea midline LUNGS: Breath sounds diminished , no accessory muscle use. HEART: Regular rate and rhythm, S1, S2 without murmur, rub or gallop. ABDOMEN: Soft, + ostomy with liq brown stool, Drain in situ EXTREMITIES: 2+ pulses, warm, well-perfused, +1 edema x 4 extremities NEURO: pt awake, speech mumbled but some words are clear PSYCH: Normal mood, normal affect. SKIN: Warm, dry,venous stasis change Laboratory Results - last 24 hr 02/16/19 02/16/19 02/16/19 05:30 05:30 06:00 WBC 12.5 H Cancelled Corrected WBC (auto) Cancelled RBC 3.83 L Cancelled Hgb 12.2 Cancelled Hct 37.2 Cancelled MCV 97.3 H Cancelled MCH 32.0 Cancelled MCHC 32.8 Cancelled RDW 14.4 Cancelled Plt Count 386 Cancelled MPV 8.4 Cancelled Absolute Neuts (auto) 11.3 H Neutrophils % 90.0 H Lymphocytes % 4.1 L D Monocytes % 5.2 Eosinophils % 0.4 Basophils % 0.3 Nucleated RBC % 0 Manual Slide Review Cancelled Platelet Comment Cancelled Sodium 143 Potassium 4.3 Chloride 109 H Carbon Dioxide 29 Anion Gap 6 L BUN 26 H Creatinine 0.7 Creat Clearance w eGFR 106.93 Random Glucose 107 H Calcium 7.7 L Phosphorus 2.5 Magnesium 2.1 Total Bilirubin 1.0 AST 17 ALT < 6 L Alkaline Phosphatase 103 Total Protein 5.2 L Albumin 2.1 L TSH 11.10 H D Active Medications Generic Name Dose Route Start Last Admin Trade Name Freq PRN Reason Stop Dose Admin Acetaminophen 650 mg 02/15/19 22:19 02/16/19 01:58 Tylenol - PO 650 mg Q6H PRN Administration Fever Albuterol Sulfate 1 amp 02/15/19 22:19 Ventolin 0.083% Nebulizer Soln - NEB Q4H PRN SHORT OF BREATH/WHEEZING Artificial Tears 1 drop 02/15/19 22:19 02/16/19 10:54 Artificial Tears OU 1 drop Q8H PRN Administration DRY EYES Bacitracin 1 applic 02/16/19 10:00 02/16/19 10:38 Bacitracin - TP 1 applic DAILY [facility] Administration Carbidopa/Levodopa 1 each 02/13/19 23:30 02/16/19 14:30 Sinemet 25/250 - PO 1 each QID [facility] Administration Enoxaparin Sodium 40 mg 02/16/19 10:00 02/16/19 10:52 Lovenox - SQ 40 mg DAILY [facility] Administration Fluconazole 100 mls @ 100 mls/hr 02/16/19 10:00 02/16/19 11:56 Diflucan 200 Mg/Ns Premixed Ivpb - IVPB 100 mls/hr DAILY [facility] Administration Famotidine/Sodium Chloride 20 mg in 50 mls @ 100 mls/hr 02/16/19 10:00 11:19 Pepcid 20 Mg Premixed Ivpb - IVPB 100 mls/hr BID [facility] Administration Piperacillin Sod/Tazobactam 100 mls @ 200 mls/hr 02/16/19 02:00 02/16/19 10: 28 Sod 4.5 gm/ Dextrose IVPB 200 mls/hr Q8H-IV RU[facility]O Administration Protocol Sodium Chloride 1,000 mls @ 75 mls/hr 02/16/19 14:15 02/16/19 14:41 Normal Saline - IV 75 mls/hr ASDIR RUFINO Administration Levothyroxine Sodium 50 mcg 02/15/19 07:00 02/16/19 06:06 Synthroid - PO 50 mcg DAILY@0700 [facility] Administration Metoprolol Tartrate 12.5 mg 02/14/19 22:00 02/16/19 10:46 Lopressor - PO 12.5 mg BID [facility] Administration Metoprolol Tartrate 5 mg 02/15/19 22:19 Lopressor Injection - IVPUSH Q6H PRN HYPERTENSION Saliva Substitute 1 applic 02/16/19 10:00 02/16/19 10:53 [place] Solution MM 1 applic BID [facility] Administration Sodium Chloride 2 spray 02/15/19 22:19 02/16/19 10:56 [place] Nasal [place] - NS 2 spray Q12H PRN Administration NASAL CONGESTION ASSESSMENT/PLAN: Patient is a 82 year old male, with a significant past medical history of HTN, hypothyroidism, GERD, BPH, Parkinson's disease admitted with SBO and found to have gangrenous small bowel s/p resection. Sepsis Patient s/p lap small bowel resection plus ileostomy, jejunostomy tube insertion. Exploratory laparotomy lysis of adhesions on 02/07/2019 Sepsis secondary to necrotic small bowel - s/p surgery On Fluconozole, Zosyn. stop antibiotics. per ID and surgery, can d/c off antibiotics. Advance diet per surgery, npo for now, start on tube feeds @ 10 cc and advance slowly with goal rate 30. monitor for abdominal distention. On tube feeds via J tube, NGT removed swallow evaluation recommendations noted, patient will likely need MBS. Neuro: Parkinsons disease On Sinemet QID, on parkinsons medications. follows with Dr Angel. will order PT. Endocrine: hypothyroidism Continue synthroid 50mg daily Card: Hypertension. controlled on metoprolol bid Pulmonary Tolerating supplemental oxygen s/p intubation on 02/10 Monitor chest xray. wean off oxygen as tolerated : Monitor urine output. maintain ross Prophy: Lovenox 40mg daily tube feeds (vital 1.2), all meds through j tube full code Visit type - Emergency Visit Emergency Visit: Yes ED Registration Date: 02/07/19 Care time: The patient presented to the Emergency Department on the above date and was hospitalized for further evaluation of their emergent condition. - New Patient This patient is new to me today: No - Critical Care Critical Care patient: No - Discharge Referral Referred to [facility] Med P.C.: No
--- NOTE | 2019-02-16 18:25 | PN ---
Progress Note (short form) - Note Progress Note: POD#10 Afebrile, VSS Pt doing well TF re-started at 10 cc/hr Tolerating well WBC-12.5 (slight increase) H/H-12.2/37.2 (stable) BUN/CR-26/0.7 Pt to be evaluated by speech pathology in AM Also to have PT see pt P- ID suggests to D/C antibiotics Pt appears stable, I have no objections F/U Speech Pathology, Physical Therapy
[2019-02-17] MEDS: PIPERACILLIN/TAZOB 4.5 GM 4.5 GM in DEXTROSE 5%-WATER 100 ML IVPB SCH ×2 (01:48→10:22)
[2019-02-17] MEDS: LEVOTHYROXINE NA 50 MCG TABLET (FP) PO SCH (06:05)
[2019-02-17] MEDS ORDERED: PIPERACILLIN/TAZOBACTAM 4.5 GM VIAL IVPB ONE (10:15)
[2019-02-17] MEDS ORDERED: PT OWN MED DRAWER 7, Y5N ONE ×2 (10:15→18:55)
[2019-02-17] MEDS ORDERED: DEXTROSE 5%-WATER 100 ML IVPB ONE (10:15)
[2019-02-17] MEDS: BACITRACIN 15 GM TUBE TOPICAL OINTMENT TP SCH (10:20)
[2019-02-17] MEDS: LYTES/YERBA SANTA 60 ML SPRAY MM SCH ×2 (10:21→22:17)
[2019-02-17] MEDS: ENOXAPARIN NA (PORCINE) 40 MG/0.4 ML DISP.SYRIN SQ SCH (10:21)
[2019-02-17] MEDS: FAMOTIDINE 20 MG/50 ML IVPB 20 MG/50 ML MG IVPB SCH ×2 (10:21→22:17)
[2019-02-17] MEDS: CARBIDOPA/LEVODOPA 25/250 TABLET (FP) PO SCH ×4 (10:22→22:18)
[2019-02-17] MEDS: METOPROLOL TARTRATE 25 MG TABLET (FP) PO SCH ×2 (10:22→22:13)
--- NOTE | 2019-02-17 10:33 | PN ---
Progress Note, CONSULTING GROUP ANALYST - Note Progress Note: Pt reports speech production not at baseline, but seems close to it as I recall. Vocal quality wet intermittently. Rapid imprecise speech, c/w Hypokinetic dysarthria. For MBS today.
--- NOTE | 2019-02-17 10:46 | PN ---
Physical Exam: SUBJECTIVE: Patient seen and examined. He denies abdominal pain, nausea, CP, SOB. OBJECTIVE: Vital Signs Period Temp Pulse Resp BP Sys/Joiner Pulse Ox Last 24 Hr 98.5 F-98.9 F 86-97 21-28 124-144/59-83 100-100 GENERAL: The patient is awake, alert, and fully oriented, in no acute distress. LUNGS: Breath sounds equal, clear to auscultation bilaterally, no wheezes, no crackles, no accessory muscle use. HEART: Regular rate and rhythm, S1, S2 without murmur, rub or gallop. ABDOMEN: Soft, nontender, nondistended, normoactive bowel sounds, no guarding, no rebound, no hepatosplenomegaly, no masses. EXTREMITIES: 2+ pulses, warm, well-perfused, no edema. Active Medications Generic Name Dose Route Start Last Admin Trade Name Freq PRN Reason Stop Dose Admin Acetaminophen 650 mg 02/15/19 22:19 02/16/19 01:58 Tylenol - PO 650 mg Q6H PRN Administration Fever Albuterol Sulfate 1 amp 02/15/19 22:19 Ventolin 0.083% Nebulizer Soln - NEB Q4H PRN SHORT OF BREATH/WHEEZING Artificial Tears 1 drop 02/15/19 22:19 02/16/19 10:54 Artificial Tears OU 1 drop Q8H PRN Administration DRY EYES Bacitracin 1 applic 02/16/19 10:00 02/17/19 10:20 Bacitracin - TP 1 applic DAILY RUFINO Administration Carbidopa/Levodopa 1 each 02/13/19 23:30 02/17/19 10:22 Sinemet 25/250 - PO 1 each QID RUFINO Administration Enoxaparin Sodium 40 mg 02/16/19 10:00 02/17/19 10:21 Lovenox - SQ 40 mg DAILY RUFINO Administration Fluconazole 100 mls @ 100 mls/hr 02/16/19 10:00 02/16/19 11:56 Diflucan 200 Mg/Ns Premixed Ivpb - IVPB 100 mls/hr DAILY RUFINO Administration Famotidine/Sodium Chloride 20 mg in 50 mls @ 100 mls/hr 02/16/19 10:00 10:21 Pepcid 20 Mg Premixed Ivpb - IVPB 100 mls/hr BID RUFINO Administration Piperacillin Sod/Tazobactam 100 mls @ 200 mls/hr 02/16/19 02:00 02/17/19 10: 22 Sod 4.5 gm/ Dextrose IVPB 200 mls/hr Q8H-IV RUFINO Administration Protocol Sodium Chloride 1,000 mls @ 75 mls/hr 02/16/19 14:15 02/16/19 14:41 Normal Saline - IV 75 mls/hr ASDIR RUFINO Administration Levothyroxine Sodium 50 mcg 02/15/19 07:00 02/17/19 06:05 Synthroid - PO 50 mcg DAILY@0700 RUFINO Administration Metoprolol Tartrate 12.5 mg 02/14/19 22:00 02/17/19 10:22 Lopressor - PO 12.5 mg BID RUFINO Administration Metoprolol Tartrate 5 mg 02/15/19 22:19 Lopressor Injection - IVPUSH Q6H PRN HYPERTENSION Saliva Substitute 1 applic 02/16/19 10:00 02/17/19 10:21 [place] Solution MM 1 applic BID RUFINO Administration Sodium Chloride 2 spray 02/15/19 22:19 02/16/19 22:10 [place] Nasal [place] - NS 2 spray Q12H PRN Administration NASAL CONGESTION ASSESSMENT/PLAN: This is an 84 year old man with a history of PAF, HTN, hypothyroidism, GERD, BPH , Parkinson's disease who presented to the ED with abdominal pain. 1. Septic shock secondary to small bowel necrosis with perforation - Continue Zosyn, Diflucan - s/p lap small bowel resection, ileostomy, jejunostomy tube insertion on 2. Acute respiratory failure - Resolved - extubated 02/10 3. Parkinson's disease - Continue Sinemet - Restart Azilect, Mirapex 4. Paroxysmal atrial fib - Currently in sinus rhythm - Continue Lopressor, Lovenox 5. HTN - Continue Lopressor 6. Hypothyroidism - Continue Synthroid 7. GERD - Continue Pepcid 8. BPH - Restart Flomax 9. Nutrition - Receiving Vital 1.2 via J-tube - Plan for modified barium swallow today with further recommendations about diet 10. DVT prophylaxis - On Lovenox Visit type - Emergency Visit Emergency Visit: Yes ED Registration Date: 02/07/19 Care time: The patient presented to the Emergency Department on the above date and was hospitalized for further evaluation of their emergent condition. - New Patient This patient is new to me today: Yes Date on this admission: 02/17/19 - Critical Care Critical Care patient: No - Discharge Referral Referred to [facility] Med [facility] No
[2019-02-17] MEDS: FLUCONAZOLE 200 MG/NS 100 ML IVPB SCH (12:07)
--- NOTE | 2019-02-17 12:29 | PN ---
Progress Note (short form) - Note Progress Note: Patient seen and examined in the SDICU. Awake and alert. Still reports feeling hungry. Remains NPO. Denies CP or SOB. Reports feeling weak. OBJECTIVE: Intake & Output 02/14/19 02/15/19 02/16/19 02/17/19 23:59 23:59 23:59 23:59 Intake Total 1550 0647 812 4351 Output Total 2050 1525 1050 700 Balance -500 -677 -640 778 Weight 131 lb 131 lb Last Vital Signs Temp Pulse Resp BP Pulse Ox 98.7 F 86 25 H 138/59 L 100 02/16/19 22:00 02/17/19 05:00 02/17/19 05:00 02/17/19 05:00 02/16/19 22:00 Active Medications Acetaminophen (Tylenol -) 650 mg PO Q6H PRN PRN Reason: Fever Last Admin: 02/16/19 01:58 Dose: 650 mg Albuterol Sulfate (Ventolin 0.083% Nebulizer Soln -) 1 amp NEB Q4H PRN PRN Reason: SHORT OF BREATH/WHEEZING Artificial Tears (Artificial Tears) 1 drop OU Q8H PRN PRN Reason: DRY EYES Last Admin: 02/16/19 10:54 Dose: 1 drop Bacitracin (Bacitracin -) 1 applic TP DAILY RUFINO Last Admin: 02/17/19 10:20 Dose: 1 applic Carbidopa/Levodopa (Sinemet 25/250 -) 1 each PO QID RUFINO Last Admin: 02/17/19 10:22 Dose: 1 each Enoxaparin Sodium (Lovenox -) 40 mg SQ DAILY RUFINO Last Admin: 02/17/19 10:21 Dose: 40 mg Fluconazole (Diflucan 200 Mg/Ns Premixed Ivpb -) 100 mls @ 100 mls/hr IVPB DAILY RUFINO Last Admin: 02/17/19 12:07 Dose: 100 mls/hr Famotidine/Sodium Chloride (Pepcid 20 Mg Premixed Ivpb -) 20 mg in 50 mls @ 100 mls/hr IVPB BID RUFINO Last Admin: 02/17/19 10:21 Dose: 100 mls/hr Piperacillin Sod/Tazobactam (Sod 4.5 gm/ Dextrose) 100 mls @ 200 mls/hr IVPB Q8H-IV RUFINO; Protocol Last Admin: 02/17/19 10:22 Dose: 200 mls/hr Sodium Chloride (Normal Saline -) 1,000 mls @ 75 mls/hr IV ASDIR RUFINO Last Admin: 02/16/19 14:41 Dose: 75 mls/hr Levothyroxine Sodium (Synthroid -) 50 mcg PO DAILY@0700 [facility] Last Admin: 02/17/19 06:05 Dose: 50 mcg Metoprolol Tartrate (Lopressor -) 12.5 mg PO BID RUFINO Last Admin: 02/17/19 10:22 Dose: 12.5 mg Metoprolol Tartrate (Lopressor Injection -) 5 mg IVPUSH Q6H PRN PRN Reason: HYPERTENSION Saliva Substitute ([place] Solution) 1 applic MM BID [facility] Last Admin: 02/17/19 10:21 Dose: 1 applic Sodium Chloride ([place] Nasal [place] -) 2 spray NS Q12H PRN PRN Reason: NASAL CONGESTION Last Admin: 02/16/19 22:10 Dose: 2 spray Gen: Awake, weak appearing but in NAD Heart: RRR Lung: Bibasilar Rales / Rhonchi, no wheeze Abd: soft, intact ostomy, (+) minimal dark liquid stool Ext: less edema ASSESSMENT AND PLAN: s/p Acute Respiratory Failure Small Bowel Necrosis/Perforation s/p ex-lap/small bowel resection/ileostomy/ORALIA 02/07 Septic Shock improving Acute Kidney Injury improving Lactic Acidosis resolved Volume Overload Paroxysmal Atrial Fibrillation with RVR HTN Hypothyroidism BPH RBBB - For MBS today - continue antibiotics per ID - monitor urine output, creatinine - O2 to keep Spo2 >90% - monitor ostomy output - DVT/GI prophylaxis - Parenteral nutrition if remains NPO Dr Mitchell
--- NOTE | 2019-02-17 15:04 | PN ---
Progress Note (short form) - Note Progress Note: alert Vital Signs Period Temp Pulse Resp BP Sys/Joiner Pulse Ox Last 24 Hr 98.7 F-98.8 F 86-96 23-28 128-144/59-83 100-100 cor-rrr lungs clear, decreased bs at bases abd- soft,nt +ostomy +incision with packing +jtube ext no edema CBC, BMP 02/16/19 06:00 02/16/19 05:30 cxray clear a/p sepsis secondary to necrotic small bowel bowel- s/p surgery -pod #10-resolved zosyn/diflucan day #10 antibiotics, antifungal d/jareth today please call back if needed Problem List - Problems (1) Sepsis Code(s): A41.9 - SEPSIS, UNSPECIFIED ORGANISM (2) Small bowel obstruction Code(s): K56.609 - UNSP INTESTNL OBST, UNSP TO PARTIAL VERSUS COMPLETE OBST (3) Small bowel perforation Code(s): K63.1 - PERFORATION OF INTESTINE (NONTRAUMATIC)
--- NOTE | 2019-02-17 16:09 | PN ---
Progress Note (short form) - Note Progress Note: POD#11 Afebrile; VSS Pt doing well Awake, alert Ileostomy- functioning well P/E- abd- packing changed incision pink, healing Modified Barium Swallow- cleared for thin liquids, dysphagia puree diet P- Advance dysphagia diet as per speech pathology Antibiotics now off- moniter labs, V/S J-tube feedings at night As per hospitalist team
[2019-02-17] MEDS: PRAMIPEXOLE DIHYDROCHLORIDE 0.25 MG TABLET PO SCH ×2 (19:22→22:14)
[2019-02-17] MEDS: TAMSULOSIN HCL 0.4 MG CAP PO SCH (22:14)
[2019-02-18 06:45] LABS: BASO % 0.4 % (0-2.0); EOS % 0.9 % (0-4.5); HEMATOCRIT 33.7 % (35.4-49); HEMOGLOBIN 11.3 GM/dL (11.7-16.9); LYMPH % 5.3 % (8-40); MCH 32.8 pg (25.7-33.7); MCHC 33.7 g/dl (32.0-35.9); MEAN CELL VOLUME 97.5 fl (80-96); MONO % 9.9 % (3.8-10.2); NEUT % 83.5 % (42.8-82.8); PLATELET COUNT 417 K/MM3 (134-434); RBC 3.46 M/mm3 (4.00-5.60); RDW 14.3 % (11.9-15.9); WHITE BLOOD COUNT 9.1 K/mm3 (4.0-10.0)
[2019-02-18] MEDS: SODIUM CHLORIDE 1,000 ML IV SCH ×3 (06:52→21:12)
[2019-02-18] MEDS: LEVOTHYROXINE NA 50 MCG TABLET (FP) PO SCH (06:52)
[2019-02-18 07:17] LABS: ALBUMIN 2.2 g/dl (3.4-5.0); ALK PHOS 88 U/L (45-117); ANION GAP 5 MMOL/L (8-16); BILIRUBIN,TOTAL 0.3 mg/dL (0.2-1); BLOOD UREA NITROGEN 19 mg/dL (7-18); CALCIUM 7.7 mg/dL (8.5-10.1); CHLORIDE 108 mmol/L (98-107); CO2 30 mmol/L (21-32); CREATININE 0.5 mg/dL (0.55-1.3); GLUCOSE,RANDOM 107 mg/dL (74-106); MAGNESIUM 2.4 mg/dL (1.8-2.4); POTASSIUM 3.9 mmol/L (3.5-5.1); SGOT/AST 20 U/L (15-37); SGPT/ALT < 6 U/L (13-61); SODIUM 143 mmol/L (136-145); TOT PROT 5.2 g/dl (6.4-8.2)
--- NOTE | 2019-02-18 07:48 | PN ---
Physical Exam: SUBJECTIVE: Patient seen and examined 24HR Events: -completed MBS -started puree diet with nocturnal J-tube feedings OBJECTIVE: Vital Signs Period Temp Pulse Resp BP Sys/Joiner Pulse Ox Last 24 Hr 97.6 F-98 F 92-98 26-26 148-149/76-78 100-100 GENERAL: The patient is awake, alert, and fully oriented, in no acute distress. HEAD: Normal with no signs of trauma. EYES: PERRL, sclera anicteric, conjunctiva clear. ENT: nares patent, oropharynx clear without exudates, dry mucous membranes. NECK: Trachea midline, decreased range of motion, supple. LUNGS: Breath sounds equal but diminished, no accessory muscle use. HEART: Regular rate and rhythm, S1, S2 +3/6 systolic murmur across precordium ABDOMEN: Soft, nontender, nondistended, normoactive bowel sounds, no guarding, no rebound, +ostomy with brown liquid output, J-tube in situ EXTREMITIES: 2+ pulses, warm, well-perfused, trace edema. NEUROLOGICAL: moves all four extremities, speech decreased volume, gait not observed. PSYCH: Normal mood, normal affect. SKIN: Warm, dry, normal turgor, Laboratory Results - last 24 hr 02/18/19 02/18/19 05:30 05:30 WBC 9.1 RBC 3.46 L Hgb 11.3 L Hct 33.7 L MCV 97.5 H MCH 32.8 MCHC 33.7 RDW 14.3 Plt Count 417 MPV 8.0 Absolute Neuts (auto) 7.6 Neutrophils % 83.5 H Lymphocytes % 5.3 L D Monocytes % 9.9 D Eosinophils % 0.9 D Basophils % 0.4 Nucleated RBC % 0 Sodium 143 Potassium 3.9 Chloride 108 H Carbon Dioxide 30 Anion Gap 5 L BUN 19 H Creatinine 0.5 L Creat Clearance w eGFR 157.66 Random Glucose 107 H Calcium 7.7 L Magnesium 2.4 Total Bilirubin 0.3 AST 20 ALT < 6 L Alkaline Phosphatase 88 Total Protein 5.2 L Albumin 2.2 L Active Medications Generic Name Dose Route Start Last Admin Trade Name Freq PRN Reason Stop Dose Admin Acetaminophen 650 mg 02/15/19 22:19 02/16/19 01:58 Tylenol - PO 650 mg Q6H PRN Administration Fever Albuterol Sulfate 1 amp 02/15/19 22:19 Ventolin 0.083% Nebulizer Soln - NEB Q4H PRN SHORT OF BREATH/WHEEZING Artificial Tears 1 drop 02/15/19 22:19 02/16/19 10:54 Artificial Tears OU 1 drop Q8H PRN Administration DRY EYES Bacitracin 1 applic 02/16/19 10:00 02/17/19 10:20 Bacitracin - TP 1 applic DAILY RUFINO Administration Carbidopa/Levodopa 1 each 02/13/19 23:30 02/17/19 22:18 Sinemet 25/250 - PO 1 each QID RUFINO Administration Enoxaparin Sodium 40 mg 02/16/19 10:00 02/17/19 10:21 Lovenox - SQ 40 mg DAILY RUFINO Administration Famotidine/Sodium Chloride 20 mg in 50 mls @ 100 mls/hr 02/16/19 10:00 22:17 Pepcid 20 Mg Premixed Ivpb - IVPB 100 mls/hr BID RUFINO Administration Sodium Chloride 1,000 mls @ 75 mls/hr 02/16/19 14:15 02/18/19 06:52 Normal Saline - IV 75 mls/hr ASDIR RUFNIO Administration Levothyroxine Sodium 50 mcg 02/15/19 07:00 02/18/19 06:52 Synthroid - PO 50 mcg DAILY@0700 RUFINO Administration Metoprolol Tartrate 12.5 mg 02/14/19 22:00 02/17/19 22:13 Lopressor - PO 12.5 mg BID RUFINO Administration Metoprolol Tartrate 5 mg 02/15/19 22:19 Lopressor Injection - IVPUSH Q6H PRN HYPERTENSION Pramipexole Dihydrochloride 0.25 mg 02/17/19 18:00 02/17/19 22:14 Mirapex - PO 0.25 mg QID RUFINO Administration Rasagiline 1 mg 02/18/19 10:00 Azilect - PO DAILY RUFINO Saliva Substitute 1 applic 02/16/19 10:00 02/17/19 22:17 [place] Solution MM 1 applic BID RUFINO Administration Sodium Chloride 2 spray 02/15/19 22:19 02/16/19 22:10 [place] Nasal [place] - NS 2 spray Q12H PRN Administration NASAL CONGESTION Tamsulosin HCl 0.4 mg 02/17/19 22:00 02/17/19 22:14 Flomax - PO 0.4 mg HS RUFINO Administration ASSESSMENT/PLAN: 84 year old man with a history of PAF, HTN, hypothyroidism, GERD, BPH, Parkinson's disease who presented to the ED with abdominal pain found to have small bowel necrosis with perforation resulting in septic shock, now s/p lap small bowel resection, ileostomy, jejunostomy tube insertion on . 1. Parkinson's disease - Continue Sinemet - Restart Azilect, Mirapex 2. Paroxysmal atrial fib - Currently in sinus rhythm - Continue Lopressor, Lovenox 3. HTN - Continue PRN Lopressor - increase PO lopressor to 25mg BID 4. Hypothyroidism - TSH elevated, T4F high - Synthroid increased to 75mg on 02/15, repeat TSH/TFTs in 2 weeks 5. GERD - Continue Pepcid 20mg IVPB 6. BPH - Flomax 0.4mg qhs 7. Nutrition - Receiving Vital 1.2 via J-tube at night time, change to continuous infusion in order to meet caloric needs, goal rate 50ml/hr - Puree diet with thin liquids 8. DVT prophylaxis - On Lovenox 9: DISPO -transfer to [facility] bed -Full code Problem List - Problems (1) BPH (benign prostatic hyperplasia) Code(s): N40.0 - BENIGN PROSTATIC HYPERPLASIA WITHOUT LOWER URINRY TRACT SYMP (2) HTN (hypertension), benign Code(s): I10 - ESSENTIAL (PRIMARY) HYPERTENSION (3) Hypoalbuminemia Code(s): E88.09 - OTH DISORDERS OF PLASMA-PROTEIN METABOLISM, NEC (4) Hypothyroidism Code(s): E03.9 - HYPOTHYROIDISM, UNSPECIFIED (5) Small bowel obstruction Code(s): K56.609 - UNSP INTESTNL OBST, UNSP TO PARTIAL VERSUS COMPLETE OBST (6) Small bowel perforation Code(s): K63.1 - PERFORATION OF INTESTINE (NONTRAUMATIC) (7) Parkinson disease Code(s): G20 - PARKINSON'S DISEASE Visit type - Emergency Visit Emergency Visit: Yes ED Registration Date: 02/07/19 Care time: The patient presented to the Emergency Department on the above date and was hospitalized for further evaluation of their emergent condition. - New Patient This patient is new to me today: No - Critical Care Critical Care patient: Yes Total Critical Care Time (in minutes): 40 Critical Care Statement: The care of this patient involved high complexity decision making to prevent further life threatening deterioration of the patient 's condition and/or to evaluate & treat vital organ system(s) failure or risk of failure. - Discharge Referral Referred to [facility] No
--- NOTE | 2019-02-18 09:03 | PN ---
Progress Note, Physician Chief Complaint: Pt alert; no chest pain, abdominal pain, or dypsnea. History of Present Illness: The patient is an 82 year old male (born in [facility]), with a significant past medical history of HTN, hypothyroidism, GERD, BPH, Parkinson's disease ( ambulates with walker), Paroxysmal Atrial Fibrillation, and Right Bundle Branch Block, who presents to the emergency department, via EMS with abdominal pain since 7pm. As per , the diffuse abdominal pain began shortly after dinner. The patient states his last normal bowel movement was today, however, he endorses some gas intermittently in between his bowel movements. The patient denies burning on urination. The patient denies any sick contact or recent illness. - Current Medication List Current Medications: Active Medications Acetaminophen (Tylenol -) 650 mg PO Q6H PRN PRN Reason: Fever Last Admin: 02/16/19 01:58 Dose: 650 mg Albuterol Sulfate (Ventolin 0.083% Nebulizer Soln -) 1 amp NEB Q4H PRN PRN Reason: SHORT OF BREATH/WHEEZING Artificial Tears (Artificial Tears) 1 drop OU Q8H PRN PRN Reason: DRY EYES Last Admin: 02/16/19 10:54 Dose: 1 drop Bacitracin (Bacitracin -) 1 applic TP DAILY [facility] Last Admin: 02/17/19 10:20 Dose: 1 applic Carbidopa/Levodopa (Sinemet 25/250 -) 1 each PO QID [facility] Last Admin: 02/17/19 22:18 Dose: 1 each Enoxaparin Sodium (Lovenox -) 40 mg SQ DAILY [facility] Last Admin: 02/17/19 10:21 Dose: 40 mg Famotidine/Sodium Chloride (Pepcid 20 Mg Premixed Ivpb -) 20 mg in 50 mls @ 100 mls/hr IVPB BID [facility] Last Admin: 02/17/19 22:17 Dose: 100 mls/hr Sodium Chloride (Normal Saline -) 1,000 mls @ 75 mls/hr IV ASDIR [facility] Last Admin: 02/18/19 06:52 Dose: 75 mls/hr Levothyroxine Sodium (Synthroid -) 50 mcg PO DAILY@0700 [facility] Last Admin: 02/18/19 06:52 Dose: 50 mcg Metoprolol Tartrate (Lopressor Injection -) 5 mg IVPUSH Q6H PRN PRN Reason: HYPERTENSION Metoprolol Tartrate (Lopressor -) 25 mg PO BID [facility] Pramipexole Dihydrochloride (Mirapex -) 0.25 mg PO QID [facility] Last Admin: 02/17/19 22:14 Dose: 0.25 mg Rasagiline (Azilect -) 1 mg PO DAILY [facility] Saliva Substitute (M[place] Solution) 1 applic MM BID RUFINO Last Admin: 02/17/19 22:17 Dose: 1 applic Sodium Chloride ([place] Nasal [place] -) 2 spray NS Q12H PRN PRN Reason: NASAL CONGESTION Last Admin: 02/16/19 22:10 Dose: 2 spray Tamsulosin HCl (Flomax -) 0.4 mg PO HS [facility] Last Admin: 02/17/19 22:14 Dose: 0.4 mg - Objective Vital Signs: Vital Signs Temperature 97.2 F L 02/18/19 05:00 Pulse Rate 86 02/18/19 05:00 Respiratory Rate 20 02/18/19 05:00 Blood Pressure 151/68 02/18/19 05:00 O2 Sat by Pulse Oximetry (%) 100 02/17/19 19:28 Constitutional: Yes: Calm Eyes: Yes: WNL HENT: Yes: WNL Cardiovascular: Yes: S1, S2 Respiratory: Yes: Regular Gastrointestinal: Yes: Other (SB ostomy site without gross bleed or exudate; left-sided drain) Genitourinary: No: Anuria Musculoskeletal: Yes: Muscle Weakness Extremities: Yes: Cool Edema: No Peripheral Pulses WNL: Yes Integumentary: Yes: Incision Wound/Incision: Yes: Other Neurological: Yes: Alert, Oriented, Weakness Psychiatric: Yes: Other (anxeity) Labs: CBC, BMP 02/18/19 05:30 02/18/19 05:30 INR, PTT INR 1.03 (0.83-1.09) 02/07/19 03:00 - ....Imaging Chest X-ray: Image Reviewed Other: Image Reviewed (telemetry: NSR; APCs) Problem List - Problems (1) HTN (hypertension), benign Assessment/Plan: on metoprolol for BP and HR control. Code(s): I10 - ESSENTIAL (PRIMARY) HYPERTENSION (2) Hypothyroidism Assessment/Plan: TSH elevated; f/u free T4 and free T3. Code(s): E03.9 - HYPOTHYROIDISM, UNSPECIFIED (3) Paroxysmal atrial fibrillation with rapid ventricular response Assessment/Plan: Now in sinus rhythm. ECHO: normal LVEF; reduced RVEF; moderately severe TR. On metoprolol for HR and BP control. F/u EKG Code(s): I48.0 - PAROXYSMAL ATRIAL FIBRILLATION (4) Small bowel obstruction Assessment/Plan: s/p intestinal resection; ileostomy. F/u with surgeon. Code(s): K56.609 - UNSP INTESTNL OBST, UNSP TO PARTIAL VERSUS COMPLETE OBST (5) Parkinson disease Code(s): G20 - PARKINSON'S DISEASE (6) Anemia Code(s): D64.9 - ANEMIA, UNSPECIFIED (7) Thrombocytopenia Code(s): D69.6 - THROMBOCYTOPENIA, UNSPECIFIED (8) Sepsis Code(s): A41.9 - SEPSIS, UNSPECIFIED ORGANISM (9) Acute on chronic diastolic (congestive) heart failure Code(s): I50.33 - ACUTE ON CHRONIC DIASTOLIC (CONGESTIVE) HEART FAILURE (10) Hypoalbuminemia Code(s): E88.09 - OTH DISORDERS OF PLASMA-PROTEIN METABOLISM, NEC
[2019-02-18] MEDS: FAMOTIDINE 20 MG/50 ML IVPB 20 MG/50 ML MG IVPB SCH ×2 (09:57→21:09)
[2019-02-18] MEDS: METOPROLOL TARTRATE 25 MG TABLET (FP) PO SCH ×2 (09:57→21:08)
[2019-02-18] MEDS: ENOXAPARIN NA (PORCINE) 40 MG/0.4 ML DISP.SYRIN SQ SCH (09:57)
[2019-02-18] MEDS: BACITRACIN 15 GM TUBE TOPICAL OINTMENT TP SCH (09:57)
[2019-02-18] MEDS: CARBIDOPA/LEVODOPA 25/250 TABLET (FP) PO SCH ×4 (10:01→22:03)
[2019-02-18] MEDS: PRAMIPEXOLE DIHYDROCHLORIDE 0.25 MG TABLET PO SCH ×4 (10:01→22:03)
[2019-02-18] MEDS ORDERED: PT OWN MED DRAWER 7, Y5N ONE ×4 (10:03→21:58)
[2019-02-18] MEDS: RASAGILINE MESYLATE 1 MG TABLET PO SCH (10:04)
[2019-02-18] MEDS: LYTES/YERBA SANTA 60 ML SPRAY MM SCH ×2 (10:04→22:03)
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
--- NOTE | 2019-02-18 10:43 | PN ---
Progress Note, ENT NURSE - Note Progress Note: Selected Entries 02/18/19 02/18/19 05:00 09:21 Lunch NPO Temperature 97.2 F L Laboratory Tests 02/15/19 02/18/19 09:46 05:30 WBC 12.1 H 9.1 MBS reviewed with nursing and dietary recommendations and compensatory strategies noted in MBS report. Presently ,pt is NPO with JT feedings. Per EMR, pt's requesting Hospice/[facility].
--- NOTE | 2019-02-18 13:36 | PN ---
Progress Note (short form) - Note Progress Note: PULMONARY Denies shortness of breath or chest pain. Started on pureed diet. Vital Signs Period Temp Pulse Resp BP Sys/Joiner Pulse Ox Last 24 Hr 97.2 F-98.4 F 80-92 20-26 140-151/65-76 100-100 Gen: NAD at rest Heart: RRR Lung: decreased breath sounds at the bases Abd: soft, nontender, +ostomy Ext: no edema CBC, BMP 02/18/19 05:30 02/18/19 05:30 Active Medications Acetaminophen (Tylenol -) 650 mg PO Q6H PRN PRN Reason: Fever Last Admin: 02/16/19 01:58 Dose: 650 mg Albuterol Sulfate (Ventolin 0.083% Nebulizer Soln -) 1 amp NEB Q4H PRN PRN Reason: SHORT OF BREATH/WHEEZING Artificial Tears (Artificial Tears) 1 drop OU Q8H PRN PRN Reason: DRY EYES Last Admin: 02/16/19 10:54 Dose: 1 drop Bacitracin (Bacitracin -) 1 applic TP DAILY [facility] Last Admin: 02/18/19 09:57 Dose: 1 applic Carbidopa/Levodopa (Sinemet 25/250 -) 1 each PO QID [facility] Last Admin: 02/18/19 10:01 Dose: 1 each Enoxaparin Sodium (Lovenox -) 40 mg SQ DAILY [facility] Last Admin: 02/18/19 09:57 Dose: 40 mg Famotidine/Sodium Chloride (Pepcid 20 Mg Premixed Ivpb -) 20 mg in 50 mls @ 100 mls/hr IVPB BID [facility] Last Admin: 02/18/19 09:57 Dose: 100 mls/hr Sodium Chloride (Normal Saline -) 1,000 mls @ 75 mls/hr IV ASDIR [facility] Last Admin: 02/18/19 06:52 Dose: 75 mls/hr Levothyroxine Sodium (Synthroid -) 50 mcg PO DAILY@0700 [facility] Last Admin: 02/18/19 06:52 Dose: 50 mcg Metoprolol Tartrate (Lopressor Injection -) 5 mg IVPUSH Q6H PRN PRN Reason: HYPERTENSION Metoprolol Tartrate (Lopressor -) 25 mg PO BID [facility] Last Admin: 02/18/19 09:57 Dose: 25 mg Pramipexole Dihydrochloride (Mirapex -) 0.25 mg PO QID [facility] Last Admin: 02/18/19 10:01 Dose: 0.25 mg Rasagiline (Azilect -) 1 mg PO DAILY [facility] Last Admin: 02/18/19 10:04 Dose: 1 mg Saliva Substitute (Mouthkote Solution) 1 applic MM BID [facility] Last Admin: 02/18/19 10:04 Dose: 1 applic Sodium Chloride ([place] Nasal [place] -) 2 spray NS Q12H PRN PRN Reason: NASAL CONGESTION Last Admin: 02/16/19 22:10 Dose: 2 spray Tamsulosin HCl (Flomax -) 0.4 mg PO HS [facility] Last Admin: 02/17/19 22:14 Dose: 0.4 mg A/P s/p Acute Respiratory Failure Small Bowel Necrosis/Perforation s/p ex-lap/small bowel resection/ileostomy/ORALIA 02/07 Septic Shock improving Acute Kidney Injury improving Lactic Acidosis resolved Volume Overload Paroxysmal Atrial Fibrillation with RVR HTN Hypothyroidism BPH RBBB - monitoring off antibiotics per ID - monitor urine output, creatinine - O2 to keep Spo2 >90% - PO as tolerated - J tube feeds overnight - rehab/PT - DVT/GI prophylaxis
[2019-02-18 16:21] VITALS: BMI 17.8
[2019-02-18] MEDS: TAMSULOSIN HCL 0.4 MG CAP PO SCH (21:09)
[2019-02-18] MEDS: ACETAMINOPHEN 325 MG TABLET (FP) PO PRN (21:09)
[2019-02-19 06:30] LABS: MCH 32.4 pg (25.7-33.7); MCHC 33.4 g/dl (32.0-35.9); MEAN CELL VOLUME 96.9 fl (80-96); MEAN PLT VOLUME 8.1 fl (7.5-11.1); PLATELET COUNT 431 K/MM3 (134-434); RBC 3.41 M/mm3 (4.00-5.60); WHITE BLOOD COUNT 8.3 K/mm3 (4.0-10.0)
[2019-02-19 06:50] LABS: ANION GAP 5 MMOL/L (8-16); BLOOD UREA NITROGEN 12 mg/dL (7-18); CALCIUM 7.3 mg/dL (8.5-10.1); CHLORIDE 109 mmol/L (98-107); CO2 30 mmol/L (21-32); CREATININE 0.5 mg/dL (0.55-1.3); GLUCOSE,RANDOM 105 mg/dL (74-106); MAGNESIUM 2.1 mg/dL (1.8-2.4); PHOSPHOROUS 1.9 mg/dL (2.5-4.9); SODIUM 144 mmol/L (136-145)
[2019-02-19] MEDS: LEVOTHYROXINE NA 50 MCG TABLET (FP) PO SCH (06:52)
--- NOTE | 2019-02-19 07:48 | PN ---
Physical Exam: SUBJECTIVE: Patient seen and examined 24HR EVENTS: -TF changed to around the clock to meet caloric needs. Tolerates puree diet -pt awaiting bed assignment on [facility] unit OBJECTIVE: Vital Signs Period Temp Pulse Resp BP Sys/Joiner Pulse Ox Last 24 Hr 97.5 F-98.4 F 76-87 20-26 127-158/62-95 100-100 GENERAL: The patient is awake, alert, and fully oriented, in no acute distress. HEAD: Normal with no signs of trauma. EYES: PERRL, sclera anicteric, conjunctiva clear. ENT: nares patent, oropharynx clear without exudates, moist mucous membranes. NECK: Trachea midline, decreased range of motion, supple. LUNGS: Breath sounds equal but diminished, no accessory muscle use. HEART: Regular rate and rhythm, S1, S2 +3/6 systolic murmur across precordium ABDOMEN: Soft, nontender, nondistended, normoactive bowel sounds, no guarding, no rebound, +ostomy with brown liquid output, J-tube in situ EXTREMITIES: 2+ pulses, warm, well-perfused, trace edema. NEUROLOGICAL: moves all four extremities, speech decreased volume, ROM decreased x 4 ext, decreased strength and tone PSYCH: Normal mood, normal affect. SKIN: Warm, dry, normal turgor, Laboratory Results - last 24 hr 02/18/19 02/19/19 05:30 05:30 Sodium 143 144 Potassium 3.9 4.0 Chloride 108 H 109 H Carbon Dioxide 30 30 Anion Gap 5 L 5 L BUN 19 H 12 Creatinine 0.5 L 0.5 L Creat Clearance w eGFR 157.66 157.66 Random Glucose 107 H 105 Calcium 7.7 L 7.3 L Phosphorus 1.9 L Magnesium 2.4 2.1 Total Bilirubin 0.3 AST 20 ALT < 6 L Alkaline Phosphatase 88 Total Protein 5.2 L Albumin 2.2 L Free T4 1.73 H Active Medications Generic Name Dose Route Start Last Admin Trade Name Freq PRN Reason Stop Dose Admin Acetaminophen 650 mg 02/15/19 22:19 02/18/19 21:09 Tylenol - PO 650 mg Q6H PRN Administration Fever Albuterol Sulfate 1 amp 02/15/19 22:19 Ventolin 0.083% Nebulizer Soln - NEB Q4H PRN SHORT OF BREATH/WHEEZING Artificial Tears 1 drop 02/15/19 22:19 02/16/19 10:54 Artificial Tears OU 1 drop Q8H PRN Administration DRY EYES Bacitracin 1 applic 02/16/19 10:00 02/18/19 09:57 Bacitracin - TP 1 applic DAILY [facility] Administration Calcium Gluconate 1,000 mg 02/19/19 07:40 Calcium Gluconate 10% - IVPB 02/19/19 07:41 ONCE ONE Calcium Gluconate 1,000 mg 02/19/19 13:00 Calcium Gluconate 10% - IVPB 02/19/19 13:01 ONCE ONE Carbidopa/Levodopa 1 each 02/13/19 23:30 02/18/19 22:03 Sinemet 25/250 - PO 1 each QID [facility] Administration Enoxaparin Sodium 40 mg 02/16/19 10:00 02/18/19 09:57 Lovenox - SQ 40 mg DAILY [facility] Administration Famotidine/Sodium Chloride 20 mg in 50 mls @ 100 mls/hr 02/16/19 10:00 21:09 Pepcid 20 Mg Premixed Ivpb - IVPB 100 mls/hr BID [facility] Administration Sodium Chloride 1,000 mls @ 75 mls/hr 02/16/19 14:15 02/18/19 21:12 Normal Saline - IV 75 mls/hr ASDIR [facility] Administration Levothyroxine Sodium 50 mcg 02/15/19 07:00 02/19/19 06:52 Synthroid - PO 50 mcg DAILY@0700 [facility] Administration Metoprolol Tartrate 5 mg 02/15/19 22:19 Lopressor Injection - IVPUSH Q6H PRN HYPERTENSION Metoprolol Tartrate 25 mg 02/18/19 08:39 02/18/19 21:08 Lopressor - PO 25 mg BID [facility] Administration Potassium Phos/Sodium Phos 1 packet 02/19/19 07:40 Phos-Nak Packet - PO 02/19/19 07:41 ONCE ONE Pramipexole Dihydrochloride 0.25 mg 02/17/19 18:00 02/18/19 22:03 Mirapex - PO 0.25 mg QID [facility] Administration Rasagiline 1 mg 02/18/19 10:00 02/18/19 10:04 Azilect - PO 1 mg DAILY [facility] Administration Saliva Substitute 1 applic 02/16/19 10:00 02/18/19 22:03 Mouthkote Solution MM 1 applic BID [facility] Administration Sodium Chloride 2 spray 02/15/19 22:19 02/16/19 22:10 [place] Nasal [place] - NS 2 spray Q12H PRN Administration NASAL CONGESTION Tamsulosin HCl 0.4 mg 02/17/19 22:00 02/18/19 21:09 Flomax - PO 0.4 mg HS [facility] Administration ASSESSMENT/PLAN: 84 year old man with a history of PAF, HTN, hypothyroidism, GERD, BPH, Parkinson's disease who presented to the ED with abdominal pain found to have small bowel necrosis with perforation resulting in septic shock, now s/p lap small bowel resection, ileostomy, jejunostomy tube insertion on . 1. Parkinson's disease - Continue Sinemet - continue Azilect, Mirapex 2. Paroxysmal atrial fib - Continue Lopressor, Lovenox 3. HTN - lopressor to 25mg BID 4. Hypothyroidism - Synthroid 75mg on 02/15, repeat TSH/TFTs in 2 weeks 5. GERD - Continue Pepcid 20mg IVPB 6. BPH - Flomax 0.4mg qhs 7. Nutrition - Vital 1.2 via J-tube @ 50ml/hr Overnight, - Puree diet with thin liquids and ensure supplement BID 8. DVT prophylaxis - On Lovenox 9. Pulm -albuterol PRN SOB 10: DISPO -transfer to [facility] bed, pt can be discharged to [facility] when optimized. His primary insurance is Medicare and he does not need PA -Full code Problem List - Problems (1) BPH (benign prostatic hyperplasia) Code(s): N40.0 - BENIGN PROSTATIC HYPERPLASIA WITHOUT LOWER URINRY TRACT SYMP (2) HTN (hypertension), benign Code(s): I10 - ESSENTIAL (PRIMARY) HYPERTENSION (3) Hypoalbuminemia Code(s): E88.09 - OTH DISORDERS OF PLASMA-PROTEIN METABOLISM, NEC (4) Hypothyroidism Code(s): E03.9 - HYPOTHYROIDISM, UNSPECIFIED (5) Small bowel obstruction Code(s): K56.609 - UNSP INTESTNL OBST, UNSP TO PARTIAL VERSUS COMPLETE OBST (6) Small bowel perforation Code(s): K63.1 - PERFORATION OF INTESTINE (NONTRAUMATIC) (7) Parkinson disease Code(s): G20 - PARKINSON'S DISEASE Visit type - Emergency Visit Emergency Visit: Yes ED Registration Date: 02/07/19 Care time: The patient presented to the Emergency Department on the above date and was hospitalized for further evaluation of their emergent condition. - New Patient This patient is new to me today: No - Critical Care Critical Care patient: No - Discharge Referral Referred to [facility] Med [facility] No
[2019-02-19] MEDS ORDERED: NAPH,MB-DB/K PH,MBDB POWDER PACKET PO ONE (08:00)
[2019-02-19] MEDS ORDERED: CALCIUM GLUCONATE 10% - 1,000 MG/10 ML VIAL IVPB ONE ×2 (08:00→13:00)
[2019-02-19] MEDS ORDERED: PT OWN MED DRAWER 7, Y5N ONE ×2 (08:23→23:08)
[2019-02-19] MEDS: ENOXAPARIN NA (PORCINE) 40 MG/0.4 ML DISP.SYRIN SQ SCH (09:30)
[2019-02-19] MEDS: LYTES/YERBA SANTA 60 ML SPRAY MM SCH (09:31)
[2019-02-19] MEDS: CARBIDOPA/LEVODOPA 25/250 TABLET (FP) PO SCH ×4 (09:31→22:48)
[2019-02-19] MEDS: FAMOTIDINE 20 MG/50 ML IVPB 20 MG/50 ML MG IVPB SCH ×2 (09:31→22:49)
[2019-02-19] MEDS: PRAMIPEXOLE DIHYDROCHLORIDE 0.25 MG TABLET PO SCH ×4 (09:32→22:48)
[2019-02-19] MEDS: METOPROLOL TARTRATE 25 MG TABLET (FP) PO SCH ×2 (09:48→22:51)
--- NOTE | 2019-02-19 10:24 | PN ---
Progress Note, HOSPITAL WARD CLERK - Note Progress Note: Selected Entries 02/18/19 02/18/19 05:00 09:21 Lunch NPO Temperature 97.2 F L Laboratory Tests 02/15/19 02/18/19 09:46 05:30 WBC 12.1 H 9.1 Selected Entries 02/18/19 22:59 Supper 25% Laboratory Tests 02/19/19 05:30 WBC 8.3 MBS reviewed with nursing recommendations and compensatory strategies noted in MBS report. Thinned out puree/single sips of thin liquid. Thinned out ensure pudding Fully upright,chin FLEXED, 2-3 swallows per bite of puree followed by sip of thin liquid. Supervision and verbal cues throughout each meal Puree/thin liquid sips initiated for dinner last night. No breakfast tray this am. Palliative care nurse clarified pt's wishes regarding desire for STR for rehabilitation. Suggest PO diet, supplemented by JT feedings at night until pt is able to increase PO tolerance.
[2019-02-19] MEDS: BACITRACIN 15 GM TUBE TOPICAL OINTMENT TP SCH (10:30)
[2019-02-19] MEDS: RASAGILINE MESYLATE 1 MG TABLET PO SCH (10:30)
--- NOTE | 2019-02-19 11:13 | PN ---
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 Thinned out ensure pudding Fully upright,chin FLEXED, 2-3 swallows per bite of puree followed by sip of thin liquid. Finish meal with thin liquid. Supervision and verbal cues throughout each meal
--- NOTE | 2019-02-19 12:57 | PN ---
Progress Note (short form) - Note Progress Note: Patient seen and examined in the SDICU. Awake and alert. Appears clinically better. Denies CP or SOB. Reports feeling weak. OBJECTIVE: Intake & Output 02/16/19 02/17/19 02/18/19 02/19/19 23:59 23:59 23:59 23:59 Intake Total 410 2828 1700 1200 Output Total 1050 1600 300 Balance -640 1228 1400 1200 Weight 131 lb 131 lb 117 lb 14.4 oz 124 lb 8 oz Last Vital Signs Temp Pulse Resp BP Pulse Ox 97.8 F 76 20 124/68 100 02/19/19 10:00 02/19/19 06:00 02/19/19 10:00 02/19/19 10:00 02/19/19 08:47 Active Medications Acetaminophen (Tylenol -) 650 mg PO Q6H PRN PRN Reason: Fever Last Admin: 02/18/19 21:09 Dose: 650 mg Albuterol Sulfate (Ventolin 0.083% Nebulizer Soln -) 1 amp NEB Q4H PRN PRN Reason: SHORT OF BREATH/WHEEZING Artificial Tears (Artificial Tears) 1 drop OU Q8H PRN PRN Reason: DRY EYES Last Admin: 02/16/19 10:54 Dose: 1 drop Bacitracin (Bacitracin -) 1 applic TP DAILY [facility] Last Admin: 02/18/19 09:57 Dose: 1 applic Calcium Gluconate (Calcium Gluconate 10% -) 1,000 mg IVPB ONCE ONE Stop: 02/19/19 13:01 Carbidopa/Levodopa (Sinemet 25/250 -) 1 each PO QID [facility] Last Admin: 02/19/19 09:31 Dose: 1 each Enoxaparin Sodium (Lovenox -) 40 mg SQ DAILY [facility] Last Admin: 02/19/19 09:30 Dose: 40 mg Famotidine/Sodium Chloride (Pepcid 20 Mg Premixed Ivpb -) 20 mg in 50 mls @ 100 mls/hr IVPB BID [facility] Last Admin: 02/19/19 09:31 Dose: 100 mls/hr Sodium Chloride (Normal Saline -) 1,000 mls @ 75 mls/hr IV ASDIR [facility] Last Admin: 02/18/19 21:12 Dose: 75 mls/hr Levothyroxine Sodium (Synthroid -) 50 mcg PO DAILY@0700 [facility] Last Admin: 02/19/19 06:52 Dose: 50 mcg Metoprolol Tartrate (Lopressor Injection -) 5 mg IVPUSH Q6H PRN PRN Reason: HYPERTENSION Metoprolol Tartrate (Lopressor -) 25 mg PO BID [facility] Last Admin: 02/19/19 09:48 Dose: 25 mg Pramipexole Dihydrochloride (Mirapex -) 0.25 mg PO QID [facility] Last Admin: 02/19/19 09:32 Dose: 0.25 mg Rasagiline (Azilect -) 1 mg PO DAILY [facility] Last Admin: 02/18/19 10:04 Dose: 1 mg Saliva Substitute (Mouthkote Solution) 1 applic MM BID [facility] Last Admin: 02/19/19 09:31 Dose: 1 applic Sodium Chloride ([place] Nasal [place] -) 2 spray NS Q12H PRN PRN Reason: NASAL CONGESTION Last Admin: 02/16/19 22:10 Dose: 2 spray Tamsulosin HCl (Flomax -) 0.4 mg PO HS [facility] Last Admin: 02/18/19 21:09 Dose: 0.4 mg Gen: Awake, weak appearing but in NAD Heart: RRR Lung: Bibasilar Rales / Rhonchi, no wheeze Abd: soft, intact ostomy, (+) dark liquid stool Ext: less edema Laboratory Results - last 24 hr 02/19/19 02/19/19 05:30 05:30 WBC 8.3 RBC 3.41 L Hgb 11.0 L Hct 33.0 L MCV 96.9 H MCH 32.4 MCHC 33.4 RDW 14.0 Plt Count 431 MPV 8.1 Sodium 144 Potassium 4.0 Chloride 109 H Carbon Dioxide 30 Anion Gap 5 L BUN 12 Creatinine 0.5 L Creat Clearance w eGFR 157.66 Random Glucose 105 Calcium 7.3 L Phosphorus 1.9 L Magnesium 2.1 ASSESSMENT AND PLAN: s/p Acute Respiratory Failure Small Bowel Necrosis/Perforation s/p ex-lap/small bowel resection/ileostomy/ORALIA 02/07 Septic Shock improving Acute Kidney Injury improving Lactic Acidosis resolved Volume Overload Paroxysmal Atrial Fibrillation with RVR HTN Hypothyroidism BPH RBBB - Speech and Swallow evaluation noted - Antibiotics per ID - O2 to keep Spo2 >90% - monitor ostomy output - DVT/GI prophylaxis Dr Mitchell
[2019-02-19] MEDS: SODIUM CHLORIDE 1,000 ML IV SCH (18:49)
[2019-02-19] MEDS ORDERED: SODIUM CHLORIDE 1,000 ML IV SCH (20:53)
[2019-02-19] MEDS ORDERED: ALBUTEROL SO4 0.083% IH SOL 2.5 MG/3 ML VIAL.NEB. NEB PRN (20:53)
[2019-02-19] MEDS ORDERED: ARTIFICIAL TEARS (POLYVINYL ALCOHOL) OPTH DROPS OU PRN (20:53)
[2019-02-19] MEDS ORDERED: ACETAMINOPHEN 325 MG TABLET (FP) PO PRN (20:53)
[2019-02-19] MEDS ORDERED: METOPROLOL TARTRATE 5 MG/5 ML VIAL IVPUSH PRN (20:53)
[2019-02-19] MEDS ORDERED: SODIUM CHLORIDE NASAL SPRAY 44 ML BOTTLE NS PRN (20:53)
[2019-02-19] MEDS: TAMSULOSIN HCL 0.4 MG CAP PO SCH (22:48)
[2019-02-20] MEDS: LYTES/YERBA SANTA 60 ML SPRAY MM SCH ×3 (01:51→22:58)
[2019-02-20] MEDS: LEVOTHYROXINE NA 50 MCG TABLET (FP) PO SCH (06:07)
[2019-02-20 07:36] LABS: HEMATOCRIT 34.7 % (35.4-49); HEMOGLOBIN 11.5 GM/dL (11.7-16.9); MCH 32.1 pg (25.7-33.7); MEAN CELL VOLUME 97.2 fl (80-96); MEAN PLT VOLUME 7.9 fl (7.5-11.1); PLATELET COUNT 472 K/MM3 (134-434); RBC 3.57 M/mm3 (4.00-5.60); RDW 14.1 % (11.9-15.9); WHITE BLOOD COUNT 8.6 K/mm3 (4.0-10.0)
[2019-02-20 08:06] LABS: ALBUMIN 2.1 g/dl (3.4-5.0); ALK PHOS 81 U/L (45-117); ANION GAP 5 MMOL/L (8-16); BILIRUBIN,TOTAL 0.2 mg/dL (0.2-1); BLOOD UREA NITROGEN 12 mg/dL (7-18); CALCIUM 7.7 mg/dL (8.5-10.1); CHLORIDE 104 mmol/L (98-107); CO2 30 mmol/L (21-32); CREATININE 0.4 mg/dL (0.55-1.3); GLUCOSE,RANDOM 109 mg/dL (74-106); MAGNESIUM 1.9 mg/dL (1.8-2.4); POTASSIUM 4.5 mmol/L (3.5-5.1); SGOT/AST 20 U/L (15-37); SGPT/ALT < 6 U/L (13-61); SODIUM 139 mmol/L (136-145); TOT PROT 5.2 g/dl (6.4-8.2)
[2019-02-20] MEDS ORDERED: BACITRACIN 15 GM TUBE TOPICAL OINTMENT TP SCH (10:00)
[2019-02-20] MEDS: ENOXAPARIN NA (PORCINE) 40 MG/0.4 ML DISP.SYRIN SQ SCH (10:57)
[2019-02-20] MEDS: CARBIDOPA/LEVODOPA 25/250 TABLET (FP) PO SCH ×4 (10:58→22:59)
[2019-02-20] MEDS: FAMOTIDINE 20 MG/50 ML IVPB 20 MG/50 ML MG IVPB SCH ×2 (10:58→22:56)
[2019-02-20] MEDS: METOPROLOL TARTRATE 25 MG TABLET (FP) PO SCH ×2 (10:58→22:59)
[2019-02-20] MEDS: PRAMIPEXOLE DIHYDROCHLORIDE 0.25 MG TABLET PO SCH ×4 (10:59→22:59)
[2019-02-20] MEDS: RASAGILINE MESYLATE 1 MG TABLET PO SCH (11:00)
--- NOTE | 2019-02-20 11:54 | PN ---
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 Thinned out puree/single sips of thin liquid. Thinned out ensure pudding Fully upright,chin FLEXED, 2-3 swallows per bite of puree followed by sip of thin liquid. Supervision and verbal cues throughout each meal Suggest PO diet, supplemented by JT feedings at night until pt is able to increase PO tolerance. Selected Entries 02/19/19 02/19/19 02/19/19 02:00 06:00 10:00 Breakfast Lunch Supper 25% Temperature 97.5 F L 98.0 F 97.8 F 02/19/19 02/19/19 02/19/19 13:24 14:49 16:00 Breakfast 50% Lunch 50% Supper Temperature 98.3 F 97.7 F 02/19/19 02/19/19 02/19/19 19:13 21:00 22:00 Breakfast 50% Lunch 50% Supper Temperature 97.8 F 97.6 F 02/20/19 02/20/19 06:00 10:22 Breakfast 75% Lunch Supper Temperature 98 F Laboratory Tests 02/20/19 06:00 WBC 8.6
--- NOTE | 2019-02-20 13:02 | DS ---
Physical Exam: SUBJECTIVE: Patient seen and examined. asymptomatic. denies Cp, SOB, fever, chills, N/V?C/D OBJECTIVE: Vital Signs Period Temp Pulse Resp BP Sys/Joiner Pulse Ox Last 24 Hr 97.6 F-98.3 F 80-101 20-22 114-150/62-80 100 PHYSICAL EXAM GENERAL: The patient is awake in no acute distress. HEAD: Normal with no signs of trauma. EYES: PERRL, extraocular movements intact, sclera anicteric, conjunctiva clear. ENT: Ears normal, nares patent, oropharynx clear without exudates, moist mucous membranes. NECK: Trachea midline, full range of motion, supple. LUNGS: Breath sounds equal, clear to auscultation bilaterally, no wheezes, no crackles, no accessory muscle use. HEART: Regular rate and rhythm, S1, S2 without murmur, rub or gallop. ABDOMEN: Soft, +ostomy is pink, dressing with dried blood. NT. +PEG EXTREMITIES: 2+ pulses, warm, well-perfused, no edema. NEUROLOGICAL: Cranial nerves II through XII grossly intact. Normal speech, gait not observed. PSYCH: Normal mood, normal affect. SKIN: Warm, dry, normal turgor, no rashes or lesions noted.noted healed R buttock sacral wound noted by RN LABS Laboratory Results - last 24 hr 02/20/19 02/20/19 06:00 06:00 WBC 8.6 RBC 3.57 L Hgb 11.5 L Hct 34.7 L MCV 97.2 H MCH 32.1 MCHC 33.0 RDW 14.1 Plt Count 472 H MPV 7.9 Sodium 139 Potassium 4.5 Chloride 104 Carbon Dioxide 30 Anion Gap 5 L BUN 12 Creatinine 0.4 L Creat Clearance w eGFR 203.96 Random Glucose 109 H Calcium 7.7 L Magnesium 1.9 Total Bilirubin 0.2 AST 20 ALT < 6 L Alkaline Phosphatase 81 Total Protein 5.2 L Albumin 2.1 L HOSPITAL COURSE: Date of Admission:02/07/19 Date of Discharge: 02/20/19 admitting diagnosis: Small bowel necrosis and perforation Surgeries 01/27/19 Small Bowel Resection plus ileostomy. Jejunostomy tube insertion. Exploratory LaparotomyLysis of Adhesions extubated 02/10/19 Pre hospital course 83 yr with a significant past medical history of HTN, hypothyroidism, GERD, BPH , Parkinson's disease (ambulates with walker on baseline), Paroxysmal Atrial Fibrillation, and Right Bundle Branch Block presented to the ED with c/o abd pain. ER note reviewed. pt seen at bedside, NG tube attached to low intermittent suction, minimal drainage. Subsequent hospital course Was transferred from [facility] to [facility] and straight to the OR for surgery. course was complicated by developing septic shock and placed on pressors with vanco and zosyn. Clinically patient improved, was extubated and pressors titrated off. Diet was advance to puree and was receiving TF only at night time. completed abx course. LT4 dose increased due to elevated TSH. asa restarted on discharge. discharged to SNF. Discussed with about discharge she expressed felt like t should remained hospitalized due to multiple wounds. attempted to re-assure her that wounds will be managed the same there. stated will appeal at this time. notified SW Minutes to complete discharge: 40 Discharge Summary Reason For Visit: ABD PAIN Current Active Problems Abdominal pain, RLQ (Acute) Acute on chronic diastolic (congestive) heart failure (Acute) Anemia (Acute) BPH (benign prostatic hyperplasia) (Acute) HTN (hypertension), benign (Acute) Hypoalbuminemia (Acute) Hypothyroidism (Acute) Paroxysmal atrial fibrillation with rapid ventricular response (Acute) S/P appendectomy (Acute) Sepsis (Acute) Small bowel obstruction (Acute) Small bowel perforation (Acute) Thrombocytopenia (Acute) Condition: Stable - Instructions Diet, Activity, Other Instructions: You came to the hospital with abdominal pain and found to have small bowel necrosis and perforation and underwent small bowel resection with jejunostomy tube insertion on 02/07/19. You have clinically improved and ready for discharge. Continue with recreational feeds with puree diet with thin liquids. Eat fully upright with chin flexed. 2-3 swallow per bite followed by a sip of liquids. finishe your meal with thin liquids. Continue to work with a swallowing therapist to advance diet as tolerated Continue with Tube feeds from 7pm-7am. Tube feeds Vital 1.2 at 50cc/Hour with 20cc/H of water flushes. Your home medications have changed. refer to medial list for these changes. Your synthroid dose has been adjusted, You will need a repeat thyroid function test in 6 weeks. Speak with your animal researcher if your aspirin should be re- started Frequent turning every 2 hours with pressure offloading to prevent sacral ulcers from forming. Wound Care instructions iodoform packing with wet to dry dressing covered with a dry dressing daily Ostomy flange 57mm and 44mm. pouch is 57mm Follow up with surgeon in 2 weeks Follow up with your primary care doctor in 1 week Return to the Hospital for fevers (temp >101) or chest pain Referrals: Jay Grimes MD [Staff Physician] - Disposition: [facility] - Home Medications Comprehensive Discharge Medication List: Ambulatory Orders Ca Cmb No.1/Vit D3/B-6/FA/B12 [Vitamin D3 1,000 Unit Tablet] 1 each PO AM tablet 04/23/13 Carbidopa/Levodopa [Carbidopa-Levo 25-250 mg Odt] 1 each PO QID tablet Sennosides [Senna] 8.6 mg PO TID tablet 11/13/16 Multivitamin [Poly-Vitamin] 1 each PO DAILY 12/01/16 Stockwell-3 Fatty Acids [Stockwell-3] 1,000 mg PO ASDIR 12/01/16 Docusate Sodium [Stool Softener] 100 mg PO DAILY capsule MDD 2/day 03/28/17 Metoprolol Tartrate [Lopressor -] 12.5 mg PO BID 02/01/18 Pramipexole Dihydrochloride [Mirapex -] 0.25 mg PO QID 02/01/18 Fluticasone Prop 0.05% Nasal [Flonase -] 1 - 2 spray NS DAILY 02/07/19 Acetaminophen [Tylenol .Regular Strength -] 650 mg PO Q6H PRN tablet 02/20/19 Bacitracin - [Bacitracin Topical Ointment -] 1 applic TP DAILY tube 02/20/19 Levothyroxine [Synthroid -] 75 mcg PO AM #30 tablet 02/20/19 Lytes/[place] [Mouthkote Solution] 1 applic MM BID applic 02/20/19 Metoprolol Tartrate [Lopressor -] 25 mg PO BID tablet 02/20/19 Polyvinyl Alcohol [Artificial Tears] 1 drop OU Q8H PRN drops 02/20/19 Pramipexole Dihydrochloride [Mirapex -] 0.25 mg PO QID tablet 02/20/19 Rasagiline Mesylate [Azilect -] 1 mg PO DAILY tablet 02/20/19 Tamsulosin HCl [Flomax -] 0.4 mg PO HS cap.er.24h 02/20/19 This patient is new to me today: Yes Date on this admission: 02/20/19 Emergency Visit: Yes ED Registration Date: 02/07/19 Care time: The patient presented to the Emergency Department on the above date and was hospitalized for further evaluation of their emergent condition. Critical Care patient: No - Discharge Referral Referred to [facility] Yes Physician Referral: Lul Rouse MD (Int Med)
--- NOTE | 2019-02-20 14:22 | PN ---
Progress Note (short form) - Note Progress Note: Awake and alert. Appears clinically better. Denies CP or SOB. Reports feeling weak. OBJECTIVE: Intake & Output 02/17/19 02/18/19 02/19/19 02/20/19 23:59 23:59 23:59 23:59 Intake Total 2828 1700 2325 900 Output Total 1600 300 125 700 Balance 1228 1400 2200 200 Weight 131 lb 117 lb 14.4 oz 124 lb 8 oz Last Vital Signs Temp Pulse Resp BP Pulse Ox 98 F 99 H 17 113/67 100 02/20/19 13:50 02/20/19 13:50 02/20/19 13:50 02/20/19 13:50 02/19/19 21:00 Active Medications Acetaminophen (Tylenol -) 650 mg PO Q6H PRN PRN Reason: Fever Albuterol Sulfate (Ventolin 0.083% Nebulizer Soln -) 1 amp NEB Q4H PRN PRN Reason: SHORT OF BREATH/WHEEZING Artificial Tears (Artificial Tears) 1 drop OU Q8H PRN PRN Reason: DRY EYES Aspirin (Ecotrin -) 81 mg PO DAILY [facility] Bacitracin (Bacitracin -) 1 applic TP DAILY [facility] Carbidopa/Levodopa (Sinemet 25/250 -) 1 each PO QID [facility] Last Admin: 02/20/19 10:58 Dose: 1 each Enoxaparin Sodium (Lovenox -) 40 mg SQ DAILY [facility] Last Admin: 02/20/19 10:57 Dose: 40 mg Famotidine/Sodium Chloride (Pepcid 20 Mg Premixed Ivpb -) 20 mg in 50 mls @ 100 mls/hr IVPB BID [facility] Last Admin: 02/20/19 10:58 Dose: 100 mls/hr Levothyroxine Sodium (Synthroid -) 50 mcg PO DAILY@0700 [facility] Last Admin: 02/20/19 06:07 Dose: 50 mcg Metoprolol Tartrate (Lopressor -) 25 mg PO BID [facility] Last Admin: 02/20/19 10:58 Dose: 25 mg Metoprolol Tartrate (Lopressor Injection -) 5 mg IVPUSH Q6H PRN PRN Reason: HYPERTENSION Pramipexole Dihydrochloride (Mirapex -) 0.25 mg PO QID [facility] Last Admin: 02/20/19 10:59 Dose: 0.25 mg Rasagiline (Azilect -) 1 mg PO DAILY [facility] Last Admin: 02/20/19 11:00 Dose: 1 mg Saliva Substitute (Mouthkote Solution) 1 applic MM BID [facility] Last Admin: 02/20/19 01:51 Dose: 1 applic Sodium Chloride (Teller Omega Nasal Omega -) 2 spray NS Q12H PRN PRN Reason: NASAL CONGESTION Tamsulosin HCl (Flomax -) 0.4 mg PO [facility] Last Admin: 02/19/19 22:48 Dose: 0.4 mg Gen: Awake, weak appearing but in NAD Heart: RRR Lung: Bibasilar Rales / Rhonchi, no wheeze Abd: soft, intact ostomy, (+) stool Ext: less edema Laboratory Results - last 24 hr 02/20/19 02/20/19 06:00 06:00 WBC 8.6 RBC 3.57 L Hgb 11.5 L Hct 34.7 L MCV 97.2 H MCH 32.1 MCHC 33.0 RDW 14.1 Plt Count 472 H MPV 7.9 Sodium 139 Potassium 4.5 Chloride 104 Carbon Dioxide 30 Anion Gap 5 L BUN 12 Creatinine 0.4 L Creat Clearance w eGFR 203.96 Random Glucose 109 H Calcium 7.7 L Magnesium 1.9 Total Bilirubin 0.2 AST 20 ALT < 6 L Alkaline Phosphatase 81 Total Protein 5.2 L Albumin 2.1 L ASSESSMENT AND PLAN: s/p Acute Respiratory Failure Small Bowel Necrosis/Perforation s/p ex-lap/small bowel resection/ileostomy/ORALIA 02/07 Septic Shock improving Acute Kidney Injury improving Lactic Acidosis resolved Volume Overload Paroxysmal Atrial Fibrillation with RVR HTN Hypothyroidism BPH RBBB - PO as tolerated - O2 to keep Spo2 >90% - monitor ostomy output - DVT/GI prophylaxis - D/C planning Dr Mitchell
[2019-02-20] MEDS: ASPIRIN COATED 81 MG TABLET.EC PO SCH (16:06)
--- NOTE | 2019-02-20 17:33 | PN ---
Progress Note (short form) - Note Progress Note: POD#13 Afebrile; VSS; Pt doing better, awake, alert Tolerating PO soft diet-small amounts Puree dysphagia) P/E-Abd- packing, dressing removed top 2/3 of wounds pink, granulating and healing lower 1/3 with area of soft, yellow granulation area cleaned with forceps and scissors packing re-applied lower 1/3 Rec- Agree with transfer to Rehab Center Daily packing change to lower 1/3 of abdominal incision T-F at night 11PM-6AM 30 ml/hr, then off during day so that pt can consume PO nutrition better Pt and instructed to return to my office after D/C from Rehab
[2019-02-20] MEDS: TAMSULOSIN HCL 0.4 MG CAP PO SCH (22:59)
[2019-02-21] MEDS ORDERED: PT OWN MED DRAWER 7, Y5N ONE ×2 (06:01→10:34)
[2019-02-21] MEDS: LEVOTHYROXINE NA 50 MCG TABLET (FP) PO SCH (06:22)
[2019-02-21] MEDS: ASPIRIN COATED 81 MG TABLET.EC PO SCH (10:36)
[2019-02-21] MEDS: ENOXAPARIN NA (PORCINE) 40 MG/0.4 ML DISP.SYRIN SQ SCH (10:36)
[2019-02-21] MEDS: FAMOTIDINE 20 MG/50 ML IVPB 20 MG/50 ML MG IVPB SCH (10:36)
[2019-02-21] MEDS: CARBIDOPA/LEVODOPA 25/250 TABLET (FP) PO SCH ×2 (10:36→13:41)
[2019-02-21] MEDS: METOPROLOL TARTRATE 25 MG TABLET (FP) PO SCH (10:36)
[2019-02-21] MEDS: PRAMIPEXOLE DIHYDROCHLORIDE 0.25 MG TABLET PO SCH ×2 (10:36→13:40)
[2019-02-21] MEDS: RASAGILINE MESYLATE 1 MG TABLET PO SCH (10:37)
[2019-02-21] MEDS: LYTES/YERBA SANTA 60 ML SPRAY MM SCH (11:54)
--- NOTE | 2019-02-21 12:46 | PN ---
Physical Exam: SUBJECTIVE: Patient seen and examined, no over night events, has no complaints at this time, states that in the morning that he was emotionally distressed this morning and thats why he looked anxious and uncomfortable. denies any cardiopulmonary, GI complaints at this time. OBJECTIVE: Vital Signs Period Temp Pulse Resp BP Sys/Joiner Pulse Ox Last 24 Hr 97.4 F-98 F 86-99 17-24 113-145/62-79 He is in no distress, fragile and cachectic MMM CVS:S1S2, + MURMUR CTAB Abd:Has midline scar, PEG in place, ostomy bag inplace with stool+ BS hypoactive NT/ND EXT: no edema top 2/3 of wounds pink, granulating and healing, lower 1/3 with area of soft, yellow granulation Active Medications Generic Name Dose Route Start Last Admin Trade Name Freq PRN Reason Stop Dose Admin Acetaminophen 650 mg 02/19/19 20:53 Tylenol - PO Q6H PRN Fever Albuterol Sulfate 1 amp 02/19/19 20:53 Ventolin 0.083% Nebulizer Soln - NEB Q4H PRN SHORT OF BREATH/WHEEZING Artificial Tears 1 drop 02/19/19 20:53 Artificial Tears OU Q8H PRN DRY EYES Aspirin 81 mg 02/20/19 14:00 02/21/19 10:36 Ecotrin - PO 81 mg DAILY RUFINO Administration Bacitracin 1 applic 02/20/19 10:00 Bacitracin - TP DAILY RUFINO Carbidopa/Levodopa 1 each 02/19/19 22:00 02/21/19 10:36 Sinemet 25/250 - PO 1 each QID RUFINO Administration Enoxaparin Sodium 40 mg 02/20/19 10:00 02/21/19 10:36 Lovenox - SQ 40 mg DAILY RUFINO Administration Famotidine/Sodium Chloride 20 mg in 50 mls @ 100 mls/hr 02/19/19 22:00 10:36 Pepcid 20 Mg Premixed Ivpb - IVPB 100 mls/hr BID RUFINO Administration Levothyroxine Sodium 50 mcg 02/20/19 07:00 02/21/19 06:22 Synthroid - PO 50 mcg DAILY@0700 RUFINO Administration Metoprolol Tartrate 25 mg 02/19/19 22:00 02/21/19 10:36 Lopressor - PO 25 mg BID RUFINO Administration Metoprolol Tartrate 5 mg 02/19/19 20:53 Lopressor Injection - IVPUSH Q6H PRN HYPERTENSION Pramipexole Dihydrochloride 0.25 mg 02/19/19 22:00 02/21/19 10:36 Mirapex - PO 0.25 mg QID RUFINO Administration Rasagiline 1 mg 02/20/19 10:00 02/21/19 10:37 Azilect - PO 1 mg DAILY RUFINO Administration Saliva Substitute 1 applic 02/19/19 22:00 02/21/19 11:54 Mouthkote Solution MM 1 applic BID RUFINO Administration Sodium Chloride 2 spray 02/19/19 20:53 Brewster Walker Nasal Walker - NS Q12H PRN NASAL CONGESTION Tamsulosin HCl 0.4 mg 02/19/19 22:00 02/20/19 22:59 Flomax - PO 0.4 mg HS RUFINO Administration ASSESSMENT/PLAN: He is a 84 Y/O M W Small Bowel Necrosis/Perforation, S/P partaial colectomy with ostomy ready to be DCed to [facility] today. the abnormal VS this morning was in the setting of patient being emotionally disturbed and is stable at time of my exam and he is in no distress, RR 17. s/p Acute Respiratory Failure: O2 to keep Spo2 >90% no wheezing, no rales at this time. Small Bowel Necrosis/Perforation,s/p ex-lap/small bowel resection/ileostomy/ORALIA 02/07: evaluated by surgery adn cleared for DC on 02/20. is tolerating po and is stable at this time, plan for secondary wound closure. Acute Kidney Injury improving Volume Overload : no sign of volume overload at this time, will C/W home medication, pending improvement of feeding and further evaluation of volume status. Paroxysmal Atrial Fibrillation with RVR: rate well controlled HTN: well controlled, C/W current management HypothyroidismLCW current management BPH: has good urine O/P. - PO as tolerated , is aslo getting Tube feeds - monitor ostomy output DVT/GI prophylaxis Dispo: [facility] today Visit type - Emergency Visit Emergency Visit: No - New Patient This patient is new to me today: Yes Date on this admission: 02/21/19 - Critical Care Critical Care patient: No - Discharge Referral Referred to [facility] Yes
[2019-02-21 14:25] VITALS: BP 106/54; PULSE 84; TEMP 98
== END 2019-02-21 15:20 | DRG 329 ==
LOC: FER 23:00 → FM/S 02-07 05:33 → JICU 02-07 18:30 → J2W 02-15 22:45 → J5S 02-19 20:29
PROVIDERS: ADMIT Internal Medicine; ATTEND Internal Medicine
PROC: 0DNW0ZZ Release Peritoneum, Open Approach (ICD-10-PCS; 2019-02-07)
PROC: 0DB80ZX Excision of Small Intestine, Open Approach, Diagnostic (ICD-10-PCS; 2019-02-07)
PROC: 0D9A00Z Drainage of Jejunum with Drainage Device, Open Approach (ICD-10-PCS; 2019-02-07)
PROC: 0D1B0Z4 Bypass Ileum to Cutaneous, Open Approach (ICD-10-PCS; principal; 2019-02-07 16:39)
PROC: 05HN33Z Insertion of Infusion Device into Left Internal Jugular Vein, Percutaneous Approach (ICD-10-PCS; 2019-02-08)
DX: K63.1 Perforation of intestine (nontraumatic) (principal); A41.9 Sepsis, unspecified organism; R65.21 Severe sepsis with septic shock; J95.821 Acute postprocedural respiratory failure; I50.33 Acute on chronic diastolic (congestive) heart failure; K56.50 Intestinal adhesions [bands], unspecified as to partial versus complete obstruction; N17.9 Acute kidney failure, unspecified; E87.2 Acidosis; G20 Parkinson's disease; I48.0 Paroxysmal atrial fibrillation; E03.9 Hypothyroidism, unspecified; N40.0 Benign prostatic hyperplasia without lower urinary tract symptoms; E87.70 Fluid overload, unspecified; I45.10 Unspecified right bundle-branch block; K21.9 Gastro-esophageal reflux disease without esophagitis; E88.09 Other disorders of plasma-protein metabolism, not elsewhere classified; D69.6 Thrombocytopenia, unspecified; I11.0 Hypertensive heart disease with heart failure; D64.9 Anemia, unspecified
CPT/HCPCS: 36415; 36600; 71045-TC-FY; 74177-TC; 74230-TC-FY; 76700-TC; 76775-TC; 80048; 80053; 81003; 82803; 83605; 83735; 83930; 84100; 84439; 84443; 84484; 85025; 85027; 85610; 85730; 86850; 86900; 86901; 87040; 87070; 87077; 87086; 87186; 87205; 88307-TC; 92611-GN; 93005; 93010; 93306-TC; 94002; 94640; 94760; 97116-GP; 97161-GP; 99285-25; J0131; J7030

== ENCOUNTER 2019-03-02 10:26 | Emergency (ER) | payer OTHER, MEDICARE ==
[2019-03-02 10:46] VITALS: BMI 19.3
--- NOTE | 2019-03-02 12:38 | PDOC ---
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 Per the patient, he denies having the following: nausea, vomiting, fever, chills, SOB, dysuria, and hematuria. Per the granddaughter, his stool output has increased, but no consistency change. He denies abdominal pain. Allergies: NKDA Social: Denies tobacco, alcohol, and substance abuse. Past History - Past Medical History Allergies/Adverse Reactions: Allergies Allergy/AdvReac Type Severity Reaction Status Date / Time hazelnut Allergy Severe Difficulty Verified 03/02/19 10:36 Breathing Hazelnut Allergy Severe Throat Uncoded 03/02/19 10:36 swelling POLLEN Allergy Mild NASAL Uncoded 03/02/19 10:36 CONGESTION Home Medications: Ambulatory Orders Ca Cmb No.1/Vit D3/B-6/FA/B12 [Vitamin D3 1,000 Unit Tablet] 1 each PO AM tablet 04/23/13 Carbidopa/Levodopa [Carbidopa-Levo 25-250 mg Odt] 1 each PO QID tablet Sennosides [Senna] 8.6 mg PO TID tablet 11/13/16 Multivitamin [Poly-Vitamin] 1 each PO DAILY 12/01/16 [place]-3 Fatty Acids [[place]-3] 1,000 mg PO ASDIR 12/01/16 Docusate Sodium [Stool Softener] 100 mg PO DAILY capsule MDD 2/day 03/28/17 Metoprolol Tartrate [Lopressor -] 12.5 mg PO BID 02/01/18 Pramipexole Dihydrochloride [Mirapex -] 0.25 mg PO QID 02/01/18 Fluticasone Prop 0.05% Nasal [Flonase -] 1 - 2 spray NS DAILY 02/07/19 Acetaminophen [Tylenol .Regular Strength -] 650 mg PO Q6H PRN tablet 02/20/19 Aspirin [ASA -] 81 mg PO DAILY #30 tab.chew 02/20/19 Bacitracin - [Bacitracin Topical Ointment -] 1 applic TP DAILY tube 02/20/19 Levothyroxine [Synthroid -] 75 mcg PO AM #30 tablet 02/20/19 Lytes/[place] [Mouthkote Solution] 1 applic MM BID applic 02/20/19 Metoprolol Tartrate [Lopressor -] 25 mg PO BID tablet 02/20/19 Polyvinyl Alcohol [Artificial Tears] 1 drop OU Q8H PRN drops 02/20/19 Pramipexole Dihydrochloride [Mirapex -] 0.25 mg PO QID tablet 02/20/19 Rasagiline Mesylate [Azilect -] 1 mg PO DAILY tablet 02/20/19 Tamsulosin HCl [Flomax -] 0.4 mg PO HS cap.er.24h 02/20/19 Anemia: No ( TEEN) Asthma: No Cancer: No Cardiac Disorders: Yes (paroxysmal afib) CVA: Yes (dysphagia) COPD: No CHF: Yes Dementia: No Diabetes: No GI Disorders: Yes (GERD) Disorders: Yes (BPH) HTN: Yes Hypercholesterolemia: No Liver Disease: No Seizures: No Thyroid Disease: Yes (hypo) Other medical history: parkinson, osteoperosis - Surgical History Abdominal Surgery: No Appendectomy: Yes (2010 OR 2011) Cardiac Surgery: No Cholecystectomy: No GI Surgery: Yes (perforation of intistine ileostomy gastrostmy) Lung Surgery: No Neurologic Surgery: No Orthopedic Surgery: No - Immunization History Immunization Up to Date: Yes - Suicide/Smoking/Psychosocial Hx Smoking History: Never smoked Have you smoked in the past 12 months: No Information on smoking cessation initiated: No Hx Alcohol Use: No Drug/Substance Use Hx: No Substance Use Type: None Hx Substance Use Treatment: No Review of Systems - Review of Systems Able to Perform ROS?: Yes Is the patient limited Latvian proficient: No Constitutional: No: Chills, Diaphoresis, Fever HEENTM: No: Eye Pain, Recent change in vision, Ear Pain, Nose Pain, Throat Pain , Mouth Pain Respiratory: No: Cough, Shortness of Breath, Hemoptysis Cardiac (ROS): No: Chest Pain, Lightheadedness, Palpitations, Syncope ABD/GI: No: Constipated, Diarrhea, Nausea, Rectal Bleeding, Vomiting, Tarry Stools : No: Burning, Dysuria, Incontinence Musculoskeletal: No: Back Pain, Joint Pain, Neck Pain Integumentary: No: Bruising, Erythema, Rash Neurological: No: Headache, Numbness, Dizziness Psychiatric: No: Change in Appetite Endocrine: No: Unexplained Weight Gain *Physical Exam - Vital Signs Last Vital Signs Temp Pulse Resp BP Pulse Ox 97.7 F 98 H 18 123/68 94 L 03/02/19 10:39 03/02/19 10:39 03/02/19 10:39 03/02/19 10:39 03/02/19 10:39 - Physical Exam General Appearance: Yes: Nourished, Appropriately Dressed, Thin. No: Apparent Distress HEENT: positive: EOMI, MANGO, Normal Voice, Symmetrical, Pharynx Normal. negative: Pale Conjunctivae, Scleral Icterus (R), Scleral Icterus (L), Muffled/ Hoarse voice, Pharyngeal Erythema, Tonsillar Exudate, Tonsillar Erythema Neck: positive: Trachea midline, Supple. negative: Tender, Lymphadenopathy (R) , Lymphadenopathy (L) Respiratory/Chest: positive: Lungs Clear, Normal Breath Sounds, Other ( decreased inspiratory effort.). negative: Chest Tender Cardiovascular: positive: Regular Rhythm, Regular Rate, S1, S2. negative: Systolic Murmur Gastrointestinal/Abdominal: positive: Normal Bowel Sounds, Tender (at site of J tube), Flat, Soft, Other (midline incision with packing in place with pus. No erythema at wound edges. Left J tube present with erythema no pus with expression. Location of J tube between LUQ and LLQ. Ileostomy tube placed in the RLQ. ). negative: Distended, Rebound Lymphatic: negative: Adenopathy Musculoskeletal: positive: Normal Inspection. negative: CVA Tenderness, Vertebral Tenderness Extremity: positive: Normal Capillary Refill, Normal Inspection, Normal Range of Motion. negative: Tender Integumentary: positive: Normal Color, Dry, Warm Neurologic: positive: supervisor fitting II-XII NML intact, Fully Oriented, Alert, Normal Mood/ Affect, Normal Response ED Treatment Course - LABORATORY CBC & Chemistry Diagram: 03/02/19 14:05 03/02/19 14:05 Medical Decision Making - Medical Decision Making 84 yo M with a hx of HTN, hypothyroidism, BPH, Parkinson's Disease, paroxysmal atrial fibrillation, and recent hospital discharge s/p small bowel resection secondary to necrosis with ileostomy and J-tube insertion 01/27/19 presents to the emergency department from [facility] with feeding tube not flushing since 7 pm yesterday. Initial vitals: Initial Vital Signs Temp Pulse Resp BP Pulse Ox 97.7 F 98 H 18 123/68 94 L 03/02/19 10:39 03/02/19 10:39 03/02/19 10:39 03/02/19 10:39 03/02/19 10:39 Work up: ddx: sbo vs j tube obstruction vs perforation Unable to flush j tube at bedside. Unable to aspirate at bedside through tube. Dr. Grimes was contacted at 1:[address] Grimes, patient should have a mature tract, however recommends using IR for guidance of new j-tube. Spoke to IR who states they will do the J tube procedure. orders: cbc, cmp, lactic acid, ua, urine culture, blood cultures, wound culture interventions: 500 cc of NS 0.9% Laboratory Tests 03/02/19 03/02/19 03/02/19 14:05 14:05 14:05 WBC 9.2 RBC 3.87 L Hgb 12.4 Hct 37.1 MCV 95.8 MCH 32.1 MCHC 33.5 RDW 14.3 Plt Count 579 H D MPV 7.2 L Absolute Neuts (auto) 7.1 Neutrophils % 77.2 Neutrophils % (Manual) 72.0 Band Neutrophils % 1.0 Lymphocytes % 11.6 D Lymphocytes % (Manual) 15.0 D Monocytes % 8.7 Monocytes % (Manual) 9 Eosinophils % 1.8 D Eosinophils % (Manual) 1.0 Basophils % 0.7 Basophils % (Manual) 0.0 Myelocytes % (Man) 0 Promyelocytes % (Man) 0 Blast Cells % (Manual) 0 Nucleated RBC % 0 Metamyelocytes 1 D Hypochromia 0 Platelet Estimate Increased Polychromasia 0 Poikilocytosis 0 Anisocytosis 0 Microcytosis 0 Macrocytosis 1+ Sodium 139 Potassium 4.6 Chloride 104 Carbon Dioxide 28 Anion Gap 7 L BUN 28 H Creatinine 0.6 Creat Clearance w eGFR 127.75 Random Glucose 109 H Lactic Acid 1.0 Calcium 9.4 Phosphorus 3.4 Magnesium 2.4 Total Bilirubin 0.2 AST 30 ALT 44 Alkaline Phosphatase 182 H Total Protein 6.6 Albumin 2.6 L Urine Color Urine Appearance Urine pH Ur Specific [place] Urine Protein Urine Glucose (UA) Urine Ketones Urine Blood Urine Nitrite Urine Bilirubin Urine Urobilinogen Ur Leukocyte Esterase 03/02/19 17:50 WBC RBC Hgb Hct MCV MCH MCHC RDW Plt Count MPV Absolute Neuts (auto) Neutrophils % Neutrophils % (Manual) Band Neutrophils % Lymphocytes % Lymphocytes % (Manual) Monocytes % Monocytes % (Manual) Eosinophils % Eosinophils % (Manual) Basophils % Basophils % (Manual) Myelocytes % (Man) Promyelocytes % (Man) Blast Cells % (Manual) Nucleated RBC % Metamyelocytes Hypochromia Platelet Estimate Polychromasia Poikilocytosis Anisocytosis Microcytosis Macrocytosis Sodium Potassium Chloride Carbon Dioxide Anion Gap BUN Creatinine Creat Clearance w eGFR Random Glucose Lactic Acid Calcium Phosphorus Magnesium Total Bilirubin AST ALT Alkaline Phosphatase Total Protein Albumin Urine Color Yellow Urine Appearance Clear Urine pH 5.5 Ur Specific [place] 1.025 Urine Protein Negative Urine Glucose (UA) Negative Urine Ketones Negative Urine Blood Negative Urine Nitrite Negative Urine Bilirubin Negative Urine Urobilinogen 0.2 Ur Leukocyte Esterase Negative Patient tolerated the procedure well. POCUS used to evaluate the kidneys and bladder. the patient states he was unable to urinate. no hydronephrosis seen bilaterally and had approximately 180 cc of urine in the bladder. shortly after the scan, the patient was able to void 150 cc. labs within normal limits. patient was discharged back to [facility] and given return precautions and instructions on proper tube feed cleaning. Dispo: Discharge *DC/Admit/Observation/Transfer Diagnosis at time of Disposition: Feeding tube dysfunction Qualifiers: Encounter type: initial encounter Qualified Code(s): T85.598A - Other mechanical complication of other gastrointestinal prosthetic devices, implants and grafts, initial encounter - Discharge Dispostion Disposition: HOME Decision to Admit order: No - Referrals Referrals: Olman Dalal MD [Primary Care Provider] - - Patient Instructions Printed Discharge Instructions: DI for Feeding Tube Exchange, How to Use Your Feeding Tube Additional Instructions: you were seen in the emergency department for the evaluation of your jejunal tube. Please follow up with your primary medical doctor in 1 week after discharge for follow up care and management. please continue to feed through the tube and flush after meals. please return to the emergency department if it is dysfunctional, if you develop fever, abdominal pain, or altered mental status. thank you. - Post Discharge Activity
[2019-03-02] MEDS ORDERED: SODIUM CHLORIDE 500 ML IV STA (13:03)
[2019-03-02 14:42] LABS: BASO % 0.7 % (0-2.0); EOS % 1.8 % (0-4.5); HEMATOCRIT 37.1 % (35.4-49); HEMOGLOBIN 12.4 GM/dL (11.7-16.9); LYMPH % 11.6 % (8-40); MCH 32.1 pg (25.7-33.7); MCHC 33.5 g/dl (32.0-35.9); MEAN CELL VOLUME 95.8 fl (80-96); MEAN PLT VOLUME 7.2 fl (7.5-11.1); MONO % 8.7 % (3.8-10.2); NEUT % 77.2 % (42.8-82.8); PLATELET COUNT 579 K/MM3 (134-434); RBC 3.87 M/mm3 (4.00-5.60); RDW 14.3 % (11.9-15.9); WHITE BLOOD COUNT 9.2 K/mm3 (4.0-10.0)
[2019-03-02 15:06] LABS: ALBUMIN 2.6 g/dl (3.4-5.0); ALK PHOS 182 U/L (45-117); ANION GAP 7 MMOL/L (8-16); BILIRUBIN,TOTAL 0.2 mg/dL (0.2-1); BLOOD UREA NITROGEN 28 mg/dL (7-18); CALCIUM 9.4 mg/dL (8.5-10.1); CHLORIDE 104 mmol/L (98-107); CO2 28 mmol/L (21-32); CREATININE 0.6 mg/dL (0.55-1.3); GLUCOSE,RANDOM 109 mg/dL (74-106); MAGNESIUM 2.4 mg/dL (1.8-2.4); PHOSPHOROUS 3.4 mg/dL (2.5-4.9); POTASSIUM 4.6 mmol/L (3.5-5.1); SGOT/AST 30 U/L (15-37); SGPT/ALT 44 U/L (13-61); SODIUM 139 mmol/L (136-145); TOT PROT 6.6 g/dl (6.4-8.2)
--- NOTE | 2019-03-02 15:07 | PDOC ---
Attending Attestation - Resident Resident Name: Peter Aly - ED Attending Attestation I have performed the following: I have examined & evaluated the patient, The case was reviewed & discussed with the resident, I agree w/resident's findings & plan - HPI HPI: 03/02/19 15:06 84 Y/O M with PMHx HTN, hypothyroidism, GERD, BPH, Parkinson's disease ( ambulates with walker on baseline), Paroxysmal Atrial Fibrillation, and Right Bundle Branch Block, Small Bowel Necrosis/Perforation, S/P ORALIA, partial colectomy with ostomy and Jejunostomy tube, Presenting from [facility] with J tube dysfunction, unable to be flushed or used since last night. - Physicial Exam PE: 03/02/19 15:05 Agree with the resident's HPI and PE as documented in the electronic medical record. NAD, well appearing, PERRL, EOMI, pale conjunctiva, anicteric; neck supple. lungs clear, irreg irregular, abdomen soft nontender. mid vertical abdominal wound with packing, J tube sutured in place, unable to flush. ROSSI x4, no focal neuro deficits. No peripheral edema. pale color, at baseline per family - Medical Decision Making 03/02/19 15:07 history and physical as documented VS reviewed wnl. abdomen soft, open packed mid abdomen wound, J tube sutured in place, no s/s infection, no peritoneal findings labs and lytes normal. txs active. J tube flushed attempted, unsuccessful, given time frame <6 weeks, stoma not fully formed IR to re-insert/replace the tube with developing stoma. consult to Dr Grimes, primary surgeon, IR consulted returned to department from IR suite at 5pm, J tube replaced, 16 [place] pigtail , patency confirmed and pt tolerated procedure. bladder scan - 150cc, pt able to void, no retention, no catheter needed. site covered with gauze, repeat VS normal, no fever, no systemic sx, no respiratory sx or hypoxia. discharge back to rehab, [facility] with family member informed, results provided. J tube care instructions provided. 03/02/19 17:11 03/03/19 11:25 03/03/19 11:26
[2019-03-02 15:35] LABS: ANISOCYTOSIS 0; MACROCYTOSIS 1+; PLATELET ESTIMATE INCREASED
[2019-03-02 18:02] VITALS: TEMP 97.1
[2019-03-02 18:05] LABS: PH,URINE 5.5 (5.0-8.0); URINE APPEARANCE CLEAR; URINE BILIRUBIN NEGATIVE (NEGATIVE); URINE COLOR YELLOW; URINE GLUCOSE (UA) NEGATIVE (NEGATIVE); URINE KETONE NEGATIVE (NEGATIVE); URINE LEUK ESTERASE NEGATIVE (NEGATIVE); URINE NITRITE NEGATIVE (NEGATIVE); URINE PROTEIN NEGATIVE (NEGATIVE); URINE UROBILINOGEN 0.2 mg/dL (0.2-1.0)
[2019-03-02 20:24] VITALS: BP 128/74; PULSE 96
== END 2019-03-02 20:30 | disposition home or self-care (01) ==
LOC: JER 10:26
PROC: 3E0337Z Introduction of Electrolytic and Water Balance Substance into Peripheral Vein, Percutaneous Approach (ICD-10-PCS; principal; 2019-03-02)
PROC: 0D20XUZ Change Feeding Device in Upper Intestinal Tract, External Approach (ICD-10-PCS; 2019-03-02)
PROC: 0D20XUZ Change Feeding Device in Upper Intestinal Tract, External Approach (ICD-10-PCS; 2019-03-02)
DX: T85.598A Other mechanical complication of other gastrointestinal prosthetic devices, implants and grafts, initial encounter (principal); Y73.8 Miscellaneous gastroenterology and urology devices associated with adverse incidents, not elsewhere classified; Y92.122 Bedroom in nursing home as the place of occurrence of the external cause; I10 Essential (primary) hypertension; K21.9 Gastro-esophageal reflux disease without esophagitis; N40.0 Benign prostatic hyperplasia without lower urinary tract symptoms; G20 Parkinson's disease; R26.89 Other abnormalities of gait and mobility; E03.9 Hypothyroidism, unspecified; I69.891 Dysphagia following other cerebrovascular disease; I48.0 Paroxysmal atrial fibrillation; Z79.01 Long term (current) use of anticoagulants; Z99.89 Dependence on other enabling machines and devices; Z93.2 Ileostomy status; M81.8 Other osteoporosis without current pathological fracture
CPT/HCPCS: 36415; 44799; 49451; 71045-TC-FY; 76000-TC-FY; 80053; 81003; 83605; 83735; 84100; 85025; 87040; 87086; 96360; 99281-25; C1729; C1769; C1887

== ENCOUNTER 2022-05-28 19:10 | Emergency (ER) | payer OTHER, MEDICARE ==
[2022-05-28 19:36] VITALS: BP 135/78; PULSE 80; TEMP 98.9; BMI 19.0
== END 2022-05-28 21:06 | disposition home or self-care (01) ==
LOC: FER 19:10
DX: R05.1 Acute cough (principal)
CPT/HCPCS: 71046-TC-FY; 99283-25

== ENCOUNTER 2022-06-05 10:06 | Emergency (ER) | payer OTHER, MEDICARE ==
[2022-06-05 10:46] VITALS: BP 108/51; PULSE 91; RESP 18; TEMP 97.6; BMI 27.5
[2022-06-05] MEDS ORDERED: BEBTELOVIMAB (EUA) 175 MG/2 ML VIAL IVPUSH ONE (11:01)
== END 2022-06-05 13:59 | disposition home or self-care (01) ==
LOC: JER 10:06
DX: U07.1 COVID-19 (principal)
CPT/HCPCS: 99284-25; M0222; Q0222

== ENCOUNTER 2022-06-25 08:25 | Emergency (ER) | payer OTHER, MEDICARE ==
[2022-06-25 08:55] VITALS: BP 0/0; PULSE 0; RESP 0; BMI 22.0
== END 2022-06-25 09:58 | disposition expired ==
LOC: JER 08:25
DX: I46.9 Cardiac arrest, cause unspecified (principal)
CPT/HCPCS: 99291